=== PATIENT | female | born 1965 | race Caucasian/White ===

== ENCOUNTER → 2024-08-13 | Outpatient (CLI) | payer MEDICAID ==
[~2024-08-13] VITALS: Ht 160 cm; Wt 68.0 kg
[~2024-08-13] MED LIST: ADENOSINE 57 MG in GIVE UN-DILUTED 0 ML IV ONE; ADENOSINE 90 MG/30 ML INJ IV ONE
== END | disposition home or self-care (01) ==
LOC: Rad HDHVI 12:42
PROVIDERS: ATTEND Internal Medicine Cardiovascular Disease
DX: E11.9 Type 2 diabetes mellitus without complications (principal); E78.00 Pure hypercholesterolemia, unspecified; R00.2 Palpitations
CPT/HCPCS: 78452; 93005; 96374; 96375; A9500; J0153

== ENCOUNTER 2025-06-03 12:27 | Inpatient (IN) | payer MEDICARE, MEDICAID ==
[~2025-06-03] VITALS: Ht 167.6 cm; Wt 68.4 kg
[2025-06-03 13:00] VITALS: PULSE 90; RESP 14; O2SAT 92
--- NOTE | 2025-06-03 13:18 | DVH ---
CHEST RADIOGRAPH Indication: epigastric pain Technique: XY CHEST PORTABLE COMPARISON: None FINDINGS: Left IJ Perma catheter tip projects over the cavoatrial junction The cardiac silhouette is enlarged. The lungs demonstrate bilateral patchy airspace opacities. The pu lmonary vasculature is prominent. Small bilateral pleural effusions. There is no pneumothorax. IMPRESSION: As above
[2025-06-03 13:21] LABS: Hematocrit 33.1 % (36.0-46.0); Hemoglobin 10.7 g/dL (12.2-16.2); Mean Corpuscular Hemoglobin 28.5 pg (28.0-32.0); Mean Corpuscular Volume 87.8 fL (80.0-100.0); Nucleated Red Blood Cells % 0.0 %
[2025-06-03 13:28] LABS: Potassium 3.6 mmol/L (3.5-5.1)
[2025-06-03 13:29] LABS: Anion Gap 8 (5-15); Carbon Dioxide 27 mmol/L (20-31); Chloride 98 mmol/L (98-107); Sodium 133 mmol/L (136-145)
[2025-06-03 13:30] LABS: Calcium 7.8 mg/dL (8.7-10.4)
[2025-06-03 13:34] LABS: BUN/Creatinine Ratio 7.4 (10.0-20.0); Blood Urea Nitrogen 34 mg/dL (9-23)
[2025-06-03 13:35] LABS: Glucose 484 mg/dL (74-106)
--- NOTE | 2025-06-03 14:01 | ECG ---
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
[2025-06-03] MEDS: ACETAMINOPHEN 325 MG TAB PO ONE (14:11)
[2025-06-03] MEDS: InsuLIN REG 1unit/0.01ml Soln (100units/ml) IV ONE (14:17)
[2025-06-03] MEDS: CEFEPIME 2GM/50ML NS 50 ML IV ONE (14:21)
[2025-06-03] MEDS: AZITHROMYCIN 250 MG TAB PO ONE (14:21)
--- NOTE | 2025-06-03 14:53 | ED.PDOC ---
SOB-HPI HPI Comments This is a 60 year old female FITZ presenting to the ED with chief complaint of flu-like illness. Patient reports that she has been experiencing a cough with associated fever, nasal congestion, nausea, and general malaise for the past 2 days. Patient relays that she is currently on dialysis M,W,F due to having ESRD, finishing her dialysis today prior to coming into the ED. Patient denies any vomiting, diarrhea, abdominal pain, SOB, or chest pain. 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 SETTER Hx Family History Family History: Reviewed,noncontributory to illness Social History Smoker: Non-Smoker Alcohol: Denies ETOH Use Drugs: Denies Drug Use Lives In: Home Constitutional: reports: fever, malaise; denies: chills, diaphoresis, fatigue, sweats, weakness, others EENTM: reports: nose congestion; denies: blurred vision, double vision, ear bleeding, ear discharge, ear drainage, ear pain, ear ringing, eye pain, eye redness, hearing loss, mouth pain, mouth swelling, nasal discharge, nose bleeding, nose pain, photophobia, tearing, throat pain, throat swelling, voice changes, others Respiratory: reports: cough; denies: hemoptysis, orthopnea, SOB at rest, shortn ess of breath, SOB with excertion, stridor, wheezing, others Cardiovascular: denies: chest pain, dizzy spells, diaphoresis, Dyspnea on exertion, edema, irregular heart beat, left arm pain, lightheadedness, palpitations, PND, syncope, others Gastrointestinal: reports: nausea; denies: abdomen distended, abdominal pain, blood streaked bowels, constipated, diarrhea, dysphagia, difficulty swallowing, hematemesis, melena, poor appetite, poor fluid intake, rectal bleeding, rectal pain, vomiting, others Genitourinary: denies: abnormal vagina bleeding, burning, dyspareunia, dysuria, flank pain, frequency, hematuria, incontinence, pain, , vagina discharge, urgency, others Neurological: denies: dizziness, fainting, headache, left sided numbness, left sided weakness, numbness, paresthesia, pre-existing deficit, right sided numbness, right sided weakness, seizure, speech problems, tingling, tremors, weakness, others Musculoskeletal: denies: back pain, gout, joint pain, joint swelling, muscle pain, muscle stiffness, neck pain, others Integumetry: denies: bruises, change in color, change in hair/nails, dryness, laceration, lesions, lumps, rash, wounds, others Allergic/Immunocompromised: denies: Difficulty Healing, Frequent Infections, Hives, Itching, others Hematologic/Lymphatic: denies: anemia, blood clots, easy bleeding, easy bruising, swollen glands, others Endocrine: denies: excessive hunger, excessive sweating, excessive thirst, excessive urination, flushing, intolerance to cold, intolerance to heat, unexplained weight gain, unexplained weight loss, others Psychiatric: denies: anxiety, bipolar disorder, depression, hopeless, panic disorder, schizophrenia, sleepless, suicidal, others All Other Systems: Reviewed and Negative Physical Exam General Appearance: No Apparent Distress, Other (Pleasantly confused) HEENT: Normal ENT Inspection, Pharynx Normal, TMs Normal Neck: Full Range of Motion, Non-Tender, Normal, Normal Inspection Respiratory: Chest Non-Tender, Lungs Clear, No Accessory Muscle Use, No Respiratory Distress, Normal Breath Sounds Cardiovascular: No Edema, No JVD, No Murmur, No Gallop, Normal Peripheral Pulses, Regular Rate/Rhythm Breast Exam: Deferred Gastrointestinal: No Organomegaly, Non Tender, No Pulsatile Mass, Normal Bowel Sounds, Soft Genitalia: Deferred Pelvic: Deferred Rectal: Deferred Extremities: No calf tenderness, Normal capillary refill, Normal inspection, Normal range of motion, Non-tender, No pedal edema Musculoskeletal : Apperance: Normal Neurologic: Alert, materials mgmt tech II-XII nml as Tested, No Motor Deficits, Normal Affect, Normal Mood, No Sensory Deficits Cerebellar Function: Normal Reflexes: Normal Skin: Dry, Normal Color, Warm Lymphatic: No Adenopathy Was a procedure done? Was a procedure done?: No Differential Dx Differential Diagnosis: CHF, COPD, Pneumonia, Sinusitis, URI X-Ray, Labs, Meds, VS Vital Signs Date Time Temp Pulse Resp B/P (MAP) Pulse Ox O2 Delivery O2 Flow Rate FiO2 06/03/25 15:08 99.0 06/03/25 15:00 99.0 85 17 147/79 (101) 95 99.0 06/03/25 14:11 100.8 06/03/25 13:00 100.8 90 14 160/92 (114) 92 100.8 06/03/25 13:00 90 14 92 Room Air* 0 21 06/03/25 12:48 90 12 160/92 (114) 92 06/03/25 12:36 88 06/03/25 12:33 98.2 82 18 192/103 (132) 99 98.2 Lab Test 06/03/25 14:15 06/03/25 12:38 Range/Units Lactic Acid Level 1.4 0.4-2.0 mmol/L White Blood Count 11.6 H 4.4-10.8 10^3/uL Red Blood Count 3.77 L 4.0-5.20 10^6/uL Hemoglobin 10.7 L 12.2-16.2 g/dL Hematocrit 33.1 L 36.0-46.0 % Mean Corpuscular Volume 87.8 80.0-100.0 fL Mean Corpuscular Hemoglobin 28.5 28.0-32.0 pg Mean Corpuscular Hemoglobin Concent 32.5 32.0-36.0 g/dL Red Cell Distribution Width 18.1 H 11.8-14.3 % Platelet Count 223 140-450 10^3/uL Mean Platelet Volume 7.5 6.9-10.8 fL Neutrophils (%) (Auto) 94.4 H 37.0-80.0 % Lymphocytes (%) (Auto) 2.9 L 10.0-50.0 % Monocytes (%) (Auto) 2.2 0.0-12.0 % Eosinophils (%) (Auto) 0.2 0.0-7.0 % Basophils (%) (Auto) 0.3 0.0-2.0 % Neutrophils # (Auto) 10.9 H 1.6-8.6 10 ^3/uL Lymphocytes # (Auto) 0.3 L 0.4-5.4 10 ^3/uL Monocytes # (Auto) 0.3 0-1.3 10 ^3/uL Eosinophils # (Auto) 0 0-0.8 10 ^3/uL Basophils # (Auto) 0 0-0.2 10 ^3/uL Nucleated Red Blood Cells 0.0 % Sodium Level 133 L 136-145 mmol/L Potassium Level 3.6 3.5-5.1 mmol/L Chloride Level 98 98-107 mmol/L Carbon Dioxide Level 27 20-31 mmol/L Anion Gap 8 5-15 Blood Urea Nitrogen 34 H 9-23 mg/dL Creatinine 4.60 H 0.550-1.02 mg/dL Glomerular Filtration Rate Calc 10 >90 mL/min BUN/Creatinine Ratio 7.4 L 10.0-20.0 Serum Glucose 484 *H 74-106 mg/dL Calcium Level 7.8 L 8.7-10.4 mg/dL Troponin I High Sensitivity 7 </=34 ng/L Current Medications Medications (Trade) Dose Ordered Sig/Laly Route Start Time Stop Time Status Last Admin Insulin Human Regular (InsuLIN R) 10 units ONCE ONCE IV 06/03/25 14:00 06/03/25 14:07 DC 06/03/25 14:17 Vancomycin HCl 200 ml @ 200 mls/hr ONCE ONCE IV 06/03/25 14:00 06/03/25 14:59 DC 06/03/25 15:13 Azithromycin (Zithromax Tablet) 500 mg ONCE ONCE PO 06/03/25 14:00 06/03/25 14:07 DC 06/03/25 14:21 Cefepime HCl 50 ml @ 50 mls/hr ONCE ONCE IV 06/03/25 14:00 06/03/25 14:59 DC 06/03/25 14:21 Acetaminophen (Tylenol Tablet) 650 mg ONCE ONCE PO 06/03/25 14:00 06/03/25 14:07 DC 06/03/25 14:11 Time of 1ST Reevaluation: 15:51 Reevaluation 1ST: Unchanged Patient Education/Counseling: Diagnosis, Treatment Family Education/Counseling: No Family Present SEPSIS Sepsis Screen Date sepsis recognized/suspect: Jun 03, 2025 Time Sepsis recognized/suspect: 1233 Recent Procedure: No On Antibiotic Therapy: No Respiratory Rate >20: No Heart Rate >90: No Temp<36 C (96.8 F) or >38.3 C: No SBP <90 or MAP <65 mmHG: No New Acute Mental Status Change: No Is the patient on CPAP, BIPAP,: No Physician Orders Chest Portable (06/03/25 12:44) Blood Culture (06/03/25 13:57) Vital Signs Date Time Temp Pulse Resp B/P (MAP) Pulse Ox O2 Delivery O2 Flow Rate FiO2 06/03/25 15:08 99.0 06/03/25 15:00 99.0 85 17 147/79 (101) 95 99.0 06/03/25 14:11 100.8 06/03/25 13:00 100.8 90 14 160/92 (114) 92 100.8 06/03/25 13:00 90 14 92 Room Air* 0 21 06/03/25 12:48 90 12 160/92 (114) 92 06/03/25 12:36 88 06/03/25 12:33 98.2 82 18 192/103 (132) 99 98.2 Laboratory Tests Test 06/03/25 12:38 06/03/25 14:15 White Blood Count 11.6 10^3/uL (4.4-10.8) H Lactic Acid Level 1.4 mmol/L (0.4-2.0) Medications Medications Dose Ordered Sig/Laly Route Start Time Stop Time Status Last Admin Dose Admin Acetaminophen 650 mg ONCE ONCE PO 06/03/25 14:00 06/03/25 14:07 DC 06/03/25 14:11 Azithromycin 500 mg ONCE ONCE PO 06/03/25 14:00 06/03/25 14:07 DC 06/03/25 14:21 Cefepime HCl 50 ml @ 50 mls/hr ONCE ONCE IV 06/03/25 14:00 06/03/25 14:59 DC 06/03/25 14:21 Insulin Human Regular 10 units ONCE ONCE IV 06/03/25 14:00 06/03/25 14:07 DC 06/03/25 14:17 Vancomycin HCl 200 ml @ 200 mls/hr ONCE ONCE IV 06/03/25 14:00 06/03/25 14:59 DC 06/03/25 15:13 Departure 1 Departure Time of Disposition: 15:29 (Patient presents with concern for sepsis likely secondary to pneumonia. Patient is a volume overloaded and we will not give patient a volume load.) Impression: Primary Impression: Pneumonia Qualified Codes: J18.9 - Pneumonia, unspecified organism Additional Impressions: Acute metabolic encephalopathy ESRD (end stage renal disease) Disposition: 09 ADMITTED INPATIENT Admit to: Med Surg Condition: Guarded Critical Care Note Critical Care Time?: Yes Critical care comment: Concern for sepsis Authorized and Performed by: Matty Serrano MD Total critical care time: Approximately 44 minutes Due to a high probability of clinically significant, life threatening deterioration, the patient required my highest level of preparedness to intervene emergently and I personally spent this critical care time directly and personally managing the patient. This critical care time included obtaining a history; examining the patient; pulse oximetry; ordering and review of studies; arranging urgent treatment with development of a management plan; evaluation of patient's response to treatment; frequent reassessment; and, discussions with other providers. This critical care time was performed to assess and manage the high probability of imminent, life-threatening deterioration that could result in multi-organ failure. It was exclusive of separately billable procedures and treating other patients and teaching time. Please see my other sections and the rest of the note for further information on patient assessment and treatment. Stability Stability form required: No Heart Score Heart Score: Heart Score Response (Comments) Value History N/A 0 EKG N/A 0 Age N/A 0 Risk Factors N/A 0 Troponin N/A 0 Total 0 I personally scribed for MATTY SERRANO MD ([email or web address]) on 06/03/25 at 14:53. Electronically submitted by Dhruv Barnes ([email or web address]). MATTY SERRANO MD Jun 03, 2025 14:53
[2025-06-03] MEDS: VANCOMYCIN 1GM/200ML PM 200 ML IV ONE (15:13)
[2025-06-03] MEDS ORDERED: DOCUSATE SOD 100 MG CAP PO PRN (16:15)
[2025-06-03] MEDS ORDERED: DEXTROSE (50%) 50ML SYRG IV PRN (16:15)
[2025-06-03] MEDS ORDERED: NITROGLYCERIN 0.4 MG SL TAB SL PRN (17:15)
[2025-06-03] MEDS ORDERED: MORPHINE SULFATE INJ 2 MG/ml SYRG IV PRN (17:15)
--- NOTE | 2025-06-03 17:29 | DVHHP2 ---
History of Present Illness Reason for Visit: Pneumonia, unspecified organism History of Present Illness The patient is a 60-year-old female with past medical history of end-stage renal disease on hemodialysis --, hyperlipidemia, DM, anemia, and hypertension who presented to [facility] ED with complaint of fever. Patient reports she has been experiencing fever, associated with cough, nasal congestion, nausea, and general malaise for the past 2 days. Patient was seen and evaluated in the ED, laboratory data shows WBC 11.6, hemoglobin 10.7, hematocrit 33.1, platelets 223, sodium 133, potassium 3.6, BUN 34, creatinine 4.6, glucose 484, calcium 7.8, troponin 7, blood pressure 147/79, heart rate 85, temperature 100.8 F trending down to 99.0 F, O2 saturation 95% on room air. Chest x-ray revealing left IJ Perma catheter tips project over the cavoatrial junction. Please see medication orders section in the computer. On my assessment, the patient denied chest pain, no headache, no dizziness, no diaphoresis, no shortness of breath, no nausea, no vomiting, no fever, no chills. Patient was admitted for further evaluation and medical management. Past Medical History ESRD, HLD, HTN, DM, Anemia Past Surgical History Left IJ Perma catheter Family History Reviewed, noncontributory to the management of this case. Past Social History The patient lives at home, denies smoking, alcohol or illicit drugs abuse. Review of Systems Constitutional: Yes: Fever, Weakness; No: Chills, Sweats, Malaise, Other Eyes: No: Pain, Vision change, Conjunctivae inflammation, Eyelid inflammation, Other, Redness ENT: No: Ear pain, Ear discharge, Nose pain, Nose discharge, Nose congestion, Mouth pain, Mouth swelling, Throat pain, Throat swelling, Other Respiratory: No: Cough, Dry, Shortness of breath, SOB with excertion, Wheezing, Hemoptysis, Pleuritic Pain, Sputum, Wheezing, Other Cardiovascular: Other (Left IJ Perma catheter.); No: Chest Pain, Palpitations, Orthopnea, Paroxysmal Noc. Dyspnea, Edema, Lt Headedness Gastrointestinal: Nausea, Vomiting; No: Abdominal Pain, Diarrhea, Constipation, Melena, Hematochezia, Other Genitourinary: No Dysuria, No Frequency, No Incontinence, No Hematuria, No Retention; Other (On hemodialysis) Musculoskeletal: No: other, neck pain, shoulder pain, arm pain, back pain, hand pain, leg pain, foot pain Skin: No: Rash, Lesions, Jaundice, Bruising, Other Neurological: No: Weakness, Numbness, Incoordination, Change in speech, Confusion, Seizures, Other Allergies: Coded Allergies: No Known Drug Allergy (Verified Allergy, Unknown, 08/13/24) Medications Current Medications Medications Dose Ordered Sig/Laly Route Start Time Stop Time Status Last Admin Dose Admin Azithromycin 250 ml @ 125 mls/hr DAILY IV 06/04/25 10:00 UNV Ceftriaxone Sodium 50 ml @ 100 mls/hr DAILY@09 IV 06/04/25 09:00 Multivit/Ca Carb/ B Cmplx/FA/Prenat 1 tab DAILY PO 06/04/25 10:00 Sevelamer HCl 800 mg TIDWM PO 06/03/25 18:00 Aspirin 81 mg DAILY PO 06/04/25 10:00 Atorvastatin Calcium 20 mg HS PO 06/03/25 22:00 Famotidine 20 mg DAILY IV 06/04/25 10:00 UNV Metoprolol Tartrate 50 mg BID PO 06/03/25 22:00 Hydralazine HCl 10 mg Q6HP PRN IV 06/03/25 16:15 Sodium Chloride 10 ml Q8HR IV 06/03/25 22:00 Acetaminophen/ Hydrocodone Bitart 1 tab Q4HP PRN PO 06/03/25 16:15 Ondansetron HCl 4 mg Q4HP PRN IV 06/03/25 16:15 UNV Docusate Sodium 100 mg BIDPRN PRN PO 06/03/25 16:15 Acetaminophen 650 mg Q6HP PRN PO 06/03/25 16:15 Diagnostic Test (Pha) 1 strip IQ4HR 06/03/25 20:00 Insulin Human Regular IQ4HR SC 06/03/25 20:00 Dextrose 50 ml UD PRN IV 06/03/25 16:15 Exam Vital Signs Vital Signs Date Time Temp Pulse Resp B/P (MAP) Pulse Ox O2 Delivery O2 Flow Rate FiO2 06/03/25 15:08 99.0 06/03/25 15:00 85 17 147/79 (101) 95 06/03/25 13:00 Room Air* 0 21 General Appearance: Alert, Oriented X3, Cooperative, No acute distress HEENT: Atraumatic, PERRLA, EOMI, Mucous membr. moist/pink Respiratory: Normal air movement Cardiovascular: Regular rate, Normal S1, Normal S2, No murmurs Abdominal: Normal bowel sounds, Soft, No tenderness, No hepatospenomegaly, No masses Extremities: No clubbing, No cyanosis, No edema, Normal pulses, No tenderness/swelling Skin: No rashes, No breakdown, No significant lesion Neuro: Normal speech, Normal tone, Sensation intact, Cranial nerves 3-12 NL, Reflexes 2+, Other (Generalized weakness) Psych/Mental Status: Mental status NL, Mood NL Labs/Xrays Labs Test 06/03/25 14:15 06/03/25 12:38 Range/Units Lactic Acid Level 1.4 0.4-2.0 mmol/L White Blood Count 11.6 H 4.4-10.8 10^3/uL Red Blood Count 3.77 L 4.0-5.20 10^6/uL Hemoglobin 10.7 L 12.2-16.2 g/dL Hematocrit 33.1 L 36.0-46.0 % Mean Corpuscular Volume 87.8 80.0-100.0 fL Mean Corpuscular Hemoglobin 28.5 28.0-32.0 pg Mean Corpuscular Hemoglobin Concent 32.5 32.0-36.0 g/dL Red Cell Distribution Width 18.1 H 11.8-14.3 % Platelet Count 223 140-450 10^3/uL Mean Platelet Volume 7.5 6.9-10.8 fL Neutrophils (%) (Auto) 94.4 H 37.0-80.0 % Lymphocytes (%) (Auto) 2.9 L 10.0-50.0 % Monocytes (%) (Auto) 2.2 0.0-12.0 % Eosinophils (%) (Auto) 0.2 0.0-7.0 % Basophils (%) (Auto) 0.3 0.0-2.0 % Neutrophils # (Auto) 10.9 H 1.6-8.6 10 ^3/uL Lymphocytes # (Auto) 0.3 L 0.4-5.4 10 ^3/uL Monocytes # (Auto) 0.3 0-1.3 10 ^3/uL Eosinophils # (Auto) 0 0-0.8 10 ^3/uL Basophils # (Auto) 0 0-0.2 10 ^3/uL Nucleated Red Blood Cells 0.0 % Sodium Level 133 L 136-145 mmol/L Potassium Level 3.6 3.5-5.1 mmol/L Chloride Level 98 98-107 mmol/L Carbon Dioxide Level 27 20-31 mmol/L Anion Gap 8 5-15 Blood Urea Nitrogen 34 H 9-23 mg/dL Creatinine 4.60 H 0.550-1.02 mg/dL Glomerular Filtration Rate Calc 10 >90 mL/min BUN/Creatinine Ratio 7.4 L 10.0-20.0 Serum Glucose 484 *H 74-106 mg/dL Calcium Level 7.8 L 8.7-10.4 mg/dL Troponin I High Sensitivity 7 </=34 ng/L PATIENT: ADRYAN LACY ACCT: [id number] UNIT: [id number] : 1965 LOC: ER ROOM / BED: / AGE / SEX: 60 / F ADM STATUS: REG ER SERVICE 1244 ORDERING PHYSICIAN: MATTY GARDUNO MD PROCEDURE(s): CXRP - CHEST PORTABLE REASON: epigastric pain ORDER NUMBER(s): [id number], ACCESSION NUMBER(s): [id number] CHEST RADIOGRAPH Indication: epigastric pain Technique: XY CHEST PORTABLE COMPARISON: None FINDINGS: Left IJ Perma catheter tip projects over the cavoatrial junction The cardiac silhouette is enlarged. The lungs demonstrate bilateral patchy airspace opacities. The pulmonary vasculature is prominent. Small bilateral pleural effusions. There is no pneumothorax. SEPSIS Sepsis Screen Date sepsis recognized/suspect: Jun 03, 2025 Time Sepsis recognized/suspect: 1330 Recent Procedure: No On Antibiotic Therapy: No Respiratory Rate >20: No Heart Rate >90: Yes Temp<36 C (96.8 F) or >38.3 C: Yes SBP <90 or MAP <65 mmHG: No New Acute Mental Status Change: Yes Is the patient on CPAP, BIPAP,: No Physician Orders Chest Portable (06/03/25 12:44) Blood Culture (06/03/25 13:57) Azithromycin 500mg/ 250ml (Zithromax 50 (06/04/25 10:00) Ceftriaxone 1gm/50ml D5w (Rocephin) (06/04/25 09:00) B-Complex W/ C & Folic Tablet (Nephro-Vi (06/04/25 10:00) Sevelamer (Renagel) (06/03/25 18:00) *[facility] (06/03/25 16:13) Aspirin Tablet (06/04/25 10:00) Atorvastatin (Lipitor) (06/03/25 22:00) Famotidine Injection (Pepcid Injection) (06/04/25 10:00) Metoprolol Tartrate Tablet (Lopressor Ta (06/03/25 22:00) Hydralazine Injection (Apresoline Inject (06/03/25 16:15) Allergies (06/03/25 16:13) Code Status (06/03/25 16:13) Renal Standard(2gna,3gk,Lopho) (06/03/25 Dinner) Sodium Chloride Lock (Saline Lock Ns) (06/03/25 22:00) Oxygen Per Hour (06/03/25 16:13) Hydrocodone-Acet 5/325mg Tab ([place] 5/32 (06/03/25 16:15) Ondansetron Hcl (Zofran) (06/03/25 16:15) Docusate Sodium Capsule (Colace Capsule) (06/03/25 16:15) Complete Blood Count (06/04/25 04:00) Comprehensive Metabolic Panel (06/04/25 04:00) Condition: Serious (06/03/25 16:13) Acetaminophen Tablet (Tylenol Tablet) (06/03/25 16:15) Bedrest With Bathroom Privileg (06/03/25 16:13) Sequential Compression Device (06/03/25 ) Glucose Blood (Accu-Chek Comfort Curve T (06/03/25 20:00) Insulin R (Human) (Insulin R) (06/03/25 20:00) Dextrose 50% Syringe (06/03/25 16:15) Vital Signs Date Time Temp Pulse Resp B/P (MAP) Pulse Ox O2 Delivery O2 Flow Rate FiO2 06/03/25 15:08 99.0 06/03/25 15:00 99.0 85 17 147/79 (101) 95 99.0 06/03/25 14:11 100.8 06/03/25 13:00 100.8 90 14 160/92 (114) 92 100.8 06/03/25 13:00 90 14 92 Room Air* 0 21 06/03/25 12:48 90 12 160/92 (114) 92 06/03/25 12:36 88 06/03/25 12:33 98.2 82 18 192/103 (132) 99 98.2 Laboratory Tests Test 06/03/25 12:38 06/03/25 14:15 White Blood Count 11.6 10^3/uL (4.4-10.8) H Lactic Acid Level 1.4 mmol/L (0.4-2.0) Medications Medications Dose Ordered Sig/Laly Route Start Time Stop Time Status Last Admin Dose Admin Acetaminophen 650 mg ONCE ONCE PO 06/03/25 14:00 06/03/25 14:07 DC 06/03/25 14:11 650 MG Azithromycin 500 mg ONCE ONCE PO 06/03/25 14:00 06/03/25 14:07 DC 06/03/25 14:21 500 MG Cefepime HCl 50 ml @ 50 mls/hr ONCE ONCE IV 06/03/25 14:00 06/03/25 14:59 DC 06/03/25 14:21 50 MLS/HR Insulin Human Regular 10 units ONCE ONCE IV 06/03/25 14:00 06/03/25 14:07 DC 06/03/25 14:17 10 UNITS Vancomycin HCl 200 ml @ 200 mls/hr ONCE ONCE IV 06/03/25 14:00 06/03/25 14:59 DC 06/03/25 15:13 200 MLS/HR Assessment/Plan Assessment/Plan Pneumonia, unspecified organism Generalized weakness Acute metabolic encephalopathy ESRD (end stage renal disease) Diabetes mellitus with hyperglycemia Plan 1. Admit to telemetry units 2. Breathing treatment 3. Pain control management 4. IV antibiotic management 5. Management of fluids and electrolytes 6. Consultation for Nephrology 7. Diagnostic test chest x-ray 8. DVT prophylaxis on aspirin 9. Repeat labs CBC, CMP in a.m. 10. Home medication reviewed and reconciled 11. Continue with current medical management 12. Treatment plan discussed with patient and RN. Patient verbalized understanding. Plan discussed with: Patient, Other (RN) My Orders Orders - ALON GARDNER DNP Procedure Category Date Status Time Azithromycin 500mg/ PHA 06/04/25 Logged 250ml (Zithromax 50 10:00 Ceftriaxone 1gm/50ml PHA 06/04/25 In Process D5w (Rocephin) 09:00 B-Complex W/ C & PHA 06/04/25 In Process Folic Tablet 10:00 Sevelamer (Renagel) PHA 06/03/25 In Process 18:00 *[facility] CONS 06/03/25 Transmitted -[place] 16:13 Aspirin Tablet PHA 06/04/25 In Process 10:00 Atorvastatin (Lipitor) PHA 06/03/25 In Process 22:00 Famotidine Injection PHA 06/04/25 Logged (Pepcid Injection) 10:00 Metoprolol Tartrate PHA 06/03/25 In Process Tablet (Lopressor Ta 22:00 Hydralazine Injection PHA 06/03/25 In Process (Apresoline Inject 16:15 Allergies BOUCHRA 06/03/25 In Process 16:13 Code Status CODE 06/03/25 Transmitted 16:13 Renal DIET 06/03/25 Transmitted Standard(2gna,3gk,Lopho) Dinner Sodium Chloride Lock PHA 06/03/25 In Process (Saline Lock Ns) 22:00 Oxygen Per Hour RT 06/03/25 Transmitted 16:13 Hydrocodone-Acet PHA 06/03/25 In Process 5/325mg Tab ([place] 16:15 Ondansetron Hcl PHA 06/03/25 Logged (Zofran) 16:15 Docusate Sodium PHA 06/03/25 In Process Capsule (Colace 16:15 Complete Blood Count LAB 06/04/25 Verified 04:00 Comprehensive LAB 06/04/25 Verified Metabolic Panel 04:00 Condition: Serious BOUCHRA 06/03/25 In Process 16:13 Acetaminophen Tablet PHA 06/03/25 In Process (Tylenol Tablet) 16:15 Bedrest With Bathroom BOUCHRA 06/03/25 In Process Privileg 16:13 Sequential BOUCHRA 06/03/25 In Process Compression Device Glucose Blood PHA 06/03/25 In Process (Accu-Chek Comfort 20:00 Insulin R (Human) PHA 06/03/25 In Process (Insulin R) 20:00 Dextrose 50% Syringe PHA 06/03/25 In Process 16:15 Problem List: (1) Pneumonia, unspecified organism (2) Generalized weakness (3) Acute metabolic encephalopathy (4) ESRD (end stage renal disease) (5) Diabetes mellitus with hyperglycemia Date of Service: Jun 03, 2025 Billing Provider: ALON GARDNER DNP Common Visit Codes: [id number] INP/OBS CARE (HIGH) ALON GARDNER DNP Jun 03, 2025 17:29
[2025-06-03] MEDS: SEVELAMER 800 MG TAB PO SCH (18:19)
[2025-06-03 19:50] VITALS: PULSE 80; RESP 11; O2SAT 93
[2025-06-03] MEDS: ACCU-CHEK COMFORT CURVE STRIP VI SCH (20:00)
[2025-06-03] MEDS: InsuLIN REG 1unit/0.01ml Soln (100units/ml) SC SCH (20:00)
[2025-06-03] MEDS: AZITHROMYCIN 500MG/ 250ML 250 ML IV SCH (20:34)
[2025-06-03] MEDS: METOPROLOL TARTRATE 50 MG TAB PO SCH (22:06)
[2025-06-03] MEDS: SODIUM CHLOR 0.9% PF (SALINE LOCK) 10ML VIAL/SYR IV SCH (22:06)
[2025-06-03] MEDS: ATORVASTATIN 20 MG TAB PO SCH (22:06)
[2025-06-03] MEDS: ONDANSETRON HCL 4 MG/2 ML VIAL IV PRN (23:22)
[2025-06-03 23:55] VITALS: BP 157/85; PULSE 67; RESP 17; TEMP 98.7; O2SAT 96
[2025-06-04 01:27] VITALS: BP 157/85; PULSE 69; RESP 17; TEMP 98.7; O2SAT 96
[2025-06-04] MEDS: hydrALAZINE HCL 20 MG/ML VL IV PRN (03:03)
[2025-06-04 05:00] VITALS: BP 135/74; PULSE 72; RESP 17; TEMP 98.4; O2SAT 96
[2025-06-04 06:27] LABS: Alanine Aminotransferase 14 U/L (7-40); Alkaline Phosphatase 68 U/L (46-116); Anion Gap 11 (5-15); BUN/Creatinine Ratio 8.6 (10.0-20.0); Calcium 8.9 mg/dL (8.7-10.4); Carbon Dioxide 24 mmol/L (20-31); Chloride 100 mmol/L (98-107); Potassium 4.2 mmol/L (3.5-5.1)
[2025-06-04 06:29] LABS: Albumin 3.2 g/dL (3.2-4.8); Bilirubin, Total 0.2 mg/dL (0.2-1.0); Blood Urea Nitrogen 45 mg/dL (9-23); Sodium 135 mmol/L (136-145); Total Protein 5.6 g/dL (5.7-8.2)
[2025-06-04 07:03] LABS: Glucose 94 mg/dL (74-106)
[2025-06-04 08:00] VITALS: PULSE 76; RESP 20; O2SAT 95
[2025-06-04] MEDS: CALCIUM ACETATE 667 MG CAP PO SCH (08:00)
[2025-06-04 09:00] VITALS: BP 153/88; PULSE 76; RESP 20; TEMP 98; O2SAT 95
[2025-06-04] MEDS: cefTRIAXone 1GM/50ML D5W 50 ML IV SCH (09:00)
[2025-06-04] MEDS: B-COMPLEX W/ C & FOLIC ACID(NEPHROVITE TAB) PO SCH (09:18)
[2025-06-04] MEDS: FAMOTIDINE (10MG/ML) 2ML VL IV SCH (09:18)
[2025-06-04] MEDS: ACETAMINOPHEN 325 MG TAB PO PRN (09:19)
[2025-06-04] MEDS ORDERED: METO-158 PO (11:43)
--- NOTE | 2025-06-04 12:35 | DVHPN2 ---
Subjective Still confused, no cough, no other pain endorsed. Reviewed: H&P Changes from previous H/P or p: No Changes General: Per HPI Eyes: No Pain, No Vision change, No Conjunctivae inflammation, No Eyelid inflammation, No Other, No Redness ENT: No Ear pain, No Ear discharge, No Nose pain, No Nose discharge, No Nose congestion, No Mouth pain, No Mouth swelling, No Throat pain, No Throat swelling, No Other Cardiovascular: No Chest Pain, No Palpitations, No Orthopnea, No Paroxysmal Noc. Dyspnea, No Edema, No Lt Headedness; Other (Left IJ Perma catheter.) Respiratory: No Cough, No Dry, No Shortness of breath, No SOB with excertion, No Wheezing, No Hemoptysis, No Pleuritic Pain, No Sputum, No Other Gastrointestinal: Nausea, Vomiting; No Abdominal Pain, No Diarrhea, No Constipation, No Melena, No Hematochezia, No Other Genitourinary: No Dysuria, No Frequency, No Incontinence, No Hematuria, No Retention; Other (On hemodialysis) Musculoskeletal: No other, No neck pain, No shoulder pain, No arm pain, No back pain, No hand pain, No leg pain, No foot pain Skin: No Rash, No Lesions, No Jaundice, No Bruising, No Other Objective Vitals Vital Signs Date Time Temp Pulse Resp B/P (MAP) Pulse Ox O2 Delivery O2 Flow Rate FiO2 06/04/25 09:19 76 153/88 06/04/25 09:00 98.0 20 95 98.0 06/04/25 08:00 Room Air* 0 21 Intake/Output Intake and Output 06/04/25 07:00 Intake Total 410 ml Balance 410 ml Intake Oral 160 ml IV Total 250 ml # Voids 1 Exam GEN: Healthy appearing, well-developed, NAD. HEENT: NC/AT; MMM. CV: RRR, no m/r/g. LUNGS: Decreased air entry in all lung mehta. ABD: Soft, NT/ND, NBS, no masses or organomegaly. EXT: skin Warm, well perfused. no rashes. No clubbing, cyanosis, or edema. NEURO: Ambulating with no limitations. No focal deficits. Medications Current Medications Medications Dose Ordered Sig/Laly Route Start Time Stop Time Status Last Admin Dose Admin Ceftriaxone Sodium 50 ml @ 100 mls/hr DAILY@09 IV 06/04/25 09:00 06/04/25 12:23 100 MLS/HR Multivit/Ca Carb/ B Cmplx/FA/Prenat 1 tab DAILY PO 06/04/25 10:00 06/04/25 09:18 1 TAB Sevelamer HCl 800 mg TIDWM PO 06/03/25 18:00 06/03/25 18:19 800 MG Aspirin 81 mg DAILY PO 06/04/25 10:00 06/04/25 09:19 81 MG Atorvastatin Calcium 20 mg HS PO 06/03/25 22:00 06/03/25 22:06 20 MG Famotidine 20 mg DAILY IV 06/04/25 10:00 Metoprolol Tartrate 50 mg BID PO 06/03/25 22:00 06/04/25 09:19 50 MG Hydralazine HCl 10 mg Q6HP PRN IV 06/03/25 16:15 06/04/25 03:03 10 MG Sodium Chloride 10 ml Q8HR IV 06/03/25 22:00 06/04/25 06:28 10 ML Acetaminophen/ Hydrocodone Bitart 1 tab Q4HP PRN PO 06/03/25 16:15 Ondansetron HCl 4 mg Q4HP PRN IV 06/03/25 16:15 06/03/25 23:22 4 MG Docusate Sodium 100 mg BIDPRN PRN PO 06/03/25 16:15 Acetaminophen 650 mg Q6HP PRN PO 06/03/25 16:15 06/04/25 09:19 650 MG Diagnostic Test (Pha) 1 strip IQ4HR 06/03/25 20:00 06/04/25 11:53 1 STRIP Insulin Human Regular IQ4HR SC 06/03/25 20:00 06/04/25 01:51 2 UNITS Dextrose 50 ml UD PRN IV 06/03/25 16:15 Nitroglycerin 0.4 mg Q5MINP PRN SL 06/03/25 17:15 Morphine Sulfate 2 mg Q30M PRN IV 06/03/25 17:15 Calcium Acetate 667 mg TIDWMEALS PO 06/04/25 08:00 Laboratory Results Laboratory Tests 06/03/25 12:38 06/04/25 05:35 Chemistry Test 06/03/25 12:38 06/04/25 05:35 Calcium Level 7.8 mg/dL (8.7-10.4) L 8.9 mg/dL (8.7-10.4) Albumin 3.2 g/dL (3.2-4.8) Total Protein 5.6 g/dL (5.7-8.2) L LFT Test 06/04/25 05:35 Alanine Aminotransferase (ALT) 14 U/L (7-40) Alkaline Phosphatase 68 U/L (46-116) Aspartate Amino Transferase (AST) 34 U/L (13-40) Total Bilirubin 0.2 mg/dL (0.2-1.0) Labs and/or images reviewed: Labs reviewed by me, Image(s) reviewed by me Assessment/Plan Assessment/Plan The patient is a 60-year-old female with past medical history of end-stage renal disease on hemodialysis --, hyperlipidemia, DM, anemia, and hypertension who presented to [facility] ED with complaint of fever. Patient reports she has been experiencing fever, associated with cough, nasal congestion, nausea, and general malaise for the past 2 days. 06/04- patient with history of ESRD, diabetes, hypertension here with fever cough nasal congestion. COVID fluids not done. Admitted for pneumonia. On ceftriaxone. I will add azithromycin. We will get COVID flu. Continue treatment. Nephrology consulted for continuation of dialysis MWF. SSI for diabetes. Continue home medications. Blood cultures were taken. Given chronic dialysis bacteremia is of concern. There is no urine, possible patient is anuric ESRD. -patient is confused, altered A&O x1 unable to answer any ROS questions. there is no missed dialysis days. Daughter endorsed to nurse that patient is not at baseline. We will get workup for encephalopathy. Patient is declining labs, treatments. We will order TSH, ammonia, ABG, UDS, blood drug screen, CMP. Question of alcohol withdrawal or viral encephalitis? Acute toxic metabolic encephalopathy Acute pneumonia, Gram-negative Gram-positive possible ESRD on HD, TTS schedule Hyperlipidemia Diabetes Anemia Hypertension -IV antibiotics -AMS workup -Nephrology consult TTS schedule -Continue home medications liquid diet dvt ppx - lovenox gi ppx - protonix medsurg full code Plan discussed with: Patient Date of Service: Jun 04, 2025 Billing Provider: MELQUIADES TREJO MD Common Visit Codes: [id number] INP/OBS CARE(HIGH) MELQUIADES TREJO MD Jun 04, 2025 12:35
[2025-06-04] MEDS ORDERED: FERR325T20 PO (12:41)
[2025-06-04] MEDS ORDERED: ATOR20TA50 PO (12:41)
[2025-06-04] MEDS ORDERED: INSUINJ37 SC (12:41)
[2025-06-04] MEDS ORDERED: INSLISPI SC (12:41)
[2025-06-04] MEDS ORDERED: FURO40TA4 PO (12:41)
[2025-06-04] MEDS ORDERED: ASPI-543 PO (12:41)
[2025-06-04] MEDS ORDERED: AZITHROMYCIN 500MG/ 250ML 250 ML IV ONE (12:45)
[2025-06-04] MEDS ORDERED: CLON0.1T PO (12:55)
[2025-06-04] MEDS ORDERED: HALOPERIDOL LACTATE 5 MG/ML INJ VIAL IM ONE (14:30)
--- NOTE | 2025-06-04 15:11 | DVHINCON2 ---
Date of service: Jun 04, 2025 Reason for Consultation End-stage renal disease History of Present Illness 60-year-old female unable to obtain history as patient is currently confused. Patient's son at bedside does not know full medical history. Patient presents to the hospital complaining of weakness. It was admitted due to change in mental state and shortness of breath. Nephrology consulted for dialysis. Patient's hospital course thus far has been notable for confusion. Allergies: Coded Allergies: No Known Drug Allergy (Verified Allergy, Unknown, 08/13/24) Home Meds Reported Medications Clonidine Hydrochloride (Clonidine Hcl) 0.1 Mg Tab, 0.1 MG PO BID PRN for SBP>170or DBP>90 for 30 Days, MG 06/04/25 Insulin Lispro (Human) (Humalog) 100 Unit/Ml Inj, 10 UNIT SC TID, INJ 06/04/25 Insulin Glargine (Lantus Solostar) 100 Unit/Ml Inj, 25 UNIT SC HS, INJ 06/04/25 Furosemide (Furosemide) 40 Mg Tab, 40 MG PO DAILY for 30 Days 06/04/25 Ferrous Sulfate (Ferosul) 325 Mg Tab, 325 MG PO DAILY, TAB 06/04/25 Atorvastatin Calcium (ATORVASTATIN CALCIUM) 20 Mg Tab, 1 TAB PO DAILY, #30 TAB 5 Refills 06/04/25 Aspirin (Aspir-Low) 81 Mg Tab, 81 MG PO DAILY for 30 Days, MG 06/04/25 Metoprolol Tartrate (Metoprolol Tartrate) 50 Mg Tab, 50 MG PO BID for 30 Days, MG 06/04/25 Current Medications Current Medications Medications (Trade) Dose Ordered Sig/Laly Route PRN Reason Start Time Stop Time Status Last Admin Azithromycin 250 ml @ 125 mls/hr DAILY IV 06/04/25 10:00 06/03/25 21:41 DC Ceftriaxone Sodium 50 ml @ 100 mls/hr DAILY@09 IV 06/04/25 09:00 Multivit/Ca Carb/ B Cmplx/FA/Prenat (Nephro-Sandra Tablet) 1 tab DAILY PO 06/04/25 10:00 06/04/25 09:18 Sevelamer HCl (Renagel) 800 mg TIDWM PO 06/03/25 18:00 06/03/25 18:19 Aspirin 81 mg DAILY PO 06/04/25 10:00 06/04/25 09:19 Atorvastatin Calcium (Lipitor) 20 mg HS PO 06/03/25 22:00 06/03/25 22:06 Famotidine (Pepcid Injection) 20 mg DAILY IV 06/04/25 10:00 Metoprolol Tartrate (Lopressor Tablet) 50 mg BID PO 06/03/25 22:00 06/04/25 09:19 Sodium Chloride (Saline Lock Ns) 10 ml Q8HR IV 06/03/25 22:00 06/04/25 06:28 Diagnostic Test (Pha) (Accu-Chek Comfort Curve T) 1 strip IQ4HR 06/03/25 20:00 06/04/25 11:53 Insulin Human Regular (InsuLIN R) IQ4HR SC 06/03/25 20:00 06/04/25 01:51 Nitroglycerin (Ntrostat Sublingual) 0.4 mg Q5MINP PRN SL FOR CHEST PAIN 06/03/25 17:15 Morphine Sulfate 2 mg Q30M PRN IV FOR CHEST PAIN 06/03/25 17:15 Calcium Acetate (Phoslo Capsule) 667 mg TIDWMEALS PO 06/04/25 08:00 Azithromycin 250 ml @ 125 mls/hr DAILY IV 06/05/25 10:00 UNV Haloperidol Lactate (Haldol) 5 mg Q6HP PRN IM AGITATION 06/04/25 15:15 Family History: Diabetes mellitus Hypertension Review of Systems Can not obtain due to altered mental state H&P Exam Vital Signs/I&O Vital Sign Date Time Temp Pulse Resp B/P (MAP) Pulse Ox O2 Delivery O2 Flow Rate FiO2 06/04/25 09:19 76 153/88 06/04/25 09:00 98.0 20 95 98.0 06/04/25 08:00 Room Air* 0 21 Intake and Output 06/03/25 06/04/25 19:00 07:00 Intake Total 250 ml 160 ml Balance 250 ml 160 ml Intake Oral 160 ml IV Total 250 ml # Voids 1 Physical Exam Elderly female Not in respiratory distress Breathing comfortably Speaks and answers questions but is confused and incoherent Left tunneled dialysis catheter No pitting edema Abdomen is soft Labs/Diagnostic Data Labs/Diagnostic Data Laboratory Tests Test 06/04/25 15:10 06/04/25 11:26 06/04/25 08:01 06/04/25 07:03 Range/Units Blood Gas Specimen Type Arterial Blood Gas Sample Site Right radial Blood Gas Patient Temperature 37.0 Arterial Blood Date Drawn [id number] Arterial Blood pH 7.497 H 7.350-7.450 Arterial Blood Partial Pressure CO2 27.4 L 32.0-45.0 mmHg Arterial Blood Partial Pressure O2 88.3 83.0-108.0 mmHg Arterial Blood HCO3 20.7 L 21.0-28.0 mmol/L Arterial Blood Oxygen Saturation 96.9 94.0-98.0 % Arterial Blood Base Excess -1.5 -2.0-3.0 mmol/L Arterial Blood Oxyhemoglobin 95.8 94.0-98.0 % Arterial Blood Carboxyhemoglobin 0.8 0.5-1.5 % Arterial Blood Methemoglobin 0.3 0.0-1.5 % Manuel Test Yes Blood Gas Total Hemoglobin 11.10 L 12.0-16.0 g/dL Blood Gas Modality Room air FiO2 % 21.0 POC Glucose 200 H 148 H 114 H 70-106 mg/dl Test 06/04/25 05:35 06/04/25 04:18 06/04/25 01:44 06/03/25 21:53 Range/Units Sodium Level 135 L 136-145 mmol/L Potassium Level 4.2 3.5-5.1 mmol/L Chloride Level 100 98-107 mmol/L Carbon Dioxide Level 24 20-31 mmol/L Anion Gap 11 5-15 Blood Urea Nitrogen 45 #H 9-23 mg/dL Creatinine 5.24 H 0.550-1.02 mg/dL Glomerular Filtration Rate Calc 9 >90 mL/min BUN/Creatinine Ratio 8.6 L 10.0-20.0 Serum Glucose 94 74-106 mg/dL Calcium Level 8.9 8.7-10.4 mg/dL Total Bilirubin 0.2 0.2-1.0 mg/dL Aspartate Amino Transferase (AST) 34 13-40 U/L Alanine Aminotransferase (ALT) 14 7-40 U/L Alkaline Phosphatase 68 46-116 U/L Total Protein 5.6 L 5.7-8.2 g/dL Albumin 3.2 3.2-4.8 g/dL Thyroid Stimulating Hormone (TSH) 1.92 0.55-4.78 uIU/mL POC Glucose 72 156 H 283 H 70-106 mg/dl Test 06/03/25 14:15 06/03/25 12:38 Range/Units Lactic Acid Level 1.4 0.4-2.0 mmol/L White Blood Count 11.6 H 4.4-10.8 10^3/uL Red Blood Count 3.77 L 4.0-5.20 10^6/uL Hemoglobin 10.7 L 12.2-16.2 g/dL Hematocrit 33.1 L 36.0-46.0 % Mean Corpuscular Volume 87.8 80.0-100.0 fL Mean Corpuscular Hemoglobin 28.5 28.0-32.0 pg Mean Corpuscular Hemoglobin Concent 32.5 32.0-36.0 g/dL Red Cell Distribution Width 18.1 H 11.8-14.3 % Platelet Count 223 140-450 10^3/uL Mean Platelet Volume 7.5 6.9-10.8 fL Neutrophils (%) (Auto) 94.4 H 37.0-80.0 % Lymphocytes (%) (Auto) 2.9 L 10.0-50.0 % Monocytes (%) (Auto) 2.2 0.0-12.0 % Eosinophils (%) (Auto) 0.2 0.0-7.0 % Basophils (%) (Auto) 0.3 0.0-2.0 % Neutrophils # (Auto) 10.9 H 1.6-8.6 10 ^3/uL Lymphocytes # (Auto) 0.3 L 0.4-5.4 10 ^3/uL Monocytes # (Auto) 0.3 0-1.3 10 ^3/uL Eosinophils # (Auto) 0 0-0.8 10 ^3/uL Basophils # (Auto) 0 0-0.2 10 ^3/uL Nucleated Red Blood Cells 0.0 % Sodium Level 133 L 136-145 mmol/L Potassium Level 3.6 3.5-5.1 mmol/L Chloride Level 98 98-107 mmol/L Carbon Dioxide Level 27 20-31 mmol/L Anion Gap 8 5-15 Blood Urea Nitrogen 34 H 9-23 mg/dL Creatinine 4.60 H 0.550-1.02 mg/dL Glomerular Filtration Rate Calc 10 >90 mL/min BUN/Creatinine Ratio 7.4 L 10.0-20.0 Serum Glucose 484 *H 74-106 mg/dL Calcium Level 7.8 L 8.7-10.4 mg/dL Troponin I High Sensitivity 7 </=34 ng/L Assessment 60 year old female hx ESRD p/w altered mental state ESRD HTN AMS sepsis Recommend close monitoring and rule out infection Patient requires close supervision due to confusion prevent pulling out dialysis catheter We will arrange for hemodialysis tomorrow if stable Resume blood pressure medications If patient has residual urinary output then recommend straight cath for drug screen Consider neuropsych evaluation. Care time spent 55 minutes Plan discussed with: KENISHA Washburn MD Jun 04, 2025 15:10
[2025-06-04 15:20] LABS: Base Excess -1.5 mmol/L (-2.0-3.0)
[2025-06-04 19:22] LABS: Alanine Aminotransferase 12 U/L (7-40); Albumin 3.4 g/dL (3.2-4.8); Alkaline Phosphatase 77 U/L (46-116); Anion Gap 11 (5-15); BUN/Creatinine Ratio 7.4 (10.0-20.0); Carbon Dioxide 24 mmol/L (20-31); Chloride 100 mmol/L (98-107); Potassium 3.8 mmol/L (3.5-5.1); Total Protein 6.0 g/dL (5.7-8.2)
[2025-06-04 19:27] LABS: Bilirubin, Total 0.2 mg/dL (0.2-1.0); Blood Urea Nitrogen 45 mg/dL (9-23); Calcium 8.6 mg/dL (8.7-10.4); Glucose 208 mg/dL (74-106); Sodium 135 mmol/L (136-145)
[2025-06-04 20:00] VITALS: PULSE 75; RESP 20; O2SAT 95
[2025-06-04] MEDS: HALOPERIDOL LACTATE 5 MG/ML INJ VIAL IM PRN (21:45)
--- NOTE | 2025-06-05 09:47 | DVHPN2 ---
Progress Note Date Seen: Jun 05, 2025 Medical Necessity Reason Pt with a Central, PICC or Fol: Yes The following are medically ne: Central Line Objective vital signs Vital Sign Date Time Temp Pulse Resp B/P (MAP) Pulse Ox O2 Delivery O2 Flow Rate FiO2 06/04/25 22:00 99 06/04/25 20:00 20 95 Room Air* 0 21 06/04/25 10:19 132/74 06/04/25 09:00 98.0 98.0 Total Intake and Output 06/04/25 06/04/25 06/05/25 14:59 22:59 06:59 Intake Total 500 ml 250 ml Balance 500 ml 250 ml medications Current Medications Medications Dose Ordered Sig/Laly Route Start Time Stop Time Status Last Admin Dose Admin Ceftriaxone Sodium 50 ml @ 100 mls/hr DAILY@09 IV 06/04/25 09:00 Multivit/Ca Carb/ B Cmplx/FA/Prenat 1 tab DAILY PO 06/04/25 10:00 06/04/25 09:18 1 TAB Sevelamer HCl 800 mg TIDWM PO 06/03/25 18:00 06/03/25 18:19 800 MG Aspirin 81 mg DAILY PO 06/04/25 10:00 06/04/25 09:19 81 MG Atorvastatin Calcium 20 mg HS PO 06/03/25 22:00 06/03/25 22:06 20 MG Famotidine 20 mg DAILY IV 06/04/25 10:00 Metoprolol Tartrate 50 mg BID PO 06/03/25 22:00 06/04/25 09:19 50 MG Hydralazine HCl 10 mg Q6HP PRN IV 06/03/25 16:15 06/04/25 03:03 10 MG Sodium Chloride 10 ml Q8HR IV 06/03/25 22:00 06/05/25 05:02 10 ML Acetaminophen/ Hydrocodone Bitart 1 tab Q4HP PRN PO 06/03/25 16:15 Ondansetron HCl 4 mg Q4HP PRN IV 06/03/25 16:15 06/04/25 21:38 4 MG Docusate Sodium 100 mg BIDPRN PRN PO 06/03/25 16:15 Acetaminophen 650 mg Q6HP PRN PO 06/03/25 16:15 06/04/25 09:19 650 MG Diagnostic Test (Pha) 1 strip IQ4HR 7/16/25 20:00 06/04/25 16:21 1 STRIP Insulin Human Regular IQ4HR SC 06/03/25 20:00 06/04/25 01:51 2 UNITS Dextrose 50 ml UD PRN IV 06/03/25 16:15 Nitroglycerin 0.4 mg Q5MINP PRN SL 06/03/25 17:15 Morphine Sulfate 2 mg Q30M PRN IV 06/03/25 17:15 Calcium Acetate 667 mg TIDWMEALS PO 06/04/25 08:00 Azithromycin 250 ml @ 125 mls/hr DAILY IV 06/05/25 10:00 Future Hold Haloperidol Lactate 5 mg Q6HP PRN IM 06/04/25 15:15 06/04/25 21:45 5 MG Examination: GENERAL:Normal, LUNGS:Normal, CVS:Normal, ABDOMEN:Normal, NEURO:Abnormal laboratory and microbiology Laboratory Tests 06/04/25 18:42 06/03/25 12:38 Test 06/04/25 18:42 Range/Units Serum Glucose 208 H 74-106 mg/dL Microbiology Date/Time Source Procedure Growth Status 06/03/25 14:15 Blood Blood Culture - Preliminary NO GROWTH AFTER 24 HOURS OF INCUBATION. Resulted Problem List/Assessment/Plan Problem List/Assessment/Plan 60 year old female hx ESRD p/w altered mental state ESRD HTN AMS sepsis per daughter mental state change occurred within a 24hr period was sudden onset refusing dialysis PATIENT IS VERY ALERTED. nonaggressive but figity at this time high concern for unsafe dialysis treatment. metabolically and volume pierson she is stable therefore will treat conservatively for now Consider neuropsych evaluation. went for CT head and now on isolation Plan discussed with: Daughter My Orders My Orders Orders - KENISHA CHAN MD Procedure Category Date Status Time Hemodialysis Orders ORDERS 06/05/25 Transmitted 07:00 Total Time (mins): 27 KENISHA CHAN MD Jun 05, 2025 09:47
--- NOTE | 2025-06-05 09:48 | DVHPN2 ---
Subjective Still confused, no cough, no other pain endorsed. Reviewed: H&P Changes from previous H/P or p: No Changes General: Per HPI Eyes: No Pain, No Vision change, No Conjunctivae inflammation, No Eyelid inflammation, No Other, No Redness ENT: No Ear pain, No Ear discharge, No Nose pain, No Nose discharge, No Nose congestion, No Mouth pain, No Mouth swelling, No Throat pain, No Throat swelling, No Other Cardiovascular: No Chest Pain, No Palpitations, No Orthopnea, No Paroxysmal Noc. Dyspnea, No Edema, No Lt Headedness; Other (Left IJ Perma catheter.) Respiratory: No Cough, No Dry, No Shortness of breath, No SOB with excertion, No Wheezing, No Hemoptysis, No Pleuritic Pain, No Sputum, No Other Gastrointestinal: Nausea, Vomiting; No Abdominal Pain, No Diarrhea, No Constipation, No Melena, No Hematochezia, No Other Genitourinary: No Dysuria, No Frequency, No Incontinence, No Hematuria, No Retention; Other (On hemodialysis) Musculoskeletal: No other, No neck pain, No shoulder pain, No arm pain, No back pain, No hand pain, No leg pain, No foot pain Skin: No Rash, No Lesions, No Jaundice, No Bruising, No Other Objective Vitals Vital Signs Date Time Temp Pulse Resp B/P (MAP) Pulse Ox O2 Delivery O2 Flow Rate FiO2 06/04/25 22:00 99 06/04/25 20:00 20 95 Room Air* 0 21 06/04/25 10:19 132/74 06/04/25 09:00 98.0 98.0 Intake/Output Intake and Output 06/05/25 07:00 Intake Total 750 ml Balance 750 ml Intake Oral 750 ml # Voids 5 # Bowel Movements 1 Exam GEN: Healthy appearing, well-developed, NAD. AOx0 HEENT: NC/AT; MMM. CV: RRR, no m/r/g. LUNGS: Decreased air entry in all lung mehta. ABD: Soft, NT/ND, NBS, no masses or organomegaly. EXT: skin Warm, well perfused. no rashes. No clubbing, cyanosis, or edema. NEURO: Ambulating with no limitations. No focal deficits. Medications Current Medications Medications Dose Ordered Sig/Laly Route Start Time Stop Time Status Last Admin Dose Admin Ceftriaxone Sodium 50 ml @ 100 mls/hr DAILY@09 IV 06/04/25 09:00 Multivit/Ca Carb/ B Cmplx/FA/Prenat 1 tab DAILY PO 06/04/25 10:00 06/04/25 09:18 1 TAB Sevelamer HCl 800 mg TIDWM PO 06/03/25 18:00 06/03/25 18:19 800 MG Aspirin 81 mg DAILY PO 06/04/25 10:00 06/04/25 09:19 81 MG Atorvastatin Calcium 20 mg HS PO 06/03/25 22:00 06/03/25 22:06 20 MG Famotidine 20 mg DAILY IV 06/04/25 10:00 Metoprolol Tartrate 50 mg BID PO 06/03/25 22:00 06/04/25 09:19 50 MG Hydralazine HCl 10 mg Q6HP PRN IV 06/03/25 16:15 06/04/25 03:03 10 MG Sodium Chloride 10 ml Q8HR IV 06/03/25 22:00 06/05/25 05:02 10 ML Acetaminophen/ Hydrocodone Bitart 1 tab Q4HP PRN PO 06/03/25 16:15 Ondansetron HCl 4 mg Q4HP PRN IV 06/03/25 16:15 06/04/25 21:38 4 MG Docusate Sodium 100 mg BIDPRN PRN PO 06/03/25 16:15 Acetaminophen 650 mg Q6HP PRN PO 06/03/25 16:15 06/04/25 09:19 650 MG Diagnostic Test (Pha) 1 strip IQ4HR 06/03/25 20:00 06/04/25 16:21 1 STRIP Insulin Human Regular IQ4HR SC 06/03/25 20:00 06/04/25 01:51 2 UNITS Dextrose 50 ml UD PRN IV 06/03/25 16:15 Nitroglycerin 0.4 mg Q5MINP PRN SL 06/03/25 17:15 Morphine Sulfate 2 mg Q30M PRN IV 06/03/25 17:15 Calcium Acetate 667 mg TIDWMEALS PO 06/04/25 08:00 Azithromycin 250 ml @ 125 mls/hr DAILY IV 06/05/25 10:00 Future Hold Haloperidol Lactate 5 mg Q6HP PRN IM 06/04/25 15:15 06/04/25 21:45 5 MG Laboratory Results Laboratory Tests 06/03/25 12:38 06/04/25 18:42 Chemistry Test 06/04/25 18:42 Albumin 3.4 g/dL (3.2-4.8) Calcium Level 8.6 mg/dL (8.7-10.4) L Total Protein 6.0 g/dL (5.7-8.2) LFT Test 06/04/25 18:42 Alanine Aminotransferase (ALT) 12 U/L (7-40) Alkaline Phosphatase 77 U/L (46-116) Aspartate Amino Transferase (AST) 23 U/L (13-40) Total Bilirubin 0.2 mg/dL (0.2-1.0) Blood Gas Results Test 06/04/25 15:10 Arterial Blood pH 7.497 (7.350-7.450) FiO2 % 21.0 Microbiology Microbiology Date/Time Source Procedure Growth Status 06/03/25 14:15 Blood Blood Culture - Preliminary NO GROWTH AFTER 24 HOURS OF INCUBATION. Resulted Labs and/or images reviewed: Labs reviewed by me, Image(s) reviewed by me Assessment/Plan Assessment/Plan The patient is a 60-year-old female with past medical history of end-stage renal disease on hemodialysis M-W-, hyperlipidemia, DM, anemia, and hypertension who presented to [facility] ED with complaint of fever. Patient reports she has been experiencing fever, associated with cough, nasal congestion, nausea, and general malaise for the past 2 days. 06/04- patient with history of ESRD, diabetes, hypertension here with fever cough nasal congestion. COVID fluids not done. Admitted for pneumonia. On ceftriaxone. I will add azithromycin. We will get COVID flu. Continue treatment. Nephrology consulted for continuation of dialysis MWF. SSI for diabetes. Continue home medications. Blood cultures were taken. Given chronic dialysis bacteremia is of concern. There is no urine, possible patient is anuric ESRD. -patient is confused, altered A&O x1 unable to answer any ROS questions. there is no missed dialysis days. Daughter endorsed to nurse that patient is not at baseline. We will get workup for encephalopathy. Patient is declining labs, treatments. We will order TSH, ammonia, ABG, UDS, blood drug screen, CMP. Question of alcohol withdrawal or viral encephalitis? 06/05-patient is worsening, more confused, refusing labs, treatments, p.o. meds. Ammonia negative, no CO2 narcosis, appears to be neurologically intact moving all extremities but now she is A&O times 0. Unclear if this is UTI but possible. We are giving, or trying to give antibiotics IV ceftriaxone which would treat urine infection. Primary suspicion was pneumonia which is less likely. Meningitis is on the differential.. Urinary obstruction is also on differential. We will get urine UA UDS. Pending blood tox screen.. Per family this is a very acute change for patient. We will increase Haldol to 10 intramuscular q.6 H. we will get bladder scan, head CT, try to use patient's daughters help to help give p.o. meds. Patient refusing HD which will only worsening condition. Very high-risk and very poor prognosis. I will add vancomycin and increase ceftriaxone to 2 g. We will all still start olanzapine 10. We will also do telepsych in case this is psych cause. Acute toxic metabolic encephalopathy Acute pneumonia, Gram-negative Gram-positive possible Acute meningitis possible, infectious cause possible, ruling out ESRD on HD, TTS schedule Hyperlipidemia Diabetes Anemia Hypertension -IV antibiotics -AMS workup -Nephrology consult TTS schedule -Continue home medications liquid diet dvt ppx - lovenox gi ppx - protonix medsurg full code Plan discussed with: Patient My Orders Orders - MELQUIADES TREJO MD Procedure Category Date Status Time Azithromycin 500mg/ PHA 06/05/25 In Process 250ml (Zithromax 50 10:00 Covid19 Antigen [facility] LAB 06/04/25 Logged Rapid Influenza A&B LAB 06/04/25 Logged 12:34 Abg W/ Co-Ox RT 06/04/25 Logged 14:37 Drug Screen LAB 06/04/25 Logged 14:37 Drug Profile Blood (6 LAB 06/04/25 In Process Drugs) 14:37 Comprehensive LAB 06/05/25 Logged Metabolic Panel 04:00 Complete Blood Count LAB 06/05/25 Logged 04:00 Haloperidol Lactate PHA 06/04/25 In Process Injection (Haldol) 15:15 Pharmacy [facility] 06/04/25 In Process Clarification: 16:18 Drug Screen LAB 06/05/25 Logged 09:04 Urinalysis LAB 06/05/25 Logged 09:04 Date of Service: Jun 05, 2025 Billing Provider: MELQUIADES TREJO MD Common Visit Codes: [id number] INP/OBS CARE(HIGH) MELQUIADES TREJO MD Jun 05, 2025 09:48
[2025-06-05] MEDS ORDERED: AZITHROMYCIN 500MG/ 250ML 250 ML IV SCH (10:00)
[2025-06-05] MEDS ORDERED: VANCOMYCIN PER PHARMACY 0 MG IV SCH (10:45)
--- NOTE | 2025-06-05 12:02 | DVH ---
EXAM: CT HEAD WITHOUT CONTRAST HISTORY: R/O ENCEPHALOPATHY COMPARISON: None TECHNIQUE: Noncontrast axial CT images of the head were performed. Sagittal and coronal reformatted i mages were obtained. This CT exam was performed using 1 or more of the following dose reduction techn iques: Automated exposure control, adjustment of the mA and/or kv according to patient size, or the u se of iterative reconstruction techniques. Radiation Dose: CTDI volume is 53.41 mGy. Dose-length product is 964.74 mGy*cm FINDINGS: The most cephalad aspect of the head is not included here. No intracranial hemorrhage, mass, midline shift, hydrocephalus, or evidence of acute large vessel infarct. There is moderate decreased attenuat ion in the periventricular white matter. The patient is edentulous. The partially-visualized paranasa l sinuses are clear. The bilateral mastoid air cells and middle ear spaces are clear. No cranial frac ture or scalp edema. IMPRESSION: 1. Chronic ischemic changes without evidence of acute intracranial process. 2. This study is not complete, as the most cephalad aspect of the head was not included in this scan. Recommend repeat imaging to include the entire brain and cranium.
[2025-06-05 13:00] VITALS: BP 180/101; PULSE 78; RESP 20; O2SAT 100
[2025-06-05] MEDS: cefTRIAXone 2GM/50ML D5W 50 ML IV ONE (14:01)
[2025-06-05] MEDS: OLANZapine 5 MG TAB PO ONE (16:54)
[2025-06-05 17:08] VITALS: PULSE 79; RESP 19; O2SAT 97
[2025-06-05 18:32] LABS: Urine Budding Yeast OCCASIONAL /hpf (None Seen); Urine Protein, UAD 3+ (Negative)
[2025-06-05 18:44] LABS: Amphetamine Screen, Urine Neg (NEGATIVE); Barbiturate Scree,Urine Neg (NEGATIVE); Benzodiazephine Screen, Urine Neg (NEGATIVE); Cocaine Screen, Urine Neg (NEGATIVE)
[2025-06-05 18:45] LABS: Cannabinoid Screen, Urine Neg (NEGATIVE); Opiate Scree,Urine Neg (NEGATIVE); Phencyclidine Screen, Urine Neg (NEGATIVE)
[2025-06-05] MEDS: VANCOMYCIN 1GM/200ML PM 200 ML IV ONE (18:58)
[2025-06-05 21:00] VITALS: BP 177/84; PULSE 72; RESP 17; TEMP 97.7; O2SAT 95
[2025-06-05] MEDS: cefTRIAXone 2GM/50ML D5W 50 ML IV SCH (22:21)
[2025-06-05] MEDS: hydrALAZINE HCL 20 MG/ML VL IV PRN (22:30)
[2025-06-06] VITALS (8 sets, daily range): BP systolic 125–162; BP diastolic 66–79; PULSE 67–84; RESP 14–27; TEMP 97.7–98.8; O2SAT 97–100
[2025-06-06] MEDS: OLANZapine 5 MG TAB PO SCH (09:22)
--- NOTE | 2025-06-06 11:06 | DVHPN2 ---
Progress Note Date Seen: Jun 06, 2025 Medical Necessity Reason Pt with a Central, PICC or Fol: Yes The following are medically ne: Central Line Subjective Patient reports: Feels better Objective vital signs Vital Sign Date Time Temp Pulse Resp B/P (MAP) Pulse Ox O2 Delivery O2 Flow Rate FiO2 06/06/25 09:19 75 152/77 06/06/25 08:30 98.5 18 99 98.5 06/05/25 20:00 Room Air* 0 21 Total Intake and Output 06/05/25 06/05/25 06/06/25 15:00 23:00 07:00 Intake Total 50 ml 200 ml 0 ml Output Total 0 ml Balance 50 ml 200 ml 0 ml medications Current Medications Medications Dose Ordered Sig/Ally Route Start Time Stop Time Status Last Admin Dose Admin Multivit/Ca Carb/ B Cmplx/FA/Prenat 1 tab DAILY PO 06/04/25 10:00 06/06/25 09:18 1 TAB Sevelamer HCl 800 mg TIDWM PO 06/03/25 18:00 06/06/25 09:06 800 MG Aspirin 81 mg DAILY PO 06/04/25 10:00 06/06/25 09:19 81 MG Atorvastatin Calcium 20 mg HS PO 06/03/25 22:00 06/03/25 22:06 20 MG Famotidine 20 mg DAILY IV 06/04/25 10:00 06/06/25 09:38 20 MG Metoprolol Tartrate 50 mg BID PO 06/03/25 22:00 06/06/25 09:19 50 MG Sodium Chloride 10 ml Q8HR IV 06/03/25 22:00 06/06/25 07:30 10 ML Acetaminophen/ Hydrocodone Bitart 1 tab Q4HP PRN PO 06/03/25 16:15 Ondansetron HCl 4 mg Q4HP PRN IV 06/03/25 16:15 06/04/25 21:38 4 MG Docusate Sodium 100 mg BIDPRN PRN PO 06/03/25 16:15 Acetaminophen 650 mg Q6HP PRN PO 06/03/25 16:15 06/04/25 09:19 650 MG Diagnostic Test (Pha) 1 strip IQ4HR 06/03/25 20:00 06/06/25 08:00 1 STRIP Insulin Human Regular IQ4HR SC 06/03/25 20:00 06/06/25 10:10 4 UNITS Dextrose 50 ml UD PRN IV 06/03/25 16:15 Nitroglycerin 0.4 mg Q5MINP PRN SL 06/03/25 17:15 Morphine Sulfate 2 mg Q30M PRN IV 06/03/25 17:15 Calcium Acetate 667 mg TIDWMEALS PO 06/04/25 08:00 06/06/25 09:06 667 MG Azithromycin 250 ml @ 125 mls/hr DAILY IV 06/05/25 10:00 Hold Haloperidol Lactate 5 mg Q6HP PRN IM 06/04/25 15:15 06/05/25 21:28 5 MG Hydralazine HCl 10 mg Q6HP PRN IV 06/05/25 10:45 06/05/25 22:30 10 MG Vancomycin HCl 0 ml @ 0 mls/hr UD IV 06/05/25 10:45 Ceftriaxone Sodium/Dextrose 50 ml @ 50 mls/hr Q12HR@09,21 IV 06/05/25 21:00 06/06/25 09:22 50 MLS/HR Olanzapine 10 mg DAILY PO 06/06/25 10:00 06/06/25 09:22 10 MG Examination: GENERAL:Normal, HEENT:Normal, NECK:Normal, CVS:Normal laboratory and microbiology Laboratory Tests 06/04/25 18:42 06/03/25 12:38 Test 06/04/25 18:42 Range/Units Serum Glucose 208 H 74-106 mg/dL Microbiology Date/Time Source Procedure Growth Status 06/03/25 14:15 Blood Blood Culture - Preliminary NO GROWTH AFTER 48 HOURS OF INCUBATION. Resulted Problem List/Assessment/Plan Problem List/Assessment/Plan 60 year old female hx ESRD p/w altered mental state ESRD HTN AMS sepsis patient in ISO today recieved Psy meds, she is coherent today HD today conservative settings Plan discussed with: Patient Total Time (mins): 26 KENISHA CHAN MD Jun 06, 2025 11:05
[2025-06-06] MEDS: SODIUM CHL 0.9% 1000 ML BAG XX ONE (17:45)
[2025-06-06] MEDS ORDERED: VANCOMYCIN 500mg/100mL 100 ML IV ONE (22:00)
[2025-06-07 00:22] VITALS: BP 176/83; PULSE 72; RESP 18; TEMP 97.6; O2SAT 96
[2025-06-07 01:11] VITALS: BP 163/73; PULSE 69
[2025-06-07 04:56] VITALS: BP 155/62; PULSE 72; RESP 18; TEMP 97.8; O2SAT 97
[2025-06-07 08:00] VITALS: PULSE 72; RESP 18; O2SAT 97
--- NOTE | 2025-06-07 09:04 | DVHPN2 ---
Progress Note Date Seen: Jun 07, 2025 Medical Necessity Reason Pt with a Central, PICC or Fol: Yes The following are medically ne: Central Line Subjective Patient reports: Feels better Objective vital signs Vital Sign Date Time Temp Pulse Resp B/P (MAP) Pulse Ox O2 Delivery O2 Flow Rate FiO2 06/07/25 08:14 72 155/62 06/07/25 04:56 97.8 18 97 97.8 06/06/25 19:40 Room Air* 0 21 Total Intake and Output 06/06/25 06/06/25 06/07/25 15:00 23:00 07:00 Intake Total 50 ml 800 ml 340 ml Balance 50 ml 800 ml 340 ml medications Current Medications Medications Dose Ordered Sig/Laly Route Start Time Stop Time Status Last Admin Dose Admin Multivit/Ca Carb/ B Cmplx/FA/Prenat 1 tab DAILY PO 06/04/25 10:00 06/07/25 08:14 1 TAB Sevelamer HCl 800 mg TIDWM PO 06/03/25 18:00 06/07/25 08:13 800 MG Aspirin 81 mg DAILY PO 06/04/25 10:00 06/07/25 08:14 81 MG Atorvastatin Calcium 20 mg HS PO 06/03/25 22:00 06/03/25 22:06 20 MG Famotidine 20 mg DAILY IV 06/04/25 10:00 06/07/25 08:14 20 MG Metoprolol Tartrate 50 mg BID PO 06/03/25 22:00 06/07/25 08:14 50 MG Sodium Chloride 10 ml Q8HR IV 06/03/25 22:00 06/07/25 05:35 10 ML Acetaminophen/ Hydrocodone Bitart 1 tab Q4HP PRN PO 06/03/25 16:15 Ondansetron HCl 4 mg Q4HP PRN IV 06/03/25 16:15 06/04/25 21:38 4 MG Docusate Sodium 100 mg BIDPRN PRN PO 06/03/25 16:15 Acetaminophen 650 mg Q6HP PRN PO 06/03/25 16:15 06/04/25 09:19 650 MG Diagnostic Test (Pha) 1 strip IQ4HR 06/03/25 20:00 06/07/25 08:02 1 STRIP Insulin Human Regular IQ4HR SC 06/03/25 20:00 06/07/25 05:34 8 UNITS Dextrose 50 ml UD PRN IV 06/03/25 16:15 Nitroglycerin 0.4 mg Q5MINP PRN SL 06/03/25 17:15 Morphine Sulfate 2 mg Q30M PRN IV 06/03/25 17:15 Calcium Acetate 667 mg TIDWMEALS PO 06/04/25 08:00 06/07/25 08:13 667 MG Azithromycin 250 ml @ 125 mls/hr DAILY IV 06/05/25 10:00 Hold Haloperidol Lactate 5 mg Q6HP PRN IM 06/04/25 15:15 06/06/25 18:06 5 MG Hydralazine HCl 10 mg Q6HP PRN IV 06/05/25 10:45 06/07/25 00:44 10 MG Vancomycin HCl 0 ml @ 0 mls/hr UD IV 06/05/25 10:45 Ceftriaxone Sodium/Dextrose 50 ml @ 50 mls/hr Q12HR@09,21 IV 06/05/25 21:00 06/07/25 08:13 50 MLS/HR Olanzapine 10 mg DAILY PO 06/06/25 10:00 06/07/25 08:14 10 MG Examination: GENERAL:Normal, CVS:Normal laboratory and microbiology Laboratory Tests 06/06/25 15:01 06/04/25 18:42 06/03/25 12:38 Test 06/04/25 18:42 Range/Units Serum Glucose 208 H 74-106 mg/dL Microbiology Date/Time Source Procedure Growth Status 06/03/25 14:15 Blood Blood Culture - Preliminary NO GROWTH AFTER 72 HOURS OF INCUBATION. Resulted Problem List/Assessment/Plan Problem List/Assessment/Plan 60 year old female hx ESRD p/w altered mental state ESRD HTN AMS sepsis patient in ISO required Haldol during dialysis received Psy meds HD next treatment is tentative sunday Plan discussed with: Patient My Orders My Orders Orders - KENISHA CHAN MD Procedure Category Date Status Time Hemodialysis Orders ORDERS 06/06/25 Transmitted 11:35 Dialysis Nursing [facility]OUCHRA 06/06/25 In Process Message 11:35 Document Fluid Input [facility]OUCH[facility] 06/06/25 In Process And Outpu 11:35 Hepatitis B Surface LAB 06/06/25 In Process Antigen 17:39 Total Time (mins): 30 KENISHA CHAN MD Jun 07, 2025 09:04
[2025-06-07 21:00] VITALS: BP 112/63; PULSE 90; RESP 18; TEMP 97.6; O2SAT 97
[2025-06-08] VITALS (7 sets, daily range): BP systolic 120–188; BP diastolic 74–99; PULSE 68–86; RESP 16–19; TEMP 97.7–98.4; O2SAT 96–100
[2025-06-08] MEDS: LORazepam 2MG/ML-1ML VIAL IV ONE (01:48)
--- NOTE | 2025-06-08 11:22 | DVHPN2 ---
Progress Note Date Seen: Jun 08, 2025 Medical Necessity Reason Pt with a Central, PICC or Fol: Yes The following are medically ne: Central Line Subjective Review of Systems: NEURO:Abnormal Objective vital signs Vital Sign Date Time Temp Pulse Resp B/P (MAP) Pulse Ox O2 Delivery O2 Flow Rate FiO2 06/08/25 10:20 83 123/77 06/08/25 08:23 98.3 17 96 98.3 06/07/25 20:00 Room Air* 0 21 Total Intake and Output 06/07/25 06/07/25 06/08/25 15:00 23:00 07:00 Intake Total 170 ml 50 ml 200 ml Balance 170 ml 50 ml 200 ml medications Current Medications Medications Dose Ordered Sig/Laly Route Start Time Stop Time Status Last Admin Dose Admin Multivit/Ca Carb/ B Cmplx/FA/Prenat 1 tab DAILY PO 06/04/25 10:00 06/08/25 10:19 1 TAB Sevelamer HCl 800 mg TIDWM PO 06/03/25 18:00 06/07/25 17:07 800 MG Aspirin 81 mg DAILY PO 06/04/25 10:00 06/08/25 10:21 81 MG Atorvastatin Calcium 20 mg HS PO 06/03/25 22:00 06/07/25 23:50 20 MG Famotidine 20 mg DAILY IV 06/04/25 10:00 06/08/25 10:21 20 MG Metoprolol Tartrate 50 mg BID PO 06/03/25 22:00 06/08/25 10:20 50 MG Sodium Chloride 10 ml Q8HR IV 06/03/25 22:00 06/07/25 21:00 10 ML Acetaminophen/ Hydrocodone Bitart 1 tab Q4HP PRN PO 06/03/25 16:15 Ondansetron HCl 4 mg Q4HP PRN IV 06/03/25 16:15 06/04/25 21:38 4 MG Docusate Sodium 100 mg BIDPRN PRN PO 06/03/25 16:15 Acetaminophen 650 mg Q6HP PRN PO 06/03/25 16:15 06/04/25 09:19 650 MG Diagnostic Test (Pha) 1 strip IQ4HR 06/03/25 20:00 06/08/25 08:00 1 STRIP Insulin Human Regular IQ4HR SC 06/03/25 20:00 06/07/25 17:07 12 UNITS Dextrose 50 ml UD PRN IV 06/03/25 16:15 Nitroglycerin 0.4 mg Q5MINP PRN SL 06/03/25 17:15 Morphine Sulfate 2 mg Q30M PRN IV 06/03/25 17:15 Calcium Acetate 667 mg TIDWMEALS PO 06/04/25 08:00 06/07/25 17:07 667 MG Azithromycin 250 ml @ 125 mls/hr DAILY IV 06/05/25 10:00 Hold Haloperidol Lactate 5 mg Q6HP PRN IM 06/04/25 15:15 06/08/25 00:40 5 MG Hydralazine HCl 10 mg Q6HP PRN IV 06/05/25 10:45 06/07/25 00:44 10 MG Vancomycin HCl 0 ml @ 0 mls/hr UD IV 06/05/25 10:45 Ceftriaxone Sodium/Dextrose 50 ml @ 50 mls/hr Q12HR@09,21 IV 06/05/25 21:00 06/08/25 10:21 50 MLS/HR Olanzapine 10 mg DAILY PO 06/06/25 10:00 06/08/25 10:19 10 MG laboratory and microbiology Laboratory Tests 06/08/25 05:51 06/04/25 18:42 06/03/25 12:38 Test 06/04/25 18:42 Range/Units Serum Glucose 208 H 74-106 mg/dL Microbiology Date/Time Source Procedure Growth Status 06/03/25 14:15 Blood Blood Culture - Preliminary NO GROWTH AFTER 72 HOURS OF INCUBATION. Resulted Problem List/Assessment/Plan Problem List/Assessment/Plan 60 year old female hx ESRD p/w altered mental state ESRD HTN AMS sepsis patient in ISO required Haldol during dialysis received Psy meds maturing AVF keep IVf out of arm HD next treatment is tentative sunday Plan discussed with: Other Total Time (mins): 33 KENISHA CHAN MD Jun 08, 2025 11:22
[2025-06-08] MEDS ORDERED: DEXTROSE (50%) 50ML SYRG IV PRN (14:30)
--- NOTE | 2025-06-08 15:23 | DVHPN2 ---
Subjective Still confused, no cough, no other pain endorsed. Reviewed: H&P Changes from previous H/P or p: No Changes General: Per HPI Eyes: No Pain, No Vision change, No Conjunctivae inflammation, No Eyelid inflammation, No Other, No Redness ENT: No Ear pain, No Ear discharge, No Nose pain, No Nose discharge, No Nose congestion, No Mouth pain, No Mouth swelling, No Throat pain, No Throat swelling, No Other Cardiovascular: No Chest Pain, No Palpitations, No Orthopnea, No Paroxysmal Noc. Dyspnea, No Edema, No Lt Headedness; Other (Left IJ Perma catheter.) Respiratory: No Cough, No Dry, No Shortness of breath, No SOB with excertion, No Wheezing, No Hemoptysis, No Pleuritic Pain, No Sputum, No Other Gastrointestinal: Nausea, Vomiting; No Abdominal Pain, No Diarrhea, No Constipation, No Melena, No Hematochezia, No Other Genitourinary: No Dysuria, No Frequency, No Incontinence, No Hematuria, No Retention; Other (On hemodialysis) Musculoskeletal: No other, No neck pain, No shoulder pain, No arm pain, No back pain, No hand pain, No leg pain, No foot pain Skin: No Rash, No Lesions, No Jaundice, No Bruising, No Other Objective Vitals Vital Signs Date Time Temp Pulse Resp B/P (MAP) Pulse Ox O2 Delivery O2 Flow Rate FiO2 06/08/25 12:18 98.4 86 19 135/80 (98) 97 98.4 06/08/25 08:00 Room Air* 0 21 Intake/Output Intake and Output 06/08/25 07:00 Intake Total 420 ml Balance 420 ml Intake Oral 320 ml IV Total 100 ml # Voids 1 Exam GEN: Healthy appearing, well-developed, NAD. AOx0 HEENT: NC/AT; MMM. CV: RRR, no m/r/g. LUNGS: Decreased air entry in all lung mehta. ABD: Soft, NT/ND, NBS, no masses or organomegaly. EXT: skin Warm, well perfused. no rashes. No clubbing, cyanosis, or edema. NEURO: Ambulating with no limitations. No focal deficits. Medications Current Medications Medications Dose Ordered Sig/Laly Route Start Time Stop Time Status Last Admin Dose Admin Multivit/Ca Carb/ B Cmplx/FA/Prenat 1 tab DAILY PO 06/04/25 10:00 06/08/25 10:19 1 TAB Sevelamer HCl 800 mg TIDWM PO 06/03/25 18:00 06/07/25 17:07 800 MG Aspirin 81 mg DAILY PO 06/04/25 10:00 06/08/25 10:21 81 MG Atorvastatin Calcium 20 mg HS PO 06/03/25 22:00 06/07/25 23:50 20 MG Famotidine 20 mg DAILY IV 06/04/25 10:00 06/08/25 10:21 20 MG Metoprolol Tartrate 50 mg BID PO 06/03/25 22:00 06/08/25 10:20 50 MG Sodium Chloride 10 ml Q8HR IV 06/03/25 22:00 06/08/25 14:00 10 ML Acetaminophen/ Hydrocodone Bitart 1 tab Q4HP PRN PO 06/03/25 16:15 Ondansetron HCl 4 mg Q4HP PRN IV 06/03/25 16:15 06/04/25 21:38 4 MG Docusate Sodium 100 mg BIDPRN PRN PO 06/03/25 16:15 Acetaminophen 650 mg Q6HP PRN PO 06/03/25 16:15 06/04/25 09:19 650 MG Nitroglycerin 0.4 mg Q5MINP PRN SL 06/03/25 17:15 Morphine Sulfate 2 mg Q30M PRN IV 06/03/25 17:15 Calcium Acetate 667 mg TIDWMEALS PO 06/04/25 08:00 06/07/25 17:07 667 MG Azithromycin 250 ml @ 125 mls/hr DAILY IV 06/05/25 10:00 Hold Haloperidol Lactate 5 mg Q6HP PRN IM 06/04/25 15:15 06/08/25 00:40 5 MG Hydralazine HCl 10 mg Q6HP PRN IV 06/05/25 10:45 06/07/25 00:44 10 MG Vancomycin HCl 0 ml @ 0 mls/hr UD IV 06/05/25 10:45 Ceftriaxone Sodium/Dextrose 50 ml @ 50 mls/hr Q12HR@09,21 IV 06/05/25 21:00 06/08/25 10:21 50 MLS/HR Olanzapine 10 mg DAILY PO 06/06/25 10:00 06/08/25 10:19 10 MG Diagnostic Test (Pha) 1 strip ACHS 06/08/25 17:00 Insulin Human Regular ACHS SC 06/08/25 17:00 Dextrose 50 ml UD PRN IV 06/08/25 14:30 Laboratory Results Chemistry Test 06/08/25 05:51 Albumin Pending Calcium Level Pending Total Protein Pending LFT Test 06/08/25 05:51 Alanine Aminotransferase (ALT) Pending Alkaline Phosphatase Pending Aspartate Amino Transferase (AST) Pending Total Bilirubin Pending Urinalysis Test 06/05/25 13:00 Urine Color Light-yellow (Yellow) Urine Clarity Clear (Clear) Urine pH 7.0 (5.0-9.0) Urine Specific [place] 1.016 (1.001-1.035) Urine Protein 3+ (Negative) H Urine Ketones Trace (Negative) Urine Blood 1+ /uL (Negative) H Urine Nitrite Negative (Negative) Urine Bilirubin Negative (Negative) Urine Urobilinogen Normal mg/dL (Negative) Urine Leukocyte Esterase Negative /uL (Negative) Urine RBC 2 /hpf (0 - 4) Urine Microscopic WBC 2 /HPF (0-5) Urine Squamous Epithelial Cells Few /hpf (<5) Urine Bacteria None seen /hpf (None Seen) Urine Hyaline Casts Few /lpf (0 - 2) Urine Yeast (Budding) Occasional /hpf (None Urine Glucose 4+ mg/dL (Normal) H Microbiology Microbiology Date/Time Source Procedure Growth Status 06/03/25 14:15 Blood Blood Culture - Final NO GROWTH AFTER 5 DAYS OF INCUBATION. Complete Labs and/or images reviewed: Labs reviewed by me, Image(s) reviewed by me Assessment/Plan Assessment/Plan The patient is a 60-year-old female with past medical history of end-stage renal disease on hemodialysis M-W-, hyperlipidemia, DM, anemia, and hypertension who presented to [facility] ED with complaint of fever. Patient reports she has been experiencing fever, associated with cough, nasal congestion, nausea, and general malaise for the past 2 days. 06/04- patient with history of ESRD, diabetes, hypertension here with fever cough nasal congestion. COVID fluids not done. Admitted for pneumonia. On ceftriaxone. I will add azithromycin. We will get COVID flu. Continue treatment. Nephrology consulted for continuation of dialysis MWF. SSI for diabetes. Continue home medications. Blood cultures were taken. Given chronic dialysis bacteremia is of concern. There is no urine, possible patient is anuric ESRD. -patient is confused, altered A&O x1 unable to answer any ROS questions. there is no missed dialysis days. Daughter endorsed to nurse that patient is not at baseline. We will get workup for encephalopathy. Patient is declining labs, treatments. We will order TSH, ammonia, ABG, UDS, blood drug screen, CMP. Question of alcohol withdrawal or viral encephalitis? 06/05-patient is worsening, more confused, refusing labs, treatments, p.o. meds. Ammonia negative, no CO2 narcosis, appears to be neurologically intact moving all extremities but now she is A&O times 0. Unclear if this is UTI but possible. We are giving, or trying to give antibiotics IV ceftriaxone which would treat urine infection. Primary suspicion was pneumonia which is less likely. Meningitis is on the differential.. Urinary obstruction is also on differential. We will get urine UA UDS. Pending blood tox screen.. Per family this is a very acute change for patient. We will increase Haldol to 10 intramuscular q.6 H. we will get bladder scan, head CT, try to use patient's daughters help to help give p.o. meds. Patient refusing HD which will only worsening condition. Very high-risk and very poor prognosis. I will add vancomycin and increase ceftriaxone to 2 g. We will all still start olanzapine 10. We will also do telepsych in case this is psych cause. 06/06-06/07 06/08- no significant events notable over the weekend patient remains altered, few events of pulling IVs, few events of getting agitated requiring Ativan/Haldol. Need to advance surge into cause of AMS. We will order treponemal antibody, repeat ammonia, CBC CMP today. Continue Haldol prn, olanzapine 10 scheduled daily,. Maintain isolation for meningitis ruled out, patient has been on broad-spectrum vanc ceftriaxone for meningitis for 4 days now. Still on resolution or changing/improving off condition. We will consult Neurology and get MRI brain if possible. Nephrology is following and wants no IVs in arm with maturating AVF. We will also get LP for studies of VDRL and HSV . Holding off acyclovir right now. Acute toxic metabolic encephalopathy Acute pneumonia, Gram-negative Gram-positive possible Acute meningitis possible, infectious cause possible, ruling out ESRD on HD, TTS schedule Hyperlipidemia Diabetes Anemia Hypertension -IV antibiotics -AMS workup -Nephrology consult TTS schedule -Continue home medications liquid diet dvt ppx - lovenox gi ppx - protonix medsurg full code Plan discussed with: Patient My Orders Orders - MELQUIADES TREJO MD Procedure Category Date Status Time Vancomycin,Random LAB 06/09/25 Verified 04:00 Creatinine LAB 06/09/25 Verified 04:00 Glucose Blood PHA 06/08/25 In Process (Accu-Chek Comfort 17:00 Insulin R (Human) PHA 06/08/25 In Process (Insulin R) 17:00 Dextrose 50% Syringe PHA 06/08/25 In Process 14:30 Treponema Pallidum LAB 06/08/25 In Process Antibody 15:12 Ammonia LAB 06/08/25 Logged 15:12 Lactic Acid W/ Reflex LAB 06/08/25 Logged Order 15:12 Complete Blood Count LAB 06/08/25 In Process 15:12 Comprehensive LAB 06/08/25 In Process Metabolic Panel 15:12 Comprehensive LAB 06/09/25 Verified Metabolic Panel 04:00 Complete Blood Count LAB 06/09/25 Verified 04:00 Brain Head Wo Contrast MRI 06/08/25 Logged 15:13 * Neurology Consult CONS 06/08/25 Transmitted 15:13 Lumbar Puncture XY 06/08/25 Logged 15:13 Date of Service: Jun 08, 2025 Billing Provider: MELQUIADES TREJO MD Common Visit Codes: [id number] INP/OBS CARE(HIGH) MELQUIADES TREJO MD Jun 08, 2025 15:23
[2025-06-08 15:35] LABS: Alkaline Phosphatase 65 U/L (46-116); Anion Gap 14 (5-15); BUN/Creatinine Ratio 5.3 (10.0-20.0); Carbon Dioxide 22 mmol/L (20-31); Hematocrit 30.3 % (36.0-46.0); Hemoglobin 9.8 g/dL (12.2-16.2); Mean Corpuscular Hemoglobin 29.5 pg (28.0-32.0); Mean Corpuscular Volume 91.5 fL (80.0-100.0); Nucleated Red Blood Cells % 0.0 %; Sodium 144 mmol/L (136-145)
[2025-06-08 15:42] LABS: Alanine Aminotransferase 45 U/L (7-40); Albumin 3.0 g/dL (3.2-4.8); Bilirubin, Total < 0.2 mg/dL (0.2-1.0); Blood Urea Nitrogen 37 mg/dL (9-23); Calcium 8.0 mg/dL (8.7-10.4); Chloride 108 mmol/L (98-107); Glucose 151 mg/dL (74-106); Potassium 3.3 mmol/L (3.5-5.1); Total Protein 5.3 g/dL (5.7-8.2)
[2025-06-08] MEDS: ACCU-CHEK COMFORT CURVE STRIP VI SCH (17:00)
[2025-06-08] MEDS: InsuLIN REG 1unit/0.01ml Soln (100units/ml) SC SCH (17:00)
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
[2025-06-08] MEDS ORDERED: LORazepam 2MG/ML-1ML VIAL IV PRN (22:30)
[2025-06-08 23:24] LABS: INR 1.0 (0.9-1.15); Prothrombin Time 10.6 sec (9.3-11.8)
[2025-06-09] MEDS: PENICILLIN G POTASSIUM 4,000,000 UNITS in D5W 5% 50 ML IV SCH (02:00)
[2025-06-09 08:00] VITALS: PULSE 83; RESP 17; O2SAT 96
[2025-06-09 08:30] VITALS: BP 186/92; PULSE 71; RESP 20; O2SAT 100
--- NOTE | 2025-06-09 09:17 | DVHPN2 ---
Subjective Still confused, no cough, no other pain endorsed. Reviewed: H&P Changes from previous H/P or p: No Changes General: Per HPI Eyes: No Pain, No Vision change, No Conjunctivae inflammation, No Eyelid inflammation, No Other, No Redness ENT: No Ear pain, No Ear discharge, No Nose pain, No Nose discharge, No Nose congestion, No Mouth pain, No Mouth swelling, No Throat pain, No Throat swelling, No Other Cardiovascular: No Chest Pain, No Palpitations, No Orthopnea, No Paroxysmal Noc. Dyspnea, No Edema, No Lt Headedness; Other (Left IJ Perma catheter.) Respiratory: No Cough, No Dry, No Shortness of breath, No SOB with excertion, No Wheezing, No Hemoptysis, No Pleuritic Pain, No Sputum, No Other Gastrointestinal: Nausea, Vomiting; No Abdominal Pain, No Diarrhea, No Constipation, No Melena, No Hematochezia, No Other Genitourinary: No Dysuria, No Frequency, No Incontinence, No Hematuria, No Retention; Other (On hemodialysis) Musculoskeletal: No other, No neck pain, No shoulder pain, No arm pain, No back pain, No hand pain, No leg pain, No foot pain Skin: No Rash, No Lesions, No Jaundice, No Bruising, No Other Objective Vitals Vital Signs Date Time Temp Pulse Resp B/P (MAP) Pulse Ox O2 Delivery O2 Flow Rate FiO2 06/09/25 08:42 75 186/92 06/08/25 21:00 97.7 16 100 97.7 06/08/25 20:00 Room Air* 0 21 Intake/Output Intake and Output 06/09/25 07:00 Intake Total 1540 ml Balance 1540 ml Intake Oral 1490 ml IV Total 50 ml # Voids 4 Exam GEN: Healthy appearing, well-developed, NAD. AOx0 HEENT: NC/AT; MMM. CV: RRR, no m/r/g. LUNGS: Decreased air entry in all lung mehta. ABD: Soft, NT/ND, NBS, no masses or organomegaly. EXT: skin Warm, well perfused. no rashes. No clubbing, cyanosis, or edema. NEURO: Ambulating with no limitations. No focal deficits. Medications Current Medications Medications Dose Ordered Sig/Laly Route Start Time Stop Time Status Last Admin Dose Admin Multivit/Ca Carb/ B Cmplx/FA/Prenat 1 tab DAILY PO 06/04/25 10:00 06/09/25 08:41 1 TAB Sevelamer HCl 800 mg TIDWM PO 06/03/25 18:00 06/09/25 08:42 800 MG Aspirin 81 mg DAILY PO 06/04/25 10:00 06/09/25 08:42 81 MG Atorvastatin Calcium 20 mg HS PO 06/03/25 22:00 06/07/25 23:50 20 MG Famotidine 20 mg DAILY IV 06/04/25 10:00 06/09/25 08:43 20 MG Metoprolol Tartrate 50 mg BID PO 06/03/25 22:00 06/09/25 08:42 50 MG Sodium Chloride 10 ml Q8HR IV 06/03/25 22:00 06/09/25 06:22 10 ML Acetaminophen/ Hydrocodone Bitart 1 tab Q4HP PRN PO 06/03/25 16:15 Ondansetron HCl 4 mg Q4HP PRN IV 06/03/25 16:15 06/04/25 21:38 4 MG Docusate Sodium 100 mg BIDPRN PRN PO 06/03/25 16:15 Acetaminophen 650 mg Q6HP PRN PO 06/03/25 16:15 06/04/25 09:19 650 MG Nitroglycerin 0.4 mg Q5MINP PRN SL 06/03/25 17:15 Morphine Sulfate 2 mg Q30M PRN IV 06/03/25 17:15 Calcium Acetate 667 mg TIDWMEALS PO 06/04/25 08:00 06/09/25 08:42 667 MG Azithromycin 250 ml @ 125 mls/hr DAILY IV 06/05/25 10:00 Hold Haloperidol Lactate 5 mg Q6HP PRN IM 06/04/25 15:15 06/09/25 02:33 5 MG Hydralazine HCl 10 mg Q6HP PRN IV 06/05/25 10:45 06/07/25 00:44 10 MG Vancomycin HCl 0 ml @ 0 mls/hr UD IV 06/05/25 10:45 Ceftriaxone Sodium/Dextrose 50 ml @ 50 mls/hr Q12HR@09,21 IV 06/05/25 21:00 06/09/25 08:43 50 MLS/HR Olanzapine 10 mg DAILY PO 06/06/25 10:00 06/09/25 08:41 10 MG Diagnostic Test (Pha) 1 strip ACHS 06/08/25 17:00 06/09/25 04:51 1 STRIP Insulin Human Regular ACHS SC 06/08/25 17:00 06/09/25 04:48 6 UNITS Dextrose 50 ml UD PRN IV 06/08/25 14:30 Lorazepam 1 mg ONCE PRN IV 06/08/25 22:30 Penicillin G Potassium 1054233 units/Dextrose 50 ml @ 100 mls/hr Q4HR IV 06/09/25 02:00 Laboratory Results Laboratory Tests 06/08/25 05:51 Coagulation Test 06/08/25 22:52 Prothrombin Time 10.6 sec (9.3-11.8) Prothrombin Time INR 1.00 (0.9-1.15) Urinalysis Test 06/05/25 13:00 Urine Color Light-yellow (Yellow) Urine Clarity Clear (Clear) Urine pH 7.0 (5.0-9.0) Urine Specific [place] 1.016 (1.001-1.035) Urine Protein 3+ (Negative) H Urine Ketones Trace (Negative) Urine Blood 1+ /uL (Negative) H Urine Nitrite Negative (Negative) Urine Bilirubin Negative (Negative) Urine Urobilinogen Normal mg/dL (Negative) Urine Leukocyte Esterase Negative /uL (Negative) Urine RBC 2 /hpf (0 - 4) Urine Microscopic WBC 2 /HPF (0-5) Urine Squamous Epithelial Cells Few /hpf (<5) Urine Bacteria None seen /hpf (None Seen) Urine Hyaline Casts Few /lpf (0 - 2) Urine Yeast (Budding) Occasional /hpf (None Urine Glucose 4+ mg/dL (Normal) H Microbiology Microbiology Date/Time Source Procedure Growth Status 06/03/25 14:15 Blood Blood Culture - Final NO GROWTH AFTER 5 DAYS OF INCUBATION. Complete Labs and/or images reviewed: Labs reviewed by me, Image(s) reviewed by me Assessment/Plan Assessment/Plan The patient is a 60-year-old female with past medical history of end-stage renal disease on hemodialysis -, hyperlipidemia, DM, anemia, and hypertension who presented to [facility] ED with complaint of fever. Patient reports she has been experiencing fever, associated with cough, nasal congestion, nausea, and general malaise for the past 2 days. 06/04- patient with history of ESRD, diabetes, hypertension here with fever cough nasal congestion. COVID fluids not done. Admitted for pneumonia. On ceftriaxone. I will add azithromycin. We will get COVID flu. Continue treatment. Nephrology consulted for continuation of dialysis MWF. SSI for diabetes. Continue home medications. Blood cultures were taken. Given chronic dialysis bacteremia is of concern. There is no urine, possible patient is anuric ESRD. -patient is confused, altered A&O x1 unable to answer any ROS questions. there is no missed dialysis days. Daughter endorsed to nurse that patient is not at baseline. We will get workup for encephalopathy. Patient is declining labs, treatments. We will order TSH, ammonia, ABG, UDS, blood drug screen, CMP. Question of alcohol withdrawal or viral encephalitis? 06/05-patient is worsening, more confused, refusing labs, treatments, p.o. meds. Ammonia negative, no CO2 narcosis, appears to be neurologically intact moving all extremities but now she is A&O times 0. Unclear if this is UTI but possible. We are giving, or trying to give antibiotics IV ceftriaxone which would treat urine infection. Primary suspicion was pneumonia which is less likely. Meningitis is on the differential.. Urinary obstruction is also on differential. We will get urine UA UDS. Pending blood tox screen.. Per family this is a very acute change for patient. We will increase Haldol to 10 intramuscular q.6 H. we will get bladder scan, head CT, try to use patient's daughters help to help give p.o. meds. Patient refusing HD which will only worsening condition. Very high-risk and very poor prognosis. I will add vancomycin and increase ceftriaxone to 2 g. We will all still start olanzapine 10. We will also do telepsych in case this is psych cause. 06/06-06/07 06/08- no significant events notable over the weekend patient remains altered, few events of pulling IVs, few events of getting agitated requiring Ativan/Haldol. Need to advance surge into cause of AMS. We will order treponemal antibody, repeat ammonia, CBC CMP today. Continue Haldol prn, olanzapine 10 scheduled daily,. Maintain isolation for meningitis ruled out, patient has been on broad-spectrum vanc ceftriaxone for meningitis for 4 days now. Still on resolution or changing/improving off condition. We will consult Neurology and get MRI brain if possible. Nephrology is following and wants no IVs in arm with maturating AVF. We will also get LP for studies of VDRL and HSV. Holding off acyclovir right now. 06/09 - labs from yesterday treponemal antibody positive, reflex RPR is pending now. Radiologist consulted for LP, concern for neurosyphilis ruled out, we will need CSF VDRL. Neurology was consulted to ruled out other central causes, neurology has placed infectious disease consult. MRI brain is ordered but given patient's behavioral symptoms it may be difficult to obtain. Ceftriaxone does treat syphilis but penicillin is preferred. We will hold off penicillin treatment incomplete workup for LP. Today, we will get HIV antibody, possibly MRI brain. unlikely psychiatric cause as we have some direction now, i still have to ruled out HIV and HSV encephalitis, so with LP need hsv and vdrl. hiv lab w/u. MRI brain. neur following. ID now onboard too. continue vanc/ctx meningitis doses. Acute toxic metabolic encephalopathy neurosyphilis rule-out viral encephalitis, possible Acute pneumonia, Gram-negative Gram-positive possible Acute meningitis possible, infectious cause possible, ruling out ESRD on HD, TTS schedule Hyperlipidemia Diabetes Anemia Hypertension -IV antibiotics -AMS workup ongoing. -Nephrology consult TTS schedule -Continue home medications liquid diet dvt ppx - lovenox gi ppx - protonix medsurg full code Plan discussed with: Patient My Orders Orders - MELQUIADES TREJO MD Procedure Category Date Status Time Vancomycin,Random LAB 06/09/25 Logged 04:00 Glucose Blood PHA 06/08/25 In Process (Accu-Chek Comfort 17:00 Insulin R (Human) PHA 06/08/25 In Process (Insulin R) 17:00 Dextrose 50% Syringe PHA 06/08/25 In Process 14:30 Comprehensive LAB 06/09/25 Logged Metabolic Panel 04:00 Complete Blood Count LAB 06/09/25 Logged 04:00 Brain Head Wo Contrast MRI 06/08/25 Logged 15:13 * Neurology Consult CONS 06/08/25 Transmitted 15:13 * Radiologist Consult CONS 06/09/25 Verified 09:10 Date of Service: Jun 09, 2025 Billing Provider: MELQUIADES TREJO MD Common Visit Codes: [id number] INP/OBS CARE(HIGH) MELQUIADES TREJO MD Jun 09, 2025 09:17
[2025-06-09 13:00] VITALS: BP 146/83; PULSE 66; RESP 18; TEMP 98.5; O2SAT 97
[2025-06-09 13:36] LABS: RAPID PLASMA REAGIN QUANT 1:2 Titer (NONREACTIVE)
[2025-06-09 15:26] LABS: Hematocrit 31.3 % (36.0-46.0); Hemoglobin 10.1 g/dL (12.2-16.2); Mean Corpuscular Hemoglobin 29.8 pg (28.0-32.0); Mean Corpuscular Volume 92.1 fL (80.0-100.0); Nucleated Red Blood Cells % 0.2 %
[2025-06-09 15:41] LABS: Alanine Aminotransferase 38 U/L (7-40); Alkaline Phosphatase 68 U/L (46-116); Anion Gap 14 (5-15); BUN/Creatinine Ratio 6.4 (10.0-20.0); Carbon Dioxide 26 mmol/L (20-31); Chloride 105 mmol/L (98-107); Potassium 4.1 mmol/L (3.5-5.1); Sodium 145 mmol/L (136-145)
[2025-06-09 15:42] LABS: Albumin 3.1 g/dL (3.2-4.8); Bilirubin, Total < 0.2 mg/dL (0.2-1.0); Blood Urea Nitrogen 53 mg/dL (9-23); Calcium 8.4 mg/dL (8.7-10.4); Glucose 199 mg/dL (74-106); Total Protein 5.3 g/dL (5.7-8.2)
[2025-06-09] MEDS: PENICILLIN POTASSIUM IV SCH (16:45)
[2025-06-09] MEDS: D5W 5% IV SCH (16:45)
[2025-06-09 17:00] VITALS: BP 175/80; PULSE 80; RESP 17; TEMP 97.7; O2SAT 96
[2025-06-09] MEDS: VANCOMYCIN 500mg/100mL PREMIX or KIT IV ONE (17:00)
[2025-06-09 21:00] VITALS: BP 188/80; PULSE 84; RESP 19; TEMP 97.9; O2SAT 97
--- NOTE | 2025-06-09 22:54 | DVHPN2 ---
Progress Note - Dictate Date Seen: Jun 09, 2025 Medical Necessity Reason Pt with a Central, PICC or Fol: Yes The following are medically ne: Central Line Subjective is a 60 years old right-handed female with a history of hypertension, diabetes, end-stage renal failure on hemodialysis, anemia, polyneuropathy, status post right arm fracture, she came to the [facility] on 06/03/2025 with a chief company of nausea, vomiting. I have seen and examined the patient, I have discussed with her nurse, and sitter, she is mentally much better, alert, oriented times 2-3, reasonable social skills, she does not remember being agitation I have discussed with pharmacist Re: Penicillin dosage RPR, 06/08/2025: Reactive (1:2) Treponema pallidum antibody, 06/08/2025: Reactive Blood culture, 06/03/2025: Negative ABG, 06/04/2025: Respiratory alkalosis UDS, 06/05/2025: Negative WBC/HB/PLT/MCV, 06/08/2025: 7.3/9.8/216/91.5 PT/INR/PTT, 06/08/25: 10.6/1/ BUN/CR, 06/03/2025: 34/4.6, 06/04/2025: 45/5.24, 06/08/2025: 37/6.98 Glucose, 06/03/2025: 484 Lactic acid, 06/03/2025: 1.4, 06/08/25: 0.8 TBI/AST/ALT/AP, 06/08/2025:0.2/124/45/65 NH3 06/08/2025:14. CT head, 06/05/2025: 1. Chronic ischemic changes without evidence of acute intracranial proce vital signs Vital Sign Date Time Temp Pulse Resp B/P (MAP) Pulse Ox O2 Delivery O2 Flow Rate FiO2 06/09/25 22:19 187/81 06/09/25 22:15 95 06/09/25 21:00 97.9 19 97 97.9 06/09/25 20:00 Room Air* 0 21 Total Intake and Output 06/08/25 06/08/25 06/09/25 15:00 23:00 07:00 Intake Total 50 ml 1090 ml 400 ml Balance 50 ml 1090 ml 400 ml medications Current Medications Medications Dose Ordered Sig/Laly Route Start Time Stop Time Status Last Admin Dose Admin Multivit/Ca Carb/ B Cmplx/FA/Prenat 1 tab DAILY PO 06/04/25 10:00 06/09/25 08:41 1 TAB Sevelamer HCl 800 mg TIDWM PO 06/03/25 18:00 06/09/25 17:30 800 MG Aspirin 81 mg DAILY PO 06/04/25 10:00 06/09/25 08:42 81 MG Atorvastatin Calcium 20 mg HS PO 06/03/25 22:00 06/09/25 22:20 20 MG Famotidine 20 mg DAILY IV 06/04/25 10:00 06/09/25 08:43 20 MG Metoprolol Tartrate 50 mg BID PO 06/03/25 22:00 06/09/25 22:15 50 MG Sodium Chloride 10 ml Q8HR IV 06/03/25 22:00 06/09/25 22:00 10 ML Acetaminophen/ Hydrocodone Bitart 1 tab Q4HP PRN PO 06/03/25 16:15 Ondansetron HCl 4 mg Q4HP PRN IV 06/03/25 16:15 06/04/25 21:38 4 MG Docusate Sodium 100 mg BIDPRN PRN PO 06/03/25 16:15 Acetaminophen 650 mg Q6HP PRN PO 06/03/25 16:15 06/04/25 09:19 650 MG Nitroglycerin 0.4 mg Q5MINP PRN SL 06/03/25 17:15 Morphine Sulfate 2 mg Q30M PRN IV 06/03/25 17:15 Calcium Acetate 667 mg TIDWMEALS PO 06/04/25 08:00 06/09/25 17:30 667 MG Azithromycin 250 ml @ 125 mls/hr DAILY IV 06/05/25 10:00 Hold Haloperidol Lactate 5 mg Q6HP PRN IM 06/04/25 15:15 06/09/25 02:33 5 MG Hydralazine HCl 10 mg Q6HP PRN IV 06/05/25 10:45 06/09/25 22:19 10 MG Vancomycin HCl 0 ml @ 0 mls/hr UD IV 06/05/25 10:45 Ceftriaxone Sodium/Dextrose 50 ml @ 50 mls/hr Q12HR@09,21 IV 06/05/25 21:00 06/09/25 08:43 50 MLS/HR Olanzapine 10 mg DAILY PO 06/06/25 10:00 06/09/25 08:41 10 MG Diagnostic Test (Pha) 1 strip ACHS 06/08/25 17:00 06/09/25 22:00 1 STRIP Insulin Human Regular ACHS SC 06/08/25 17:00 06/09/25 22:18 6 UNITS Dextrose 50 ml UD PRN IV 06/08/25 14:30 Lorazepam 1 mg ONCE PRN IV 06/08/25 22:30 Penicillin G Potassium [id number] units/Dextrose 50 ml @ 100 mls/hr Q4HR IV 06/09/25 16:45 06/09/25 22:15 100 MLS/HR objective General: the patient is well developed and nourished. No acute distress. Status post right 3rd toe amputation MENTAL STATUS: Subjective SPEECH, LANGUAGE, HIGHER CORTICAL FUNCTION: No aphasia or dysarthria, CRANIAL NERVES: Pupils are equal, round and reactive. EOMs full and conjugate. Facial sensation intact in all three divisions bilaterally. Mandibular strength intact. Facial muscles symmetrical and strength intact. SENSATION: Sensation to touch and pinprick is okay MOTOR: Normal tone in the upper and lower extremity. Normal muscle bulk. No fasciculations. Tremors in both upper extremities. She does not move the arms and legs, the muscle power in the both arms feel strong. REFLEXES: Deep tendon reflexes are symmetrical. No pathological reflexes. CEREBELLAR/COORDINATION: Deferred GAIT/STATION: deferred laboratory and microbiology Laboratory Tests 06/09/25 15:00 Test 06/09/25 15:00 Range/Units Serum Glucose 199 H 74-106 mg/dL Problem List Mltered mental status Metabolic encephalopathy secondary to hyperglycemia Hospital delirium Fever ? Meningitis/intracranial infection, End-stage kidney failure on hemodialysis Positive Treponema pallidum antibody, to rule out central nervous system syphilis Assessment/Plan Monitoring Supportive treatment Telemetry EEG CSF profile, including VDRL MR head IV antibiotics Penicillin Ceftriaxone Haldol for behavioral control Hemodialysis Nephrology on case Consult Radiology Re: LB 2nd opinion from Infectious Disease Re: Intracranial infection More recommendation per clinical course This medical document was created using an electronic medical record system with [employer] dictation system. Although this document has been carefully reviewed, there may still be some phonetic and typographical errors. These areas are purely typographical due to imperfections of the software programs, and do not reflect any compromise in the patient's medical care. Prognosis poor Dietary Evaluation Review Comments: 1) CCHO 60 + renal standard 2) Refer Skein Bleacher for diabetes education Expected Outcomes/Goals: To meet >75% estimated needs Fu 3-5 days Plan discussed with: Other Total Time (mins): 40 JONNATHAN GONZALEZ MD Jun 09, 2025 22:54
[2025-06-10] VITALS (7 sets, daily range): BP systolic 137–218; BP diastolic 58–92; PULSE 72–91; RESP 18–20; TEMP 97.6–98.3; O2SAT 94–99
[2025-06-10 07:03] LABS: Hematocrit 29.3 % (36.0-46.0); Hemoglobin 9.8 g/dL (12.2-16.2); Mean Corpuscular Hemoglobin 29.7 pg (28.0-32.0); Mean Corpuscular Volume 88.4 fL (80.0-100.0); Nucleated Red Blood Cells % 0.0 %
[2025-06-10 07:16] LABS: Alanine Aminotransferase 36 U/L (7-40); Alkaline Phosphatase 70 U/L (46-116); Anion Gap 14 (5-15); BUN/Creatinine Ratio 6.9 (10.0-20.0); Carbon Dioxide 25 mmol/L (20-31); Chloride 101 mmol/L (98-107); Potassium 4.0 mmol/L (3.5-5.1); Sodium 140 mmol/L (136-145)
[2025-06-10 07:26] LABS: Blood Urea Nitrogen 57 mg/dL (9-23); Calcium 8.1 mg/dL (8.7-10.4); Glucose 301 mg/dL (74-106)
[2025-06-10 07:27] LABS: Albumin 3.2 g/dL (3.2-4.8); Bilirubin, Total < 0.2 mg/dL (0.2-1.0); Total Protein 5.5 g/dL (5.7-8.2)
[2025-06-10] MEDS ORDERED: DEXTROSE (50%) 50ML SYRG IV PRN (09:00)
--- NOTE | 2025-06-10 09:32 | DVHINCON2 ---
Date of service: Jun 09, 2025 Family History: Diabetes mellitus Hypertension Allergies: Coded Allergies: No Known Drug Allergy (Verified Allergy, Unknown, 08/13/24) Home Meds Reported Medications Clonidine Hydrochloride (Clonidine Hcl) 0.1 Mg Tab, 0.1 MG PO BID PRN for SBP>170or DBP>90 for 30 Days, MG 06/04/25 Insulin Lispro (Human) (Humalog) 100 Unit/Ml Inj, 10 UNIT SC TID, INJ 06/04/25 Insulin Glargine (Lantus Solostar) 100 Unit/Ml Inj, 25 UNIT SC HS, INJ 06/04/25 Furosemide (Furosemide) 40 Mg Tab, 40 MG PO DAILY for 30 Days 06/04/25 Ferrous Sulfate (Ferosul) 325 Mg Tab, 325 MG PO DAILY, TAB 06/04/25 Atorvastatin Calcium (ATORVASTATIN CALCIUM) 20 Mg Tab, 1 TAB PO DAILY, #30 TAB 5 Refills 06/04/25 Aspirin (Aspir-Low) 81 Mg Tab, 81 MG PO DAILY for 30 Days, MG 06/04/25 Metoprolol Tartrate (Metoprolol Tartrate) 50 Mg Tab, 50 MG PO BID for 30 Days, MG 06/04/25 Current Medications Current Medications Medications (Trade) Dose Ordered Sig/Laly Route PRN Reason Start Time Stop Time Status Last Admin Penicillin G Potassium [id number] units/Dextrose 50 ml @ 100 mls/hr Q4HR IV 06/09/25 16:45 06/10/25 06:02 Diagnostic Test (Pha) (Accu-Chek Comfort Curve T) 1 strip ACHS 06/10/25 11:30 UNV Insulin Human Regular (InsuLIN R) AC SC 06/10/25 11:30 UNV Insulin Human Regular (InsuLIN R) HS SC 06/10/25 22:00 UNV Dextrose 50 ml UD PRN IV Blood Sugar LESS THAN 60 06/10/25 09:00 UNV Vital Signs Vital Signs Date Time Temp Pulse Resp B/P (MAP) Pulse Ox O2 Delivery O2 Flow Rate FiO2 06/10/25 06:16 175/87 06/10/25 05:00 98.3 78 19 97 98.3 06/09/25 20:00 Room Air* 0 21 Labs/Diagnostic Data Labs Test 06/10/25 08:02 06/10/25 06:07 06/10/25 05:50 06/08/25 22:52 Range/Units POC Glucose 331 H 70-106 mg/dl White Blood Count 10.4 # 4.4-10.8 10^3/uL Red Blood Count 3.31 L 4.0-5.20 10^6/uL Hemoglobin 9.8 L 12.2-16.2 g/dL Hematocrit 29.3 L 36.0-46.0 % Mean Corpuscular Volume 88.4 # 80.0-100.0 fL Mean Corpuscular Hemoglobin 29.7 28.0-32.0 pg Mean Corpuscular Hemoglobin Concent 33.5 32.0-36.0 g/dL Red Cell Distribution Width 17.4 H 11.8-14.3 % Platelet Count 269 140-450 10^3/uL Mean Platelet Volume 7.6 6.9-10.8 fL Neutrophils (%) (Auto) 72.4 37.0-80.0 % Lymphocytes (%) (Auto) 17.5 10.0-50.0 % Monocytes (%) (Auto) 7.1 0.0-12.0 % Eosinophils (%) (Auto) 2.3 0.0-7.0 % Basophils (%) (Auto) 0.7 0.0-2.0 % Neutrophils # (Auto) 7.5 1.6-8.6 10 ^3/uL Lymphocytes # (Auto) 1.8 0.4-5.4 10 ^3/uL Monocytes # (Auto) 0.7 0-1.3 10 ^3/uL Eosinophils # (Auto) 0.2 0-0.8 10 ^3/uL Basophils # (Auto) 0.1 0-0.2 10 ^3/uL Nucleated Red Blood Cells 0.0 % Sodium Level 140 # 136-145 mmol/L Potassium Level 4.0 3.5-5.1 mmol/L Chloride Level 101 98-107 mmol/L Carbon Dioxide Level 25 20-31 mmol/L Anion Gap 14 5-15 Blood Urea Nitrogen 57 H 9-23 mg/dL Creatinine 8.25 H 0.550-1.02 mg/dL Glomerular Filtration Rate Calc 5 >90 mL/min BUN/Creatinine Ratio 6.9 L 10.0-20.0 Serum Glucose 301 H 74-106 mg/dL Calcium Level 8.1 L 8.7-10.4 mg/dL Total Bilirubin < 0.2 L 0.2-1.0 mg/dL Aspartate Amino Transferase (AST) 52 H 13-40 U/L Alanine Aminotransferase (ALT) 36 7-40 U/L Alkaline Phosphatase 70 46-116 U/L Total Protein 5.5 L 5.7-8.2 g/dL Albumin 3.2 3.2-4.8 g/dL Random Vancomycin Level 15.7 H 5-10 ug/mL Prothrombin Time 10.6 9.3-11.8 sec Prothrombin Time INR 1.00 0.9-1.15 Test 06/08/25 16:26 06/08/25 05:51 06/06/25 18:00 06/05/25 13:00 Range/Units Lactic Acid Level 0.8 0.4-2.0 mmol/L Ammonia 14 11-32 umol/L Rapid Plasma Reagin Titer 1:2 A NONREACTIVE Titer Rapid Plasma Reagin Reactive A NONREACTIVE Treponema pallidum Antibody Reactive *A Negative Hepatitis B Surface Antigen Negative Negative Urine Color Light-yellow Yellow Urine Clarity Clear Clear Urine pH 7.0 5.0-9.0 Urine Specific [place] 1.016 1.001-1.035 Urine Protein 3+ H Negative Urine Ketones Trace Negative Urine Blood 1+ H Negative /uL Urine Nitrite Negative Negative Urine Bilirubin Negative Negative Urine Urobilinogen Normal Negative mg/dL Urine Leukocyte Esterase Negative Negative /uL Urine RBC 2 0 - 4 /hpf Urine Microscopic WBC 2 0-5 /HPF Urine Squamous Epithelial Cells Few <5 /hpf Urine Bacteria None seen None Seen /hpf Urine Hyaline Casts Few 0 - 2 /lpf Urine Yeast (Budding) Occasional None Seen /hpf Urine Glucose 4+ H Normal mg/dL Urine Opiates Screen Neg NEGATIVE Urine Fentanyl Screen Neg NEGATIVE Urine Barbiturates Screen Neg NEGATIVE Urine Phencyclidine Screen Neg NEGATIVE Urine Amphetamines Screen Neg NEGATIVE Urine Benzodiazepines Screen Neg NEGATIVE Urine Cocaine Screen Neg NEGATIVE Urine Cannabinoids Screen Neg NEGATIVE Test 06/04/25 18:42 06/04/25 15:10 06/04/25 05:35 06/03/25 12:38 Range/Units Blood Gas Specimen Type Arterial Blood Gas Sample Site Right radial Blood Gas Patient Temperature 37.0 Arterial Blood Date Drawn [id number] Arterial Blood pH 7.497 H 7.350-7.450 Arterial Blood Partial Pressure CO2 27.4 L 32.0-45.0 mmHg Arterial Blood Partial Pressure O2 88.3 83.0-108.0 mmHg Arterial Blood HCO3 20.7 L 21.0-28.0 mmol/L Arterial Blood Oxygen Saturation 96.9 94.0-98.0 % Arterial Blood Base Excess -1.5 -2.0-3.0 mmol/L Arterial Blood Oxyhemoglobin 95.8 94.0-98.0 % Arterial Blood Carboxyhemoglobin 0.8 0.5-1.5 % Arterial Blood Methemoglobin 0.3 0.0-1.5 % Manuel Test Yes Blood Gas Total Hemoglobin 11.10 L 12.0-16.0 g/dL Blood Gas Modality Room air FiO2 % 21.0 Thyroid Stimulating Hormone (TSH) 1.92 0.55-4.78 uIU/mL Troponin I High Sensitivity 7 </=34 ng/L Microbiology Date/Time Source Procedure Growth Status 06/03/25 14:15 Blood Blood Culture - Final NO GROWTH AFTER 5 DAYS OF INCUBATION. Complete Problems(with codes): (1) Serum positive for Treponema pallidum by PCR (2) ESRD (end stage renal disease) (3) Pneumonia (4) Acute metabolic encephalopathy (5) Diabetes mellitus with hyperglycemia Plan/Recommendation ASSESSMENT AND PLAN: ID Problem List: \-- End-stage renal disease on hemodialysis (M/W/F) \-- Diabetes mellitus \-- Hypertension \-- Hyperlipidemia \-- Anemia \-- Pneumonia \-- Fever and confusion \-- Syphilis seropositivity Assessment This is a 60 y.o. female with a complex medical history significant for end- stage renal disease on hemodialysis, diabetes, hypertension, anemia, and hyperli pidemia, presenting with fever, nasal congestion, cough, malaise, and generalized weakness for the past few days. Patient was noted to be confused and described as a poor historian, with more incoherence than acute delirium. Evaluation in the ED revealed leukocytosis (WBC 11.6), Hgb 10.7, platelet 223, BUN 34, creatinine 4.6. Lactic acid was 1.4. She has a left IJ permanent catheter for dialysis, which appears clean, dry, intact, and she has not missed recent dialysis sessions. There is no lower extremity swelling. Chest imaging demonstrated bilateral patchy airspace disease consistent with pneumonia. There was initial concern for meningitis in the context of altered mental status and underlying end-stage renal disease. Lumbar puncture performed on 06/10 showed CSF WBC 0, protein 93.6, glucose 122. CSF cultures negative to date; VDRL and further CSF studies pending. Blood cultures have remained negative. Infectious workup revealed negative HIV, negative hepatitis B, but positive treponemal antibody with RPR titer 1:2 consistent with syphilis seropositivity. There is ongoing investigation to determine if this may reflect previously treated disease (serofast state), in which case active treatment for syphilis may not be required. The patient has received vancomycin and ceftriaxone during admission, with subsequent switch to penicillin for syphilis. She has prolonged QTc, so azithromycin should be avoided; doxycycline can be used instead if additional atypical coverage is needed. Overall, low suspicion for bacterial meningitis at this time. Respiratory status is stable on room air. 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 pending further review by Infectious Disease and Public Health regarding syphilis history/treatment \-- Continue penicillin as indicated for syphilis if determined not previously treated; otherwise, no additional therapy required for serofast state \-- Treat pneumonia: use ceftriaxone q12h for typical coverage; doxycycline may be added for atypical coverage in place of azithromycin (due to prolonged QTc) \-- No need for isolation precautions at this time, given negative workup for bacterial meningitis \-- Monitor mental status, WBC, and cultures; continue hemodialysis as scheduled \-- Hold on PICC line placement; may not require chronic IV antibiotics on discharge \-- Contact Department of Public Health to clarify syphilis treatment history and refine ongoing treatment plan Isolation Precautions: None indicated at this time Assessment and plan was discussed with the patient as written above. Plan is subject to change pending incorporation of new incoming information/diagnostics. Updates may be added as addendum at the bottom (OR TOP) of this note. Thank you for interesting consult. ID will continue to follow. Please contact Infectious Disease for any questions or concerns. Sasha Cleary M.D. [facility] Ph: ?[phone] \ History: The patient's chart and medications were reviewed in detail and the patient was seen and examined. History obtained from: patient (poor historian) Jose Maria is a 60 y.o. female with end-stage renal disease on hemodialysis (Sunday/Sunday/Sunday), diabetes, hypertension, anemia, and hyperlipidemia, who presents with several days of fever, nasal congestion, cough, malaise, and g eneralized weakness. She reports no missed hemodialysis sessions. No known drug allergies reported. On admission: fever (99F), pulse 85, respiratory rate 17, BP 147/79, oxygen saturation 95% on room air. Labs notable for leukocytosis (WBC 11.6), Hgb 10.7, Plt 223, BUN 34, Cr 4.6. Lactic acid 1.4. Left IJ permacatheter clean, dry, and intact. Imaging: Chest x-ray shows bilateral patchy airspace disease (pneumonia). No swelling in lower extremities. Patient described as alert and oriented times 3, but more incoherent compared to baseline. Suspicion for meningitis is low. Review of Systems: A complete 10-system review was completed and negative except as noted in the HPI or here. ROS: -CONSTITUTIONAL: Reports fever, generalized weakness, malaise. Denies weight loss and chills. -HEENT: Reports nasal congestion. Denies vision or hearing changes. -RESPIRATORY: Reports cough. Denies shortness of breath. -CARDIOVASCULAR: Denies chest pain or palpitations. -GASTROINTESTINAL: Denies abdominal pain, nausea, vomiting, diarrhea. -GENITOURINARY: Denies dysuria or urinary frequency. -MUSCULOSKELETAL: Denies myalgia or joint pain. -SKIN: Denies rash or pruritus. -NEUROLOGICAL: Reports confusion (incoherence). Denies headache or syncope. -PSYCHIATRIC: Denies anxiety, depression, or mood changes. Past Medical History: Diagnosis Date End-stage renal disease on hemodialysis Not provided Diabetes mellitus Not provided Hypertension Not provided Anemia Not provided Hyperlipidemia Not provided Past Surgical History: Not provided in transcript. Home Medications: Not provided in transcript. Allergies: No known drug allergies. Family History: Not provided in transcript. Social History: Not provided in transcript. Objective: Vital Signs on Arrival: Temp: 99F BP: 147/79 Pulse: 85 Resp: 17 SpO2: 95% on room air Most Recent Vital Signs: Not specifically updated from above in transcript. Admission Weight and BMI: Not provided in transcript. Physical Exam: General: NAD Neck: Supple. No masses. HEENT: PERRL. Normal lids and conjunctiva. Moist mucous membranes. Oropharynx without lesions, exudates or excessive erythema. Normal appearance of the external aspects of the nose and ears. Heart: Regular rhythm, normal rate. No murmur. No lower extremity edema. Lungs: Normal respiratory effort. Clear to auscultation bilaterally. No wheezes. No crackles. Abdomen: Soft. Non-tender. Non-distended. No masses or abdominal hernia. Msk: No digital cyanosis. Normal strength and tone in all 4 limbs Skin: Warm and dry, no rashes. Neuro: Alert. No facial droop or slurred speech. Extra-ocular movements intact. Sensation intact to soft touch in all 4 limbs. Psych: Appropriate mood. Full affect. Oriented to person, place, time, and situation. Lines: Active Lines \-- Left IJ permacatheter, clean, dry, intact Diagnostic Studies: Available diagnostic studies were reviewed personally. Significant findings outlined below or addressed in Assessment and Plan above. Pertinent Imaging: Chest imaging: \-- Bilateral patchy airspace disease consistent with pneumonia. Pertinent Laboratory and Microbiology: \-- WBC: 11.6 \-- Hgb: 10.7 \-- Platelet: 223 \-- BUN: 34 \-- Creatinine: 4.6 \-- Lactic acid: 1.4 \-- CSF: WBC 0, protein 93.6, glucose 122. Cultures negative. Additional studies pending. \-- Blood cultures: No growth to date. \-- Syphilis serology: Reactive treponemal Ab, RPR titer 1:2 \-- HIV negative, hepatitis B negative Plan discussed with: Patient SASHA CLEARY MD Jun 10, 2025 09:32
[2025-06-10] MEDS: ACCU-CHEK COMFORT CURVE STRIP VI SCH (11:30)
[2025-06-10] MEDS: InsuLIN REG 1unit/0.01ml Soln (100units/ml) SC SCH ×2 (11:30→22:09)
--- NOTE | 2025-06-10 11:50 | DVHPN2 ---
Subjective Still confused, no cough, no other pain endorsed. Reviewed: H&P Changes from previous H/P or p: No Changes General: Per HPI Eyes: No Pain, No Vision change, No Conjunctivae inflammation, No Eyelid inflammation, No Other, No Redness ENT: No Ear pain, No Ear discharge, No Nose pain, No Nose discharge, No Nose congestion, No Mouth pain, No Mouth swelling, No Throat pain, No Throat swelling, No Other Cardiovascular: No Chest Pain, No Palpitations, No Orthopnea, No Paroxysmal Noc. Dyspnea, No Edema, No Lt Headedness; Other (Left IJ Perma catheter.) Respiratory: No Cough, No Dry, No Shortness of breath, No SOB with excertion, No Wheezing, No Hemoptysis, No Pleuritic Pain, No Sputum, No Other Gastrointestinal: Nausea, Vomiting; No Abdominal Pain, No Diarrhea, No Constipation, No Melena, No Hematochezia, No Other Genitourinary: No Dysuria, No Frequency, No Incontinence, No Hematuria, No Retention; Other (On hemodialysis) Musculoskeletal: No other, No neck pain, No shoulder pain, No arm pain, No back pain, No hand pain, No leg pain, No foot pain Skin: No Rash, No Lesions, No Jaundice, No Bruising, No Other Objective Vitals Vital Signs Date Time Temp Pulse Resp B/P (MAP) Pulse Ox O2 Delivery O2 Flow Rate FiO2 06/10/25 09:33 218/89 06/10/25 05:00 98.3 78 19 97 98.3 06/09/25 20:00 Room Air* 0 21 Intake/Output Intake and Output 06/10/25 07:00 Intake Total 2130 ml Balance 2130 ml Intake Oral 2080 ml IV Total 50 ml # Voids 8 # Bowel Movements 1 Exam GEN: Healthy appearing, well-developed, NAD. AOx0 HEENT: NC/AT; MMM. CV: RRR, no m/r/g. LUNGS: Decreased air entry in all lung mehta. ABD: Soft, NT/ND, NBS, no masses or organomegaly. EXT: skin Warm, well perfused. no rashes. No clubbing, cyanosis, or edema. NEURO: Ambulating with no limitations. No focal deficits. Medications Current Medications Medications Dose Ordered Sig/Laly Route Start Time Stop Time Status Last Admin Dose Admin Multivit/Ca Carb/ B Cmplx/FA/Prenat 1 tab DAILY PO 06/04/25 10:00 06/09/25 08:41 1 TAB Sevelamer HCl 800 mg TIDWM PO 06/03/25 18:00 06/09/25 17:30 800 MG Aspirin 81 mg DAILY PO 06/04/25 10:00 06/09/25 08:42 81 MG Atorvastatin Calcium 20 mg HS PO 06/03/25 22:00 06/09/25 22:20 20 MG Famotidine 20 mg DAILY IV 06/04/25 10:00 06/10/25 09:32 20 MG Metoprolol Tartrate 50 mg BID PO 06/03/25 22:00 06/09/25 22:15 50 MG Sodium Chloride 10 ml Q8HR IV 06/03/25 22:00 06/10/25 06:24 10 ML Acetaminophen/ Hydrocodone Bitart 1 tab Q4HP PRN PO 06/03/25 16:15 Ondansetron HCl 4 mg Q4HP PRN IV 06/03/25 16:15 06/04/25 21:38 4 MG Docusate Sodium 100 mg BIDPRN PRN PO 06/03/25 16:15 Acetaminophen 650 mg Q6HP PRN PO 06/03/25 16:15 06/04/25 09:19 650 MG Nitroglycerin 0.4 mg Q5MINP PRN SL 06/03/25 17:15 Morphine Sulfate 2 mg Q30M PRN IV 06/03/25 17:15 Calcium Acetate 667 mg TIDWMEALS PO 06/04/25 08:00 06/09/25 17:30 667 MG Azithromycin 250 ml @ 125 mls/hr DAILY IV 06/05/25 10:00 Hold Haloperidol Lactate 5 mg Q6HP PRN IM 06/04/25 15:15 06/09/25 02:33 5 MG Hydralazine HCl 10 mg Q6HP PRN IV 06/05/25 10:45 06/10/25 09:33 10 MG Vancomycin HCl 0 ml @ 0 mls/hr UD IV 06/05/25 10:45 Ceftriaxone Sodium/Dextrose 50 ml @ 50 mls/hr Q12HR@,21 IV 06/05/25 21:00 06/10/25 09:32 50 MLS/HR Olanzapine 10 mg DAILY PO 06/06/25 10:00 06/09/25 08:41 10 MG Lorazepam 1 mg ONCE PRN IV 06/08/25 22:30 Penicillin G Potassium [id number] units/Dextrose 50 ml @ 100 mls/hr Q4HR IV 06/09/25 16:45 06/10/25 06:02 100 MLS/HR Diagnostic Test (Pha) 1 strip ACHS 06/10/25 11:30 Insulin Human Regular AC SC 06/10/25 11:30 Insulin Human Regular HS SC 06/10/25 22:00 Dextrose 50 ml UD PRN IV 06/10/25 09:00 Laboratory Results Laboratory Tests 06/10/25 05:50 Chemistry Test 06/09/25 15:00 06/10/25 05:50 Albumin 3.1 g/dL (3.2-4.8) L 3.2 g/dL (3.2-4.8) Calcium Level 8.4 mg/dL (8.7-10.4) L 8.1 mg/dL (8.7-10.4) L Total Protein 5.3 g/dL (5.7-8.2) L 5.5 g/dL (5.7-8.2) L LFT Test 06/09/25 15:00 06/10/25 05:50 Alanine Aminotransferase (ALT) 38 U/L (7-40) 36 U/L (7-40) Alkaline Phosphatase 68 U/L (46-116) 70 U/L (46-116) Aspartate Amino Transferase (AST) 62 U/L (13-40) H 52 U/L (13-40) H Total Bilirubin < 0.2 mg/dL (0.2-1.0) L < 0.2 mg/dL (0.2-1.0) L Urinalysis Test 06/05/25 13:00 Urine Color Light-yellow (Yellow) Urine Clarity Clear (Clear) Urine pH 7.0 (5.0-9.0) Urine Specific [place] 1.016 (1.001-1.035) Urine Protein 3+ (Negative) H Urine Ketones Trace (Negative) Urine Blood 1+ /uL (Negative) H Urine Nitrite Negative (Negative) Urine Bilirubin Negative (Negative) Urine Urobilinogen Normal mg/dL (Negative) Urine Leukocyte Esterase Negative /uL (Negative) Urine RBC 2 /hpf (0 - 4) Urine Microscopic WBC 2 /HPF (0-5) Urine Squamous Epithelial Cells Few /hpf (<5) Urine Bacteria None seen /hpf (None Seen) Urine Hyaline Casts Few /lpf (0 - 2) Urine Yeast (Budding) Occasional /hpf (None Urine Glucose 4+ mg/dL (Normal) H Microbiology Microbiology Date/Time Source Procedure Growth Status 06/03/25 14:15 Blood Blood Culture - Final NO GROWTH AFTER 5 DAYS OF INCUBATION. Complete Labs and/or images reviewed: Labs reviewed by me, Image(s) reviewed by me Assessment/Plan Assessment/Plan The patient is a 60-year-old female with past medical history of end-stage renal disease on hemodialysis M-W-, hyperlipidemia, DM, anemia, and hypertension who presented to [facility] ED with complaint of fever. Patient reports she has been experiencing fever, associated with cough, nasal congestion, nausea, and general malaise for the past 2 days. 06/04- patient with history of ESRD, diabetes, hypertension here with fever cough nasal congestion. COVID fluids not done. Admitted for pneumonia. On ceftriaxone. I will add azithromycin. We will get COVID flu. Continue treatment. Nephrology consulted for continuation of dialysis MWF. SSI for diabetes. Continue home medications. Blood cultures were taken. Given chronic dialysis bacteremia is of concern. There is no urine, possible patient is anuric ESRD. -patient is confused, altered A&O x1 unable to answer any ROS questions. there is no missed dialysis days. Daughter endorsed to nurse that patient is not at baseline. We will get workup for encephalopathy. Patient is declining labs, treatments. We will order TSH, ammonia, ABG, UDS, blood drug screen, CMP. Question of alcohol withdrawal or viral encephalitis? 06/05-patient is worsening, more confused, refusing labs, treatments, p.o. meds. Ammonia negative, no CO2 narcosis, appears to be neurologically intact moving all extremities but now she is A&O times 0. Unclear if this is UTI but possible. We are giving, or trying to give antibiotics IV ceftriaxone which would treat urine infection. Primary suspicion was pneumonia which is less likely. Meningitis is on the differential.. Urinary obstruction is also on differential. We will get urine UA UDS. Pending blood tox screen.. Per family this is a very acute change for patient. We will increase Haldol to 10 intramuscular q.6 H. we will get bladder scan, head CT, try to use patient's daughters help to help give p.o. meds. Patient refusing HD which will only worsening condition. Very high-risk and very poor prognosis. I will add vancomycin and increase ceftriaxone to 2 g. We will all still start olanzapine 10. We will also do telepsych in case this is psych cause. 06/06-06/07 06/08- no significant events notable over the weekend patient remains altered, few events of pulling IVs, few events of getting agitated requiring Ativan/Haldol. Need to advance surge into cause of AMS. We will order treponemal antibody, repeat ammonia, CBC CMP today. Continue Haldol prn, olanzapine 10 scheduled daily,. Maintain isolation for meningitis ruled out, patient has been on broad-spectrum vanc ceftriaxone for meningitis for 4 days now. Still on resolution or changing/improving off condition. We will consult Neurology and get MRI brain if possible. Nephrology is following and wants no IVs in arm with maturating AVF. We will also get LP for studies of VDRL and HSV. Holding off acyclovir right now. 06/09 - labs from yesterday treponemal antibody positive, reflex RPR is pending now. Radiologist consulted for LP, concern for neurosyphilis ruled out, we will need CSF VDRL. Neurology was consulted to ruled out other central causes, neurology has placed infectious disease consult. MRI brain is ordered but given patient's behavioral symptoms it may be difficult to obtain. Ceftriaxone does treat syphilis but penicillin is preferred. We will hold off penicillin treatment incomplete workup for LP. Today, we will get HIV antibody, possibly MRI brain. unlikely psychiatric cause as we have some direction now, i still have to ruled out HIV and HSV encephalitis, so with LP need hsv and vdrl. hiv lab w/u. MRI brain. neur following. ID now onboard too. continue vanc/ctx meningitis doses. 06/10- worse today. not following commands. bibasilar rales, trace pitting edema. BMP unremarkable, no significant changes in BUN. LP today, will help ruleout multiple diseases hsv , vdrl. will start acyclovir today as LP should be done, and will deescalate if negative. continuie therapy. appreciate, nephro, neuro and ID. continue vanc/ctx. will send hiv today, hepattiis panel tomorrow. her symptoms appear possible etoh w/d but this is day 6, so, doesnt add up. will try 1x ativan 1mg. otherwise continue management as outlined earlier. Acute toxic metabolic encephalopathy neurosyphilis rule-out viral encephalitis, possible Acute pneumonia, Gram-negative Gram-positive possible Acute meningitis possible, infectious cause possible, ruling out ESRD on HD, TTS schedule Hyperlipidemia Diabetes Anemia Hypertension -IV antibiotics -AMS workup ongoing. -Nephrology consult TTS schedule -Continue home medications liquid diet dvt ppx - lovenox gi ppx - protonix medsurg full code Plan discussed with: Patient My Orders Orders - MELQUIADES TREJO MD Procedure Category Date Status Time Vancomycin 500mg/100ml PHA 06/10/25 In Process 15:00 Vancomycin,Random LAB 06/11/25 Verified 04:00 Glucose Blood PHA 06/10/25 In Process (Accu-Chek Comfort 11:30 Insulin R (Human) PHA 06/10/25 In Process (Insulin R) 11:30 Insulin R (Human) PHA 06/10/25 In Process (Insulin R) 22:00 Dextrose 50% Syringe PHA 06/10/25 In Process 09:00 Acute Hepatitis Panel LAB 06/11/25 Verified 04:00 Complete Blood Count LAB 06/11/25 Verified 04:00 Basic Metabolic Panel LAB 06/11/25 Verified 04:00 Date of Service: Jun 10, 2025 Billing Provider: MELQUIADES TREJO MD Common Visit Codes: [id number] INP/OBS CARE(HIGH) MELQUIADES TREJO MD Jun 10, 2025 11:50
[2025-06-10] MEDS ORDERED: ACYCLOVIR 5MG/KG Q8HR PER RX 0 ML IV SCH (12:00)
[2025-06-10] MEDS: LIDOCAINE 2%HCL (LOCAL ANESTH.) INJ 20ML MDV ONE (14:01)
[2025-06-10] MEDS: LORazepam 2MG/ML-1ML VIAL IM ONE (15:15)
--- NOTE | 2025-06-10 15:31 | DVHPN2 ---
Progress Note Date Seen: Jun 10, 2025 Medical Necessity Reason Pt with a Central, PICC or Fol: Yes The following are medically ne: Central Line Subjective Review of Systems: Deferred Objective vital signs Vital Sign Date Time Temp Pulse Resp B/P (MAP) Pulse Ox O2 Delivery O2 Flow Rate FiO2 06/10/25 09:33 218/89 06/10/25 08:00 72 06/10/25 08:00 Room Air* 0 21 06/10/25 05:00 98.3 19 97 98.3 Total Intake and Output 06/09/25 06/09/25 06/10/25 15:00 23:00 07:00 Intake Total 50 ml 1840 ml 240 ml Balance 50 ml 1840 ml 240 ml medications Current Medications Medications Dose Ordered Sig/Laly Route Start Time Stop Time Status Last Admin Dose Admin Multivit/Ca Carb/ B Cmplx/FA/Prenat 1 tab DAILY PO 06/04/25 10:00 06/09/25 08:41 1 TAB Sevelamer HCl 800 mg TIDWM PO 06/03/25 18:00 06/09/25 17:30 800 MG Aspirin 81 mg DAILY PO 06/04/25 10:00 06/09/25 08:42 81 MG Atorvastatin Calcium 20 mg HS PO 06/03/25 22:00 06/09/25 22:20 20 MG Famotidine 20 mg DAILY IV 06/04/25 10:00 06/10/25 09:32 20 MG Metoprolol Tartrate 50 mg BID PO 06/03/25 22:00 06/09/25 22:15 50 MG Sodium Chloride 10 ml Q8HR IV 06/03/25 22:00 06/10/25 14:00 10 ML Acetaminophen/ Hydrocodone Bitart 1 tab Q4HP PRN PO 06/03/25 16:15 Ondansetron HCl 4 mg Q4HP PRN IV 06/03/25 16:15 06/04/25 21:38 4 MG Docusate Sodium 100 mg BIDPRN PRN PO 06/03/25 16:15 Acetaminophen 650 mg Q6HP PRN PO 06/03/25 16:15 06/04/25 09:19 650 MG Nitroglycerin 0.4 mg Q5MINP PRN SL 06/03/25 17:15 Morphine Sulfate 2 mg Q30M PRN IV 06/03/25 17:15 Calcium Acetate 667 mg TIDWMEALS PO 06/04/25 08:00 06/09/25 17:30 667 MG Azithromycin 250 ml @ 125 mls/hr DAILY IV 06/05/25 10:00 Hold Haloperidol Lactate 5 mg Q6HP PRN IM 06/04/25 15:15 06/09/25 02:33 5 MG Hydralazine HCl 10 mg Q6HP PRN IV 06/05/25 10:45 06/10/25 09:33 10 MG Vancomycin HCl 0 ml @ 0 mls/hr UD IV 06/05/25 10:45 Ceftriaxone Sodium/Dextrose 50 ml @ 50 mls/hr Q12HR@09,21 IV 06/05/25 21:00 06/10/25 09:32 50 MLS/HR Olanzapine 10 mg DAILY PO 06/06/25 10:00 06/09/25 08:41 10 MG Lorazepam 1 mg ONCE PRN IV 06/08/25 22:30 Penicillin G Potassium [id number] units/Dextrose 50 ml @ 100 mls/hr Q4HR IV 06/09/25 16:45 06/10/25 06:02 100 MLS/HR Diagnostic Test (Pha) 1 strip ACHS 06/10/25 11:30 Insulin Human Regular AC SC 06/10/25 11:30 Insulin Human Regular HS SC 06/10/25 22:00 Dextrose 50 ml UD PRN IV 06/10/25 09:00 Acyclovir Sodium 0 ml @ 0 mls/hr PER PHARMACY IV 06/10/25 12:00 Acyclovir Sodium 300 mg/Dextrose 56 ml @ 56 mls/hr DAILY@2200 IV 06/11/25 22:00 Examination: GENERAL:Abnormal, CVS:Normal, ABDOMEN:Normal, NEURO:Abnormal laboratory and microbiology Laboratory Tests 06/10/25 05:50 Test 06/10/25 05:50 Range/Units Serum Glucose 301 H 74-106 mg/dL Microbiology Date/Time Source Procedure Growth Status 06/03/25 14:15 Blood Blood Culture - Final NO GROWTH AFTER 5 DAYS OF INCUBATION. Complete Problem List/Assessment/Plan Problem List/Assessment/Plan 60 year old female hx ESRD p/w altered mental state ESRD HTN AMS due to neurosyphilis sepsis patient in ISO required Haldol during dialysis Hemodialysis treatment today for metabolic and volume control received Psy meds maturing AVF keep IVf out of arm Plan discussed with: Other My Orders My Orders Orders - KENISHA CHAN MD Procedure Category Date Status Time Hemodialysis Orders ORDERS 06/10/25 Transmitted 13:33 Dialysis Nursing BOUCHRA 06/10/25 In Process Message 13:33 Document Fluid Input BOUCHRA 06/10/25 In Process And Outpu 13:33 Dietary Evaluation Review Comments: 1) CCHO 60 + renal standard 2) Refer [employer] Specialist for diabetes education Expected Outcomes/Goals: To meet >75% estimated needs Fu 3-5 days Total Time (mins): 33 KENISHA CHAN MD Jun 10, 2025 15:31
[2025-06-10 15:33] LABS: Protein, CSF 93.6 mg/dL (15-45)
--- NOTE | 2025-06-10 15:36 | DVH ---
XY LUMBAR PUNCTURE HISTORY: R/O MENINGITIS COMPARISON: None PROCEDURE: After obtaining written informed consent, the patient was placed left lateral decubitus on the interventional table. The patient's identity and the procedure were confirmed by the timeout pro cess. Under fluoroscopy, a midline approach to the L3-4 interlaminar space was selected and the overlying s kin anesthetized with several mL of 1% lidocaine. A 22G spinal needle was advanced under fluoroscopic vision into the thecal sac with return of clear CSF. 4.5 mL of CSF was collected in four aliquots an d sent to the clinical laboratory for testing per the referring physician's specifications. The needl e was removed and a bandage placed. The patient tolerated the procedure well without immediate compli cation. Fluoro Time: 0.6 minutes DAP 105.7 FINDINGS: Stored fluoroscopic images show the needle positioned with its tip in the spinal canal at t he level of L3-4. Slow flowing CSF. IMPRESSION: Image guided lumbar puncture for CSF analysis, as detailed above.
[2025-06-10 15:47] LABS: Description,CSF CLEAR
[2025-06-10] MEDS: ACYCLOVIR SOD IV ONE (16:00)
[2025-06-10] MEDS: D5W 5% IV ONE (16:00)
--- NOTE | 2025-06-10 20:00 | DVHPN2 ---
Consult Progress Note Date Seen: Jun 10, 2025 Subjective Patient reports: Feels better (sp lP, mentation stable) Objective vital signs Vital Sign Date Time Temp Pulse Resp B/P (MAP) Pulse Ox O2 Delivery O2 Flow Rate FiO2 06/10/25 17:00 98.2 81 18 144/81 (102) 95 98.2 06/10/25 08:00 Room Air* 0 21 Total Intake and Output 06/09/25 06/09/25 06/10/25 15:00 23:00 07:00 Intake Total 50 ml 1840 ml 240 ml Balance 50 ml 1840 ml 240 ml medications Current Medications Medications Dose Ordered Sig/Laly Route Start Time Stop Time Status Last Admin Dose Admin Multivit/Ca Carb/ B Cmplx/FA/Prenat 1 tab DAILY PO 06/04/25 10:00 06/09/25 08:41 1 TAB Sevelamer HCl 800 mg TIDWM PO 06/03/25 18:00 06/09/25 17:30 800 MG Aspirin 81 mg DAILY PO 06/04/25 10:00 06/09/25 08:42 81 MG Atorvastatin Calcium 20 mg HS PO 06/03/25 22:00 06/09/25 22:20 20 MG Famotidine 20 mg DAILY IV 06/04/25 10:00 06/10/25 09:32 20 MG Metoprolol Tartrate 50 mg BID PO 06/03/25 22:00 06/09/25 22:15 50 MG Sodium Chloride 10 ml Q8HR IV 06/03/25 22:00 06/10/25 14:00 10 ML Acetaminophen/ Hydrocodone Bitart 1 tab Q4HP PRN PO 06/03/25 16:15 Ondansetron HCl 4 mg Q4HP PRN IV 06/03/25 16:15 06/04/25 21:38 4 MG Docusate Sodium 100 mg BIDPRN PRN PO 06/03/25 16:15 Acetaminophen 650 mg Q6HP PRN PO 06/03/25 16:15 06/04/25 09:19 650 MG Nitroglycerin 0.4 mg Q5MINP PRN SL 06/03/25 17:15 Morphine Sulfate 2 mg Q30M PRN IV 06/03/25 17:15 Calcium Acetate 667 mg TIDWMEALS PO 06/04/25 08:00 06/09/25 17:30 667 MG Azithromycin 250 ml @ 125 mls/hr DAILY IV 06/05/25 10:00 Hold Haloperidol Lactate 5 mg Q6HP PRN IM 06/04/25 15:15 06/09/25 02:33 5 MG Hydralazine HCl 10 mg Q6HP PRN IV 06/05/25 10:45 06/10/25 09:33 10 MG Vancomycin HCl 0 ml @ 0 mls/hr UD IV 06/05/25 10:45 Cancel Ceftriaxone Sodium/Dextrose 50 ml @ 50 mls/hr Q12HR@09,21 IV 06/05/25 21:00 06/10/25 09:32 50 MLS/HR Olanzapine 10 mg DAILY PO 06/06/25 10:00 06/09/25 08:41 10 MG Lorazepam 1 mg ONCE PRN IV 06/08/25 22:30 Diagnostic Test (Pha) 1 strip ACHS 06/10/25 11:30 06/10/25 17:00 1 STRIP Insulin Human Regular AC SC 06/10/25 11:30 06/10/25 17:00 4 UNITS Insulin Human Regular HS SC 06/10/25 22:00 Dextrose 50 ml UD PRN IV 06/10/25 09:00 Acyclovir Sodium 0 ml @ 0 mls/hr PER PHARMACY IV 06/10/25 12:00 Cancel Acyclovir Sodium 300 mg/Dextrose 56 ml @ 56 mls/hr DAILY@2200 IV 06/11/25 22:00 Cancel Physical Exam: General: NAD Neck: Supple. No masses. HEENT: PERRL. Normal lids and conjunctiva. Moist mucous membranes. Oropharynx without lesions, exudates or excessive erythema. Normal appearance of the external aspects of the nose and ears. Heart: Regular rhythm, normal rate. No murmur. No lower extremity edema. Lungs: Normal respiratory effort. Clear to auscultation bilaterally. No wheezes. No crackles. Abdomen: Soft. Non-tender. Non-distended. No masses or abdominal hernia. Msk: No digital cyanosis. Normal strength and tone in all 4 limbs Skin: Warm and dry, no rashes. Neuro: Alert. No facial droop or slurred speech. Extra-ocular movements intact. Sensation intact to soft touch in all 4 limbs. Psych: Appropriate mood. Full affect. Oriented to person, place, time, and situation. 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 female with a complex medical history significant for end- stage renal disease on hemodialysis, diabetes, hypertension, anemia, and hyperlipidemia, presenting with fever, nasal congestion, cough, malaise, and generalized weakness for the past few days. Patient was noted to be confused and described as a poor historian, with more incoherence than acute delirium. Evaluation in the ED revealed leukocytosis (WBC 11.6), Hgb 10.7, platelet 223, BUN 34, creatinine 4.6. Lactic acid was 1.4. She has a left IJ permanent catheter for dialysis, which appears clean, dry, intact, and she has not missed recent dialysis sessions. There is no lower extremity swelling. Chest imaging demonstrated bilateral patchy airspace disease consistent with pneumonia. There was initial concern for meningitis in the context of altered mental status and underlying end-stage renal disease. Lumbar puncture performed on 06/10 showed CSF WBC 0, protein 93.6, glucose 122. CSF cultures negative to date; VDRL and further CSF studies pending. Blood cultures have remained negative. Infectious workup revealed negative HIV, negative hepatitis B, but positive treponemal antibody with RPR titer 1:2 consistent with syphilis seropositivity. There is ongoing investigation to determine if this may reflect previously treated disease (serofast state), in which case active treatment for syphilis may not be required. The patient has received vancomycin and ceftriaxone during admission, with subsequent switch to penicillin for syphilis. She has prolonged QTc, so azithromycin should be avoided; doxycycline can be used instead if additional atypical coverage is needed. Overall, low suspicion for bacterial meningitis at this time. Respiratory status is stable on room air. Plan: \-- Discontinue vancomycin and acyclovir \-- Can discontinue ceftriaxone if no ongoing indication for PELLETIZER T[employer]ER or syphilis coverage pending further review by Infectious Disease and Public Health regarding syphilis history/treatment \-- Continue penicillin as indicated for syphilis if determined not previously treated; otherwise, no additional therapy required for serofast state \-- Treat pneumonia: use ceftriaxone q12h for typical coverage; doxycycline may be added for atypical coverage in place of azithromycin (due to prolonged QTc) \-- No need for isolation precautions at this time, given negative workup for bacterial meningitis \-- Monitor mental status, WBC, and cultures; continue hemodialysis as scheduled \-- Hold on PICC line placement; may not require chronic IV antibiotics on discharge \-- Contact Department of Public Health to clarify syphilis treatment history and refine ongoing treatment plan Isolation Precautions: None indicated at this time Physical Exam: General: NAD Neck: Supple. No masses. HEENT: PERRL. Normal lids and conjunctiva. Moist mucous membranes. Oropharynx without lesions, exudates or excessive erythema. Normal appearance of the external aspects of the nose and ears. Heart: Regular rhythm, normal rate. No murmur. No lower extremity edema. Lungs: Normal respiratory effort. Clear to auscultation bilaterally. No wheezes. No crackles. Abdomen: Soft. Non-tender. Non-distended. No masses or abdominal hernia. Msk: No digital cyanosis. Normal strength and tone in all 4 limbs Skin: Warm and dry, no rashes. Neuro: Alert. No facial droop or slurred speech. Extra-ocular movements intact. Sensation intact to soft touch in all 4 limbs. Psych: Appropriate mood. Full affect. Oriented to person, place, time, and situation. Plan discussed with: Other Dietary Evaluation Review Comments: 1) CCHO 60 + renal standard 2) Refer Rate Supervisor for diabetes education Expected Outcomes/Goals: To meet >75% estimated needs Fu 3-5 days SASHA LEIJA MD Jun 10, 2025 20:00
[2025-06-10] MEDS: DOXYCYCLINE 100 MG TAB/CAP PO SCH (21:35)
--- NOTE | 2025-06-10 23:30 | DVHPN2 ---
Progress Note - Dictate Date Seen: Jun 10, 2025 Medical Necessity Reason Pt with a Central, PICC or Fol: Yes The following are medically ne: Central Line Subjective is a 60 years old right-handed female with a history of hypertension, diabetes, end-stage renal failure on hemodialysis, anemia, polyneuropathy, status post right arm fracture, she came to the [facility] on 06/03/2025 with a chief company of nausea, vomiting. I have seen and examined the patient, I have discussed with her nurse, and sitter, she is more confused than yesterday, she is awake, only oriented to person place, but she follows verbal commands She has lost tremors in both upper extremities Infectious disease specialist input appreciated, CSF, 06/07/2025: C/C, WBC: 0, RBC: 0, protein: 93.6, glucose: 122 RPR, 06/08/2025: Reactive (1:2) Treponema pallidum antibody, 06/08/2025: Reactive Blood culture, 06/03/2025: Negative ABG, 06/04/2025: Respiratory alkalosis UDS, 06/05/2025: Negative WBC/HB/PLT/MCV, 06/08/2025: 7.3/9.8/216/91.5 PT/INR/PTT, 06/08/25: 10.6/1/ BUN/CR, 06/03/2025: 34/4.6, 06/04/2025: 45/5.24, 06/08/2025: 37/6.98 Glucose, 06/03/2025: 484 Lactic acid, 06/03/2025: 1.4, 06/08/25: 0.8 TBI/AST/ALT/AP, 06/08/2025:0.2/124/45/65 NH3 06/08/2025:14. CT head, 06/05/2025: 1. Chronic ischemic changes without evidence of acute intracranial proce vital signs Vital Sign Date Time Temp Pulse Resp B/P (MAP) Pulse Ox O2 Delivery O2 Flow Rate FiO2 06/10/25 21:36 192/85 06/10/25 21:33 89 06/10/25 20:57 97.6 20 99 97.6 06/10/25 08:00 Room Air* 0 21 Total Intake and Output 06/09/25 06/09/25 06/10/25 15:00 23:00 07:00 Intake Total 50 ml 1840 ml 240 ml Balance 50 ml 1840 ml 240 ml medications Current Medications Medications Dose Ordered Sig/Laly Route Start Time Stop Time Status Last Admin Dose Admin Multivit/Ca Carb/ B Cmplx/FA/Prenat 1 tab DAILY PO 06/04/25 10:00 06/09/25 08:41 1 TAB Sevelamer HCl 800 mg TIDWM PO 06/03/25 18:00 06/09/25 17:30 800 MG Aspirin 81 mg DAILY PO 06/04/25 10:00 06/09/25 08:42 81 MG Atorvastatin Calcium 20 mg HS PO 06/03/25 22:00 06/09/25 22:20 20 MG Famotidine 20 mg DAILY IV 06/04/25 10:00 06/10/25 09:32 20 MG Metoprolol Tartrate 50 mg BID PO 06/03/25 22:00 06/09/25 22:15 50 MG Sodium Chloride 10 ml Q8HR IV 06/03/25 22:00 06/10/25 21:30 10 ML Acetaminophen/ Hydrocodone Bitart 1 tab Q4HP PRN PO 06/03/25 16:15 Ondansetron HCl 4 mg Q4HP PRN IV 06/03/25 16:15 06/04/25 21:38 4 MG Docusate Sodium 100 mg BIDPRN PRN PO 06/03/25 16:15 Acetaminophen 650 mg Q6HP PRN PO 06/03/25 16:15 06/04/25 09:19 650 MG Nitroglycerin 0.4 mg Q5MINP PRN SL 06/03/25 17:15 Morphine Sulfate 2 mg Q30M PRN IV 06/03/25 17:15 Calcium Acetate 667 mg TIDWMEALS PO 06/04/25 08:00 06/09/25 17:30 667 MG Azithromycin 250 ml @ 125 mls/hr DAILY IV 06/05/25 10:00 Hold Haloperidol Lactate 5 mg Q6HP PRN IM 06/04/25 15:15 06/09/25 02:33 5 MG Hydralazine HCl 10 mg Q6HP PRN IV 06/05/25 10:45 06/10/25 21:36 10 MG Vancomycin HCl 0 ml @ 0 mls/hr UD IV 06/05/25 10:45 Cancel Ceftriaxone Sodium/Dextrose 50 ml @ 50 mls/hr Q12HR@09,21 IV 06/05/25 21:00 06/10/25 21:00 50 MLS/HR Olanzapine 10 mg DAILY PO 06/06/25 10:00 06/09/25 08:41 10 MG Lorazepam 1 mg ONCE PRN IV 06/08/25 22:30 Diagnostic Test (Pha) 1 strip ACHS 06/10/25 11:30 06/10/25 22:09 1 STRIP Insulin Human Regular AC SC 06/10/25 11:30 06/10/25 17:00 4 UNITS Insulin Human Regular HS SC 06/10/25 22:00 06/10/25 22:09 2 UNITS Dextrose 50 ml UD PRN IV 06/10/25 09:00 Acyclovir Sodium 0 ml @ 0 mls/hr PER PHARMACY IV 06/10/25 12:00 Cancel Acyclovir Sodium 300 mg/Dextrose 56 ml @ 56 mls/hr DAILY@2200 IV 06/11/25 22:00 Cancel Doxycycline Monohydrate 100 mg Q12HR PO 06/10/25 22:00 objective General: the patient is well developed and nourished. No acute distress. Status post right 3rd toe amputation MENTAL STATUS: Subjective SPEECH, LANGUAGE, HIGHER CORTICAL FUNCTION: No aphasia or dysarthria, CRANIAL NERVES: Pupils are equal, round and reactive. EOMs full and conjugate. Facial sensation intact in all three divisions bilaterally. Mandibular strength intact. Facial muscles symmetrical and strength intact. SENSATION: Sensation to touch and pinprick is okay MOTOR: Normal tone in the upper and lower extremity. Normal muscle bulk. No fasciculations. Tremors in both upper extremities. She does not move the arms and legs, the muscle power in the both arms feel strong. REFLEXES: Deep tendon reflexes are symmetrical. No pathological reflexes. CEREBELLAR/COORDINATION: Deferred GAIT/STATION: deferred laboratory and microbiology Laboratory Tests 06/10/25 05:50 Test 06/10/25 05:50 Range/Units Serum Glucose 301 H 74-106 mg/dL Problem List Mltered mental status Metabolic encephalopathy secondary to hyperglycemia Hospital delirium Fever End-stage kidney failure on hemodialysis Positive Treponema pallidum antibody, to rule out central nervous system syphilis Assessment/Plan Monitoring Supportive treatment Telemetry EEG CSF profile, including VDRL Doxycycline Haldol for behavioral control Hemodialysis Nephrology on case Consult Radiology Re: LB 2nd opinion from Infectious Disease Re: Intracranial infection More recommendation per clinical course This medical document was created using an electronic medical record system with [employer] dictation system. Although this document has been carefully reviewed, there may still be some phonetic and typographical errors. These areas are purely typographical due to imperfections of the software programs, and do not reflect any compromise in the patient's medical care. Prognosis poor Dietary Evaluation Review Comments: 1) CCHO 60 + renal standard 2) Refer Hosiery Operator for diabetes education Expected Outcomes/Goals: To meet >75% estimated needs Fu 3-5 days Plan discussed with: Other JONNATHAN GONZALEZ MD Jun 10, 2025 23:30
[2025-06-11] VITALS (7 sets, daily range): BP systolic 156–193; BP diastolic 63–96; PULSE 66–94; RESP 16–20; TEMP 98.1–98.8; O2SAT 94–97
[2025-06-11 08:14] LABS: Hematocrit 30.8 % (36.0-46.0); Hemoglobin 10.4 g/dL (12.2-16.2); Mean Corpuscular Hemoglobin 30.0 pg (28.0-32.0); Mean Corpuscular Volume 88.5 fL (80.0-100.0); Nucleated Red Blood Cells % 0.0 %
--- NOTE | 2025-06-11 08:19 | DVHPN2 ---
Subjective Still confused, no cough, no other pain endorsed. Reviewed: H&P Changes from previous H/P or p: No Changes General: Per HPI Eyes: No Pain, No Vision change, No Conjunctivae inflammation, No Eyelid inflammation, No Other, No Redness ENT: No Ear pain, No Ear discharge, No Nose pain, No Nose discharge, No Nose congestion, No Mouth pain, No Mouth swelling, No Throat pain, No Throat swelling, No Other Cardiovascular: No Chest Pain, No Palpitations, No Orthopnea, No Paroxysmal Noc. Dyspnea, No Edema, No Lt Headedness; Other (Left IJ Perma catheter.) Respiratory: No Cough, No Dry, No Shortness of breath, No SOB with excertion, No Wheezing, No Hemoptysis, No Pleuritic Pain, No Sputum, No Other Gastrointestinal: Nausea, Vomiting; No Abdominal Pain, No Diarrhea, No Constipation, No Melena, No Hematochezia, No Other Genitourinary: No Dysuria, No Frequency, No Incontinence, No Hematuria, No Retention; Other (On hemodialysis) Musculoskeletal: No other, No neck pain, No shoulder pain, No arm pain, No back pain, No hand pain, No leg pain, No foot pain Skin: No Rash, No Lesions, No Jaundice, No Bruising, No Other Objective Vitals Vital Signs Date Time Temp Pulse Resp B/P (MAP) Pulse Ox O2 Delivery O2 Flow Rate FiO2 06/11/25 04:51 98.1 79 17 156/63 (94) 94 98.1 06/10/25 20:00 Room Air* 0 21 Intake/Output Intake and Output 06/11/25 07:00 Intake Total 50 ml Balance 50 ml Intake Oral 0 ml IV Total 50 ml # Voids 5 # Bowel Movements 2 Exam GEN: Healthy appearing, well-developed, NAD. AOx0 HEENT: NC/AT; MMM. CV: RRR, no m/r/g. LUNGS: Decreased air entry in all lung mehta. ABD: Soft, NT/ND, NBS, no masses or organomegaly. EXT: skin Warm, well perfused. no rashes. No clubbing, cyanosis, or edema. NEURO: Ambulating with no limitations. No focal deficits. Medications Current Medications Medications Dose Ordered Sig/Laly Route Start Time Stop Time Status Last Admin Dose Admin Multivit/Ca Carb/ B Cmplx/FA/Prenat 1 tab DAILY PO 06/04/25 10:00 06/09/25 08:41 1 TAB Sevelamer HCl 800 mg TIDWM PO 06/03/25 18:00 06/09/25 17:30 800 MG Aspirin 81 mg DAILY PO 06/04/25 10:00 06/09/25 08:42 81 MG Atorvastatin Calcium 20 mg HS PO 06/03/25 22:00 06/09/25 22:20 20 MG Famotidine 20 mg DAILY IV 06/04/25 10:00 06/10/25 09:32 20 MG Metoprolol Tartrate 50 mg BID PO 06/03/25 22:00 06/09/25 22:15 50 MG Sodium Chloride 10 ml Q8HR IV 06/03/25 22:00 06/11/25 06:00 10 ML Acetaminophen/ Hydrocodone Bitart 1 tab Q4HP PRN PO 06/03/25 16:15 Ondansetron HCl 4 mg Q4HP PRN IV 06/03/25 16:15 06/04/25 21:38 4 MG Docusate Sodium 100 mg BIDPRN PRN PO 06/03/25 16:15 Acetaminophen 650 mg Q6HP PRN PO 06/03/25 16:15 06/04/25 09:19 650 MG Nitroglycerin 0.4 mg Q5MINP PRN SL 06/03/25 17:15 Morphine Sulfate 2 mg Q30M PRN IV 06/03/25 17:15 Calcium Acetate 667 mg TIDWMEALS PO 06/04/25 08:00 06/09/25 17:30 667 MG Azithromycin 250 ml @ 125 mls/hr DAILY IV 06/05/25 10:00 Hold Haloperidol Lactate 5 mg Q6HP PRN IM 06/04/25 15:15 06/11/25 01:45 5 MG Hydralazine HCl 10 mg Q6HP PRN IV 06/05/25 10:45 06/10/25 21:36 10 MG Vancomycin HCl 0 ml @ 0 mls/hr UD IV 06/05/25 10:45 Cancel Ceftriaxone Sodium/Dextrose 50 ml @ 50 mls/hr Q12HR@09,21 IV 06/05/25 21:00 06/10/25 21:00 50 MLS/HR Olanzapine 10 mg DAILY PO 06/06/25 10:00 06/09/25 08:41 10 MG Lorazepam 1 mg ONCE PRN IV 06/08/25 22:30 Diagnostic Test (Pha) 1 strip ACHS 06/10/25 11:30 06/11/25 07:14 1 STRIP Insulin Human Regular AC SC 06/10/25 11:30 06/10/25 17:00 4 UNITS Insulin Human Regular HS SC 06/10/25 22:00 06/10/25 22:09 2 UNITS Dextrose 50 ml UD PRN IV 06/10/25 09:00 Acyclovir Sodium 0 ml @ 0 mls/hr PER PHARMACY IV 06/10/25 12:00 Cancel Acyclovir Sodium 300 mg/Dextrose 56 ml @ 56 mls/hr DAILY@2200 IV 06/11/25 22:00 Cancel Doxycycline Monohydrate 100 mg Q12HR PO 06/10/25 22:00 Laboratory Results Chemistry Test 06/11/25 06:53 Calcium Level Pending Urinalysis Test 06/05/25 13:00 Urine Color Light-yellow (Yellow) Urine Clarity Clear (Clear) Urine pH 7.0 (5.0-9.0) Urine Specific [place] 1.016 (1.001-1.035) Urine Protein 3+ (Negative) H Urine Ketones Trace (Negative) Urine Blood 1+ /uL (Negative) H Urine Nitrite Negative (Negative) Urine Bilirubin Negative (Negative) Urine Urobilinogen Normal mg/dL (Negative) Urine Leukocyte Esterase Negative /uL (Negative) Urine RBC 2 /hpf (0 - 4) Urine Microscopic WBC 2 /HPF (0-5) Urine Squamous Epithelial Cells Few /hpf (<5) Urine Bacteria None seen /hpf (None Seen) Urine Hyaline Casts Few /lpf (0 - 2) Urine Yeast (Budding) Occasional /hpf (None Urine Glucose 4+ mg/dL (Normal) H Microbiology Microbiology Date/Time Source Procedure Growth Status 06/10/25 14:18 Cerebral Spinal Fluid Gram Stain - Final Resulted 06/10/25 14:18 Cerebral Spinal Fluid CSF Culture & Gram Stain (Tube 2) M Pending Resulted 06/03/25 14:15 Blood Blood Culture - Final NO GROWTH AFTER 5 DAYS OF INCUBATION. Complete Labs and/or images reviewed: Labs reviewed by me, Image(s) reviewed by me Assessment/Plan Assessment/Plan The patient is a 60-year-old female with past medical history of end-stage renal disease on hemodialysis M-W-F, hyperlipidemia, DM, anemia, and hypertension who presented to [facility] ED with complaint of fever. Patient reports she has been experiencing fever, associated with cough, nasal congestion, nausea, and general malaise for the past 2 days. 06/04- patient with history of ESRD, diabetes, hypertension here with fever cough nasal congestion. COVID fluids not done. Admitted for pneumonia. On ceftriaxone. I will add azithromycin. We will get COVID flu. Continue treatment. Nephrology consulted for continuation of dialysis MWF. SSI for diabetes. Continue home medications. Blood cultures were taken. Given chronic dialysis bacteremia is of concern. There is no urine, possible patient is anuric ESRD. -patient is confused, altered A&O x1 unable to answer any ROS questions. there is no missed dialysis days. Daughter endorsed to nurse that patient is not at baseline. We will get workup for encephalopathy. Patient is declining labs, treatments. We will order TSH, ammonia, ABG, UDS, blood drug screen, CMP. Question of alcohol withdrawal or viral encephalitis? 06/05-patient is worsening, more confused, refusing labs, treatments, p.o. meds. Ammonia negative, no CO2 narcosis, appears to be neurologically intact moving all extremities but now she is A&O times 0. Unclear if this is UTI but possible. We are giving, or trying to give antibiotics IV ceftriaxone which would treat urine infection. Primary suspicion was pneumonia which is less likely. Meningitis is on the differential.. Urinary obstruction is also on differential. We will get urine UA UDS. Pending blood tox screen.. Per family this is a very acute change for patient. We will increase Haldol to 10 intramuscular q.6 H. we will get bladder scan, head CT, try to use patient's daughters help to help give p.o. meds. Patient refusing HD which will only worsening condition. Very high-risk and very poor prognosis. I will add vancomycin and increase ceftriaxone to 2 g. We will all still start olanzapine 10. We will also do telepsych in case this is psych cause. 06/06-06/07 06/08- no significant events notable over the weekend patient remains altered, few events of pulling IVs, few events of getting agitated requiring Ativan/Haldol. Need to advance surge into cause of AMS. We will order treponemal antibody, repeat ammonia, CBC CMP today. Continue Haldol prn, olanzapine 10 scheduled daily,. Maintain isolation for meningitis ruled out, patient has been on broad-spectrum vanc ceftriaxone for meningitis for 4 days now. Still on resolution or changing/improving off condition. We will consult Neurology and get MRI brain if possible. Nephrology is following and wants no IVs in arm with maturating AVF. We will also get LP for studies of VDRL and HSV. Holding off acyclovir right now. 06/09 - labs from yesterday treponemal antibody positive, reflex RPR is pending now. Radiologist consulted for LP, concern for neurosyphilis ruled out, we will need CSF VDRL. Neurology was consulted to ruled out other central causes, neurology has placed infectious disease consult. MRI brain is ordered but given patient's behavioral symptoms it may be difficult to obtain. Ceftriaxone does treat syphilis but penicillin is preferred. We will hold off penicillin treatment incomplete workup for LP. Today, we will get HIV antibody, possibly MRI brain. unlikely psychiatric cause as we have some direction now, i still have to ruled out HIV and HSV encephalitis, so with LP need hsv and vdrl. hiv lab w/u. MRI brain. neur following. ID now onboard too. continue vanc/ctx meningitis doses. 06/10- worse today. not following commands. bibasilar rales, trace pitting edema. BMP unremarkable, no significant changes in BUN. LP today, will help ruleout multiple diseases hsv , vdrl. will start acyclovir today as LP should be done, and will deescalate if negative. continuie therapy. appreciate, nephro, neuro and ID. continue vanc/ctx. will send hiv today, hepattiis panel tomorrow. her symptoms appear possible etoh w/d but this is day 6, so, doesnt add up. will try 1x ativan 1mg. otherwise continue management as outlined earlier. 06/11- significant improvement today A&O x2. Following commands conversing full sentences. She declines any knowledge of being diagnosed with syphilis. CSF is unconcerning for infection but she has been on antibiotics for 5 days now. I think we should complete treatment empirically. ID has stopped acyclovir. Pending HSV PCR. Most important lab pending is VDRL CSF. I will ask ID if penicillin G IV needs to be added for possible neurosyphilis. Otherwise continue treatment. Acute toxic metabolic encephalopathy neurosyphilis, likely, rule-out viral encephalitis, possible Acute pneumonia, Gram-negative Gram-positive possible Acute meningitis possible, infectious cause possible, ruling out ESRD on HD, TTS schedule Hyperlipidemia Diabetes Anemia Hypertension -IV antibiotics -AMS workup ongoing. -Nephrology consult TTS schedule -Continue home medications liquid diet dvt ppx - lovenox gi ppx - protonix medsurg full code Plan discussed with: Patient My Orders Orders - MELQUIADES TREJO MD Procedure Category Date Status Time Glucose Blood PHA 06/10/25 In Process (Accu-Chek Comfort 11:30 Insulin R (Human) PHA 06/10/25 In Process (Insulin R) 11:30 Insulin R (Human) PHA 06/10/25 In Process (Insulin R) 22:00 Dextrose 50% Syringe PHA 06/10/25 In Process 09:00 Acute Hepatitis Panel LAB 06/11/25 In Process 04:00 Complete Blood Count LAB 06/11/25 In Process 04:00 Basic Metabolic Panel LAB 06/11/25 In Process 04:00 Discontinue Tele BOUCHRA 06/10/25 In Process 16:53 Transfer Orders XFER 06/10/25 Transmitted 16:53 Complete Blood Count LAB 06/12/25 Verified 04:00 Date of Service: Jun 11, 2025 Billing Provider: MELQUIADES TREJO MD Common Visit Codes: [id number] INP/OBS CARE(HIGH) MELQUIADES TREJO MD Jun 11, 2025 08:19
[2025-06-11 08:24] LABS: Anion Gap 12 (5-15); Carbon Dioxide 27 mmol/L (20-31); Chloride 103 mmol/L (98-107); Potassium 4.1 mmol/L (3.5-5.1); Sodium 142 mmol/L (136-145)
[2025-06-11 08:25] LABS: Calcium 8.9 mg/dL (8.7-10.4)
[2025-06-11 08:30] LABS: BUN/Creatinine Ratio 4.8 (10.0-20.0); Blood Urea Nitrogen 24 mg/dL (9-23); Glucose 126 mg/dL (74-106)
--- NOTE | 2025-06-11 13:31 | DVHPN2 ---
Progress Note Date Seen: Jun 11, 2025 Medical Necessity Reason Pt with a Central, PICC or Fol: Yes The following are medically ne: Central Line Subjective Patient reports: Other Review of Systems: Deferred Objective vital signs Vital Sign Date Time Temp Pulse Resp B/P (MAP) Pulse Ox O2 Delivery O2 Flow Rate FiO2 06/11/25 11:51 83 202/92 06/11/25 09:52 98.8 18 97 98.8 06/10/25 20:00 Room Air* 0 21 Total Intake and Output 06/10/25 06/10/25 06/11/25 15:00 23:00 07:00 Intake Total 50 ml 0 ml 0 ml Balance 50 ml 0 ml 0 ml medications Current Medications Medications Dose Ordered Sig/Laly Route Start Time Stop Time Status Last Admin Dose Admin Multivit/Ca Carb/ B Cmplx/FA/Prenat 1 tab DAILY PO 06/04/25 10:00 06/11/25 11:22 1 TAB Sevelamer HCl 800 mg TIDWM PO 06/03/25 18:00 06/11/25 11:58 800 MG Aspirin 81 mg DAILY PO 06/04/25 10:00 06/11/25 11:22 81 MG Atorvastatin Calcium 20 mg HS PO 06/03/25 22:00 06/09/25 22:20 20 MG Famotidine 20 mg DAILY IV 06/04/25 10:00 06/10/25 09:32 20 MG Metoprolol Tartrate 50 mg BID PO 06/03/25 22:00 06/11/25 11:51 50 MG Sodium Chloride 10 ml Q8HR IV 06/03/25 22:00 06/11/25 06:00 10 ML Acetaminophen/ Hydrocodone Bitart 1 tab Q4HP PRN PO 06/03/25 16:15 Ondansetron HCl 4 mg Q4HP PRN IV 06/03/25 16:15 06/04/25 21:38 4 MG Docusate Sodium 100 mg BIDPRN PRN PO 06/03/25 16:15 Acetaminophen 650 mg Q6HP PRN PO 06/03/25 16:15 06/04/25 09:19 650 MG Nitroglycerin 0.4 mg Q5MINP PRN SL 06/03/25 17:15 Morphine Sulfate 2 mg Q30M PRN IV 06/03/25 17:15 Calcium Acetate 667 mg TIDWMEALS PO 06/04/25 08:00 06/09/25 17:30 667 MG Azithromycin 250 ml @ 125 mls/hr DAILY IV 06/05/25 10:00 Hold Haloperidol Lactate 5 mg Q6HP PRN IM 06/04/25 15:15 06/11/25 01:45 5 MG Hydralazine HCl 10 mg Q6HP PRN IV 06/05/25 10:45 06/10/25 21:36 10 MG Vancomycin HCl 0 ml @ 0 mls/hr UD IV 06/05/25 10:45 Cancel Ceftriaxone Sodium/Dextrose 50 ml @ 50 mls/hr Q12HR@09,21 IV 06/05/25 21:00 06/10/25 21:00 50 MLS/HR Olanzapine 10 mg DAILY PO 06/06/25 10:00 06/09/25 08:41 10 MG Lorazepam 1 mg ONCE PRN IV 06/08/25 22:30 Diagnostic Test (Pha) 1 strip ACHS 06/10/25 11:30 06/11/25 11:30 1 STRIP Insulin Human Regular AC SC 06/10/25 11:30 06/11/25 12:47 8 UNITS Insulin Human Regular HS SC 06/10/25 22:00 06/10/25 22:09 2 UNITS Dextrose 50 ml UD PRN IV 06/10/25 09:00 Acyclovir Sodium 0 ml @ 0 mls/hr PER PHARMACY IV 06/10/25 12:00 Cancel Acyclovir Sodium 300 mg/Dextrose 56 ml @ 56 mls/hr DAILY@2200 IV 06/11/25 22:00 Cancel Doxycycline Monohydrate 100 mg Q12HR PO 06/10/25 22:00 Examination: GENERAL:Normal, NEURO:Abnormal laboratory and microbiology Laboratory Tests 06/11/25 06:53 Test 06/11/25 06:53 Range/Units Serum Glucose 126 H 74-106 mg/dL Microbiology Date/Time Source Procedure Growth Status 06/10/25 14:18 Cerebral Spinal Fluid Gram Stain - Final Resulted 06/10/25 14:18 Cerebral Spinal Fluid CSF Culture & Gram Stain (Tube 2) M - Preliminary Resulted 06/03/25 14:15 Blood Blood Culture - Final NO GROWTH AFTER 5 DAYS OF INCUBATION. Complete Problem List/Assessment/Plan Problem List/Assessment/Plan 60 year old female hx ESRD p/w altered mental state ESRD HTN AMS due to neurosyphilis sepsis patient in ISO required Haldol during dialysis s/p LP s/p ABX, pending determination of continued ABX Hemodialysis treatment sunday for metabolic and volume control received Psy meds maturing AVF keep IVf out of arm Plan discussed with: Other My Orders My Orders Orders - KENISHA CHAN MD Procedure Category Date Status Time Hemodialysis Orders ORDERS 06/10/25 Transmitted 13:33 Dialysis Nursing BOUCHRA 06/10/25 In Process Message 13:33 Document Fluid Input BOUCHRA 06/10/25 In Process And Outpu 13:33 Dietary Evaluation Review Comments: 1) CCHO 60 + renal standard 2) Refer Audience Coordinator for diabetes education Expected Outcomes/Goals: To meet >75% estimated needs Fu 3-5 days Total Time (mins): 33 KENISHA CHAN MD Jun 11, 2025 13:31
--- NOTE | 2025-06-11 21:47 | DVHPN2 ---
Progress Note - Dictate Date Seen: Jun 11, 2025 Medical Necessity Reason Pt with a Central, PICC or Fol: Yes The following are medically ne: Central Line Subjective is a 60 years old right-handed female with a history of hypertension, diabetes, end-stage renal failure on hemodialysis, anemia, polyneuropathy, status post right arm fracture, she came to the [facility] on 06/03/2025 with a chief company of nausea, vomiting. I have seen and examined the patient, I have discussed with her nurse, and sitter, she is awake, oriented to person, place, she knows year and the month, socially appropriate, She has tremors in both upper extremities CSF, 06/07/2025: C/C, WBC: 0, RBC: 0, protein: 93.6, glucose: 122 RPR, 06/08/2025: Reactive (1:2) Treponema pallidum antibody, 06/08/2025: Reactive Blood culture, 06/03/2025: Negative ABG, 06/04/2025: Respiratory alkalosis UDS, 06/05/2025: Negative WBC/HB/PLT/MCV, 06/08/2025: 7.3/9.8/216/91.5 PT/INR/PTT, 06/08/25: 10.6/1/ BUN/CR, 06/03/2025: 34/4.6, 06/04/2025: 45/5.24, 06/08/2025: 37/6.98 Glucose, 06/03/2025: 484 Lactic acid, 06/03/2025: 1.4, 06/08/25: 0.8 TBI/AST/ALT/AP, 06/08/2025:0.2/124/45/65 NH3 06/08/2025:14. CT head, 06/05/2025: 1. Chronic ischemic changes without evidence of acute intracranial proce vital signs Vital Sign Date Time Temp Pulse Resp B/P (MAP) Pulse Ox O2 Delivery O2 Flow Rate FiO2 06/11/25 17:22 66 16 158/67 (97) 94 06/11/25 13:00 98.4 98.4 06/11/25 08:10 Room Air* 0 21 Total Intake and Output 06/10/25 06/10/25 06/11/25 15:00 23:00 07:00 Intake Total 50 ml 0 ml 0 ml Balance 50 ml 0 ml 0 ml medications Current Medications Medications Dose Ordered Sig/Laly Route Start Time Stop Time Status Last Admin Dose Admin Multivit/Ca Carb/ B Cmplx/FA/Prenat 1 tab DAILY PO 06/04/25 10:00 06/11/25 11:22 1 TAB Sevelamer HCl 800 mg TIDWM PO 06/03/25 18:00 06/11/25 17:25 800 MG Aspirin 81 mg DAILY PO 06/04/25 10:00 06/11/25 11:22 81 MG Atorvastatin Calcium 20 mg HS PO 06/03/25 22:00 06/09/25 22:20 20 MG Famotidine 20 mg DAILY IV 06/04/25 10:00 06/10/25 09:32 20 MG Metoprolol Tartrate 50 mg BID PO 06/03/25 22:00 06/11/25 11:51 50 MG Sodium Chloride 10 ml Q8HR IV 06/03/25 22:00 06/11/25 13:51 10 ML Acetaminophen/ Hydrocodone Bitart 1 tab Q4HP PRN PO 06/03/25 16:15 Ondansetron HCl 4 mg Q4HP PRN IV 06/03/25 16:15 06/04/25 21:38 4 MG Docusate Sodium 100 mg BIDPRN PRN PO 06/03/25 16:15 Acetaminophen 650 mg Q6HP PRN PO 06/03/25 16:15 06/04/25 09:19 650 MG Nitroglycerin 0.4 mg Q5MINP PRN SL 06/03/25 17:15 Morphine Sulfate 2 mg Q30M PRN IV 06/03/25 17:15 Calcium Acetate 667 mg TIDWMEALS PO 06/04/25 08:00 06/11/25 17:25 667 MG Azithromycin 250 ml @ 125 mls/hr DAILY IV 06/05/25 10:00 Hold Haloperidol Lactate 5 mg Q6HP PRN IM 06/04/25 15:15 06/11/25 01:45 5 MG Hydralazine HCl 10 mg Q6HP PRN IV 06/05/25 10:45 06/10/25 21:36 10 MG Vancomycin HCl 0 ml @ 0 mls/hr UD IV 06/05/25 10:45 Cancel Ceftriaxone Sodium/Dextrose 50 ml @ 50 mls/hr Q12HR@09,21 IV 06/05/25 21:00 06/10/25 21:00 50 MLS/HR Olanzapine 10 mg DAILY PO 06/06/25 10:00 06/09/25 08:41 10 MG Lorazepam 1 mg ONCE PRN IV 06/08/25 22:30 Diagnostic Test (Pha) 1 strip ACHS 06/10/25 11:30 06/11/25 17:00 1 STRIP Insulin Human Regular AC SC 06/10/25 11:30 06/11/25 12:47 8 UNITS Insulin Human Regular HS SC 06/10/25 22:00 06/10/25 22:09 2 UNITS Dextrose 50 ml UD PRN IV 06/10/25 09:00 Acyclovir Sodium 0 ml @ 0 mls/hr PER PHARMACY IV 06/10/25 12:00 Cancel Acyclovir Sodium 300 mg/Dextrose 56 ml @ 56 mls/hr DAILY@2200 IV 06/11/25 22:00 Cancel Doxycycline Monohydrate 100 mg Q12HR PO 06/10/25 22:00 objective General: the patient is well developed and nourished. No acute distress. Status post right 3rd toe amputation MENTAL STATUS: Subjective SPEECH, LANGUAGE, HIGHER CORTICAL FUNCTION: No aphasia or dysarthria, CRANIAL NERVES: Pupils are equal, round and reactive. EOMs full and conjugate. Facial sensation intact in all three divisions bilaterally. Mandibular strength intact. Facial muscles symmetrical and strength intact. SENSATION: Sensation to touch and pinprick is okay MOTOR: Normal tone in the upper and lower extremity. Normal muscle bulk. No fasciculations. Tremors in both upper extremities. She does not move the arms and legs, the muscle power in the both arms feel strong. REFLEXES: Deep tendon reflexes are symmetrical. No pathological reflexes. CEREBELLAR/COORDINATION: Deferred GAIT/STATION: deferred laboratory and microbiology Laboratory Tests 06/11/25 06:53 Test 06/11/25 06:53 Range/Units Serum Glucose 126 H 74-106 mg/dL Problem List Mltered mental status Metabolic encephalopathy secondary to hyperglycemia Hospital delirium Fever End-stage kidney failure on hemodialysis Positive Treponema pallidum antibody, to rule out central nervous system syphilis Assessment/Plan Monitoring Supportive treatment Telemetry EEG CSF profile, including VDRL Doxycycline Haldol for behavioral control Hemodialysis Nephrology on case Infectious disease on case More recommendation per clinical course This medical document was created using an electronic medical record system with [employer] dictation system. Although this document has been carefully reviewed, there may still be some phonetic and typographical errors. These areas are purely typographical due to imperfections of the software programs, and do not reflect any compromise in the patient's medical care. Prognosis poor Dietary Evaluation Review Comments: 1) CCHO 60 + renal standard 2) Refer Etl Architect for diabetes education Expected Outcomes/Goals: To meet >75% estimated needs Fu 3-5 days Plan discussed with: Other JONNATHAN GOZNALEZ MD Jun 11, 2025 21:47
[2025-06-11] MEDS ORDERED: D5W 5% IV SCH (22:00)
[2025-06-11] MEDS ORDERED: ACYCLOVIR SOD IV SCH (22:00)
[2025-06-11] MEDS: HYDROcodone-ACET 5/325MG TAB PO PRN (22:18)
--- NOTE | 2025-06-11 23:50 | DVHEEG2 ---
Neurology EEG Procedural Note Procedural Note EXAM DATE: 06/11/2025 REFERRING DOCTOR: Dr. Gonzalez TECHNIQUE: Eighteen channels of EEG, 2 channels of EOG, and 1 channel of EKG were recorded using the International 10/20 system. CLINICAL DATA: The patient was referred for an EEG evaluation for the evidence of seizure disorder. MEDICATIONS: See the chart BACKGROUND ACTIVITY: There was significant amount of movement artifacts. The record showed moderate amount of low to medium voltage polymorphic delta theta activity over both hemispheres ACTIVATION: Hyperventilation: Not done Photic Stimulation: Not done Sleep: Not seen IMPRESSION: This is a moderately abnormal EEG, this EEG is seen in moderate cerebral dysfunction due to metabolic/hypoxic encephalopathy or medication effect, please correlate clinically The EKG channel showed a regular heart rate of 78/[place] [address] JONNATHAN GONZALEZ MD Jun 11, 2025 23:50
[2025-06-12 01:00] VITALS: BP 144/81; PULSE 74; RESP 17; TEMP 98; O2SAT 96
[2025-06-12 05:00] VITALS: BP 148/85; PULSE 74; RESP 18; TEMP 98.3; O2SAT 99
[2025-06-12 08:00] VITALS: PULSE 85; RESP 19; O2SAT 98
[2025-06-12 08:00] LABS: Hematocrit 30.8 % (36.0-46.0); Hemoglobin 10.1 g/dL (12.2-16.2); Mean Corpuscular Hemoglobin 29.9 pg (28.0-32.0); Mean Corpuscular Volume 91.1 fL (80.0-100.0); Nucleated Red Blood Cells % 0.2 %
[2025-06-12 08:07] LABS: Anion Gap 12 (5-15); Calcium 8.8 mg/dL (8.7-10.4); Carbon Dioxide 29 mmol/L (20-31); Chloride 101 mmol/L (98-107); Potassium 4.6 mmol/L (3.5-5.1); Sodium 142 mmol/L (136-145)
[2025-06-12 08:13] LABS: BUN/Creatinine Ratio 5.8 (10.0-20.0)
[2025-06-12 08:19] LABS: Blood Urea Nitrogen 41 mg/dL (9-23); Glucose 155 mg/dL (74-106)
[2025-06-12 09:00] VITALS: BP 122/89; PULSE 78; RESP 18; TEMP 98.6; O2SAT 97
[2025-06-12 10:57] LABS: Hepatitis B Surface Antigen Negative (Negative)
[2025-06-12 11:00] LABS: Hepatitis C Antibody Reactive (Negative)
--- NOTE | 2025-06-12 11:14 | DVHPN2 ---
Progress Note - Dictate Date Seen: Jun 12, 2025 Medical Necessity Reason Pt with a Central, PICC or Fol: Yes The following are medically ne: Central Line Subjective Awake and alert, patient's sitter at bedside. vital signs Vital Sign Date Time Temp Pulse Resp B/P (MAP) Pulse Ox O2 Delivery O2 Flow Rate FiO2 06/12/25 09:00 98.6 78 18 122/89 (100) 97 98.6 06/11/25 20:00 Room Air* 0 21 Total Intake and Output 06/11/25 06/11/25 06/12/25 15:00 23:00 07:00 Intake Total 480 ml 310 ml Output Total 0 ml Balance 480 ml 310 ml medications Current Medications Medications Dose Ordered Sig/Laly Route Start Time Stop Time Status Last Admin Dose Admin Multivit/Ca Carb/ B Cmplx/FA/Prenat 1 tab DAILY PO 06/04/25 10:00 06/12/25 10:46 1 TAB Sevelamer HCl 800 mg TIDWM PO 06/03/25 18:00 06/12/25 08:44 800 MG Aspirin 81 mg DAILY PO 06/04/25 10:00 06/12/25 10:47 81 MG Atorvastatin Calcium 20 mg HS PO 06/03/25 22:00 06/11/25 22:19 20 MG Famotidine 20 mg DAILY IV 06/04/25 10:00 06/12/25 10:46 20 MG Metoprolol Tartrate 50 mg BID PO 06/03/25 22:00 06/11/25 22:19 50 MG Sodium Chloride 10 ml Q8HR IV 06/03/25 22:00 06/12/25 05:59 10 ML Acetaminophen/ Hydrocodone Bitart 1 tab Q4HP PRN PO 06/03/25 16:15 06/11/25 22:18 1 TAB Ondansetron HCl 4 mg Q4HP PRN IV 06/03/25 16:15 06/04/25 21:38 4 MG Docusate Sodium 100 mg BIDPRN PRN PO 06/03/25 16:15 Acetaminophen 650 mg Q6HP PRN PO 06/03/25 16:15 06/04/25 09:19 650 MG Nitroglycerin 0.4 mg Q5MINP PRN SL 06/03/25 17:15 Morphine Sulfate 2 mg Q30M PRN IV 06/03/25 17:15 Calcium Acetate 667 mg TIDWMEALS PO 06/04/25 08:00 06/12/25 08:43 667 MG Azithromycin 250 ml @ 125 mls/hr DAILY IV 06/05/25 10:00 Hold Haloperidol Lactate 5 mg Q6HP PRN IM 06/04/25 15:15 06/11/25 01:45 5 MG Hydralazine HCl 10 mg Q6HP PRN IV 06/05/25 10:45 06/10/25 21:36 10 MG Vancomycin HCl 0 ml @ 0 mls/hr UD IV 06/05/25 10:45 Cancel Ceftriaxone Sodium/Dextrose 50 ml @ 50 mls/hr Q12HR@09,21 IV 06/05/25 21:00 06/12/25 10:46 50 MLS/HR Olanzapine 10 mg DAILY PO 06/06/25 10:00 06/12/25 10:00 10 MG Lorazepam 1 mg ONCE PRN IV 06/08/25 22:30 Diagnostic Test (Pha) 1 strip ACHS 06/10/25 11:30 06/12/25 05:36 1 STRIP Insulin Human Regular AC SC 06/10/25 11:30 06/12/25 06:00 4 UNITS Insulin Human Regular HS SC 06/10/25 22:00 06/11/25 22:39 3 UNITS Dextrose 50 ml UD PRN IV 06/10/25 09:00 Acyclovir Sodium 0 ml @ 0 mls/hr PER PHARMACY IV 06/10/25 12:00 Cancel Acyclovir Sodium 300 mg/Dextrose 56 ml @ 56 mls/hr DAILY@2200 IV 06/11/25 22:00 Cancel Doxycycline Monohydrate 100 mg Q12HR PO 06/10/25 22:00 06/12/25 10:46 100 MG objective Gen: nad heent: nc/at, mmm lungs: cta anteriorly cvs: no rub abd: soft, bowel sounds audible ext: no edema laboratory and microbiology Laboratory Tests 06/12/25 07:19 Test 06/12/25 07:19 Range/Units Serum Glucose 155 H 74-106 mg/dL Assessment/Plan ESRD HTN AMS due to neurosyphilis sepsis Dialysis today maturing AVF keep IVf out of arm Dietary Evaluation Review Comments: 1) CCHO 60 + renal standard 2) Refer Mailing Jogger for diabetes education Expected Outcomes/Goals: To meet >75% estimated needs Fu 3-5 days Plan discussed with: Patient ERNA MENDOZA MD Jun 12, 2025 11:14
--- NOTE | 2025-06-12 12:43 | DVHPN2 ---
Consult Progress Note Date Seen: Jun 11, 2025 Subjective Patient reports: Other (clinically improved , has some intermittent delirium ) Objective vital signs Vital Sign Date Time Temp Pulse Resp B/P (MAP) Pulse Ox O2 Delivery O2 Flow Rate FiO2 06/12/25 09:00 98.6 78 18 122/89 (100) 97 98.6 06/11/25 20:00 Room Air* 0 21 Total Intake and Output 06/11/25 06/11/25 06/12/25 15:00 23:00 07:00 Intake Total 480 ml 310 ml Output Total 0 ml Balance 480 ml 310 ml medications Current Medications Medications Dose Ordered Sig/Laly Route Start Time Stop Time Status Last Admin Dose Admin Multivit/Ca Carb/ B Cmplx/FA/Prenat 1 tab DAILY PO 06/04/25 10:00 06/12/25 10:46 1 TAB Sevelamer HCl 800 mg TIDWM PO 06/03/25 18:00 06/12/25 08:44 800 MG Aspirin 81 mg DAILY PO 06/04/25 10:00 06/12/25 10:47 81 MG Atorvastatin Calcium 20 mg HS PO 06/03/25 22:00 06/11/25 22:19 20 MG Famotidine 20 mg DAILY IV 06/04/25 10:00 06/12/25 10:46 20 MG Metoprolol Tartrate 50 mg BID PO 06/03/25 22:00 06/11/25 22:19 50 MG Sodium Chloride 10 ml Q8HR IV 06/03/25 22:00 06/12/25 05:59 10 ML Acetaminophen/ Hydrocodone Bitart 1 tab Q4HP PRN PO 06/03/25 16:15 06/11/25 22:18 1 TAB Ondansetron HCl 4 mg Q4HP PRN IV 06/03/25 16:15 06/04/25 21:38 4 MG Docusate Sodium 100 mg BIDPRN PRN PO 06/03/25 16:15 Acetaminophen 650 mg Q6HP PRN PO 06/03/25 16:15 06/04/25 09:19 650 MG Nitroglycerin 0.4 mg Q5MINP PRN SL 06/03/25 17:15 Morphine Sulfate 2 mg Q30M PRN IV 06/03/25 17:15 Calcium Acetate 667 mg TIDWMEALS PO 06/04/25 08:00 06/12/25 08:43 667 MG Azithromycin 250 ml @ 125 mls/hr DAILY IV 06/05/25 10:00 Hold Haloperidol Lactate 5 mg Q6HP PRN IM 06/04/25 15:15 06/11/25 01:45 5 MG Hydralazine HCl 10 mg Q6HP PRN IV 06/05/25 10:45 06/10/25 21:36 10 MG Vancomycin HCl 0 ml @ 0 mls/hr UD IV 06/05/25 10:45 Cancel Ceftriaxone Sodium/Dextrose 50 ml @ 50 mls/hr Q12HR@09,21 IV 06/05/25 21:00 06/12/25 10:46 50 MLS/HR Olanzapine 10 mg DAILY PO 06/06/25 10:00 06/12/25 10:00 10 MG Lorazepam 1 mg ONCE PRN IV 06/08/25 22:30 Diagnostic Test (Pha) 1 strip ACHS 06/10/25 11:30 06/12/25 11:48 1 STRIP Insulin Human Regular AC SC 06/10/25 11:30 06/12/25 06:00 4 UNITS Insulin Human Regular HS SC 06/10/25 22:00 06/11/25 22:39 3 UNITS Dextrose 50 ml UD PRN IV 06/10/25 09:00 Acyclovir Sodium 0 ml @ 0 mls/hr PER PHARMACY IV 06/10/25 12:00 Cancel Acyclovir Sodium 300 mg/Dextrose 56 ml @ 56 mls/hr DAILY@2200 IV 06/11/25 22:00 Cancel Doxycycline Monohydrate 100 mg Q12HR PO 06/10/25 22:00 06/12/25 10:46 100 MG Physical Exam: General: NAD Neck: Supple. No masses. HEENT: PERRL. Normal lids and conjunctiva. Moist mucous membranes. Oropharynx without lesions, exudates or excessive erythema. Normal appearance of the external aspects of the nose and ears. Heart: Regular rhythm, normal rate. No murmur. No lower extremity edema. Lungs: Normal respiratory effort. Clear to auscultation bilaterally. No wheezes. No crackles. Abdomen: Soft. Non-tender. Non-distended. No masses or abdominal hernia. Msk: No digital cyanosis. Normal strength and tone in all 4 limbs Skin: Warm and dry, no rashes. Neuro: Alert. No facial droop or slurred speech. Extra-ocular movements intact. Sensation intact to soft touch in all 4 limbs. Psych: Appropriate mood. Full affect. Oriented to person, place, time, and situation. 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 female with a complex medical history significant for end- stage renal disease on hemodialysis, diabetes, hypertension, anemia, and hyperlipidemia, presenting with fever, nasal congestion, cough, malaise, and generalized weakness for the past few days. Patient was noted to be confused and described as a poor historian, with more incoherence than acute delirium. Evaluation in the ED revealed leukocytosis (WBC 11.6), Hgb 10.7, platelet 223, BUN 34, creatinine 4.6. Lactic acid was 1.4. She has a left IJ permanent catheter for dialysis, which appears clean, dry, intact, and she has not missed recent dialysis sessions. There is no lower extremity swelling. Chest imaging demonstrated bilateral patchy airspace disease consistent with pneumonia. There was initial concern for meningitis in the context of altered mental status and underlying end-stage renal disease. Lumbar puncture performed on 06/10 showed CSF WBC 0, protein 93.6, glucose 122. CSF cultures negative to date; VDRL and further CSF studies pending. Blood cultures have remained negative. Infectious workup revealed negative HIV, negative hepatitis B, but positive treponemal antibody with RPR titer 1:2 consistent with syphilis seropositivity. There is ongoing investigation to determine if this may reflect previously treated disease (serofast state), in which case active treatment for syphilis may not be required. The patient has received vancomycin and ceftriaxone during admission, with subsequent switch to penicillin for syphilis. She has prolonged QTc, so azithromycin should be avoided; doxycycline can be used instead if additional atypical coverage is needed. Overall, low suspicion for bacterial meningitis at this time. Respiratory status is stable on room air. 06/11: positive for syphilis , awaiting VDRL testing of the csf Plan: - discussed with department of public health , patient has no prior history of syphilis treatment , continue ceftriaxone 2 grams q 12 as a acceptable treatment course for syphilis and pneumonia - continue doxycyline for possible atypical pneumonia - unlikely to high high VDRL level given low RPR titers in the blood - recommend piccline placement due to 14 days of ceftriaxone followed by 1 dose of IM penicillin 2.4 million international units 1 week after ceftriaxone has completed to treat for latent syphilis \-- No need for isolation precautions at this time, given negative workup for bacterial meningitis \-- Monitor mental status, WBC, and cultures; continue hemodialysis as scheduled \-- Contact Department of Public Health to clarify syphilis treatment history and refine ongoing treatment plan Isolation Precautions: None indicated at this time Plan discussed with: Other Dietary Evaluation Review Comments: 1) CCHO 60 + renal standard 2) Refer Gymnastics Instructor for diabetes education Expected Outcomes/Goals: To meet >75% estimated needs Fu 3-5 days SASHA LEIJA MD Jun 12, 2025 12:43
[2025-06-12 13:00] VITALS: BP 137/88; PULSE 78; RESP 18; TEMP 98.6; O2SAT 97
--- NOTE | 2025-06-12 15:20 | DVHDS2 ---
Discharge Summary Date of Admission Jun 03, 2025 at 17:05 Date of Discharge: Jun 12, 2025 Labs/Diagnostic Data: Laboratory Results Test 06/12/25 10:44 06/12/25 07:19 06/11/25 06:35 06/10/25 14:18 POC Glucose 187 mg/dl (70-106) White Blood Count 7.0 10^3/uL (4.4-10.8) Red Blood Count 3.38 10^6/uL (4.0-5.20) Hemoglobin 10.1 g/dL (12.2-16.2) Hematocrit 30.8 % (36.0-46.0) Mean Corpuscular Volume 91.1 fL (80.0-100.0) Mean Corpuscular Hemoglobin 29.9 pg (28.0-32.0) Mean Corpuscular Hemoglobin Concent 32.8 g/dL (32.0-36.0) Red Cell Distribution Width 17.7 % (11.8-14.3) Platelet Count 277 10^3/uL (140-450) Mean Platelet Volume 7.2 fL (6.9-10.8) Neutrophils (%) (Auto) 57.2 % (37.0-80.0) Lymphocytes (%) (Auto) 30.4 % (10.0-50.0) Monocytes (%) (Auto) 8.0 % (0.0-12.0) Eosinophils (%) (Auto) 3.4 % (0.0-7.0) Basophils (%) (Auto) 1.0 % (0.0-2.0) Neutrophils # (Auto) 4.0 10 ^3/uL (1.6-8.6) Lymphocytes # (Auto) 2.1 10 ^3/uL (0.4-5.4) Monocytes # (Auto) 0.6 10 ^3/uL (0-1.3) Eosinophils # (Auto) 0.2 10 ^3/uL (0-0.8) Basophils # (Auto) 0.1 10 ^3/uL (0-0.2) Nucleated Red Blood Cells 0.2 % Sodium Level 142 mmol/L (136-145) Potassium Level 4.6 mmol/L (3.5-5.1) Chloride Level 101 mmol/L (98-107) Carbon Dioxide Level 29 mmol/L (20-31) Anion Gap 12 (5-15) Blood Urea Nitrogen 41 mg/dL (9-23) Creatinine 7.08 mg/dL (0.550-1.02) Glomerular Filtration Rate Calc 6 mL/min (>90) BUN/Creatinine Ratio 5.8 (10.0-20.0) Serum Glucose 155 mg/dL (74-106) Calcium Level 8.8 mg/dL (8.7-10.4) Hepatitis A IgM Antibody Negative Hepatitis B Surface Antigen Negative (Negative) Hepatitis B Core IgM Antibody Negative (Negative) Hepatitis C Antibody Reactive (Negative) CSF Tube Number #3 CSF Appearance Clear CSF WBC 0 CUMM (0-5) CSF RBC 0 CUMM (0-5) CSF Protein (Tube 2) 93.6 mg/dL (15-45) CSF Mononuclear Cells % CSF Polymorphonuclear Cells % CSF Glucose 122 mg/dL (40-70) Test 06/10/25 08:02 06/10/25 05:50 06/08/25 22:52 06/08/25 16:26 HIV (1&2) Antibody Negative (Negative) Total Bilirubin < 0.2 mg/dL (0.2-1.0) Aspartate Amino Transferase (AST) 52 U/L (13-40) Alanine Aminotransferase (ALT) 36 U/L (7-40) Alkaline Phosphatase 70 U/L (46-116) Total Protein 5.5 g/dL (5.7-8.2) Albumin 3.2 g/dL (3.2-4.8) Random Vancomycin Level 15.7 ug/mL (5-10) Prothrombin Time 10.6 sec (9.3-11.8) Prothrombin Time INR 1.00 (0.9-1.15) Lactic Acid Level 0.8 mmol/L (0.4-2.0) Ammonia 14 umol/L (11-32) Test 06/08/25 05:51 06/05/25 13:00 06/04/25 18:42 06/04/25 15:10 Rapid Plasma Reagin Titer 1:2 Titer (NONREACTIVE) Rapid Plasma Reagin Reactive (NONREACTIVE) Treponema pallidum Antibody Reactive (Negative) Urine Color Light-yellow (Yellow) Urine Clarity Clear (Clear) Urine pH 7.0 (5.0-9.0) Urine Specific [place] 1.016 (1.001-1.035) Urine Protein 3+ (Negative) Urine Ketones Trace (Negative) Urine Blood 1+ /uL (Negative) Urine Nitrite Negative (Negative) Urine Bilirubin Negative (Negative) Urine Urobilinogen Normal mg/dL (Negative) Urine Leukocyte Esterase Negative /uL (Negative) Urine RBC 2 /hpf (0 - 4) Urine Microscopic WBC 2 /HPF (0-5) Urine Squamous Epithelial Cells Few /hpf (<5) Urine Bacteria None seen /hpf (None Seen) Urine Hyaline Casts Few /lpf (0 - 2) Urine Yeast (Budding) Occasional /hpf (None Urine Glucose 4+ mg/dL (Normal) Urine Opiates Screen Neg (NEGATIVE) Urine Fentanyl Screen Neg (NEGATIVE) Urine Barbiturates Screen Neg (NEGATIVE) Urine Phencyclidine Screen Neg (NEGATIVE) Urine Amphetamines Screen Neg (NEGATIVE) Urine Benzodiazepines Screen Neg (NEGATIVE) Urine Cocaine Screen Neg (NEGATIVE) Urine Cannabinoids Screen Neg (NEGATIVE) Blood Gas Specimen Type Arterial Blood Gas Sample Site Right radial Blood Gas Patient Temperature 37.0 Arterial Blood Date Drawn [id number] Arterial Blood pH 7.497 (7.350-7.450) Arterial Blood Partial Pressure CO2 27.4 mmHg (32.0-45.0) Arterial Blood Partial Pressure O2 88.3 mmHg (83.0-108.0) Arterial Blood HCO3 20.7 mmol/L (21.0-28.0) Arterial Blood Oxygen Saturation 96.9 % (94.0-98.0) Arterial Blood Base Excess -1.5 mmol/L (-2.0-3.0) Arterial Blood Oxyhemoglobin 95.8 % (94.0-98.0) Arterial Blood Carboxyhemoglobin 0.8 % (0.5-1.5) Arterial Blood Methemoglobin 0.3 % (0.0-1.5) Manuel Test Yes Blood Gas Total Hemoglobin 11.10 g/dL (12.0-16.0) Blood Gas Modality Room air FiO2 % 21.0 Test 06/04/25 05:35 06/03/25 12:38 Thyroid Stimulating Hormone (TSH) 1.92 uIU/mL (0.55-4.78) Troponin I High Sensitivity 7 ng/L (</=34) Other Laboratory Tests 06/12/25 07:19 Brief Hx & Hospital Course: The patient is a 60-year-old female with past medical history of end-stage renal disease on hemodialysis M-W-F, hyperlipidemia, DM, anemia, and hypertension who presented to [facility] ED with complaint of fever. Patient reports she has been experiencing fever, associated with cough, nasal congestion, nausea, and general malaise for the past 2 days. 06/04- patient with history of ESRD, diabetes, hypertension here with fever cough nasal congestion. COVID fluids not done. Admitted for pneumonia. On ceftriaxone. I will add azithromycin. We will get COVID flu. Continue treatment. Nephrology consulted for continuation of dialysis MWF. SSI for diabetes. Continue home medications. Blood cultures were taken. Given chronic dialysis bacteremia is of concern. There is no urine, possible patient is anuric ESRD. -patient is confused, altered A&O x1 unable to answer any ROS questions. there is no missed dialysis days. Daughter endorsed to nurse that patient is not at baseline. We will get workup for encephalopathy. Patient is declining labs, treatments. We will order TSH, ammonia, ABG, UDS, blood drug screen, CMP. Question of alcohol withdrawal or viral encephalitis? 06/05-patient is worsening, more confused, refusing labs, treatments, p.o. meds. Ammonia negative, no CO2 narcosis, appears to be neurologically intact moving all extremities but now she is A&O times 0. Unclear if this is UTI but possible. We are giving, or trying to give antibiotics IV ceftriaxone which would treat urine infection. Primary suspicion was pneumonia which is less likely. Meningitis is on the differential.. Urinary obstruction is also on differential. We will get urine UA UDS. Pending blood tox screen.. Per family this is a very acute change for patient. We will increase Haldol to 10 intramuscular q.6 H. we will get bladder scan, head CT, try to use patient's daughters help to help give p.o. meds. Patient refusing HD which will only worsening condition. Very high-risk and very poor prognosis. I will add vancomycin and increase ceftriaxone to 2 g. We will all still start olanzapine 10. We will also do telepsych in case this is psych cause. 06/06-06/07 - weekend coverage. no documented changes or worsening or improvement. 06/08- no significant events notable over the weekend patient remains altered, few events of pulling IVs, few events of getting agitated requiring Ativan/Haldol. Need to advance surge into cause of AMS. We will order treponemal antibody, repeat ammonia, CBC CMP today. Continue Haldol prn, olanzapine 10 scheduled daily,. Maintain isolation for meningitis ruled out, patient has been on broad-spectrum vanc ceftriaxone for meningitis for 4 days now. Still on resolution or changing/improving off condition. We will consult Neurology and get MRI brain if possible. Nephrology is following and wants no IVs in arm with maturating AVF. We will also get LP for studies of VDRL and HSV. Holding off acyclovir right now. 06/09 - labs from yesterday treponemal antibody positive, reflex RPR is pending now. Radiologist consulted for LP, concern for neurosyphilis ruled out, we will need CSF VDRL. Neurology was consulted to ruled out other central causes, neurology has placed infectious disease consult. MRI brain is ordered but given patient's behavioral symptoms it may be difficult to obtain. Ceftriaxone does treat syphilis but penicillin is preferred. We will hold off penicillin treatment incomplete workup for LP. Today, we will get HIV antibody, possibly MRI brain. unlikely psychiatric cause as we have some direction now, i still have to ruled out HIV and HSV encephalitis, so with LP need hsv and vdrl. hiv lab w/u. MRI brain. neur following. ID now onboard too. continue vanc/ctx meningitis doses. 06/10- worse today. not following commands. bibasilar rales, trace pitting edema. BMP unremarkable, no significant changes in BUN. LP today, will help ruleout multiple diseases hsv , vdrl. will start acyclovir today as LP should be done, and will deescalate if negative. continuie therapy. appreciate, nephro, neuro and ID. continue vanc/ctx. will send hiv today, hepattiis panel tomorrow. her symptoms appear possible etoh w/d but this is day 6, so, doesnt add up. will try 1x ativan 1mg. otherwise continue management as outlined earlier. 06/11- significant improvement today A&O x2. Following commands conversing full sentences. She declines any knowledge of being diagnosed with syphilis. CSF is unconcerning for infection but she has been on antibiotics for 5 days now. I think we should complete treatment empirically. ID has stopped acyclovir. Pending HSV PCR. Most important lab pending is VDRL CSF. I will ask ID if penicillin G IV needs to be added for possible neurosyphilis. Otherwise continue treatment. 06/12- significant improvement again A&O times 3, still unclear on situation which was reaffirmed during this visit. CSF VDRL was not collected/sent, due to this error we will not be able to completely rule out neurosyphilis and this remains are top diagnosis at this time given that blood workup is concerning for infection with positive Treponemal antibody and positive RPR. discussed with infectious disease inpatient should be ok for discharge with IV ceftriaxone once daily 2 g for 14 days. Social consulted to have patient receive antibiotics at SNF. Midline to be inserted today. Discussed with ID okay to remove isolation. Okay to DC sitter. We will stop oral doxycycline. PT consulted but given my exam patient needs acute PT rehab at SNF as well. Patient updated on plan. Vital signs stable, in improving mentation, stable for discharge as per plan below. Exam 06/12 GEN: Healthy appearing, well-developed, NAD. AOx3 HEENT: NC/AT; MMM. CV: RRR, no m/r/g. LUNGS: Decreased air entry in all lung mehta. ABD: Soft, NT/ND, NBS, no masses or organomegaly. EXT: skin Warm, well perfused. no rashes. No clubbing, cyanosis, or edema. NEURO: Ambulating with no limitations. No focal deficits. weak ambulating. Diagnosis: neurosyphilis, likely, unable to ruled out via spinal studies acute toxic metabolic encephalopathy due to above Prior hep C infection, unknown treatment completion transaminitis, at baseline, due to above. substance abuse ruled-out, viral encephalitis, ruled out meningitis, ruled out Acute pneumonia, Gram-negative Gram-positive possible , resolved ESRD on HD, TTS schedule Hyperlipidemia Diabetes Mellitus with hyperglycemia Anemia Hypertension Discharge plan: - SNF for IV antibiotics and PT rehab. IV antibiotics through midline, ceftriaxone 2 g q12hr for 14 days. End date 11/26/2024. SNF to remove midline after antibiotic therapy finished. Weekly labs CBC, CMP on Fridays. Please fax lab results to Dr. Zachary Orellana, infectious disease, fax [phone]. - Started olanzapine 5 mg daily as mood stabilizer. PCP to review need for continuation of medication at discharge follow up. - Follow up with Infectious Disease, Dr. Zachary orellana, to follow up on treatment and lab results. - Renal and diabetic diet, solid, as tolerated - Follow up with PCP 1-2 weeks for discharge follow up. - Continue other home medications not mentioned above. ( Ferrous sulfate 325 every other day, furosemide 40 daily, Lipitor 20 mg daily, aspirin 81 daily, clonidine as needed for blood pressure, Lantus 25 nightly, Humalog 10 with meals, metoprolol tartrate 50 mg twice daily, ) Condition at Discharge: Fair Final Diagnosis/Problems List neurosyphilis, likely, unable to ruled out via spinal studies acute toxic metabolic encephalopathy due to above Prior hep C infection, unknown treatment completion transaminitis, at baseline, due to above. substance abuse ruled-out, viral encephalitis, ruled out meningitis, ruled out Acute pneumonia, Gram-negative Gram-positive possible , resolved ESRD on HD, TTS schedule Hyperlipidemia Diabetes Mellitus with hyperglycemia Anemia Hypertension Discharge Disposition: Assisted Facility Discharge Instruct/Medications Diet: Consistent carbohydrate, Renal Activity: No Restrictions, As Tolerated Follow Up/Referral: See below Medications: See below Scheduled Aspirin (Aspir-Low), 81 MG PO DAILY, (Reported) Atorvastatin Calcium (Atorvastatin Calcium), 1 TAB PO DAILY, (Reported) Ferrous Sulfate (Ferosul), 325 MG PO DAILY, (Reported) Furosemide (Furosemide), 40 MG PO DAILY, (Reported) Insulin Glargine (Lantus Solostar), 25 UNIT SC HS, (Reported) Insulin Lispro (Human) (Humalog), 10 UNIT SC TID, (Reported) Metoprolol Tartrate (Metoprolol Tartrate), 50 MG PO BID, (Reported) Scheduled PRN Clonidine Hydrochloride (Clonidine Hcl), 0.1 MG PO BID PRN for SBP>170or DBP>90, (Reported) Discharge Statement: "Patient was advised to return to the ER or call 911 if any headaches, dizziness, shortness of breath, chest pain, abdominal pain, bleeding, fevers, or worsening of medical condition. Patient was counseled about treatment plan, medications, possible side effects, patientverbalized understanding. All questions were answered to the best of my ability. This discharge took greater then 30 minutes in planning, reviewing documentation, counseling the patient, and discussing with other team members." Date of Service: Jun 12, 2025 Billing Provider: MELQUIADES TREJO MD Common Visit Codes: 86816-ORY/OBS DISCH DAY >30min MELQUIADES TREJO MD Jun 12, 2025 15:20
[2025-06-12] MEDS ORDERED: DEXTROSE (50%) 50ML SYRG IV PRN (15:30)
[2025-06-12] MEDS: INSULIN LISPRO (HUMAN) 100 UNITS/ML ML SC SCH (17:00)
[2025-06-12] MEDS: InsuLIN REG 1unit/0.01ml Soln (100units/ml) SC SCH (17:00)
[2025-06-12] MEDS: ACCU-CHEK COMFORT CURVE STRIP VI SCH (17:00)
--- NOTE | 2025-06-12 17:42 | DVH ---
PROCEDURE: MRI BRAIN HEAD WO CONTRAST INDICATION: AMS: r/o intracranial mass, cva EXAM DATE: 06/12/2025 04:00 PM COMPARISON: None TECHNIQUE: MRI of the brain without intravenous contrast. Limited, incomplete exam. Only diffusion- weighted sequences were obtained. FINDINGS: Diffusion weighted images of the brain demonstrate no evidence of acute infarction. There is no definite evidence of acute intracranial hemorrhage, extra-axial collection, mass effect, midline shift, herniation or hydrocephalus. The ventricles, sulci and cisterns appear age appropriate. IMPRESSION: 1. Limited, incomplete exam. Only diffusion-weighted images were obtained. No definite evidence of acute infarct or acute intracranial process. Consider follow-up exam when patient is able to tolerate . HS:Y
[2025-06-12 21:00] VITALS: BP 147/77; PULSE 71; RESP 16; TEMP 97.8; O2SAT 100
--- NOTE | 2025-06-12 21:41 | DVHPN2 ---
Progress Note - Dictate Date Seen: Jun 12, 2025 Medical Necessity Reason Pt with a Central, PICC or Fol: Yes The following are medically ne: Central Line Subjective is a 60 years old right-handed female with a history of hypertension, diabetes, end-stage renal failure on hemodialysis, anemia, polyneuropathy, status post right arm fracture, she came to the [facility] on 06/03/2025 with a chief company of nausea, vomiting. I have seen and examined the patient, I have discussed with her nurse, and sitter, she is awake, oriented to person, place, she knows year, socially appropriate but is very weak and sleepy, She has tremors in both upper extremities Reason, CSF VDRL was not collected/sent CSF, 06/07/2025: C/C, WBC: 0, RBC: 0, protein: 93.6, glucose: 122 RPR, 06/08/2025: Reactive (1:2) Treponema pallidum antibody, 06/08/2025: Reactive Blood culture, 06/03/2025: Negative ABG, 06/04/2025: Respiratory alkalosis UDS, 06/05/2025: Negative WBC/HB/PLT/MCV, 06/08/2025: 7.3/9.8/216/91.5 PT/INR/PTT, 06/08/25: 10.6/1/ BUN/CR, 06/03/2025: 34/4.6, 06/04/2025: 45/5.24, 06/08/2025: 37/6.98 Glucose, 06/03/2025: 484 Lactic acid, 06/03/2025: 1.4, 06/08/25: 0.8 TBI/AST/ALT/AP, 06/08/2025:0.2/124/45/65 NH3 06/08/2025:14. CT head, 06/05/2025: 1. Chronic ischemic changes without evidence of acute intracranial proce MRI head, 06/12/2025: Limited, incomplete exam. Only diffusion-weighted images were obtained. No definite evidence of acute infarct or acute intracranial process. Consider follow-up exam when patient is able to tolerate vital signs Vital Sign Date Time Temp Pulse Resp B/P (MAP) Pulse Ox O2 Delivery O2 Flow Rate FiO2 06/12/25 13:00 98.6 78 18 137/88 (104) 97 98.6 06/12/25 08:00 Room Air* 0 21 Total Intake and Output 06/11/25 06/11/25 06/12/25 15:00 23:00 07:00 Intake Total 480 ml 310 ml Output Total 0 ml Balance 480 ml 310 ml medications Current Medications Medications Dose Ordered Sig/Laly Route Start Time Stop Time Status Last Admin Dose Admin Multivit/Ca Carb/ B Cmplx/FA/Prenat 1 tab DAILY PO 06/04/25 10:00 06/12/25 10:46 1 TAB Sevelamer HCl 800 mg TIDWM PO 06/03/25 18:00 06/12/25 18:04 800 MG Aspirin 81 mg DAILY PO 06/04/25 10:00 06/12/25 10:47 81 MG Atorvastatin Calcium 20 mg HS PO 06/03/25 22:00 06/11/25 22:19 20 MG Famotidine 20 mg DAILY IV 06/04/25 10:00 06/12/25 10:46 20 MG Metoprolol Tartrate 50 mg BID PO 06/03/25 22:00 06/11/25 22:19 50 MG Sodium Chloride 10 ml Q8HR IV 06/03/25 22:00 06/12/25 13:43 10 ML Ondansetron HCl 4 mg Q4HP PRN IV 06/03/25 16:15 06/04/25 21:38 4 MG Docusate Sodium 100 mg BIDPRN PRN PO 06/03/25 16:15 Acetaminophen 650 mg Q6HP PRN PO 06/03/25 16:15 06/04/25 09:19 650 MG Nitroglycerin 0.4 mg Q5MINP PRN SL 06/03/25 17:15 Calcium Acetate 667 mg TIDWMEALS PO 06/04/25 08:00 06/12/25 18:04 667 MG Azithromycin 250 ml @ 125 mls/hr DAILY IV 06/05/25 10:00 Hold Haloperidol Lactate 5 mg Q6HP PRN IM 06/04/25 15:15 06/12/25 16:31 5 MG Hydralazine HCl 10 mg Q6HP PRN IV 06/05/25 10:45 06/10/25 21:36 10 MG Vancomycin HCl 0 ml @ 0 mls/hr UD IV 06/05/25 10:45 Cancel Ceftriaxone Sodium/Dextrose 50 ml @ 50 mls/hr Q12HR@09,21 IV 06/05/25 21:00 06/12/25 10:46 50 MLS/HR Olanzapine 10 mg DAILY PO 06/06/25 10:00 06/12/25 10:00 10 MG Acyclovir Sodium 0 ml @ 0 mls/hr PER PHARMACY IV 06/10/25 12:00 Cancel Acyclovir Sodium 300 mg/Dextrose 56 ml @ 56 mls/hr DAILY@2200 IV 06/11/25 22:00 Cancel Insulin Glargine 20 units HS SC 06/12/25 22:00 Insulin Human Lispro 5 units AC SC 06/12/25 17:00 06/12/25 17:00 5 UNITS Diagnostic Test (Pha) 1 strip ACHS 06/12/25 17:00 06/12/25 17:00 1 STRIP Insulin Human Regular ACHS SC 06/12/25 17:00 06/12/25 17:00 10 UNITS Dextrose 50 ml UD PRN IV 06/12/25 15:30 objective General: the patient is well developed and nourished. No acute distress. Status post right 3rd toe amputation MENTAL STATUS: Subjective SPEECH, LANGUAGE, HIGHER CORTICAL FUNCTION: No aphasia or dysarthria, CRANIAL NERVES: Pupils are equal, round and reactive. EOMs full and conjugate. Facial sensation intact in all three divisions bilaterally. Mandibular strength intact. Facial muscles symmetrical and strength intact. SENSATION: Sensation to touch and pinprick is okay MOTOR: Normal tone in the upper and lower extremity. Normal muscle bulk. No fasciculations. Tremors in both upper extremities. She does not move the arms and legs, the muscle power in the both arms feel strong. REFLEXES: Deep tendon reflexes are symmetrical. No pathological reflexes. CEREBELLAR/COORDINATION: Deferred GAIT/STATION: deferred laboratory and microbiology Laboratory Tests 06/12/25 07:19 Test 06/12/25 07:19 Range/Units Serum Glucose 155 H 74-106 mg/dL Problem List Mltered mental status Metabolic encephalopathy secondary to hyperglycemia Hospital delirium Fever End-stage kidney failure on hemodialysis Positive Treponema pallidum antibody, to rule out central nervous system syphilis Assessment/Plan Monitoring Supportive treatment Telemetry EEG CSF profile IV ceftriaxone once daily 2 g for 14 days D/C Doxycycline Haldol for behavioral control Hemodialysis Nephrology on case Infectious disease on case More recommendation per clinical course This medical document was created using an electronic medical record system with [employer] dictation system. Although this document has been carefully reviewed, there may still be some phonetic and typographical errors. These areas are purely typographical due to imperfections of the software programs, and do not reflect any compromise in the patient's medical care. Prognosis poor Dietary Evaluation Review Comments: 1) CCHO 60 + renal standard 2) Refer School Nurse for diabetes education Expected Outcomes/Goals: To meet >75% estimated needs Fu 3-5 days Plan discussed with: Other JONNATHAN GONZALEZ MD Jun 12, 2025 21:41
[2025-06-12] MEDS: INSULIN LANTUS (GLARGINE) 1 /0.01ml (100units/ml) SC SCH (22:00)
[2025-06-12 23:07] LABS: HSV-1 DNA CSF Negative (Negative); HSV-2 DNA Negative (Negative)
[2025-06-13] VITALS (7 sets, daily range): BP systolic 104–158; BP diastolic 60–89; PULSE 73–83; RESP 17–20; TEMP 97.5–98.7; O2SAT 95–100
--- NOTE | 2025-06-13 12:01 | DVHPN2 ---
Subjective Still confused, no cough, no other pain endorsed. Reviewed: H&P Changes from previous H/P or p: No Changes General: Per HPI Eyes: No Pain, No Vision change, No Conjunctivae inflammation, No Eyelid inflammation, No Other, No Redness ENT: No Ear pain, No Ear discharge, No Nose pain, No Nose discharge, No Nose congestion, No Mouth pain, No Mouth swelling, No Throat pain, No Throat swelling, No Other Cardiovascular: No Chest Pain, No Palpitations, No Orthopnea, No Paroxysmal Noc. Dyspnea, No Edema, No Lt Headedness; Other (Left IJ Perma catheter.) Respiratory: No Cough, No Dry, No Shortness of breath, No SOB with excertion, No Wheezing, No Hemoptysis, No Pleuritic Pain, No Sputum, No Other Gastrointestinal: Nausea, Vomiting; No Abdominal Pain, No Diarrhea, No Constipation, No Melena, No Hematochezia, No Other Genitourinary: No Dysuria, No Frequency, No Incontinence, No Hematuria, No Retention; Other (On hemodialysis) Musculoskeletal: No other, No neck pain, No shoulder pain, No arm pain, No back pain, No hand pain, No leg pain, No foot pain Skin: No Rash, No Lesions, No Jaundice, No Bruising, No Other Objective Vitals Vital Signs Date Time Temp Pulse Resp B/P (MAP) Pulse Ox O2 Delivery O2 Flow Rate FiO2 06/13/25 10:29 82 107/54 06/13/25 08:38 98.5 18 96 98.5 06/13/25 08:00 Room Air* 0 21 Intake/Output Intake and Output 06/13/25 07:00 Intake Total 1590 ml Balance 1590 ml Intake Oral 1590 ml # Voids 5 # Bowel Movements 3 Exam GEN: Healthy appearing, well-developed, NAD. AOx0 HEENT: NC/AT; MMM. CV: RRR, no m/r/g. LUNGS: Decreased air entry in all lung mehta. ABD: Soft, NT/ND, NBS, no masses or organomegaly. EXT: skin Warm, well perfused. no rashes. No clubbing, cyanosis, or edema. NEURO: Ambulating with no limitations. No focal deficits. Medications Current Medications Medications Dose Ordered Sig/Laly Route Start Time Stop Time Status Last Admin Dose Admin Multivit/Ca Carb/ B Cmplx/FA/Prenat 1 tab DAILY PO 06/04/25 10:00 06/12/25 10:46 1 TAB Sevelamer HCl 800 mg TIDWM PO 06/03/25 18:00 06/12/25 18:04 800 MG Aspirin 81 mg DAILY PO 06/04/25 10:00 06/12/25 10:47 81 MG Atorvastatin Calcium 20 mg HS PO 06/03/25 22:00 06/11/25 22:19 20 MG Famotidine 20 mg DAILY IV 06/04/25 10:00 06/13/25 10:00 20 MG Metoprolol Tartrate 50 mg BID PO 06/03/25 22:00 06/13/25 10:29 50 MG Sodium Chloride 10 ml Q8HR IV 06/03/25 22:00 06/13/25 05:58 10 ML Ondansetron HCl 4 mg Q4HP PRN IV 06/03/25 16:15 06/04/25 21:38 4 MG Docusate Sodium 100 mg BIDPRN PRN PO 06/03/25 16:15 Acetaminophen 650 mg Q6HP PRN PO 06/03/25 16:15 06/04/25 09:19 650 MG Nitroglycerin 0.4 mg Q5MINP PRN SL 06/03/25 17:15 Calcium Acetate 667 mg TIDWMEALS PO 06/04/25 08:00 06/12/25 18:04 667 MG Azithromycin 250 ml @ 125 mls/hr DAILY IV 06/05/25 10:00 Hold Haloperidol Lactate 5 mg Q6HP PRN IM 06/04/25 15:15 06/12/25 16:31 5 MG Hydralazine HCl 10 mg Q6HP PRN IV 06/05/25 10:45 06/10/25 21:36 10 MG Vancomycin HCl 0 ml @ 0 mls/hr UD IV 06/05/25 10:45 Cancel Ceftriaxone Sodium/Dextrose 50 ml @ 50 mls/hr Q12HR@,21 IV 06/05/25 21:00 06/13/25 10:29 50 MLS/HR Olanzapine 10 mg DAILY PO 06/06/25 10:00 06/12/25 10:00 10 MG Acyclovir Sodium 0 ml @ 0 mls/hr PER PHARMACY IV 06/10/25 12:00 Cancel Acyclovir Sodium 300 mg/Dextrose 56 ml @ 56 mls/hr DAILY@2200 IV 06/11/25 22:00 Cancel Insulin Glargine 20 units HS SC 06/12/25 22:00 Insulin Human Lispro 5 units AC SC 06/12/25 17:00 06/13/25 06:05 5 UNITS Diagnostic Test (Pha) 1 strip ACHS 06/12/25 17:00 06/13/25 05:59 1 STRIP Insulin Human Regular ACHS SC 06/12/25 17:00 06/13/25 06:04 10 UNITS Dextrose 50 ml UD PRN IV 06/12/25 15:30 Laboratory Results Laboratory Tests 06/12/25 07:19 Urinalysis Test 06/05/25 13:00 Urine Color Light-yellow (Yellow) Urine Clarity Clear (Clear) Urine pH 7.0 (5.0-9.0) Urine Specific [place] 1.016 (1.001-1.035) Urine Protein 3+ (Negative) H Urine Ketones Trace (Negative) Urine Blood 1+ /uL (Negative) H Urine Nitrite Negative (Negative) Urine Bilirubin Negative (Negative) Urine Urobilinogen Normal mg/dL (Negative) Urine Leukocyte Esterase Negative /uL (Negative) Urine RBC 2 /hpf (0 - 4) Urine Microscopic WBC 2 /HPF (0-5) Urine Squamous Epithelial Cells Few /hpf (<5) Urine Bacteria None seen /hpf (None Seen) Urine Hyaline Casts Few /lpf (0 - 2) Urine Yeast (Budding) Occasional /hpf (None Urine Glucose 4+ mg/dL (Normal) H Microbiology Microbiology Date/Time Source Procedure Growth Status 06/10/25 14:18 Cerebral Spinal Fluid Gram Stain - Final Resulted 06/10/25 14:18 Cerebral Spinal Fluid CSF Culture & Gram Stain (Tube 2) M - Preliminary Resulted 06/03/25 14:15 Blood Blood Culture - Final NO GROWTH AFTER 5 DAYS OF INCUBATION. Complete Labs and/or images reviewed: Labs reviewed by me, Image(s) reviewed by me Assessment/Plan Assessment/Plan The patient is a 60-year-old female with past medical history of end-stage renal disease on hemodialysis -W-, hyperlipidemia, DM, anemia, and hypertension who presented to [facility] ED with complaint of fever. Patient reports she has been experiencing fever, associated with cough, nasal congestion, nausea, and general malaise for the past 2 days. 06/04- patient with history of ESRD, diabetes, hypertension here with fever cough nasal congestion. COVID fluids not done. Admitted for pneumonia. On ceftriaxone. I will add azithromycin. We will get COVID flu. Continue treatment. Nephrology consulted for continuation of dialysis MWF. SSI for diabetes. Continue home medications. Blood cultures were taken. Given chronic dialysis bacteremia is of concern. There is no urine, possible patient is anuric ESRD. -patient is confused, altered A&O x1 unable to answer any ROS questions. there is no missed dialysis days. Daughter endorsed to nurse that patient is not at baseline. We will get workup for encephalopathy. Patient is declining labs, treatments. We will order TSH, ammonia, ABG, UDS, blood drug screen, CMP. Question of alcohol withdrawal or viral encephalitis? 06/05-patient is worsening, more confused, refusing labs, treatments, p.o. meds. Ammonia negative, no CO2 narcosis, appears to be neurologically intact moving all extremities but now she is A&O times 0. Unclear if this is UTI but possible. We are giving, or trying to give antibiotics IV ceftriaxone which would treat urine infection. Primary suspicion was pneumonia which is less likely. Meningitis is on the differential.. Urinary obstruction is also on differential. We will get urine UA UDS. Pending blood tox screen.. Per family this is a very acute change for patient. We will increase Haldol to 10 intramuscular q.6 H. we will get bladder scan, head CT, try to use patient's daughters help to help give p.o. meds. Patient refusing HD which will only worsening condition. Very high-risk and very poor prognosis. I will add vancomycin and increase ceftriaxone to 2 g. We will all still start olanzapine 10. We will also do telepsych in case this is psych cause. 06/06-06/07 06/08- no significant events notable over the weekend patient remains altered, few events of pulling IVs, few events of getting agitated requiring Ativan/Haldol. Need to advance surge into cause of AMS. We will order treponemal antibody, repeat ammonia, CBC CMP today. Continue Haldol prn, olanzapine 10 scheduled daily,. Maintain isolation for meningitis ruled out, patient has been on broad-spectrum vanc ceftriaxone for meningitis for 4 days now. Still on resolution or changing/improving off condition. We will consult Neurology and get MRI brain if possible. Nephrology is following and wants no IVs in arm with maturating AVF. We will also get LP for studies of VDRL and HSV. Holding off acyclovir right now. 06/09 - labs from yesterday treponemal antibody positive, reflex RPR is pending now. Radiologist consulted for LP, concern for neurosyphilis ruled out, we will need CSF VDRL. Neurology was consulted to ruled out other central causes, neurology has placed infectious disease consult. MRI brain is ordered but given patient's behavioral symptoms it may be difficult to obtain. Ceftriaxone does treat syphilis but penicillin is preferred. We will hold off penicillin treatment incomplete workup for LP. Today, we will get HIV antibody, possibly MRI brain. unlikely psychiatric cause as we have some direction now, i still have to ruled out HIV and HSV encephalitis, so with LP need hsv and vdrl. hiv lab w/u. MRI brain. neur following. ID now onboard too. continue vanc/ctx meningitis doses. 06/10- worse today. not following commands. bibasilar rales, trace pitting edema. BMP unremarkable, no significant changes in BUN. LP today, will help ruleout multiple diseases hsv , vdrl. will start acyclovir today as LP should be done, and will deescalate if negative. continuie therapy. appreciate, nephro, neuro and ID. continue vanc/ctx. will send hiv today, hepattiis panel tomorrow. her symptoms appear possible etoh w/d but this is day 6, so, doesnt add up. will try 1x ativan 1mg. otherwise continue management as outlined earlier. 06/11- significant improvement today A&O x2. Following commands conversing full sentences. She declines any knowledge of being diagnosed with syphilis. CSF is unconcerning for infection but she has been on antibiotics for 5 days now. I think we should complete treatment empirically. ID has stopped acyclovir. Pending HSV PCR. Most important lab pending is VDRL CSF. I will ask ID if penicillin G IV needs to be added for possible neurosyphilis. Otherwise continue treatment. 06/12 patient discharged to SNF for PT rehab and IV antibiotics for 2 weeks. Discharge plan developed see DC summary. 05/20 6 PT recommending home health with home PT. Patient needs antibiotics at SNF. We will continue plan for SNF for PT rehab and IV antibiotics approximately 2 weeks. Acute toxic metabolic encephalopathy neurosyphilis, likely, rule-out viral encephalitis, possible Acute pneumonia, Gram-negative Gram-positive possible Acute meningitis possible, infectious cause possible, ruling out ESRD on HD, TTS schedule Hyperlipidemia Diabetes Anemia Hypertension -IV antibiotics -AMS workup ongoing. -Nephrology consult TTS schedule -Continue home medications liquid diet dvt ppx - lovenox gi ppx - protonix medsurg full code Plan discussed with: Patient My Orders Orders - MELQUIADES TREJO MD Procedure Category Date Status Time D/C Isolation ORDERS 06/12/25 Transmitted 14:48 Pt Request For Service PT 06/12/25 Logged 14:48 Insert Midline ORDERS 06/12/25 Transmitted 14:48 D/C Sitter ORDERS 06/12/25 Transmitted 14:48 * Treadle Cut Off Saw Operator CONS 06/12/25 Transmitted Consult 15:13 Discharge DISCHARGE 06/12/25 Transmitted 15:19 Insulin Lantus PHA 06/12/25 In Process (Glargine) (Lantus) 22:00 Insulin Lispro PHA 06/12/25 In Process (Human) (Humalog) 17:00 Glucose Blood PHA 06/12/25 In Process (Accu-Chek Comfort 17:00 Insulin R (Human) PHA 06/12/25 In Process (Insulin R) 17:00 Dextrose 50% Syringe PHA 06/12/25 In Process 15:30 Date of Service: Jun 13, 2025 Billing Provider: MELQUIADES TREJO MD Common Visit Codes: [id number] INP/OBS CARE(MOD) MELQUIADES TREJO MD Jun 13, 2025 12:01
--- NOTE | 2025-06-13 16:45 | DVHPN2 ---
Progress Note Date Seen: Jun 13, 2025 Medical Necessity Reason Pt with a Central, PICC or Fol: Yes The following are medically ne: Central Line Subjective Review of Systems No new complaints Patient reports: No new complaints Objective vital signs Vital Sign Date Time Temp Pulse Resp B/P (MAP) Pulse Ox O2 Delivery O2 Flow Rate FiO2 06/13/25 13:00 97.6 73 18 104/60 (75) 95 97.6 06/13/25 08:00 Room Air* 0 21 Total Intake and Output 06/12/25 06/12/25 06/13/25 15:00 23:00 07:00 Intake Total 1200 ml 390 ml Balance 1200 ml 390 ml medications Current Medications Medications Dose Ordered Sig/Laly Route Start Time Stop Time Status Last Admin Dose Admin Multivit/Ca Carb/ B Cmplx/FA/Prenat 1 tab DAILY PO 06/04/25 10:00 06/12/25 10:46 1 TAB Sevelamer HCl 800 mg TIDWM PO 06/03/25 18:00 06/13/25 13:24 800 MG Aspirin 81 mg DAILY PO 06/04/25 10:00 06/12/25 10:47 81 MG Atorvastatin Calcium 20 mg HS PO 06/03/25 22:00 06/11/25 22:19 20 MG Famotidine 20 mg DAILY IV 06/04/25 10:00 06/13/25 10:00 20 MG Metoprolol Tartrate 50 mg BID PO 06/03/25 22:00 06/13/25 10:29 50 MG Sodium Chloride 10 ml Q8HR IV 06/03/25 22:00 06/13/25 14:00 10 ML Ondansetron HCl 4 mg Q4HP PRN IV 06/03/25 16:15 06/04/25 21:38 4 MG Docusate Sodium 100 mg BIDPRN PRN PO 06/03/25 16:15 Acetaminophen 650 mg Q6HP PRN PO 06/03/25 16:15 06/04/25 09:19 650 MG Nitroglycerin 0.4 mg Q5MINP PRN SL 06/03/25 17:15 Calcium Acetate 667 mg TIDWMEALS PO 06/04/25 08:00 06/13/25 13:24 667 MG Azithromycin 250 ml @ 125 mls/hr DAILY IV 06/05/25 10:00 Hold Haloperidol Lactate 5 mg Q6HP PRN IM 06/04/25 15:15 06/12/25 16:31 5 MG Hydralazine HCl 10 mg Q6HP PRN IV 06/05/25 10:45 06/10/25 21:36 10 MG Vancomycin HCl 0 ml @ 0 mls/hr UD IV 06/05/25 10:45 Cancel Ceftriaxone Sodium/Dextrose 50 ml @ 50 mls/hr Q12HR@09,21 IV 06/05/25 21:00 06/13/25 10:29 50 MLS/HR Olanzapine 10 mg DAILY PO 06/06/25 10:00 06/12/25 10:00 10 MG Acyclovir Sodium 0 ml @ 0 mls/hr PER PHARMACY IV 06/10/25 12:00 Cancel Acyclovir Sodium 300 mg/Dextrose 56 ml @ 56 mls/hr DAILY@2200 IV 06/11/25 22:00 Cancel Insulin Glargine 20 units HS SC 06/12/25 22:00 Insulin Human Lispro 5 units AC SC 06/12/25 17:00 06/13/25 06:05 5 UNITS Diagnostic Test (Pha) 1 strip ACHS 06/12/25 17:00 06/13/25 11:30 1 STRIP Insulin Human Regular ACHS SC 06/12/25 17:00 06/13/25 06:04 10 UNITS Dextrose 50 ml UD PRN IV 06/12/25 15:30 Examination Gen: NAD Lungs: Bilateral air entry, CTA Heart: RRR, normal S1 and S2 Ext: No edema Neuro: Alert laboratory and microbiology Laboratory Tests 06/12/25 07:19 Test 06/12/25 07:19 Range/Units Serum Glucose 155 H 74-106 mg/dL Microbiology Date/Time Source Procedure Growth Status 06/10/25 14:18 Cerebral Spinal Fluid Gram Stain - Final Resulted 06/10/25 14:18 Cerebral Spinal Fluid CSF Culture & Gram Stain (Tube 2) M - Preliminary Resulted 06/03/25 14:15 Blood Blood Culture - Final NO GROWTH AFTER 5 DAYS OF INCUBATION. Complete Labs and/or images reviewed: Labs reviewed by me Problem List/Assessment/Plan Problem List/Assessment/Plan IMP ESRD- last HD 06/12 HTN AMS due to neurosyphilis sepsis REC -Strict I&O -HD tentatively 06/15 -Chemistry panel -Maturing AVF keep IV out of arm -We will continue to follow Plan discussed with: Other Dietary Evaluation Review Comments: 1) CCHO 60 + renal standard 2) Refer Knotting Machine Operator for diabetes education Expected Outcomes/Goals: To meet >75% estimated needs Fu 3-5 days CEDRIC BEE Jun 13, 2025 16:45
--- NOTE | 2025-06-13 23:06 | DVHPN2 ---
Progress Note - Dictate Date Seen: Jun 13, 2025 Medical Necessity Reason Pt with a Central, PICC or Fol: Yes The following are medically ne: Central Line Subjective is a 60 years old right-handed female with a history of hypertension, diabetes, end-stage renal failure on hemodialysis, anemia, polyneuropathy, status post right arm fracture, she came [facility] the [facility] 06[facility]2025 with a chief company of nausea, vomiting. I have seen and examined the patient, I have discussed with her nurse, and sitter, she is easily arousable, on waking up, he is oriented to person only however he responding to her surroundings better than yesterday, her speech better, I did not see tremors in the upper extremities Her nurse reports that she is better CSF VDRL was not collected/sent CSF, 06/07/2025: C/C, WBC: 0, RBC: 0, protein: 93.6, glucose: 122, HSV I: Negative HSV II: Negative RPR, 06/08/2025: Reactive (1:2) Treponema pallidum antibody, 06/08/2025: Reactive Blood culture, 06/03/2025: Negative ABG, 06/04/2025: Respiratory alkalosis UDS, 06/05/2025: Negative WBC/HB/PLT/MCV, 06/08/2025: 7.3/9.8/216/91.5 PT/INR/PTT, 06/08/25: 10.6/1/ BUN/CR, 06/03/2025: 34/4.6, 06/04/2025: 45/5.24, 06/08/2025: 37/6.98 Glucose, 06/03/2025: 484 Lactic acid, 06/03/2025: 1.4, 06/08/25: 0.8 TBI/AST/ALT/AP, 06/08/2025:0.2/124/45/65 NH3 06/08/2025:14. CT head, 06/05/2025: 1. Chronic ischemic changes without evidence of acute intracranial proce MRI head, 06/12/2025: Limited, incomplete exam. Only diffusion-weighted images were obtained. No definite evidence of acute infarct or acute intracranial process. Consider follow-up exam when patient is able to tolerate vital signs Vital Sign Date Time Temp Pulse Resp B/P (MAP) Pulse Ox O2 Delivery O2 Flow Rate FiO2 06/13/25 21:21 77 155/89 06/13/25 20:43 98.7 20 100 98.7 06/13/25 08:00 Room Air* 0 21 Total Intake and Output 06/12/25 06/12/25 06/13/25 15:00 23:00 07:00 Intake Total 1200 ml 390 ml Balance 1200 ml 390 ml medications Current Medications Medications Dose Ordered Sig/Laly Route Start Time Stop Time Status Last Admin Dose Admin Multivit/Ca Carb/ B Cmplx/FA/Prenat 1 tab DAILY PO 06/04/25 10:00 06/12/25 10:46 1 TAB Sevelamer HCl 800 mg TIDWM PO 06/03/25 18:00 06/13/25 18:25 800 MG Aspirin 81 mg DAILY PO 06/04/25 10:00 06/12/25 10:47 81 MG Atorvastatin Calcium 20 mg HS PO 06/03/25 22:00 06/13/25 21:21 20 MG Famotidine 20 mg DAILY IV 06/04/25 10:00 06/13/25 10:00 20 MG Metoprolol Tartrate 50 mg BID PO 06/03/25 22:00 06/13/25 21:21 50 MG Sodium Chloride 10 ml Q8HR IV 06/03/25 22:00 06/13/25 14:00 10 ML Ondansetron HCl 4 mg Q4HP PRN IV 06/03/25 16:15 06/04/25 21:38 4 MG Docusate Sodium 100 mg BIDPRN PRN PO 06/03/25 16:15 Acetaminophen 650 mg Q6HP PRN PO 06/03/25 16:15 06/04/25 09:19 650 MG Nitroglycerin 0.4 mg Q5MINP PRN SL 06/03/25 17:15 Calcium Acetate 667 mg TIDWMEALS PO 06/04/25 08:00 06/13/25 18:25 667 MG Azithromycin 250 ml @ 125 mls/hr DAILY IV 06/05/25 10:00 Hold Haloperidol Lactate 5 mg Q6HP PRN IM 06/04/25 15:15 06/12/25 16:31 5 MG Hydralazine HCl 10 mg Q6HP PRN IV 06/05/25 10:45 06/10/25 21:36 10 MG Vancomycin HCl 0 ml @ 0 mls/hr UD IV 06/05/25 10:45 Cancel Ceftriaxone Sodium/Dextrose 50 ml @ 50 mls/hr Q12HR@09,21 IV 06/05/25 21:00 06/13/25 21:29 50 MLS/HR Olanzapine 10 mg DAILY PO 06/06/25 10:00 06/12/25 10:00 10 MG Acyclovir Sodium 0 ml @ 0 mls/hr PER PHARMACY IV 06/10/25 12:00 Cancel Acyclovir Sodium 300 mg/Dextrose 56 ml @ 56 mls/hr DAILY@2200 IV 06/11/25 22:00 Cancel Insulin Glargine 20 units HS SC 06/12/25 22:00 Insulin Human Lispro 5 units AC SC 06/12/25 17:00 06/13/25 17:00 5 UNITS Diagnostic Test (Pha) 1 strip ACHS 06/12/25 17:00 06/13/25 17:00 1 STRIP Insulin Human Regular ACHS SC 06/12/25 17:00 06/13/25 18:30 8 UNITS Dextrose 50 ml UD PRN IV 06/12/25 15:30 objective General: the patient is well developed and nourished. No acute distress. Status post right 3rd toe amputation MENTAL STATUS: Subjective SPEECH, LANGUAGE, HIGHER CORTICAL FUNCTION: No aphasia or dysarthria, CRANIAL NERVES: Pupils are equal, round and reactive. EOMs full and conjugate. Facial sensation intact in all three divisions bilaterally. Mandibular strength intact. Facial muscles symmetrical and strength intact. SENSATION: Sensation to touch and pinprick is okay MOTOR: Normal tone in the upper and lower extremity. Normal muscle bulk. No fasciculations. Tremors in both upper extremities. She does not move the arms and legs, the muscle power in the both arms feel strong. REFLEXES: Deep tendon reflexes are symmetrical. No pathological reflexes. CEREBELLAR/COORDINATION: Deferred GAIT/STATION: deferred laboratory and microbiology Laboratory Tests 06/12/25 07:19 Test 06/12/25 07:19 Range/Units Serum Glucose 155 H 74-106 mg/dL Problem List Mltered mental status Metabolic encephalopathy secondary to hyperglycemia Hospital delirium Fever End-stage kidney failure on hemodialysis Positive Treponema pallidum antibody, to rule out central nervous system syphilis Assessment/Plan Monitoring Supportive treatment Telemetry EEG CSF profile IV ceftriaxone once daily 2 g for 14 days D/C Doxycycline Haldol for behavioral control Hemodialysis Nephrology on case Infectious disease on case More recommendation per clinical course This medical document was created using an electronic medical record system with [employer] dictation system. Although this document has been carefully reviewed, there may still be some phonetic and typographical errors. These areas are purely typographical due to imperfections of the software programs, and do not reflect any compromise in the patient's medical care. Prognosis poor Dietary Evaluation Review Comments: 1) CCHO 60 + renal standard 2) Refer Corporate Security Manager for diabetes education Expected Outcomes/Goals: To meet >75% estimated needs Fu 3-5 days Plan discussed with: Other JONNATHAN GONZALEZ MD Jun 13, 2025 23:06
[2025-06-14] VITALS (8 sets, daily range): BP systolic 144–197; BP diastolic 73–96; PULSE 62–83; RESP 18–20; TEMP 96.2–98.7; O2SAT 96–100
[2025-06-14 08:07] LABS: Anion Gap 17 (5-15); Chloride 102 mmol/L (98-107); Sodium 138 mmol/L (136-145)
[2025-06-14 08:08] LABS: Calcium 8.9 mg/dL (8.7-10.4)
[2025-06-14 08:10] LABS: Carbon Dioxide 19 mmol/L (20-31); Potassium 5.3 mmol/L (3.5-5.1)
[2025-06-14 08:13] LABS: BUN/Creatinine Ratio 8.0 (10.0-20.0)
[2025-06-14 08:16] LABS: Blood Urea Nitrogen 56 mg/dL (9-23); Glucose 253 mg/dL (74-106)
[2025-06-14] MEDS: SODIUM ZIRCONIUM CYCL 10 GM PAK PO ONE (13:28)
--- NOTE | 2025-06-14 15:31 | DVHPN2 ---
Subjective Still confused, no cough, no other pain endorsed. Reviewed: H&P Changes from previous H/P or p: No Changes General: Per HPI Eyes: No Pain, No Vision change, No Conjunctivae inflammation, No Eyelid inflammation, No Other, No Redness ENT: No Ear pain, No Ear discharge, No Nose pain, No Nose discharge, No Nose congestion, No Mouth pain, No Mouth swelling, No Throat pain, No Throat swelling, No Other Cardiovascular: No Chest Pain, No Palpitations, No Orthopnea, No Paroxysmal Noc. Dyspnea, No Edema, No Lt Headedness; Other (Left IJ Perma catheter.) Respiratory: No Cough, No Dry, No Shortness of breath, No SOB with excertion, No Wheezing, No Hemoptysis, No Pleuritic Pain, No Sputum, No Other Gastrointestinal: Nausea, Vomiting; No Abdominal Pain, No Diarrhea, No Constipation, No Melena, No Hematochezia, No Other Genitourinary: No Dysuria, No Frequency, No Incontinence, No Hematuria, No Retention; Other (On hemodialysis) Musculoskeletal: No other, No neck pain, No shoulder pain, No arm pain, No back pain, No hand pain, No leg pain, No foot pain Skin: No Rash, No Lesions, No Jaundice, No Bruising, No Other Objective Vitals Vital Signs Date Time Temp Pulse Resp B/P (MAP) Pulse Ox O2 Delivery O2 Flow Rate FiO2 06/14/25 12:44 97.0 69 20 172/87 (115) 99 97.0 06/14/25 08:00 Room Air* 0 21 Intake/Output Intake and Output 06/14/25 07:00 Intake Total 1269 ml Balance 1269 ml Intake Oral 1219 ml IV Total 50 ml # Voids 5 # Bowel Movements 2 Exam GEN: Healthy appearing, well-developed, NAD. AOx0 HEENT: NC/AT; MMM. CV: RRR, no m/r/g. LUNGS: Decreased air entry in all lung mehta. ABD: Soft, NT/ND, NBS, no masses or organomegaly. EXT: skin Warm, well perfused. no rashes. No clubbing, cyanosis, or edema. NEURO: Ambulating with no limitations. No focal deficits. Medications Current Medications Medications Dose Ordered Sig/Laly Route Start Time Stop Time Status Last Admin Dose Admin Multivit/Ca Carb/ B Cmplx/FA/Prenat 1 tab DAILY PO 06/04/25 10:00 06/14/25 08:54 1 TAB Sevelamer HCl 800 mg TIDWM PO 06/03/25 18:00 06/14/25 11:43 800 MG Aspirin 81 mg DAILY PO 06/04/25 10:00 06/14/25 08:55 81 MG Atorvastatin Calcium 20 mg HS PO 06/03/25 22:00 06/13/25 21:21 20 MG Famotidine 20 mg DAILY IV 06/04/25 10:00 06/14/25 08:55 20 MG Metoprolol Tartrate 50 mg BID PO 06/03/25 22:00 06/14/25 08:55 50 MG Sodium Chloride 10 ml Q8HR IV 06/03/25 22:00 06/14/25 14:06 10 ML Ondansetron HCl 4 mg Q4HP PRN IV 06/03/25 16:15 06/04/25 21:38 4 MG Docusate Sodium 100 mg BIDPRN PRN PO 06/03/25 16:15 Acetaminophen 650 mg Q6HP PRN PO 06/03/25 16:15 06/04/25 09:19 650 MG Nitroglycerin 0.4 mg Q5MINP PRN SL 06/03/25 17:15 Calcium Acetate 667 mg TIDWMEALS PO 06/04/25 08:00 06/14/25 11:43 667 MG Azithromycin 250 ml @ 125 mls/hr DAILY IV 06/05/25 10:00 Hold Haloperidol Lactate 5 mg Q6HP PRN IM 06/04/25 15:15 06/12/25 16:31 5 MG Hydralazine HCl 10 mg Q6HP PRN IV 06/05/25 10:45 06/14/25 11:43 10 MG Vancomycin HCl 0 ml @ 0 mls/hr UD IV 06/05/25 10:45 Cancel Ceftriaxone Sodium/Dextrose 50 ml @ 50 mls/hr Q12HR@,21 IV 06/05/25 21:00 06/14/25 10:36 50 MLS/HR Olanzapine 10 mg DAILY PO 06/06/25 10:00 06/14/25 08:54 10 MG Acyclovir Sodium 0 ml @ 0 mls/hr PER PHARMACY IV 06/10/25 12:00 Cancel Acyclovir Sodium 300 mg/Dextrose 56 ml @ 56 mls/hr DAILY@2200 IV 06/11/25 22:00 Cancel Insulin Glargine 20 units HS [place] 06/12/25 22:00 06/13/25 22:00 20 UNITS Insulin Human Lispro 5 units AC SC 06/12/25 17:00 06/14/25 06:25 5 UNITS Diagnostic Test (Pha) 1 strip ACHS 06/12/25 17:00 06/14/25 11:30 1 STRIP Insulin Human Regular ACHS SC 06/12/25 17:00 06/13/25 22:00 3 UNITS Dextrose 50 ml UD PRN IV 06/12/25 15:30 Laboratory Results Laboratory Tests 06/12/25 07:19 06/14/25 07:09 Chemistry Test 06/14/25 07:09 Calcium Level 8.9 mg/dL (8.7-10.4) Urinalysis Test 06/05/25 13:00 Urine Color Light-yellow (Yellow) Urine Clarity Clear (Clear) Urine pH 7.0 (5.0-9.0) Urine Specific [place] 1.016 (1.001-1.035) Urine Protein 3+ (Negative) H Urine Ketones Trace (Negative) Urine Blood 1+ /uL (Negative) H Urine Nitrite Negative (Negative) Urine Bilirubin Negative (Negative) Urine Urobilinogen Normal mg/dL (Negative) Urine Leukocyte Esterase Negative /uL (Negative) Urine RBC 2 /hpf (0 - 4) Urine Microscopic WBC 2 /HPF (0-5) Urine Squamous Epithelial Cells Few /hpf (<5) Urine Bacteria None seen /hpf (None Seen) Urine Hyaline Casts Few /lpf (0 - 2) Urine Yeast (Budding) Occasional /hpf (None Urine Glucose 4+ mg/dL (Normal) H Microbiology Microbiology Date/Time Source Procedure Growth Status 06/10/25 14:18 Cerebral Spinal Fluid Gram Stain - Final Resulted 06/10/25 14:18 Cerebral Spinal Fluid CSF Culture & Gram Stain (Tube 2) M - Preliminary Resulted 06/03/25 14:15 Blood Blood Culture - Final NO GROWTH AFTER 5 DAYS OF INCUBATION. Complete Labs and/or images reviewed: Labs reviewed by me, Image(s) reviewed by me Assessment/Plan Assessment/Plan The patient is a 60-year-old female with past medical history of end-stage renal disease on hemodialysis M-W-F, hyperlipidemia, DM, anemia, and hypertension who presented to [facility] ED with complaint of fever. Patient reports she has been experiencing fever, associated with cough, nasal congestion, nausea, and general malaise for the past 2 days. 06/04- patient with history of ESRD, diabetes, hypertension here with fever cough nasal congestion. COVID fluids not done. Admitted for pneumonia. On ceftriaxone. I will add azithromycin. We will get COVID flu. Continue treatment. Nephrology consulted for continuation of dialysis MWF. SSI for diabetes. Continue home medications. Blood cultures were taken. Given chronic dialysis bacteremia is of concern. There is no urine, possible patient is anuric ESRD. -patient is confused, altered A&O x1 unable to answer any ROS questions. there is no missed dialysis days. Daughter endorsed to nurse that patient is not at baseline. We will get workup for encephalopathy. Patient is declining labs, treatments. We will order TSH, ammonia, ABG, UDS, blood drug screen, CMP. Question of alcohol withdrawal or viral encephalitis? 06/05-patient is worsening, more confused, refusing labs, treatments, p.o. meds. Ammonia negative, no CO2 narcosis, appears to be neurologically intact moving all extremities but now she is A&O times 0. Unclear if this is UTI but possible. We are giving, or trying to give antibiotics IV ceftriaxone which would treat urine infection. Primary suspicion was pneumonia which is less likely. Meningitis is on the differential.. Urinary obstruction is also on differential. We will get urine UA UDS. Pending blood tox screen.. Per family this is a very acute change for patient. We will increase Haldol to 10 intramuscular q.6 H. we will get bladder scan, head CT, try to use patient's daughters help to help give p.o. meds. Patient refusing HD which will only worsening condition. Very high-risk and very poor prognosis. I will add vancomycin and increase ceftriaxone to 2 g. We will all still start olanzapine 10. We will also do telepsych in case this is psych cause. 06/06-06/07 06/08- no significant events notable over the weekend patient remains altered, few events of pulling IVs, few events of getting agitated requiring Ativan/Haldol. Need to advance surge into cause of AMS. We will order treponemal antibody, repeat ammonia, CBC CMP today. Continue Haldol prn, olanzapine 10 scheduled daily,. Maintain isolation for meningitis ruled out, patient has been on broad-spectrum vanc ceftriaxone for meningitis for 4 days now. Still on resolution or changing/improving off condition. We will consult Neurology and get MRI brain if possible. Nephrology is following and wants no IVs in arm with maturating AVF. We will also get LP for studies of VDRL and HSV. Holding off acyclovir right now. 06/09 - labs from yesterday treponemal antibody positive, reflex RPR is pending now. Radiologist consulted for LP, concern for neurosyphilis ruled out, we will need CSF VDRL. Neurology was consulted to ruled out other central causes, neurology has placed infectious disease consult. MRI brain is ordered but given patient's behavioral symptoms it may be difficult to obtain. Ceftriaxone does treat syphilis but penicillin is preferred. We will hold off penicillin treatment incomplete workup for LP. Today, we will get HIV antibody, possibly MRI brain. unlikely psychiatric cause as we have some direction now, i still have to ruled out HIV and HSV encephalitis, so with LP need hsv and vdrl. hiv lab w/u. MRI brain. neur following. ID now onboard too. continue vanc/ctx meningitis doses. 06/10- worse today. not following commands. bibasilar rales, trace pitting edema. BMP unremarkable, no significant changes in BUN. LP today, will help ruleout multiple diseases hsv , vdrl. will start acyclovir today as LP should be done, and will deescalate if negative. continuie therapy. appreciate, nephro, neuro and ID. continue vanc/ctx. will send hiv today, hepattiis panel tomorrow. her symptoms appear possible etoh w/d but this is day 6, so, doesnt add up. will try 1x ativan 1mg. otherwise continue management as outlined earlier. 06/11- significant improvement today A&O x2. Following commands conversing full sentences. She declines any knowledge of being diagnosed with syphilis. CSF is unconcerning for infection but she has been on antibiotics for 5 days now. I think we should complete treatment empirically. ID has stopped acyclovir. Pending HSV PCR. Most important lab pending is VDRL CSF. I will ask ID if penicillin G IV needs to be added for possible neurosyphilis. Otherwise continue treatment. 06/12 patient discharged to SNF for PT rehab and IV antibiotics for 2 weeks. Discharge plan developed see DC summary. 05/20 6 PT recommending home health with home PT. Patient needs antibiotics at SNF. We will continue plan for SNF for PT rehab and IV antibiotics approximately 2 weeks. 06/14 patient daughter Martine at bedside today she helped her mom/patient take a shower. Patient is feeling much better. Ambulating. They will go outside and wheelchair today. BNP showing anion gap metabolic acidosis, BUN is climbing. This is likely uremic acidosis patient may need dialysis again, defer to Nephrology. Otherwise continue discharge plan to SNF. We will repeat CMP tomorrow. Blood pressure elevated we will start Procardia 30 daily. Acute toxic metabolic encephalopathy neurosyphilis, likely, rule-out viral encephalitis, possible Acute pneumonia, Gram-negative Gram-positive possible Acute meningitis possible, infectious cause possible, ruling out ESRD on HD, TTS schedule Hyperlipidemia Diabetes Anemia Hypertension -IV antibiotics -AMS workup ongoing. -Nephrology consult TTS schedule -Continue home medications liquid diet dvt ppx - lovenox gi ppx - protonix medsurg full code Plan discussed with: Patient Date of Service: Jun 14, 2025 Billing Provider: MELQUIADES TREJO MD Common Visit Codes: [id number] INP/OBS CARE(HIGH) MELQUIADES TREJO MD Jun 14, 2025 15:31
[2025-06-14] MEDS ORDERED: NIFEdipine 10 MG CAP PO ONE (16:20)
--- NOTE | 2025-06-14 18:31 | DVHPN2 ---
Progress Note Date Seen: Jun 14, 2025 Medical Necessity Reason Pt with a Central, PICC or Fol: Yes The following are medically ne: Central Line Subjective Review of Systems Patient is sitting up in bed eating. Patient states she feels better today. Patient reports: No new complaints, Feels better Objective vital signs Vital Sign Date Time Temp Pulse Resp B/P (MAP) Pulse Ox O2 Delivery O2 Flow Rate FiO2 06/14/25 18:00 179/87 06/14/25 17:00 97.8 62 20 97 97.8 06/14/25 08:00 Room Air* 0 21 Total Intake and Output 06/13/25 06/13/25 06/14/25 15:00 23:00 07:00 Intake Total 644 ml 625 ml Balance 644 ml 625 ml medications Current Medications Medications Dose Ordered Sig/Laly Route Start Time Stop Time Status Last Admin Dose Admin Multivit/Ca Carb/ B Cmplx/FA/Prenat 1 tab DAILY PO 06/04/25 10:00 06/14/25 08:54 1 TAB Sevelamer HCl 800 mg TIDWM PO 06/03/25 18:00 06/14/25 16:29 800 MG Aspirin 81 mg DAILY PO 06/04/25 10:00 06/14/25 08:55 81 MG Atorvastatin Calcium 20 mg HS PO 06/03/25 22:00 06/13/25 21:21 20 MG Famotidine 20 mg DAILY IV 06/04/25 10:00 06/14/25 08:55 20 MG Metoprolol Tartrate 50 mg BID PO 06/03/25 22:00 06/14/25 08:55 50 MG Sodium Chloride 10 ml Q8HR IV 06/03/25 22:00 06/14/25 14:06 10 ML Ondansetron HCl 4 mg Q4HP PRN IV 06/03/25 16:15 06/04/25 21:38 4 MG Docusate Sodium 100 mg BIDPRN PRN PO 06/03/25 16:15 Acetaminophen 650 mg Q6HP PRN PO 06/03/25 16:15 06/04/25 09:19 650 MG Nitroglycerin 0.4 mg Q5MINP PRN SL 06/03/25 17:15 Calcium Acetate 667 mg TIDWMEALS PO 06/04/25 08:00 06/14/25 16:29 667 MG Azithromycin 250 ml @ 125 mls/hr DAILY IV 06/05/25 10:00 Hold Haloperidol Lactate 5 mg Q6HP PRN IM 06/04/25 15:15 06/12/25 16:31 5 MG Hydralazine HCl 10 mg Q6HP PRN IV 06/05/25 10:45 06/14/25 18:00 10 MG Vancomycin HCl 0 ml @ 0 mls/hr UD IV 06/05/25 10:45 Cancel Ceftriaxone Sodium/Dextrose 50 ml @ 50 mls/hr Q12HR@09,21 IV 06/05/25 21:00 06/14/25 10:36 50 MLS/HR Olanzapine 10 mg DAILY PO 06/06/25 10:00 06/14/25 08:54 10 MG Acyclovir Sodium 0 ml @ 0 mls/hr PER PHARMACY IV 06/10/25 12:00 Cancel Acyclovir Sodium 300 mg/Dextrose 56 ml @ 56 mls/hr DAILY@2200 IV 06/11/25 22:00 Cancel Insulin Glargine 20 units HS SC 06/12/25 22:00 06/13/25 22:00 20 UNITS Insulin Human Lispro 5 units AC SC 06/12/25 17:00 06/14/25 16:33 5 UNITS Diagnostic Test (Pha) 1 strip ACHS 06/12/25 17:00 06/14/25 17:07 1 STRIP Insulin Human Regular ACHS SC 06/12/25 17:00 06/14/25 16:32 4 UNITS Dextrose 50 ml UD PRN IV 06/12/25 15:30 Nifedipine 30 mg DAILY PO 06/15/25 10:00 Examination Gen: NAD Lungs: Bilateral air entry, CTA Heart: RRR, normal S1 and S2 Ext: No edema Neuro: Alert laboratory and microbiology Laboratory Tests 06/14/25 07:09 06/12/25 07:19 Test 06/14/25 07:09 Range/Units Serum Glucose 253 H 74-106 mg/dL Microbiology Date/Time Source Procedure Growth Status 06/10/25 14:18 Cerebral Spinal Fluid Gram Stain - Final Resulted 06/10/25 14:18 Cerebral Spinal Fluid CSF Culture & Gram Stain (Tube 2) M - Preliminary Resulted 06/03/25 14:15 Blood Blood Culture - Final NO GROWTH AFTER 5 DAYS OF INCUBATION. Complete Labs and/or images reviewed: Labs reviewed by me Problem List/Assessment/Plan Problem List/Assessment/Plan IMP ESRD- last HD 06/12 HTN AMS due to neurosyphilis sepsis REC -HD tentatively 06/15 -blood pressure control -strict I&Os -Chemistry panel -Maturing AVF keep IV out of arm -We will continue to follow Plan discussed with: Patient Dietary Evaluation Review Comments: 1[facility] standard 2) Refer Field Engineer for diabetes education Expected Outcomes/Goals: To meet >75% estimated needs Fu 3-5 days [employer] Jun 14, 2025 18:31
[2025-06-15] VITALS (7 sets, daily range): BP systolic 141–152; BP diastolic 61–83; PULSE 70–83; RESP 18–20; TEMP 86.2–98.4; O2SAT 94–98
[2025-06-15 07:25] LABS: Alanine Aminotransferase 32 U/L (7-40); Albumin 3.6 g/dL (3.2-4.8); Alkaline Phosphatase 74 U/L (46-116); Anion Gap 17 (5-15); BUN/Creatinine Ratio 9.4 (10.0-20.0); Calcium 9.3 mg/dL (8.7-10.4); Carbon Dioxide 21 mmol/L (20-31); Chloride 101 mmol/L (98-107); Sodium 139 mmol/L (136-145); Total Protein 6.0 g/dL (5.7-8.2)
[2025-06-15 07:29] LABS: Bilirubin, Total < 0.2 mg/dL (0.2-1.0); Blood Urea Nitrogen 75 mg/dL (9-23); Glucose 252 mg/dL (74-106); Potassium 5.5 mmol/L (3.5-5.1)
[2025-06-15] MEDS ORDERED: diphenhdrAMINE HCL 50 MG/1 ML VL IV PRN (09:30)
[2025-06-15] MEDS: SODIUM ZIRCONIUM CYCL 10 GM PAK PO ONE (10:32)
[2025-06-15] MEDS ORDERED: NIFEdipine 10 MG CAP PO SCH (12:00)
--- NOTE | 2025-06-15 15:57 | DVHPN2 ---
Subjective Still confused, no cough, no other pain endorsed. Reviewed: H&P Changes from previous H/P or p: No Changes General: Per HPI Eyes: No Pain, No Vision change, No Conjunctivae inflammation, No Eyelid inflammation, No Other, No Redness ENT: No Ear pain, No Ear discharge, No Nose pain, No Nose discharge, No Nose congestion, No Mouth pain, No Mouth swelling, No Throat pain, No Throat swelling, No Other Cardiovascular: No Chest Pain, No Palpitations, No Orthopnea, No Paroxysmal Noc. Dyspnea, No Edema, No Lt Headedness; Other (Left IJ Perma catheter.) Respiratory: No Cough, No Dry, No Shortness of breath, No SOB with excertion, No Wheezing, No Hemoptysis, No Pleuritic Pain, No Sputum, No Other Gastrointestinal: Nausea, Vomiting; No Abdominal Pain, No Diarrhea, No Constipation, No Melena, No Hematochezia, No Other Genitourinary: No Dysuria, No Frequency, No Incontinence, No Hematuria, No Retention; Other (On hemodialysis) Musculoskeletal: No other, No neck pain, No shoulder pain, No arm pain, No back pain, No hand pain, No leg pain, No foot pain Skin: No Rash, No Lesions, No Jaundice, No Bruising, No Other Objective Vitals Vital Signs Date Time Temp Pulse Resp B/P (MAP) Pulse Ox O2 Delivery O2 Flow Rate FiO2 06/15/25 13:00 98.1 70 20 152/66 (94) 95 98.1 06/15/25 08:00 Room Air* 0 21 Intake/Output Intake and Output 06/15/25 07:00 Intake Total 1316 ml Balance 1316 ml Intake Oral 1316 ml # Voids 4 Exam GEN: Healthy appearing, well-developed, NAD. AOx0 HEENT: NC/AT; MMM. CV: RRR, no m/r/g. LUNGS: Decreased air entry in all lung mehta. ABD: Soft, NT/ND, NBS, no masses or organomegaly. EXT: skin Warm, well perfused. no rashes. No clubbing, cyanosis, or edema. NEURO: Ambulating with no limitations. No focal deficits. Medications Current Medications Medications Dose Ordered Sig/Laly Route Start Time Stop Time Status Last Admin Dose Admin Multivit/Ca Carb/ B Cmplx/FA/Prenat 1 tab DAILY PO 06/04/25 10:00 06/15/25 09:53 1 TAB Sevelamer HCl 800 mg TIDWM PO 06/03/25 18:00 06/15/25 09:52 800 MG Aspirin 81 mg DAILY PO 06/04/25 10:00 06/15/25 09:52 81 MG Atorvastatin Calcium 20 mg HS PO 06/03/25 22:00 06/14/25 22:00 20 MG Famotidine 20 mg DAILY IV 06/04/25 10:00 06/15/25 09:52 20 MG Metoprolol Tartrate 50 mg BID PO 06/03/25 22:00 06/15/25 09:53 50 MG Sodium Chloride 10 ml Q8HR IV 06/03/25 22:00 06/15/25 14:04 10 ML Ondansetron HCl 4 mg Q4HP PRN IV 06/03/25 16:15 06/04/25 21:38 4 MG Docusate Sodium 100 mg BIDPRN PRN PO 06/03/25 16:15 Acetaminophen 650 mg Q6HP PRN PO 06/03/25 16:15 06/04/25 09:19 650 MG Nitroglycerin 0.4 mg Q5MINP PRN SL 06/03/25 17:15 Calcium Acetate 667 mg TIDWMEALS PO 06/04/25 08:00 06/15/25 09:52 667 MG Azithromycin 250 ml @ 125 mls/hr DAILY IV 06/05/25 10:00 Hold Haloperidol Lactate 5 mg Q6HP PRN IM 06/04/25 15:15 06/15/25 09:56 5 MG Hydralazine HCl 10 mg Q6HP PRN IV 06/05/25 10:45 06/14/25 18:00 10 MG Vancomycin HCl 0 ml @ 0 mls/hr UD IV 06/05/25 10:45 Cancel Ceftriaxone Sodium/Dextrose 50 ml @ 50 mls/hr Q12HR@ IV 06/05/25 21:00 06/15/25 09:52 50 MLS/HR Olanzapine 10 mg DAILY PO 06/06/25 10:00 06/15/25 09:54 10 MG Acyclovir Sodium 0 ml @ 0 mls/hr PER PHARMACY IV 06/10/25 12:00 Cancel Acyclovir Sodium 300 mg/Dextrose 56 ml @ 56 mls/hr DAILY@2200 IV 06/11/25 22:00 Cancel Insulin Glargine 20 units HS NV 06/12/25 22:00 06/14/25 21:50 20 UNITS Insulin Human Lispro 5 units AC NV 06/12/25 17:00 06/15/25 06:20 5 UNITS Diagnostic Test (Pha) 1 strip ACHS 06/12/25 17:00 06/15/25 11:30 1 STRIP Insulin Human Regular ACHS SC 06/12/25 17:00 06/15/25 06:21 6 UNITS Dextrose 50 ml UD PRN IV 06/12/25 15:30 Nifedipine 30 mg DAILY PO 06/15/25 10:00 06/15/25 09:54 30 MG Diphenhydramine HCl 50 mg Q4HP PRN IV 06/15/25 10:00 Laboratory Results Laboratory Tests 06/12/25 07:19 06/15/25 05:17 Chemistry Test 06/15/25 05:17 Albumin 3.6 g/dL (3.2-4.8) Calcium Level 9.3 mg/dL (8.7-10.4) Total Protein 6.0 g/dL (5.7-8.2) LFT Test 06/15/25 05:17 Alanine Aminotransferase (ALT) 32 U/L (7-40) Alkaline Phosphatase 74 U/L (46-116) Aspartate Amino Transferase (AST) 41 U/L (13-40) H Total Bilirubin < 0.2 mg/dL (0.2-1.0) L Urinalysis Test 06/05/25 13:00 Urine Color Light-yellow (Yellow) Urine Clarity Clear (Clear) Urine pH 7.0 (5.0-9.0) Urine Specific Delta 1.016 (1.001-1.035) Urine Protein 3+ (Negative) H Urine Ketones Trace (Negative) Urine Blood 1+ /uL (Negative) H Urine Nitrite Negative (Negative) Urine Bilirubin Negative (Negative) Urine Urobilinogen Normal mg/dL (Negative) Urine Leukocyte Esterase Negative /uL (Negative) Urine RBC 2 /hpf (0 - 4) Urine Microscopic WBC 2 /HPF (0-5) Urine Squamous Epithelial Cells Few /hpf (<5) Urine Bacteria None seen /hpf (None Seen) Urine Hyaline Casts Few /lpf (0 - 2) Urine Yeast (Budding) Occasional /hpf (None Urine Glucose 4+ mg/dL (Normal) H Microbiology Microbiology Date/Time Source Procedure Growth Status 06/10/25 14:18 Cerebral Spinal Fluid Gram Stain - Final Complete 06/10/25 14:18 Cerebral Spinal Fluid CSF Culture & Gram Stain (Tube 2) M - Final Complete 06/03/25 14:15 Blood Blood Culture - Final NO GROWTH AFTER 5 DAYS OF INCUBATION. Complete Labs and/or images reviewed: Labs reviewed by me, Image(s) reviewed by me Assessment/Plan Assessment/Plan The patient is a 60-year-old female with past medical history of end-stage renal disease on hemodialysis M--, hyperlipidemia, DM, anemia, and hypertension who presented to [facility] ED with complaint of fever. Patient reports she has been experiencing fever, associated with cough, nasal congestion, nausea, and general malaise for the past 2 days. 06/04- patient with history of ESRD, diabetes, hypertension here with fever cough nasal congestion. COVID fluids not done. Admitted for pneumonia. On ceftriaxone. I will add azithromycin. We will get COVID flu. Continue treatment. Nephrology consulted for continuation of dialysis MWF. SSI for diabetes. Continue home medications. Blood cultures were taken. Given chronic dialysis bacteremia is of concern. There is no urine, possible patient is anuric ESRD. -patient is confused, altered A&O x1 unable to answer any ROS questions. there is no missed dialysis days. Daughter endorsed to nurse that patient is not at baseline. We will get workup for encephalopathy. Patient is declining labs, treatments. We will order TSH, ammonia, ABG, UDS, blood drug screen, CMP. Question of alcohol withdrawal or viral encephalitis? 06/05-patient is worsening, more confused, refusing labs, treatments, p.o. meds. Ammonia negative, no CO2 narcosis, appears to be neurologically intact moving all extremities but now she is A&O times 0. Unclear if this is UTI but possible. We are giving, or trying to give antibiotics IV ceftriaxone which would treat urine infection. Primary suspicion was pneumonia which is less likely. Meningitis is on the differential.. Urinary obstruction is also on differential. We will get urine UA UDS. Pending blood tox screen.. Per family this is a very acute change for patient. We will increase Haldol to 10 intramuscular q.6 H. we will get bladder scan, head CT, try to use patient's daughters help to help give p.o. meds. Patient refusing HD which will only worsening condition. Very high-risk and very poor prognosis. I will add vancomycin and increase ceftriaxone to 2 g. We will all still start olanzapine 10. We will also do telepsych in case this is psych cause. 06/06-06/07 06/08- no significant events notable over the weekend patient remains altered, few events of pulling IVs, few events of getting agitated requiring Ativan/Haldol. Need to advance surge into cause of AMS. We will order treponemal antibody, repeat ammonia, CBC CMP today. Continue Haldol prn, olanzapine 10 scheduled daily,. Maintain isolation for meningitis ruled out, patient has been on broad-spectrum vanc ceftriaxone for meningitis for 4 days now. Still on resolution or changing/improving off condition. We will consult Neurology and get MRI brain if possible. Nephrology is following and wants no IVs in arm with maturating AVF. We will also get LP for studies of VDRL and HSV. Holding off acyclovir right now. 06/09 - labs from yesterday treponemal antibody positive, reflex RPR is pending now. Radiologist consulted for LP, concern for neurosyphilis ruled out, we will need CSF VDRL. Neurology was consulted to ruled out other central causes, neurology has placed infectious disease consult. MRI brain is ordered but given patient's behavioral symptoms it may be difficult to obtain. Ceftriaxone does treat syphilis but penicillin is preferred. We will hold off penicillin treatment incomplete workup for LP. Today, we will get HIV antibody, possibly MRI brain. unlikely psychiatric cause as we have some direction now, i still have to ruled out HIV and HSV encephalitis, so with LP need hsv and vdrl. hiv lab w/u. MRI brain. neur following. ID now onboard too. continue vanc/ctx meningitis doses. 06/10- worse today. not following commands. bibasilar rales, trace pitting edema. BMP unremarkable, no significant changes in BUN. LP today, will help ruleout multiple diseases hsv , vdrl. will start acyclovir today as LP should be done, and will deescalate if negative. continuie therapy. appreciate, nephro, neuro and ID. continue vanc/ctx. will send hiv today, hepattiis panel tomorrow. her symptoms appear possible etoh w/d but this is day 6, so, doesnt add up. will try 1x ativan 1mg. otherwise continue management as outlined earlier. 06/11- significant improvement today A&O x2. Following commands conversing full sentences. She declines any knowledge of being diagnosed with syphilis. CSF is unconcerning for infection but she has been on antibiotics for 5 days now. I think we should complete treatment empirically. ID has stopped acyclovir. Pending HSV PCR. Most important lab pending is VDRL CSF. I will ask ID if penicillin G IV needs to be added for possible neurosyphilis. Otherwise continue treatment. 06/12 patient discharged to SNF for PT rehab and IV antibiotics for 2 weeks. Discharge plan developed see DC summary. 05/20 6 PT recommending home health with home PT. Patient needs antibiotics at SNF. We will continue plan for SNF for PT rehab and IV antibiotics approximately 2 weeks. 06/14 patient daughter Martine at bedside today she helped her mom/patient take a shower. Patient is feeling much better. Ambulating. They will go outside and wheelchair today. BNP showing anion gap metabolic acidosis, BUN is climbing. This is likely uremic acidosis patient may need dialysis again, defer to Nephrology. Otherwise continue discharge plan to SNF. We will repeat CMP tomorrow. Blood pressure elevated we will start Procardia 30 daily. 06/15-patient little bit more confused today. Noticing significant rise in BUN. Ammonia negative. Continuing treatment with ceftriaxone for neurosyphilis. Nephrology made aware the patient needs early dialysis today, likely uremic encephalopathy. Acute toxic metabolic encephalopathy neurosyphilis, likely, rule-out Uremic encephalopathy, resolving viral encephalitis, possible Acute pneumonia, Gram-negative Gram-positive possible Acute meningitis possible, infectious cause possible, ruling out ESRD on HD, TTS schedule Hyperlipidemia Diabetes Anemia Hypertension - IV antibiotics - Nephrology consult for dialysis - Continue home medications - transfer to SNF for ongoing PT and antibiotics. - patient remains fall risk liquid diet dvt ppx - lovenox gi ppx - protonix medsurg full code Plan discussed with: Patient My Orders Orders - MELQUIADES TREJO MD Procedure Category Date Status Time Diphenhdramine PHA 06/15/25 In Process Injection (Benadryl 10:00 Basic Metabolic Panel LAB 06/15/25 Logged 11:13 Date of Service: Jun 15, 2025 Billing Provider: MELQUIADES TREJO MD Common Visit Codes: [id number] INP/OBS CARE(HIGH) MELQUIADES TREJO MD Jun 15, 2025 15:57
--- NOTE | 2025-06-15 16:04 | DVHPN2 ---
Progress Note Date Seen: Jun 15, 2025 Medical Necessity Reason Pt with a Central, PICC or Fol: Yes The following are medically ne: Central Line Subjective Patient reports: Other (not Answering questions appropriately) Review of Systems: Deferred Objective vital signs Vital Sign Date Time Temp Pulse Resp B/P (MAP) Pulse Ox O2 Delivery O2 Flow Rate FiO2 06/15/25 13:00 98.1 70 20 152/66 (94) 95 98.1 06/15/25 08:00 Room Air* 0 21 Total Intake and Output 06/14/25 06/14/25 06/15/25 15:00 23:00 07:00 Intake Total 476 ml 840 ml Balance 476 ml 840 ml medications Current Medications Medications Dose Ordered Sig/Laly Route Start Time Stop Time Status Last Admin Dose Admin Multivit/Ca Carb/ B Cmplx/FA/Prenat 1 tab DAILY PO 06/04/25 10:00 06/15/25 09:53 1 TAB Sevelamer HCl 800 mg TIDWM PO 06/03/25 18:00 06/15/25 09:52 800 MG Aspirin 81 mg DAILY PO 06/04/25 10:00 06/15/25 09:52 81 MG Atorvastatin Calcium 20 mg HS PO 06/03/25 22:00 06/14/25 22:00 20 MG Famotidine 20 mg DAILY IV 06/04/25 10:00 06/15/25 09:52 20 MG Metoprolol Tartrate 50 mg BID PO 06/03/25 22:00 06/15/25 09:53 50 MG Sodium Chloride 10 ml Q8HR IV 06/03/25 22:00 06/15/25 14:04 10 ML Ondansetron HCl 4 mg Q4HP PRN IV 06/03/25 16:15 06/04/25 21:38 4 MG Docusate Sodium 100 mg BIDPRN PRN PO 06/03/25 16:15 Acetaminophen 650 mg Q6HP PRN PO 06/03/25 16:15 06/04/25 09:19 650 MG Nitroglycerin 0.4 mg Q5MINP PRN SL 06/03/25 17:15 Calcium Acetate 667 mg TIDWMEALS PO 06/04/25 08:00 06/15/25 09:52 667 MG Azithromycin 250 ml @ 125 mls/hr DAILY IV 06/05/25 10:00 Hold Haloperidol Lactate 5 mg Q6HP PRN IM 06/04/25 15:15 06/15/25 09:56 5 MG Hydralazine HCl 10 mg Q6HP PRN IV 06/05/25 10:45 06/14/25 18:00 10 MG Vancomycin HCl 0 ml @ 0 mls/hr UD IV 06/05/25 10:45 Cancel Ceftriaxone Sodium/Dextrose 50 ml @ 50 mls/hr Q12HR@09,21 IV 06/05/25 21:00 06/15/25 09:52 50 MLS/HR Olanzapine 10 mg DAILY PO 06/06/25 10:00 06/15/25 09:54 10 MG Acyclovir Sodium 0 ml @ 0 mls/hr PER PHARMACY IV 06/10/25 12:00 Cancel Acyclovir Sodium 300 mg/Dextrose 56 ml @ 56 mls/hr DAILY@2200 IV 06/11/25 22:00 Cancel Insulin Glargine 20 units HS SC 06/12/25 22:00 06/14/25 21:50 20 UNITS Insulin Human Lispro [address] 06/12/25 17:00 06/15/25 06:20 5 UNITS Diagnostic Test (Pha) 1 strip ACHS 06/12/25 17:00 06/15/25 11:30 1 STRIP Insulin Human Regular ACHS SC 06/12/25 17:00 06/15/25 06:21 6 UNITS Dextrose 50 ml UD PRN IV 06/12/25 15:30 Nifedipine 30 mg DAILY PO 06/15/25 10:00 06/15/25 09:54 30 MG Diphenhydramine HCl 50 mg Q4HP PRN IV 06/15/25 10:00 Examination: GENERAL:Abnormal, LUNGS:Normal, NEURO:Abnormal laboratory and microbiology Laboratory Tests 06/15/25 05:17 06/12/25 07:19 Test 06/15/25 05:17 Range/Units Serum Glucose 252 H 74-106 mg/dL Microbiology Date/Time Source Procedure Growth Status 06/10/25 14:18 Cerebral Spinal Fluid Gram Stain - Final Complete 06/10/25 14:18 Cerebral Spinal Fluid CSF Culture & Gram Stain (Tube 2) M - Final Complete 06/03/25 14:15 Blood Blood Culture - Final NO GROWTH AFTER 5 DAYS OF INCUBATION. Complete Problem List/Assessment/Plan Problem List/Assessment/Plan ESRD- last HD 06/12 HTN AMS due to neurosyphilis likely sepsis hepc treated-- recs HD today on abx per ID Plan discussed with: Other My Orders My Orders Orders - ANNIE ASKEW MD Procedure Category Date Status Time Hemodialysis Orders ORDERS 06/15/25 Transmitted 10:18 Dietary Evaluation Review Comments: 1) CCHO 60 + renal standard 2) Refer [employer] for diabetes education Expected Outcomes/Goals: To meet >75% estimated needs Fu 3-5 days ANNIE ASKEW MD Jun 15, 2025 16:04
--- NOTE | 2025-06-15 20:41 | DVHPN2 ---
Progress Note - Dictate Date Seen: Jun 15, 2025 Medical Necessity Reason Pt with a Central, PICC or Fol: Yes The following are medically ne: Central Line Subjective is a 60 years old right-handed female with a history of hypertension, diabetes, end-stage renal failure on hemodialysis, anemia, polyneuropathy, status post right arm fracture, she came to the [facility] on 06/03[facility]2025 with a chief company of nausea, vomiting. I have seen and examined the patient, I have discussed with her nurse, and sitter, she is sleeping, but is easily arousable, she only vocalize, but does not not follow verbal commands. Strong resistance when I move her arms CSF, 06/07/2025: C/C, WBC: 0, RBC: 0, protein: 93.6, glucose: 122, HSV I: Negative HSV II: Negative RPR, 06/08/2025: Reactive (1:2) Treponema pallidum antibody, 06/08/2025: Reactive Blood culture, 06/03/2025: Negative ABG, 06/04/2025: Respiratory alkalosis UDS, 06/05/2025: Negative WBC/HB/PLT/MCV, 06/08/2025: 7.3/9.8/216/91.5 PT/INR/PTT, 06/08/25: 10.6/1/ BUN/CR, 06/03/2025: 34/4.6, 06/04/2025: 45/5.24, 06/08/2025: 37/6.98 Glucose, 06/03/2025: 484 Lactic acid, 06/03/2025: 1.4, 06/08/25: 0.8 TBI/AST/ALT/AP, 06/08/2025:0.2/124/45/65 NH3 06/08/2025:14. CT head, 06/05/2025: 1. Chronic ischemic changes without evidence of acute intracranial proce MRI head, 06/12/2025: Limited, incomplete exam. Only diffusion-weighted images were obtained. No definite evidence of acute infarct or acute intracranial process. Consider follow-up exam when patient is able to tolerate vital signs Vital Sign Date Time Temp Pulse Resp B/P (MAP) Pulse Ox O2 Delivery O2 Flow Rate FiO2 06/15/25 17:23 98.3 73 19 150/64 (92) 96 98.3 06/15/25 08:00 Room Air* 0 21 Total Intake and Output 06/14/25 06/14/25 06/15/25 15:00 23:00 07:00 Intake Total 476 ml 840 ml Balance 476 ml 840 ml medications Current Medications Medications Dose Ordered Sig/Laly Route Start Time Stop Time Status Last Admin Dose Admin Multivit/Ca Carb/ B Cmplx/FA/Prenat 1 tab DAILY PO 06/04/25 10:00 06/15/25 09:53 1 TAB Sevelamer HCl 800 mg TIDWM PO 06/03/25 18:00 06/15/25 09:52 800 MG Aspirin 81 mg DAILY PO 06/04/25 10:00 06/15/25 09:52 81 MG Atorvastatin Calcium 20 mg HS PO 06/03/25 22:00 06/14/25 22:00 20 MG Famotidine 20 mg DAILY IV 06/04/25 10:00 06/15/25 09:52 20 MG Metoprolol Tartrate 50 mg BID PO 06/03/25 22:00 06/15/25 09:53 50 MG Sodium Chloride 10 ml Q8HR IV 06/03/25 22:00 06/15/25 14:04 10 ML Ondansetron HCl 4 mg Q4HP PRN IV 06/03/25 16:15 06/04/25 21:38 4 MG Docusate Sodium 100 mg BIDPRN PRN PO 06/03/25 16:15 Acetaminophen 650 mg Q6HP PRN PO 06/03/25 16:15 06/04/25 09:19 650 MG Nitroglycerin 0.4 mg Q5MINP PRN SL 06/03/25 17:15 Calcium Acetate 667 mg TIDWMEALS PO 06/04/25 08:00 06/15/25 09:52 667 MG Azithromycin 250 ml @ 125 mls/hr DAILY IV 06/05/25 10:00 Hold Haloperidol Lactate 5 mg Q6HP PRN IM 06/04/25 15:15 06/15/25 09:56 5 MG Hydralazine HCl 10 mg Q6HP PRN IV 06/05/25 10:45 06/14/25 18:00 10 MG Vancomycin HCl 0 ml @ 0 mls/hr UD IV 06/05/25 10:45 Cancel Ceftriaxone Sodium/Dextrose 50 ml @ 50 mls/hr Q12HR@09,21 IV 06/05/25 21:00 06/15/25 09:52 50 MLS/HR Olanzapine 10 mg DAILY PO 06/06/25 10:00 06/15/25 09:54 10 MG Acyclovir Sodium 0 ml @ 0 mls/hr PER PHARMACY IV 06/10/25 12:00 Cancel Acyclovir Sodium 300 mg/Dextrose 56 ml @ 56 mls/hr DAILY@2200 IV 06/11/25 22:00 Cancel Insulin Glargine 20 units HS SC 06/12/25 22:00 06/14/25 21:50 20 UNITS Insulin Human Lispro 5 units AC SC 06/12/25 17:00 06/15/25 06:20 5 UNITS Diagnostic Test (Pha) 1 strip ACHS 06/12/25 17:00 06/15/25 17:00 1 STRIP Insulin Human Regular ACHS SC 06/12/25 17:00 06/15/25 06:21 6 UNITS Dextrose 50 ml UD PRN IV 06/12/25 15:30 Nifedipine 30 mg DAILY PO 06/15/25 10:00 06/15/25 09:54 30 MG Diphenhydramine HCl 50 mg Q4HP PRN IV 06/15/25 10:00 objective General: the patient is well developed and nourished. No acute distress. Status post right 3rd toe amputation MENTAL STATUS: Subjective SPEECH, LANGUAGE, HIGHER CORTICAL FUNCTION: No aphasia or dysarthria, CRANIAL NERVES: Pupils are equal, round and reactive. EOMs full and conjugate. Facial sensation intact in all three divisions bilaterally. Mandibular strength intact. Facial muscles symmetrical and strength intact. SENSATION: Sensation to touch and pinprick is okay MOTOR: Normal tone in the upper and lower extremity. Normal muscle bulk. No fasciculations. See the subjective REFLEXES: Deep tendon reflexes are symmetrical. No pathological reflexes. CEREBELLAR/COORDINATION: Deferred GAIT/STATION: deferred laboratory and microbiology Laboratory Tests 06/15/25 05:17 06/12/25 07:19 Test 06/15/25 05:17 Range/Units Serum Glucose 252 H 74-106 mg/dL Problem List Mltered mental status Metabolic encephalopathy secondary to hyperglycemia Hospital delirium Fever End-stage kidney failure on hemodialysis Positive Treponema pallidum antibody, to rule out central nervous system syphilis Assessment/Plan Monitoring Supportive treatment Telemetry EEG CSF profile IV ceftriaxone once daily 2 g for 14 days D/C Doxycycline Haldol for behavioral control Hemodialysis Nephrology on case Infectious disease on case More recommendation per clinical course This medical document was created using an electronic medical record system with [email or web address] dictation system. Although this document has been carefully reviewed, there may still be some phonetic and typographical errors. These areas are purely typographical due to imperfections of the software programs, and do not reflect any compromise in the patient's medical care. Prognosis poor Dietary Evaluation Review Comments: 1) CCHO 60 + renal standard 2) Refer [employer] for diabetes education Expected Outcomes/Goals: To meet >75% estimated needs Fu 3-5 days Plan discussed with: Other JONNATHAN GONZALEZ MD Jun 15, 2025 20:41
[2025-06-16 05:00] VITALS: BP 149/68; PULSE 80; RESP 17; O2SAT 95
[2025-06-16 08:02] LABS: Alanine Aminotransferase 25 U/L (7-40); Albumin 3.3 g/dL (3.2-4.8); Alkaline Phosphatase 65 U/L (46-116); Anion Gap 10 (5-15); BUN/Creatinine Ratio 6.2 (10.0-20.0); Calcium 9.0 mg/dL (8.7-10.4); Chloride 101 mmol/L (98-107); Potassium 4.2 mmol/L (3.5-5.1); Sodium 142 mmol/L (136-145)
[2025-06-16 08:05] LABS: Bilirubin, Total < 0.2 mg/dL (0.2-1.0); Blood Urea Nitrogen 33 mg/dL (9-23); Carbon Dioxide 31 mmol/L (20-31); Glucose 72 mg/dL (74-106); Total Protein 5.6 g/dL (5.7-8.2)
[2025-06-16 09:00] VITALS: BP 154/69; PULSE 84; RESP 18; TEMP 97.9; O2SAT 95
--- NOTE | 2025-06-16 11:10 | DVHPN2 ---
Progress Note - Dictate Date Seen: Jun 16, 2025 Medical Necessity Reason Pt with a Central, PICC or Fol: Yes The following are medically ne: Central Line Subjective Ms. Moise is a 60 years old right-handed female with a history of hypertension, diabetes, end-stage renal failure on hemodialysis, anemia, polyneuropathy, status post right arm fracture, she came to the [facility] on 06/03/2025 with a chief company of nausea, vomiting. I have seen and examined the patient, I have discussed with her nurse, and sitter, she is doing fine, alert and oriented x3, good conversation, she comes she remember me talking to her last night, but she does not remember why she did not talk to me She wants to go home directly but I have discussing, she agree constantly being brief jail recovery CSF, 06/07/2025: C/C, WBC: 0, RBC: 0, protein: 93.6, glucose: 122, HSV I: Negative HSV II: Negative RPR, 06/08/2025: Reactive (1:2) Treponema pallidum antibody, 06/08/2025: Reactive Blood culture, 06/03/2025: Negative ABG, 06/04/2025: Respiratory alkalosis UDS, 06/05/2025: Negative WBC/HB/PLT/MCV, 06/08/2025: 7.3/9.8/216/91.5 PT/INR/PTT, 06/08/25: 10.6/1/ BUN/CR, 06/03/2025: 34/4.6, 06/04/2025: 45/5.24, 06/08/2025: 37/6.98 Glucose, 06/03/2025: 484 Lactic acid, 06/03/2025: 1.4, 06/08/25: 0.8 TBI/AST/ALT/AP, 06/08/2025:0.2/124/45/65 NH3 06/08/2025:14. CT head, 06/05/2025: 1. Chronic ischemic changes without evidence of acute intracranial proce MRI head, 06/12/2025: Limited, incomplete exam. Only diffusion-weighted images were obtained. No definite evidence of acute infarct or acute intracranial process. Consider follow-up exam when patient is able to tolerate vital signs Vital Sign Date Time Temp Pulse Resp B/P (MAP) Pulse Ox O2 Delivery O2 Flow Rate FiO2 06/16/25 10:12 131/67 06/16/25 10:12 89 06/16/25 09:00 97.9 18 95 97.9 06/15/25 20:00 Room Air* 0 21 Total Intake and Output 06/15/25 06/15/25 06/16/25 15:00 23:00 07:00 Intake Total 50 ml 500 ml 50 ml Balance 50 ml 500 ml 50 ml medications Current Medications Medications Dose Ordered Sig/Laly Route Start Time Stop Time Status Last Admin Dose Admin Multivit/Ca Carb/ B Cmplx/FA/Prenat 1 tab DAILY PO 06/04/25 10:00 06/16/25 10:07 1 TAB Sevelamer HCl 800 mg TIDWM PO 06/03/25 18:00 06/16/25 10:07 800 MG Aspirin 81 mg DAILY PO 06/04/25 10:00 06/16/25 10:06 81 MG Atorvastatin Calcium 20 mg HS PO 06/03/25 22:00 06/14/25 22:00 20 MG Famotidine 20 mg DAILY IV 06/04/25 10:00 06/16/25 10:05 20 MG Metoprolol Tartrate 50 mg BID PO 06/03/25 22:00 06/16/25 10:12 50 MG Sodium Chloride 10 ml Q8HR IV 06/03/25 22:00 06/16/25 05:57 10 ML Ondansetron HCl 4 mg Q4HP PRN IV 06/03/25 16:15 06/04/25 21:38 4 MG Docusate Sodium 100 mg BIDPRN PRN PO 06/03/25 16:15 Acetaminophen 650 mg Q6HP PRN PO 06/03/25 16:15 06/04/25 09:19 650 MG Nitroglycerin 0.4 mg Q5MINP PRN SL 06/03/25 17:15 Calcium Acetate 667 mg TIDWMEALS PO 06/04/25 08:00 06/16/25 10:06 667 MG Azithromycin 250 ml @ 125 mls/hr DAILY IV 06/05/25 10:00 Hold Haloperidol Lactate 5 mg Q6HP PRN IM 06/04/25 15:15 06/15/25 09:56 5 MG Hydralazine HCl 10 mg Q6HP PRN IV 06/05/25 10:45 06/14/25 18:00 10 MG Vancomycin HCl 0 ml @ 0 mls/hr UD IV 06/05/25 10:45 Cancel Ceftriaxone Sodium/Dextrose 50 ml @ 50 mls/hr Q12HR@09,21 IV 06/05/25 21:00 06/16/25 10:35 50 MLS/HR Olanzapine 10 mg DAILY PO 06/06/25 10:00 06/16/25 10:07 10 MG Acyclovir Sodium 0 ml @ 0 mls/hr PER PHARMACY IV 06/10/25 12:00 Cancel Acyclovir Sodium 300 mg/Dextrose 56 ml @ 56 mls/hr DAILY@2200 IV 06/11/25 22:00 Cancel Insulin Glargine 20 units HS SC 06/12/25 22:00 06/14/25 21:50 20 UNITS Insulin Human Lispro 5 units AC SC 06/12/25 17:00 06/16/25 06:38 5 UNITS Diagnostic Test (Pha) 1 strip ACHS 06/12/25 17:00 06/16/25 06:34 1 STRIP Insulin Human Regular ACHS SC 06/12/25 17:00 06/15/25 06:21 6 UNITS Dextrose 50 ml UD PRN IV 06/12/25 15:30 Nifedipine 30 mg DAILY PO 06/15/25 10:00 06/16/25 10:12 30 MG Diphenhydramine HCl 50 mg Q4HP PRN IV 06/15/25 10:00 objective General: the patient is well developed and nourished. No acute distress. Status post right 3rd toe amputation MENTAL STATUS: Subjective SPEECH, LANGUAGE, HIGHER CORTICAL FUNCTION: No aphasia or dysarthria, CRANIAL NERVES: Pupils are equal, round and reactive. EOMs full and conjugate. Facial sensation intact in all three divisions bilaterally. Mandibular strength intact. Facial muscles symmetrical and strength intact. SENSATION: Sensation to touch and pinprick is okay MOTOR: Normal tone in the upper and lower extremity. Normal muscle bulk. No fasciculations. See the subjective REFLEXES: Deep tendon reflexes are symmetrical. No pathological reflexes. CEREBELLAR/COORDINATION: Deferred GAIT/STATION: deferred laboratory and microbiology Laboratory Tests 06/16/25 07:11 06/12/25 07:19 Test 06/16/25 07:11 Range/Units Serum Glucose 72 L 74-106 mg/dL Problem List Mltered mental status Metabolic encephalopathy secondary to hyperglycemia Hospital delirium Fever End-stage kidney failure on hemodialysis Positive Treponema pallidum antibody, to rule out central nervous system syphilis Assessment/Plan Monitoring Supportive treatment Telemetry CSF profile IV ceftriaxone once daily 2 g for 14 days D/C Doxycycline Haldol for behavioral control Hemodialysis Nephrology on case Infectious disease on case More recommendation per clinical course This medical document was created using an electronic medical record system with Docphin dictation system. Although this document has been carefully reviewed, there may still be some phonetic and typographical errors. These areas are purely typographical due to imperfections of the software programs, and do not reflect any compromise in the patient's medical care. Prognosis poor Dietary Evaluation Review Comments: 1) CCHO 60 + renal standard 2) Refer Supervisor Dental Laboratory for diabetes education Expected Outcomes/Goals: To meet >75% estimated needs Fu 3-5 days Plan discussed with: Patient, Other JONNATHAN GONZALEZ MD Jun 16, 2025 11:10
[2025-06-16 13:00] VITALS: BP 197/96; PULSE 72; RESP 18; TEMP 98; O2SAT 96
[2025-06-16] MEDS: SODIUM CHL 0.9% 1000 ML BAG XX ONE ×3 (13:02→13:04)
[2025-06-16] MEDS: VANCOMYCIN 500mg/100mL 100 ML IV ONE (13:04)
[2025-06-16 14:07] LABS: Albumin, CSF 54 mg/dL (8-37); IgG, Quant, CSF 9.9 mg/dL (0.0-6.7); IgG/Alb Ratio, CSF 0.18 (0.00-0.25)
[2025-06-16] MEDS: diphenhdrAMINE HCL 50 MG/1 ML VL IV PRN (14:41)
--- NOTE | 2025-06-16 15:58 | DVHPN2 ---
Progress Note Date Seen: Jun 16, 2025 Medical Necessity Reason Pt with a Central, PICC or Fol: Yes The following are medically ne: Central Line Subjective Patient reports: No new complaints, Feels better, Other (more awake ) Review of Systems: Deferred Objective vital signs Vital Sign Date Time Temp Pulse Resp B/P (MAP) Pulse Ox O2 Delivery O2 Flow Rate FiO2 06/16/25 13:24 197/96 06/16/25 13:00 98.0 72 18 96 98.0 06/16/25 08:00 Room Air* 0 21 Total Intake and Output 06/15/25 06/15/25 06/16/25 14:59 22:59 06:59 Intake Total 50 ml 500 ml 50 ml Balance 50 ml 500 ml 50 ml medications Current Medications Medications Dose Ordered Sig/Laly Route Start Time Stop Time Status Last Admin Dose Admin Multivit/Ca Carb/ B Cmplx/FA/Prenat 1 tab DAILY PO 06/04/25 10:00 06/16/25 10:07 1 TAB Sevelamer HCl 800 mg TIDWM PO 06/03/25 18:00 06/16/25 12:59 800 MG Aspirin 81 mg DAILY PO 06/04/25 10:00 06/16/25 10:06 81 MG Atorvastatin Calcium 20 mg HS PO 06/03/25 22:00 06/14/25 22:00 20 MG Famotidine 20 mg DAILY IV 06/04/25 10:00 06/16/25 10:05 20 MG Metoprolol Tartrate 50 mg BID PO 06/03/25 22:00 06/16/25 10:12 50 MG Sodium Chloride 10 ml Q8HR IV 06/03/25 22:00 06/16/25 14:54 10 ML Ondansetron HCl 4 mg Q4HP PRN IV 06/03/25 16:15 06/04/25 21:38 4 MG Docusate Sodium 100 mg BIDPRN PRN PO 06/03/25 16:15 Acetaminophen 650 mg Q6HP PRN PO 06/03/25 16:15 06/04/25 09:19 650 MG Nitroglycerin 0.4 mg Q5MINP PRN SL 06/03/25 17:15 Calcium Acetate 667 mg TIDWMEALS PO 06/04/25 08:00 06/16/25 13:00 667 MG Azithromycin 250 ml @ 125 mls/hr DAILY IV 06/05/25 10:00 Hold Haloperidol Lactate 5 mg Q6HP PRN IM 06/04/25 15:15 06/15/25 09:56 5 MG Hydralazine HCl 10 mg Q6HP PRN IV 06/05/25 10:45 06/16/25 13:24 10 MG Vancomycin HCl 0 ml @ 0 mls/hr UD IV 06/05/25 10:45 Cancel Ceftriaxone Sodium/Dextrose 50 ml @ 50 mls/hr Q12HR@,21 IV 06/05/25 21:00 06/16/25 10:35 50 MLS/HR Olanzapine 10 mg DAILY PO 06/06/25 10:00 06/16/25 10:07 10 MG Acyclovir Sodium 0 ml @ 0 mls/hr PER PHARMACY IV 06/10/25 12:00 Cancel Acyclovir Sodium 300 mg/Dextrose 56 ml @ 56 mls/hr DAILY@2200 IV 06/11/25 22:00 Cancel Insulin Glargine 20 units HS SC 06/12/25 22:00 06/14/25 21:50 20 UNITS Insulin Human Lispro 5 units AC SC 06/12/25 17:00 06/16/25 12:58 5 UNITS Diagnostic Test (Pha) 1 strip ACHS 06/12/25 17:00 06/16/25 11:30 1 STRIP Insulin Human Regular ACHS SC 06/12/25 17:00 06/16/25 12:59 3 UNITS Dextrose 50 ml UD PRN IV 06/12/25 15:30 Nifedipine 30 mg DAILY PO 06/15/25 10:00 06/16/25 10:12 30 MG Diphenhydramine HCl 50 mg Q4HP PRN IV 06/15/25 10:00 06/16/25 14:41 50 MG Examination: GENERAL:Normal, MSK:Normal, NEURO:Normal laboratory and microbiology Laboratory Tests 06/16/25 07:11 06/12/25 07:19 Test 06/16/25 07:11 Range/Units Serum Glucose 72 L 74-106 mg/dL Microbiology Date/Time Source Procedure Growth Status 06/10/25 14:18 Cerebral Spinal Fluid Gram Stain - Final Complete 06/10/25 14:18 Cerebral Spinal Fluid CSF Culture & Gram Stain (Tube 2) M - Final Complete 06/03/25 14:15 Blood Blood Culture - Final NO GROWTH AFTER 5 DAYS OF INCUBATION. Complete Problem List/Assessment/Plan Problem List/Assessment/Plan ESRD- HTN AMS due to neurosyphilis likely --better sepsis hepc treated-- hx meth abuse recs HD tomorrow on abx per ID Plan discussed with: Patient Dietary Evaluation Review Comments: 1) CCHO 60 + renal standard 2) Refer [employer] Technician for diabetes education Expected Outcomes/Goals: To meet >75% estimated needs Fu 3-5 days ANNIE ASKEW MD Jun 16, 2025 15:58
--- NOTE | 2025-06-16 16:46 | DVHPN2 ---
Subjective Still confused, no cough, no other pain endorsed. Reviewed: H&P Changes from previous H/P or p: No Changes General: Per HPI Eyes: No Pain, No Vision change, No Conjunctivae inflammation, No Eyelid inflammation, No Other, No Redness ENT: No Ear pain, No Ear discharge, No Nose pain, No Nose discharge, No Nose congestion, No Mouth pain, No Mouth swelling, No Throat pain, No Throat swelling, No Other Cardiovascular: No Chest Pain, No Palpitations, No Orthopnea, No Paroxysmal Noc. Dyspnea, No Edema, No Lt Headedness; Other (Left IJ Perma catheter.) Respiratory: No Cough, No Dry, No Shortness of breath, No SOB with excertion, No Wheezing, No Hemoptysis, No Pleuritic Pain, No Sputum, No Other Gastrointestinal: Nausea, Vomiting; No Abdominal Pain, No Diarrhea, No Constipation, No Melena, No Hematochezia, No Other Genitourinary: No Dysuria, No Frequency, No Incontinence, No Hematuria, No Retention; Other (On hemodialysis) Musculoskeletal: No other, No neck pain, No shoulder pain, No arm pain, No back pain, No hand pain, No leg pain, No foot pain Skin: No Rash, No Lesions, No Jaundice, No Bruising, No Other Objective Vitals Vital Signs Date Time Temp Pulse Resp B/P (MAP) Pulse Ox O2 Delivery O2 Flow Rate FiO2 06/16/25 13:24 197/96 06/16/25 13:00 98.0 72 18 96 98.0 06/16/25 08:00 Room Air* 0 21 Intake/Output Intake and Output 06/16/25 07:00 Intake Total 600 ml Balance 600 ml Intake Oral 500 ml IV Total 100 ml # Voids 3 Exam GEN: Healthy appearing, well-developed, NAD. AOx0 HEENT: NC/AT; MMM. CV: RRR, no m/r/g. LUNGS: Decreased air entry in all lung mehta. ABD: Soft, NT/ND, NBS, no masses or organomegaly. EXT: skin Warm, well perfused. no rashes. No clubbing, cyanosis, or edema. NEURO: Ambulating with no limitations. No focal deficits. Medications Current Medications Medications Dose Ordered Sig/Laly Route Start Time Stop Time Status Last Admin Dose Admin Multivit/Ca Carb/ B Cmplx/FA/Prenat 1 tab DAILY PO 06/04/25 10:00 06/16/25 10:07 1 TAB Sevelamer HCl 800 mg TIDWM PO 06/03/25 18:00 06/16/25 12:59 800 MG Aspirin 81 mg DAILY PO 06/04/25 10:00 06/16/25 10:06 81 MG Atorvastatin Calcium 20 mg HS PO 06/03/25 22:00 06/14/25 22:00 20 MG Famotidine 20 mg DAILY IV 06/04/25 10:00 06/16/25 10:05 20 MG Metoprolol Tartrate 50 mg BID PO 06/03/25 22:00 06/16/25 10:12 50 MG Sodium Chloride 10 ml Q8HR IV 06/03/25 22:00 06/16/25 14:54 10 ML Ondansetron HCl 4 mg Q4HP PRN IV 06/03/25 16:15 06/04/25 21:38 4 MG Docusate Sodium 100 mg BIDPRN PRN PO 06/03/25 16:15 Acetaminophen 650 mg Q6HP PRN PO 06/03/25 16:15 06/04/25 09:19 650 MG Nitroglycerin 0.4 mg Q5MINP PRN SL 06/03/25 17:15 Calcium Acetate 667 mg TIDWMEALS PO 06/04/25 08:00 06/16/25 13:00 667 MG Azithromycin 250 ml @ 125 mls/hr DAILY IV 06/05/25 10:00 Hold Haloperidol Lactate 5 mg Q6HP PRN IM 06/04/25 15:15 06/15/25 09:56 5 MG Hydralazine HCl 10 mg Q6HP PRN IV 06/05/25 10:45 06/16/25 13:24 10 MG Vancomycin HCl 0 ml @ 0 mls/hr UD IV 06/05/25 10:45 Cancel Ceftriaxone Sodium/Dextrose 50 ml @ 50 mls/hr Q12HR@ IV 06/05/25 21:00 06/16/25 10:35 50 MLS/HR Olanzapine 10 mg DAILY PO 06/06/25 10:00 06/16/25 10:07 10 MG Acyclovir Sodium 0 ml @ 0 mls/hr PER PHARMACY IV 06/10/25 12:00 Cancel Acyclovir Sodium 300 mg/Dextrose 56 ml @ 56 mls/hr DAILY@2200 IV 06/11/25 22:00 Cancel Insulin Glargine 20 units HS AK 06/12/25 22:00 06/14/25 21:50 20 UNITS Insulin Human Lispro 5 units AC AK 06/12/25 17:00 06/16/25 12:58 5 UNITS Diagnostic Test (Pha) 1 strip ACHS 06/12/25 17:00 06/16/25 11:30 1 STRIP Insulin Human Regular ACHS AK 06/12/25 17:00 06/16/25 12:59 3 UNITS Dextrose 50 ml UD PRN IV 06/12/25 15:30 Nifedipine 30 mg DAILY PO 06/15/25 10:00 06/16/25 10:12 30 MG Diphenhydramine HCl 50 mg Q4HP PRN IV 06/15/25 10:00 06/16/25 14:41 50 MG Laboratory Results Laboratory Tests 06/12/25 07:19 06/16/25 07:11 Chemistry Test 06/16/25 07:11 Albumin 3.3 g/dL (3.2-4.8) Calcium Level 9.0 mg/dL (8.7-10.4) Total Protein 5.6 g/dL (5.7-8.2) L LFT Test 06/16/25 07:11 Alanine Aminotransferase (ALT) 25 U/L (7-40) Alkaline Phosphatase 65 U/L (46-116) Aspartate Amino Transferase (AST) 30 U/L (13-40) Total Bilirubin < 0.2 mg/dL (0.2-1.0) L Urinalysis Test 06/05/25 13:00 Urine Color Light-yellow (Yellow) Urine Clarity Clear (Clear) Urine pH 7.0 (5.0-9.0) Urine Specific [place] 1.016 (1.001-1.035) Urine Protein 3+ (Negative) H Urine Ketones Trace (Negative) Urine Blood 1+ /uL (Negative) H Urine Nitrite Negative (Negative) Urine Bilirubin Negative (Negative) Urine Urobilinogen Normal mg/dL (Negative) Urine Leukocyte Esterase Negative /uL (Negative) Urine RBC 2 /hpf (0 - 4) Urine Microscopic WBC 2 /HPF (0-5) Urine Squamous Epithelial Cells Few /hpf (<5) Urine Bacteria None seen /hpf (None Seen) Urine Hyaline Casts Few /lpf (0 - 2) Urine Yeast (Budding) Occasional /hpf (None Urine Glucose 4+ mg/dL (Normal) H Microbiology Microbiology Date/Time Source Procedure Growth Status 06/10/25 14:18 Cerebral Spinal Fluid Gram Stain - Final Complete 06/10/25 14:18 Cerebral Spinal Fluid CSF Culture & Gram Stain (Tube 2) M - Final Complete 06/03/25 14:15 Blood Blood Culture - Final NO GROWTH AFTER 5 DAYS OF INCUBATION. Complete Labs and/or images reviewed: Labs reviewed by me, Image(s) reviewed by me Assessment/Plan Assessment/Plan The patient is a 60-year-old female with past medical history of end-stage renal disease on hemodialysis , hyperlipidemia, DM, anemia, and hypertension who presented to [facility] ED with complaint of fever. Patient reports she has been experiencing fever, associated with cough, nasal congestion, nausea, and general malaise for the past 2 days. 06/04- patient with history of ESRD, diabetes, hypertension here with fever cough nasal congestion. COVID fluids not done. Admitted for pneumonia. On ceftriaxone. I will add azithromycin. We will get COVID flu. Continue treatment. Nephrology consulted for continuation of dialysis MWF. SSI for diabetes. Continue home medications. Blood cultures were taken. Given chronic dialysis bacteremia is of concern. There is no urine, possible patient is anuric ESRD. -patient is confused, altered A&O x1 unable to answer any ROS questions. there is no missed dialysis days. Daughter endorsed to nurse that patient is not at baseline. We will get workup for encephalopathy. Patient is declining labs, treatments. We will order TSH, ammonia, ABG, UDS, blood drug screen, CMP. Question of alcohol withdrawal or viral encephalitis? 06/05-patient is worsening, more confused, refusing labs, treatments, p.o. meds. Ammonia negative, no CO2 narcosis, appears to be neurologically intact moving all extremities but now she is A&O times 0. Unclear if this is UTI but possible. We are giving, or trying to give antibiotics IV ceftriaxone which would treat urine infection. Primary suspicion was pneumonia which is less likely. Meningitis is on the differential.. Urinary obstruction is also on differential. We will get urine UA UDS. Pending blood tox screen.. Per family this is a very acute change for patient. We will increase Haldol to 10 intramuscular q.6 H. we will get bladder scan, head CT, try to use patient's daughters help to help give p.o. meds. Patient refusing HD which will only worsening condition. Very high-risk and very poor prognosis. I will add vancomycin and increase ceftriaxone to 2 g. We will all still start olanzapine 10. We will also do telepsych in case this is psych cause. 06/06-06/07 06/08- no significant events notable over the weekend patient remains altered, few events of pulling IVs, few events of getting agitated requiring Ativan/Haldol. Need to advance surge into cause of AMS. We will order treponemal antibody, repeat ammonia, CBC CMP today. Continue Haldol prn, olanzapine 10 scheduled daily,. Maintain isolation for meningitis ruled out, patient has been on broad-spectrum vanc ceftriaxone for meningitis for 4 days now. Still on resolution or changing/improving off condition. We will consult Neurology and get MRI brain if possible. Nephrology is following and wants no IVs in arm with maturating AVF. We will also get LP for studies of VDRL and HSV. Holding off acyclovir right now. 06/09 - labs from yesterday treponemal antibody positive, reflex RPR is pending now. Radiologist consulted for LP, concern for neurosyphilis ruled out, we will need CSF VDRL. Neurology was consulted to ruled out other central causes, neurology has placed infectious disease consult. MRI brain is ordered but given patient's behavioral symptoms it may be difficult to obtain. Ceftriaxone does treat syphilis but penicillin is preferred. We will hold off penicillin treatment incomplete workup for LP. Today, we will get HIV antibody, possibly MRI brain. unlikely psychiatric cause as we have some direction now, i still have to ruled out HIV and HSV encephalitis, so with LP need hsv and vdrl. hiv lab w/u. MRI brain. neur following. ID now onboard too. continue vanc/ctx meningitis doses. 06/10- worse today. not following commands. bibasilar rales, trace pitting edema. BMP unremarkable, no significant changes in BUN. LP today, will help ruleout multiple diseases hsv , vdrl. will start acyclovir today as LP should be done, and will deescalate if negative. continuie therapy. appreciate, nephro, neuro and ID. continue vanc/ctx. will send hiv today, hepattiis panel tomorrow. her symptoms appear possible etoh w/d but this is day 6, so, doesnt add up. will try 1x ativan 1mg. otherwise continue management as outlined earlier. 06/11- significant improvement today A&O x2. Following commands conversing full sentences. She declines any knowledge of being diagnosed with syphilis. CSF is unconcerning for infection but she has been on antibiotics for 5 days now. I think we should complete treatment empirically. ID has stopped acyclovir. Pending HSV PCR. Most important lab pending is VDRL CSF. I will ask ID if penicillin G IV needs to be added for possible neurosyphilis. Otherwise continue treatment. 06/12 patient discharged to SNF for PT rehab and IV antibiotics for 2 weeks. Discharge plan developed see DC summary. 05/20 6 PT recommending home health with home PT. Patient needs antibiotics at SNF. We will continue plan for SNF for PT rehab and IV antibiotics approximately 2 weeks. 06/14 patient daughter Martine at bedside today she helped her mom/patient take a shower. Patient is feeling much better. Ambulating. They will go outside and wheelchair today. BNP showing anion gap metabolic acidosis, BUN is climbing. This is likely uremic acidosis patient may need dialysis again, defer to Nephrology. Otherwise continue discharge plan to SNF. We will repeat CMP tomorrow. Blood pressure elevated we will start Procardia 30 daily. 06/15-patient little bit more confused today. Noticing significant rise in BUN. Ammonia negative. Continuing treatment with ceftriaxone for neurosyphilis. Nephrology made aware the patient needs early dialysis today, likely uremic encephalopathy. 06/16- patient improved again today. Daughter is taking patient to walk on wheelchair in the hospital and some fracture. Patient is stable again yesterday event was likely uremic encephalopathy. Patient has to be off of sitter and can be discharge to SNF to finish off her antibiotics and PT rehab. Continue scheduled HD treatments defer to Nephrology. Acute toxic metabolic encephalopathy neurosyphilis, likely, rule-out Uremic encephalopathy, resolving viral encephalitis, possible Acute pneumonia, Gram-negative Gram-positive possible Acute meningitis possible, infectious cause possible, ruling out ESRD on HD, TTS schedule Hyperlipidemia Diabetes Anemia Hypertension - IV antibiotics - Nephrology consult for dialysis - Continue home medications - transfer to SNF for ongoing PT and antibiotics. - patient remains fall risk liquid diet dvt ppx - lovenox gi ppx - protonix medsurg full code Plan discussed with: Patient Date of Service: Jun 16, 2025 Billing Provider: MELQUIADES TREJO MD Common Visit Codes: [id number] INP/OBS CARE(MOD) MELQUIADES TREJO MD Jun 16, 2025 16:46
[2025-06-16 20:00] VITALS: PULSE 82; RESP 18
[2025-06-16 21:00] VITALS: BP 124/70; PULSE 85; RESP 18; TEMP 97.6; O2SAT 95
[2025-06-17 00:58] VITALS: BP 142/67; PULSE 82; RESP 18; TEMP 98.3; O2SAT 97
[2025-06-17 07:40] VITALS: PULSE 85; RESP 19
[2025-06-17 08:53] VITALS: BP 172/95; PULSE 78; RESP 19; TEMP 98.5; O2SAT 96
[2025-06-17 12:40] VITALS: BP 161/66; PULSE 79; RESP 19; TEMP 98.4; O2SAT 94
[2025-06-17 16:31] VITALS: BP 120/70; PULSE 87; RESP 20; TEMP 98.5; O2SAT 98
--- NOTE | 2025-06-17 16:48 | DVHPN2 ---
Subjective Still confused, no cough, no other pain endorsed. Reviewed: H&P Changes from previous H/P or p: No Changes General: Per HPI Eyes: No Pain, No Vision change, No Conjunctivae inflammation, No Eyelid inflammation, No Other, No Redness ENT: No Ear pain, No Ear discharge, No Nose pain, No Nose discharge, No Nose congestion, No Mouth pain, No Mouth swelling, No Throat pain, No Throat swelling, No Other Cardiovascular: No Chest Pain, No Palpitations, No Orthopnea, No Paroxysmal Noc. Dyspnea, No Edema, No Lt Headedness; Other (Left IJ Perma catheter.) Respiratory: No Cough, No Dry, No Shortness of breath, No SOB with excertion, No Wheezing, No Hemoptysis, No Pleuritic Pain, No Sputum, No Other Gastrointestinal: Nausea, Vomiting; No Abdominal Pain, No Diarrhea, No Constipation, No Melena, No Hematochezia, No Other Genitourinary: No Dysuria, No Frequency, No Incontinence, No Hematuria, No Retention; Other (On hemodialysis) Musculoskeletal: No other, No neck pain, No shoulder pain, No arm pain, No back pain, No hand pain, No leg pain, No foot pain Skin: No Rash, No Lesions, No Jaundice, No Bruising, No Other Objective Vitals Vital Signs Date Time Temp Pulse Resp B/P (MAP) Pulse Ox O2 Delivery O2 Flow Rate FiO2 06/17/25 16:31 98.5 87 20 120/70 (87) 98 98.5 06/17/25 07:40 Room Air* 0 21 Intake/Output Intake and Output 06/17/25 07:00 Intake Total 1150 ml Balance 1150 ml Intake Oral 1100 ml IV Total 50 ml # Voids 8 # Bowel Movements 1 Exam GEN: Healthy appearing, well-developed, NAD. AOx0 HEENT: NC/AT; MMM. CV: RRR, no m/r/g. LUNGS: Decreased air entry in all lung mehta. ABD: Soft, NT/ND, NBS, no masses or organomegaly. EXT: skin Warm, well perfused. no rashes. No clubbing, cyanosis, or edema. NEURO: Ambulating with no limitations. No focal deficits. Medications Current Medications Medications Dose Ordered Sig/Laly Route Start Time Stop Time Status Last Admin Dose Admin Multivit/Ca Carb/ B Cmplx/FA/Prenat 1 tab DAILY PO 06/04/25 10:00 06/17/25 12:54 1 TAB Sevelamer HCl 800 mg TIDWM PO 06/03/25 18:00 06/17/25 08:09 800 MG Aspirin 81 mg DAILY PO 06/04/25 10:00 06/17/25 12:55 81 MG Atorvastatin Calcium 20 mg HS PO 06/03/25 22:00 06/16/25 20:55 20 MG Famotidine 20 mg DAILY IV 06/04/25 10:00 06/17/25 12:55 20 MG Metoprolol Tartrate 50 mg BID PO 06/03/25 22:00 06/17/25 12:54 50 MG Sodium Chloride 10 ml Q8HR IV 06/03/25 22:00 06/17/25 14:08 10 ML Ondansetron HCl 4 mg Q4HP PRN IV 06/03/25 16:15 06/04/25 21:38 4 MG Docusate Sodium 100 mg BIDPRN PRN PO 06/03/25 16:15 Acetaminophen 650 mg Q6HP PRN PO 06/03/25 16:15 06/04/25 09:19 650 MG Nitroglycerin 0.4 mg Q5MINP PRN SL 06/03/25 17:15 Calcium Acetate 667 mg TIDWMEALS PO 06/04/25 08:00 06/17/25 08:09 667 MG Azithromycin 250 ml @ 125 mls/hr DAILY IV 06/05/25 10:00 Hold Haloperidol Lactate 5 mg Q6HP PRN IM 06/04/25 15:15 06/15/25 09:56 5 MG Hydralazine HCl 10 mg Q6HP PRN IV 06/05/25 10:45 06/16/25 13:24 10 MG Vancomycin HCl 0 ml @ 0 mls/hr UD IV 06/05/25 10:45 Cancel Olanzapine 10 mg DAILY PO 06/06/25 10:00 06/17/25 12:55 10 MG Acyclovir Sodium 0 ml @ 0 mls/hr PER PHARMACY IV 06/10/25 12:00 Cancel Acyclovir Sodium 300 mg/Dextrose 56 ml @ 56 mls/hr DAILY@2200 IV 06/11/25 22:00 Cancel Insulin Glargine 20 units HS SC 06/12/25 22:00 06/16/25 21:00 20 UNITS Insulin Human Lispro 5 units AC SC 06/12/25 17:00 06/17/25 06:17 5 UNITS Diagnostic Test (Pha) 1 strip ACHS 06/12/25 17:00 06/17/25 11:51 1 STRIP Insulin Human Regular ACHS SC 06/12/25 17:00 06/17/25 06:18 3 UNITS Dextrose 50 ml UD PRN IV 06/12/25 15:30 Nifedipine 30 mg DAILY PO 06/15/25 10:00 06/17/25 12:55 30 MG Diphenhydramine HCl 50 mg Q4HP PRN IV 06/15/25 10:00 06/16/25 14:41 50 MG Laboratory Results Laboratory Tests 06/12/25 07:19 06/16/25 07:11 Urinalysis Test 06/05/25 13:00 Urine Color Light-yellow (Yellow) Urine Clarity Clear (Clear) Urine pH 7.0 (5.0-9.0) Urine Specific Lillie 1.016 (1.001-1.035) Urine Protein 3+ (Negative) H Urine Ketones Trace (Negative) Urine Blood 1+ /uL (Negative) H Urine Nitrite Negative (Negative) Urine Bilirubin Negative (Negative) Urine Urobilinogen Normal mg/dL (Negative) Urine Leukocyte Esterase Negative /uL (Negative) Urine RBC 2 /hpf (0 - 4) Urine Microscopic WBC 2 /HPF (0-5) Urine Squamous Epithelial Cells Few /hpf (<5) Urine Bacteria None seen /hpf (None Seen) Urine Hyaline Casts Few /lpf (0 - 2) Urine Yeast (Budding) Occasional /hpf (None Urine Glucose 4+ mg/dL (Normal) H Microbiology Microbiology Date/Time Source Procedure Growth Status 06/10/25 14:18 Cerebral Spinal Fluid Gram Stain - Final Complete 06/10/25 14:18 Cerebral Spinal Fluid CSF Culture & Gram Stain (Tube 2) M - Final Complete 06/03/25 14:15 Blood Blood Culture - Final NO GROWTH AFTER 5 DAYS OF INCUBATION. Complete Labs and/or images reviewed: Labs reviewed by me, Image(s) reviewed by me Assessment/Plan Assessment/Plan The patient is a 60-year-old female with past medical history of end-stage renal disease on hemodialysis M-W-F, hyperlipidemia, DM, anemia, and hypertension who presented to [facility] ED with complaint of fever. Patient reports she has been experiencing fever, associated with cough, nasal congestion, nausea, and general malaise for the past 2 days. 06/04- patient with history of ESRD, diabetes, hypertension here with fever cough nasal congestion. COVID fluids not done. Admitted for pneumonia. On ceftriaxone. I will add azithromycin. We will get COVID flu. Continue treatment. Nephrology consulted for continuation of dialysis MWF. SSI for diabetes. Continue home medications. Blood cultures were taken. Given chronic dialysis bacteremia is of concern. There is no urine, possible patient is anuric ESRD. -patient is confused, altered A&O x1 unable to answer any ROS questions. there is no missed dialysis days. Daughter endorsed to nurse that patient is not at baseline. We will get workup for encephalopathy. Patient is declining labs, treatments. We will order TSH, ammonia, ABG, UDS, blood drug screen, CMP. Question of alcohol withdrawal or viral encephalitis? 06/05-patient is worsening, more confused, refusing labs, treatments, p.o. meds. Ammonia negative, no CO2 narcosis, appears to be neurologically intact moving all extremities but now she is A&O times 0. Unclear if this is UTI but possible. We are giving, or trying to give antibiotics IV ceftriaxone which would treat urine infection. Primary suspicion was pneumonia which is less likely. Meningitis is on the differential.. Urinary obstruction is also on differential. We will get urine UA UDS. Pending blood tox screen.. Per family this is a very acute change for patient. We will increase Haldol to 10 intramuscular q.6 H. we will get bladder scan, head CT, try to use patient's daughters help to help give p.o. meds. Patient refusing HD which will only worsening condition. Very high-risk and very poor prognosis. I will add vancomycin and increase ceftriaxone to 2 g. We will all still start olanzapine 10. We will also do telepsych in case this is psych cause. 06/06-06/07 06/08- no significant events notable over the weekend patient remains altered, few events of pulling IVs, few events of getting agitated requiring Ativan/Haldol. Need to advance surge into cause of AMS. We will order treponemal antibody, repeat ammonia, CBC CMP today. Continue Haldol prn, olanzapine 10 scheduled daily,. Maintain isolation for meningitis ruled out, patient has been on broad-spectrum vanc ceftriaxone for meningitis for 4 days now. Still on resolution or changing/improving off condition. We will consult Neurology and get MRI brain if possible. Nephrology is following and wants no IVs in arm with maturating AVF. We will also get LP for studies of VDRL and HSV. Holding off acyclovir right now. 06/09 - labs from yesterday treponemal antibody positive, reflex RPR is pending now. Radiologist consulted for LP, concern for neurosyphilis ruled out, we will need CSF VDRL. Neurology was consulted to ruled out other central causes, neurology has placed infectious disease consult. MRI brain is ordered but given patient's behavioral symptoms it may be difficult to obtain. Ceftriaxone does treat syphilis but penicillin is preferred. We will hold off penicillin treatment incomplete workup for LP. Today, we will get HIV antibody, possibly MRI brain. unlikely psychiatric cause as we have some direction now, i still have to ruled out HIV and HSV encephalitis, so with LP need hsv and vdrl. hiv lab w/u. MRI brain. neur following. ID now onboard too. continue vanc/ctx meningitis doses. 06/10- worse today. not following commands. bibasilar rales, trace pitting edema. BMP unremarkable, no significant changes in BUN. LP today, will help ruleout multiple diseases hsv , vdrl. will start acyclovir today as LP should be done, and will deescalate if negative. continuie therapy. appreciate, nephro, neuro and ID. continue vanc/ctx. will send hiv today, hepattiis panel tomorrow. her symptoms appear possible etoh w/d but this is day 6, so, doesnt add up. will try 1x ativan 1mg. otherwise continue management as outlined earlier. 06/11- significant improvement today A&O x2. Following commands conversing full sentences. She declines any knowledge of being diagnosed with syphilis. CSF is unconcerning for infection but she has been on antibiotics for 5 days now. I think we should complete treatment empirically. ID has stopped acyclovir. Pending HSV PCR. Most important lab pending is VDRL CSF. I will ask ID if penicillin G IV needs to be added for possible neurosyphilis. Otherwise continue treatment. 06/12 patient discharged to SNF for PT rehab and IV antibiotics for 2 weeks. Discharge plan developed see DC summary. 05/20 6 PT recommending home health with home PT. Patient needs antibiotics at SNF. We will continue plan for SNF for PT rehab and IV antibiotics approximately 2 weeks. 06/14 patient daughter Martine at bedside today she helped her mom/patient take a shower. Patient is feeling much better. Ambulating. They will go outside and wheelchair today. BNP showing anion gap metabolic acidosis, BUN is climbing. This is likely uremic acidosis patient may need dialysis again, defer to Nephrology. Otherwise continue discharge plan to SNF. We will repeat CMP tomorrow. Blood pressure elevated we will start Procardia 30 daily. 06/15-patient little bit more confused today. Noticing significant rise in BUN. Ammonia negative. Continuing treatment with ceftriaxone for neurosyphilis. Nephrology made aware the patient needs early dialysis today, likely uremic encephalopathy. 06/16- patient improved again today. Daughter is taking patient to walk on wheelchair in the hospital and some fracture. Patient is stable again yesterday event was likely uremic encephalopathy. Patient has to be off of sitter and can be discharge to SNF to finish off her antibiotics and PT rehab. Continue scheduled HD treatments defer to Nephrology. 06/17- patient remains at her baseline she is A&O x3 she does not remember the reason why she is in the hospital. She is reoriented today. Patient has some sundowning but has no falls. She does not need sitter and can be discharged to SNF to complete her antibiotics and for PT rehab. Discussed with social, patient is pending bed and placement. Acute toxic metabolic encephalopathy neurosyphilis, likely, rule-out Uremic encephalopathy, resolving viral encephalitis, possible Acute pneumonia, Gram-negative Gram-positive possible Acute meningitis possible, infectious cause possible, ruling out ESRD on HD, TTS schedule Hyperlipidemia Diabetes Anemia Hypertension - IV antibiotics - Nephrology consult for dialysis - Continue home medications - transfer to SNF for ongoing PT and antibiotics. - patient remains fall risk liquid diet dvt ppx - lovenox gi ppx - protonix medsurg full code Plan discussed with: Patient My Orders Orders - MELQUIADES TREJO MD Procedure Category Date Status Time D/C Sitter ORDERS 06/16/25 Transmitted 17:55 Date of Service: Jun 17, 2025 Billing Provider: MELQUIADES TREJO MD Common Visit Codes: [id number] INP/OBS CARE(HIGH) MELQUIADES TREJO MD Jun 17, 2025 16:48
--- NOTE | 2025-06-17 16:54 | DVHPN2 ---
Progress Note Date Seen: Jun 17, 2025 Medical Necessity Reason Pt with a Central, PICC or Fol: Yes The following are medically ne: Central Line Subjective Patient reports: No new complaints, Feels better Review of Systems: Deferred Objective vital signs Vital Sign Date Time Temp Pulse Resp B/P (MAP) Pulse Ox O2 Delivery O2 Flow Rate FiO2 06/17/25 16:31 98.5 87 20 120/70 (87) 98 98.5 06/17/25 07:40 Room Air* 0 21 Total Intake and Output 06/16/25 06/16/25 06/17/25 15:00 23:00 07:00 Intake Total 550 ml 600 ml Balance 550 ml 600 ml medications Current Medications Medications Dose Ordered Sig/Laly Route Start Time Stop Time Status Last Admin Dose Admin Multivit/Ca Carb/ B Cmplx/FA/Prenat 1 tab DAILY PO 06/04/25 10:00 06/17/25 12:54 1 TAB Sevelamer HCl 800 mg TIDWM PO 06/03/25 18:00 06/17/25 08:09 800 MG Aspirin 81 mg DAILY PO 06/04/25 10:00 06/17/25 12:55 81 MG Atorvastatin Calcium 20 mg HS PO 06/03/25 22:00 06/16/25 20:55 20 MG Famotidine 20 mg DAILY IV 06/04/25 10:00 06/17/25 12:55 20 MG Metoprolol Tartrate 50 mg BID PO 06/03/25 22:00 06/17/25 12:54 50 MG Sodium Chloride 10 ml Q8HR IV 06/03/25 22:00 06/17/25 14:08 10 ML Ondansetron HCl 4 mg Q4HP PRN IV 06/03/25 16:15 06/04/25 21:38 4 MG Docusate Sodium 100 mg BIDPRN PRN PO 06/03/25 16:15 Acetaminophen 650 mg Q6HP PRN PO 06/03/25 16:15 06/04/25 09:19 650 MG Nitroglycerin 0.4 mg Q5MINP PRN SL 06/03/25 17:15 Calcium Acetate 667 mg TIDWMEALS PO 06/04/25 08:00 06/17/25 08:09 667 MG Azithromycin 250 ml @ 125 mls/hr DAILY IV 06/05/25 10:00 Hold Haloperidol Lactate 5 mg Q6HP PRN IM 06/04/25 15:15 06/17/25 16:47 5 MG Hydralazine HCl 10 mg Q6HP PRN IV 06/05/25 10:45 06/16/25 13:24 10 MG Vancomycin HCl 0 ml @ 0 mls/hr UD IV 06/05/25 10:45 Cancel Olanzapine 10 mg DAILY PO 06/06/25 10:00 06/17/25 12:55 10 MG Acyclovir Sodium 0 ml @ 0 mls/hr PER PHARMACY IV 06/10/25 12:00 Cancel Acyclovir Sodium 300 mg/Dextrose 56 ml @ 56 mls/hr DAILY@2200 IV 06/11/25 22:00 Cancel Insulin Glargine 20 units HS SC 06/12/25 22:00 06/16/25 21:00 20 UNITS Insulin Human Lispro 5 units AC SC 06/12/25 17:00 06/17/25 06:17 5 UNITS Diagnostic Test (Pha) 1 strip ACHS 06/12/25 17:00 06/17/25 11:51 1 STRIP Insulin Human Regular ACHS SC 06/12/25 17:00 06/17/25 06:18 3 UNITS Dextrose 50 ml UD PRN IV 06/12/25 15:30 Nifedipine 30 mg DAILY PO 06/15/25 10:00 06/17/25 12:55 30 MG Diphenhydramine HCl 50 mg Q4HP PRN IV 06/15/25 10:00 06/16/25 14:41 50 MG laboratory and microbiology Laboratory Tests 06/16/25 07:11 06/12/25 07:19 Test 06/16/25 07:11 Range/Units Serum Glucose 72 L 74-106 mg/dL Microbiology Date/Time Source Procedure Growth Status 06/10/25 14:18 Cerebral Spinal Fluid Gram Stain - Final Complete 06/10/25 14:18 Cerebral Spinal Fluid CSF Culture & Gram Stain (Tube 2) M - Final Complete 06/03/25 14:15 Blood Blood Culture - Final NO GROWTH AFTER 5 DAYS OF INCUBATION. Complete Problem List/Assessment/Plan Problem List/Assessment/Plan ESRD- HTN AMS due to neurosyphilis likely --better sepsis hepc treated-- hx meth abuse recs HD today on abx per ID Plan discussed with: Patient Dietary Evaluation Review Comments: 1) CCHO 60 + renal standard 2) Refer Finisher Denture for diabetes education Expected Outcomes/Goals: To meet >75% estimated needs Fu 3-5 days ANNIE ASKEW MD Jun 17, 2025 16:54
[2025-06-17 17:13] VITALS: BP 120/70; PULSE 87; RESP 20; TEMP 98.5; O2SAT 98
[2025-06-18 12:01] LABS: IgG, Syn Rate,CSF 10.2 mg/day (-9.9 TO +3.3); Immunoglobulin G, Serum 888 mg/dL (586-1602)
--- NOTE | 2025-06-18 16:01 | DVHPN2 ---
Consult Progress Note Date Seen: Jun 12, 2025 Subjective Patient reports: Other (tolerating dialysis , still agitated , having hallucination and difficult to get labs for patient ) Objective vital signs Vital Sign Date Time Temp Pulse Resp B/P (MAP) Pulse Ox O2 Delivery O2 Flow Rate FiO2 06/17/25 17:13 98.5 87 20 98 06/17/25 16:31 120/70 (87) 06/17/25 07:40 Room Air* 0 21 Total Intake and Output 06/17/25 06/17/25 06/18/25 15:00 23:00 07:00 Intake Total 480 ml Balance 480 ml medications Current Medications Medications Dose Ordered Sig/Laly Route Start Time Stop Time Status Last Admin Dose Admin Vancomycin HCl 0 ml @ 0 mls/hr UD IV 06/05/25 10:45 Cancel Acyclovir Sodium 0 ml @ 0 mls/hr PER PHARMACY IV 06/10/25 12:00 Cancel Acyclovir Sodium 300 mg/Dextrose 56 ml @ 56 mls/hr DAILY@2200 IV 06/11/25 22:00 Cancel Physical Exam: General: NAD Neck: Supple. No masses. HEENT: PERRL. Normal lids and conjunctiva. Moist mucous membranes. Oropharynx without lesions, exudates or excessive erythema. Normal appearance of the external aspects of the nose and ears. Heart: Regular rhythm, normal rate. No murmur. No lower extremity edema. Lungs: Normal respiratory effort. Clear to auscultation bilaterally. No wheezes. No crackles. Abdomen: Soft. Non-tender. Non-distended. No masses or abdominal hernia. Msk: No digital cyanosis. Normal strength and tone in all 4 limbs Skin: Warm and dry, no rashes. Neuro: Alert. No facial droop or slurred speech. Extra-ocular movements intact. Sensation intact to soft touch in all 4 limbs. Psych: Appropriate mood. Full affect. Oriented to person, place, time, and situation. laboratory and microbiology Laboratory Tests 06/16/25 07:11 06/12/25 07:19 Test 06/16/25 07:11 Range/Units Serum Glucose 72 L 74-106 mg/dL Problem List/Assessment/Plan Problems(with codes): (1) ESRD (end stage renal disease) (2) Pneumonia (3) Acute metabolic encephalopathy (4) Pneumonia, unspecified organism (5) Generalized weakness (6) Diabetes mellitus with hyperglycemia Problem List/Assessment/Plan ASSESSMENT AND PLAN: ID Problem List: \-- End-stage renal disease on hemodialysis (M/W/F) \-- Diabetes mellitus \-- Hypertension \-- Hyperlipidemia \-- Anemia \-- Pneumonia \-- Fever and confusion \-- Syphilis seropositivity Assessment This is a 60 y.o. female with a complex medical history significant for end- stage renal disease on hemodialysis, diabetes, hypertension, anemia, and hyperlipidemia, presenting with fever, nasal congestion, cough, malaise, and generalized weakness for the past few days. Patient was noted to be confused and described as a poor historian, with more incoherence than acute delirium. Evaluation in the ED revealed leukocytosis (WBC 11.6), Hgb 10.7, platelet 223, BUN 34, creatinine 4.6. Lactic acid was 1.4. She has a left IJ permanent catheter for dialysis, which appears clean, dry, intact, and she has not missed recent dialysis sessions. There is no lower extremity swelling. Chest imaging demonstrated bilateral patchy airspace disease consistent with pneumonia. There was initial concern for meningitis in the context of altered mental status and underlying end-stage renal disease. Lumbar puncture performed on 06/10 showed CSF WBC 0, protein 93.6, glucose 122. CSF cultures negative to date; VDRL and further CSF studies pending. Blood cultures have remained negative. Infectious workup revealed negative HIV, negative hepatitis B, but positive treponemal antibody with RPR titer 1:2 consistent with syphilis seropositivity. There is ongoing investigation to determine if this may reflect previously treated disease (serofast state), in which case active treatment for syphilis may not be required. The patient has received vancomycin and ceftriaxone during admission, with subsequent switch to penicillin for syphilis. She has prolonged QTc, so azithromycin should be avoided; doxycycline can be used instead if additional atypical coverage is needed. Overall, low suspicion for bacterial meningitis at this time. Respiratory status is stable on room air. 06/11: positive for syphilis , awaiting VDRL testing of the csf 06/12: CSF cultures continues to be no growth to date , patient is notably positive for hepatitis C Plan: - f/u as outpatient for management of treatment of hepatitis c infection - discussed with department of public health , patient has no prior history of syphilis treatment , continue ceftriaxone 2 grams q 12 as a acceptable treatment course for syphilis and pneumonia - continue doxycyline for possible atypical pneumonia - unlikely to high high VDRL level given low RPR titers in the blood - recommend piccline placement due to 14 days of ceftriaxone followed by 1 dose of IM penicillin 2.4 million international units 1 week after ceftriaxone has completed to treat for latent syphilis \-- No need for isolation precautions at this time, given negative workup for bacterial meningitis \-- Monitor mental status, WBC, and cultures; continue hemodialysis as scheduled \-- Contact Department of Public Health to clarify syphilis treatment history and refine ongoing treatment plan Isolation Precautions: None indicated at this time Plan discussed with: Other Dietary Evaluation Review Comments: 1) CCHO 60 + renal standard 2) Refer Automatic Operator for diabetes education Expected Outcomes/Goals: To meet >75% estimated needs Fu 3-5 days SASHA LEIJA MD Jun 18, 2025 16:01
--- NOTE | 2025-06-18 16:01 | DVHPN2 ---
Consult Progress Note Date Seen: Jun 13, 2025 Subjective Patient reports: Other (no new fevers since admission , continues to have waxing weigning mentation but unable to answer questions coherantly . tolerated dialysis yesterday with persistant agitation and delirium ) Objective vital signs Vital Sign Date Time Temp Pulse Resp B/P (MAP) Pulse Ox O2 Delivery O2 Flow Rate FiO2 06/17/25 17:13 98.5 87 20 98 06/17/25 16:31 120/70 (87) 06/17/25 07:40 Room Air* 0 21 Total Intake and Output 06/17/25 06/17/25 06/18/25 15:00 23:00 07:00 Intake Total 480 ml Balance 480 ml medications Current Medications Medications Dose Ordered Sig/Laly Route Start Time Stop Time Status Last Admin Dose Admin Vancomycin HCl 0 ml @ 0 mls/hr UD IV 06/05/25 10:45 Cancel Acyclovir Sodium 0 ml @ 0 mls/hr PER PHARMACY IV 06/10/25 12:00 Cancel Acyclovir Sodium 300 mg/Dextrose 56 ml @ 56 mls/hr DAILY@2200 IV 06/11/25 22:00 Cancel Physical Exam: General: NAD Neck: Supple. No masses. HEENT: PERRL. Normal lids and conjunctiva. Moist mucous membranes. Oropharynx without lesions, exudates or excessive erythema. Normal appearance of the external aspects of the nose and ears. Heart: Regular rhythm, normal rate. No murmur. No lower extremity edema. Lungs: Normal respiratory effort. Clear to auscultation bilaterally. No wheezes. No crackles. Abdomen: Soft. Non-tender. Non-distended. No masses or abdominal hernia. Msk: No digital cyanosis. Normal strength and tone in all 4 limbs Skin: Warm and dry, no rashes. Neuro: Alert. No facial droop or slurred speech. Extra-ocular movements intact. Sensation intact to soft touch in all 4 limbs. Psych: Appropriate mood. Full affect. Oriented to person, place, time, and situation. laboratory and microbiology Laboratory Tests 06/16/25 07:11 06/12/25 07:19 Test 06/16/25 07:11 Range/Units Serum Glucose 72 L 74-106 mg/dL Problem List/Assessment/Plan Problems(with codes): (1) ESRD (end stage renal disease) (2) Pneumonia (3) Acute metabolic encephalopathy (4) Pneumonia, unspecified organism (5) Generalized weakness Problem List/Assessment/Plan ASSESSMENT AND PLAN: ID Problem List: \-- End-stage renal disease on hemodialysis (M/W/F) \-- Diabetes mellitus \-- Hypertension \-- Hyperlipidemia \-- Anemia \-- Pneumonia \-- Fever and confusion \-- Syphilis seropositivity Assessment This is a 60 y.o. female with a complex medical history significant for end- stage renal disease on hemodialysis, diabetes, hypertension, anemia, and hyperlipidemia, presenting with fever, nasal congestion, cough, malaise, and generalized weakness for the past few days. Patient was noted to be confused and described as a poor historian, with more incoherence than acute delirium. Evaluation in the ED revealed leukocytosis (WBC 11.6), Hgb 10.7, platelet 223, BUN 34, creatinine 4.6. Lactic acid was 1.4. She has a left IJ permanent catheter for dialysis, which appears clean, dry, intact, and she has not missed recent dialysis sessions. There is no lower extremity swelling. Chest imaging demonstrated bilateral patchy airspace disease consistent with pneumonia. There was initial concern for meningitis in the context of altered mental status and underlying end-stage renal disease. Lumbar puncture performed on 06/10 showed CSF WBC 0, protein 93.6, glucose 122. CSF cultures negative to date; VDRL and further CSF studies pending. Blood cultures have remained negative. Infectious workup revealed negative HIV, negative hepatitis B, but positive treponemal antibody with RPR titer 1:2 consistent with syphilis seropositivity. There is ongoing investigation to determine if this may reflect previously treated disease (serofast state), in which case active treatment for syphilis may not be required. The patient has received vancomycin and ceftriaxone during admission, with subsequent switch to penicillin for syphilis. She has prolonged QTc, so azithromycin should be avoided; doxycycline can be used instead if additional atypical coverage is needed. Overall, low suspicion for bacterial meningitis at this time. Respiratory status is stable on room air. 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 Plan: - recommend psychiatric evaluation - f/u as outpatient for management of treatment of hepatitis c infection - discussed with department of public health , patient has no prior history of syphilis treatment , continue ceftriaxone 2 grams q 12 as a acceptable treatment course for syphilis and pneumonia - continue doxycycline for possible atypical pneumonia - unlikely to high high VDRL level given low RPR titers in the blood - recommend piccline placement due to 14 days of ceftriaxone followed by 1 dose of IM penicillin 2.4 million international units 1 week after ceftriaxone has completed to treat for latent syphilis \-- No need for isolation precautions at this time, given negative workup for bacterial meningitis \-- Monitor mental status, WBC, and cultures; continue hemodialysis as scheduled \-- Contact Department of Public Health to clarify syphilis treatment history and refine ongoing treatment plan Isolation Precautions: None indicated at this time Plan discussed with: Other Dietary Evaluation Review Comments: 1) CCHO 60 + renal standard 2) Refer [employer] for diabetes education Expected Outcomes/Goals: To meet >75% estimated needs Fu 3-5 days SASHA LEIJA MD Jun 18, 2025 16:01
--- NOTE | 2025-06-18 16:07 | DVHPN2 ---
Consult Progress Note Date Seen: Jun 14, 2025 Subjective Patient reports: Other (patients psychosis does not appear to be responding to antibioitc therapy , however patient is a febrile and hemodynamically stable ) Objective vital signs Vital Sign Date Time Temp Pulse Resp B/P (MAP) Pulse Ox O2 Delivery O2 Flow Rate FiO2 06/17/25 17:13 98.5 87 20 98 06/17/25 16:31 120/70 (87) 06/17/25 07:40 Room Air* 0 21 Total Intake and Output 06/17/25 06/17/25 06/18/25 15:00 23:00 07:00 Intake Total 480 ml Balance 480 ml medications Current Medications Medications Dose Ordered Sig/Laly Route Start Time Stop Time Status Last Admin Dose Admin Vancomycin HCl 0 ml @ 0 mls/hr UD IV 06/05/25 10:45 Cancel Acyclovir Sodium 0 ml @ 0 mls/hr PER PHARMACY IV 06/10/25 12:00 Cancel Acyclovir Sodium 300 mg/Dextrose 56 ml @ 56 mls/hr DAILY@2200 IV 06/11/25 22:00 Cancel Physical Exam: General: NAD Neck: Supple. No masses. HEENT: PERRL. Normal lids and conjunctiva. Moist mucous membranes. Oropharynx without lesions, exudates or excessive erythema. Normal appearance of the external aspects of the nose and ears. Heart: Regular rhythm, normal rate. No murmur. No lower extremity edema. Lungs: Normal respiratory effort. Clear to auscultation bilaterally. No wheezes. No crackles. Abdomen: Soft. Non-tender. Non-distended. No masses or abdominal hernia. Msk: No digital cyanosis. Normal strength and tone in all 4 limbs Skin: Warm and dry, no rashes. Neuro: Alert. No facial droop or slurred speech. Extra-ocular movements intact. Sensation intact to soft touch in all 4 limbs. Psych: Appropriate mood. Full affect. Oriented to person, place, time, and situation. laboratory and microbiology Laboratory Tests 06/16/25 07:11 06/12/25 07:19 Test 06/16/25 07:11 Range/Units Serum Glucose 72 L 74-106 mg/dL Problem List/Assessment/Plan Problems(with codes): (1) Acute metabolic encephalopathy (2) Pneumonia, unspecified organism (3) Generalized weakness (4) Diabetes mellitus with hyperglycemia Problem List/Assessment/Plan ASSESSMENT AND PLAN: ID Problem List: \-- End-stage renal disease on hemodialysis (M/W/F) \-- Diabetes mellitus \-- Hypertension \-- Hyperlipidemia \-- Anemia \-- Pneumonia \-- Fever and confusion \-- Syphilis seropositivity Assessment This is a 60 y.o. female with a complex medical history significant for end- stage renal disease on hemodialysis, diabetes, hypertension, anemia, and hyperlipidemia, presenting with fever, nasal congestion, cough, malaise, and generalized weakness for the past few days. Patient was noted to be confused and described as a poor historian, with more incoherence than acute delirium. Evaluation in the ED revealed leukocytosis (WBC 11.6), Hgb 10.7, platelet 223, BUN 34, creatinine 4.6. Lactic acid was 1.4. She has a left IJ permanent catheter for dialysis, which appears clean, dry, intact, and she has not missed recent dialysis sessions. There is no lower extremity swelling. Chest imaging demonstrated bilateral patchy airspace disease consistent with pneumonia. There was initial concern for meningitis in the context of altered mental status and underlying end-stage renal disease. Lumbar puncture performed on 06/10 showed CSF WBC 0, protein 93.6, glucose 122. CSF cultures negative to date; VDRL and further CSF studies pending. Blood cultures have remained negative. Infectious workup revealed negative HIV, negative hepatitis B, but positive treponemal antibody with RPR titer 1:2 consistent with syphilis seropositivity. There is ongoing investigation to determine if this may reflect previously treated disease (serofast state), in which case active treatment for syphilis may not be required. The patient has received vancomycin and ceftriaxone during admission, with subsequent switch to penicillin for syphilis. She has prolonged QTc, so azithromycin should be avoided; doxycycline can be used instead if additional atypical coverage is needed. Overall, low suspicion for bacterial meningitis at this time. Respiratory status is stable on room air. 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 no definitive evidence of acute intra cranial process . unable to complete due to patients agitation Plan: - recommend psychiatric evaluation - f/u as outpatient for management of treatment of hepatitis c infection - discussed with department of public health , patient has no prior history of syphilis treatment , continue ceftriaxone 2 grams q 12 as a acceptable treatment course for syphilis and pneumonia - continue doxycycline for possible atypical pneumonia - unlikely to high high VDRL level given low RPR titers in the blood - recommend piccline placement due to 14 days of ceftriaxone followed by 1 dose of IM penicillin 2.4 million international units 1 week after ceftriaxone has completed to treat for latent syphilis \-- No need for isolation precautions at this time, given negative workup for bacterial meningitis \-- Monitor mental status, WBC, and cultures; continue hemodialysis as scheduled \-- Contact Department of Public Health to clarify syphilis treatment history and refine ongoing treatment plan Isolation Precautions: None indicated at this time Plan discussed with: Other Dietary Evaluation Review Comments: 1) CCHO 60 + renal standard 2) Refer [employer] for diabetes education Expected Outcomes/Goals: To meet >75% estimated needs Fu 3-5 days SASHA LEIJA MD Jun 18, 2025 16:07
--- NOTE | 2025-06-18 16:08 | DVHPN2 ---
Consult Progress Note Date Seen: Jun 16, 2025 Subjective Patient reports: Other (accepted to SNF and able to coordination with [facility] dialysis to continue getting dialysis while at ) Objective vital signs Vital Sign Date Time Temp Pulse Resp B/P (MAP) Pulse Ox O2 Delivery O2 Flow Rate FiO2 06/17/25 17:13 98.5 87 20 98 06/17/25 16:31 120/70 (87) 06/17/25 07:40 Room Air* 0 21 Total Intake and Output 06/17/25 06/17/25 06/18/25 15:00 23:00 07:00 Intake Total 480 ml Balance 480 ml medications Current Medications Medications Dose Ordered Sig/Laly Route Start Time Stop Time Status Last Admin Dose Admin Vancomycin HCl 0 ml @ 0 mls/hr UD IV 06/05/25 10:45 Cancel Acyclovir Sodium 0 ml @ 0 mls/hr PER PHARMACY IV 06/10/25 12:00 Cancel Acyclovir Sodium 300 mg/Dextrose 56 ml @ 56 mls/hr DAILY@2200 IV 06/11/25 22:00 Cancel Physical Exam: General: NAD Neck: Supple. No masses. HEENT: PERRL. Normal lids and conjunctiva. Moist mucous membranes. Oropharynx without lesions, exudates or excessive erythema. Normal appearance of the external aspects of the nose and ears. Heart: Regular rhythm, normal rate. No murmur. No lower extremity edema. Lungs: Normal respiratory effort. Clear to auscultation bilaterally. No wheezes. No crackles. Abdomen: Soft. Non-tender. Non-distended. No masses or abdominal hernia. Msk: No digital cyanosis. Normal strength and tone in all 4 limbs Skin: Warm and dry, no rashes. Neuro: Alert. No facial droop or slurred speech. Extra-ocular movements intact. Sensation intact to soft touch in all 4 limbs. Psych: Appropriate mood. Full affect. Oriented to person, place, time, and situation. 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 female with a complex medical history significant for end- stage renal disease on hemodialysis, diabetes, hypertension, anemia, and hyperlipidemia, presenting with fever, nasal congestion, cough, malaise, and generalized weakness for the past few days. Patient was noted to be confused and described as a poor historian, with more incoherence than acute delirium. Evaluation in the ED revealed leukocytosis (WBC 11.6), Hgb 10.7, platelet 223, BUN 34, creatinine 4.6. Lactic acid was 1.4. She has a left IJ permanent catheter for dialysis, which appears clean, dry, intact, and she has not missed recent dialysis sessions. There is no lower extremity swelling. Chest imaging demonstrated bilateral patchy airspace disease consistent with pneumonia. There was initial concern for meningitis in the context of altered mental status and underlying end-stage renal disease. Lumbar puncture performed on 06/10 showed CSF WBC 0, protein 93.6, glucose 122. CSF cultures negative to date; VDRL and further CSF studies pending. Blood cultures have remained negative. Infectious workup revealed negative HIV, negative hepatitis B, but positive treponemal antibody with RPR titer 1:2 consistent with syphilis seropositivity. There is ongoing investigation to determine if this may reflect previously treated disease (serofast state), in which case active treatment for syphilis may not be required. The patient has received vancomycin and ceftriaxone during admission, with subsequent switch to penicillin for syphilis. She has prolonged QTc, so azithromycin should be avoided; doxycycline can be used instead if additional atypical coverage is needed. Overall, low suspicion for bacterial meningitis at this time. Respiratory status is stable on room air. 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 no definitive evidence of acute intra cranial process . unable to complete due to patients agitation 06/15:CSF finding are notable for elevated IGG and albumin which can be seen in multiple sclerosis , neurosyphilis . negative for cryptococcus , HSV 1 and 2 . acid fast mirror of CSF was not processed due to poor specimen as well as fungal CSF was not done 06/16: AnO x 1 , uncooperative and does not answer question . requires a sitter Plan: - confirmed department of public health to f/u with to confirm patient continues syphilis treatment - defer to neurology for further evaluation of these abnormal values - recommend psychiatric evaluation - recommend patient f/u in 2 weeks to ensure neurosyphilis and late latent syphilis have been completed and RPR repeat in 3 months to confirm resolution of infection - recommend outpatient psychiatry evaluation for neurosyphilis induced psychosis - f/u as outpatient for management of treatment of hepatitis c infection - discussed with department of public health , patient has no prior history of syphilis treatment , continue ceftriaxone 2 grams q 12 as a acceptable treatment course for syphilis and pneumonia for 14 days at - continue doxycycline for possible atypical pneumonia - unlikely to high high VDRL level given low RPR titers in the blood - recommend piccline placement due to 14 days of ceftriaxone followed by 1 dose of IM penicillin 2.4 million international units 1 week after ceftriaxone has completed to treat for latent syphilis \-- No need for isolation precautions at this time, given negative workup for bacterial meningitis \-- Monitor mental status, WBC, and cultures; continue hemodialysis as scheduled \-- Contact Department of Public Health to clarify syphilis treatment history and refine ongoing treatment plan Isolation Precautions: None indicated at this time Plan discussed with: Other Dietary Evaluation Review Comments: 1) CCHO 60 + renal standard 2) Refer [employer] for diabetes education Expected Outcomes/Goals: To meet >75% estimated needs Fu 3-5 days SASHA LEIJA MD Jun 18, 2025 16:08
--- NOTE | 2025-06-18 16:08 | DVHPN2 ---
Consult Progress Note Date Seen: Jun 15, 2025 Subjective Patient reports: Other (tolerating ceftriaxone therapy and able to get IP pushed without refusing or uncooperating . patient continues to have agitation ) Objective vital signs Vital Sign Date Time Temp Pulse Resp B/P (MAP) Pulse Ox O2 Delivery O2 Flow Rate FiO2 06/17/25 17:13 98.5 87 20 98 06/17/25 16:31 120/70 (87) 06/17/25 07:40 Room Air* 0 21 Total Intake and Output 06/17/25 06/17/25 06/18/25 15:00 23:00 07:00 Intake Total 480 ml Balance 480 ml medications Current Medications Medications Dose Ordered Sig/Laly Route Start Time Stop Time Status Last Admin Dose Admin Vancomycin HCl 0 ml @ 0 mls/hr UD IV 06/05/25 10:45 Cancel Acyclovir Sodium 0 ml @ 0 mls/hr PER PHARMACY IV 06/10/25 12:00 Cancel Acyclovir Sodium 300 mg/Dextrose 56 ml @ 56 mls/hr DAILY@2200 IV 06/11/25 22:00 Cancel Physical Exam: General: NAD Neck: Supple. No masses. HEENT: PERRL. Normal lids and conjunctiva. Moist mucous membranes. Oropharynx without lesions, exudates or excessive erythema. Normal appearance of the external aspects of the nose and ears. Heart: Regular rhythm, normal rate. No murmur. No lower extremity edema. Lungs: Normal respiratory effort. Clear to auscultation bilaterally. No wheezes. No crackles. Abdomen: Soft. Non-tender. Non-distended. No masses or abdominal hernia. Msk: No digital cyanosis. Normal strength and tone in all 4 limbs Skin: Warm and dry, no rashes. Neuro: Alert. No facial droop or slurred speech. Extra-ocular movements intact. Sensation intact to soft touch in all 4 limbs. Psych: Appropriate mood. Full affect. Oriented to person, place, time, and situation. 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 female with a complex medical history significant for end- stage renal disease on hemodialysis, diabetes, hypertension, anemia, and hyperlipidemia, presenting with fever, nasal congestion, cough, malaise, and generalized weakness for the past few days. Patient was noted to be confused and described as a poor historian, with more incoherence than acute delirium. Evaluation in the ED revealed leukocytosis (WBC 11.6), Hgb 10.7, platelet 223, BUN 34, creatinine 4.6. Lactic acid was 1.4. She has a left IJ permanent catheter for dialysis, which appears clean, dry, intact, and she has not missed recent dialysis sessions. There is no lower extremity swelling. Chest imaging demonstrated bilateral patchy airspace disease consistent with pneumonia. There was initial concern for meningitis in the context of altered mental status and underlying end-stage renal disease. Lumbar puncture performed on 06/10 showed CSF WBC 0, protein 93.6, glucose 122. CSF cultures negative to date; VDRL and further CSF studies pending. Blood cultures have remained negative. Infectious workup revealed negative HIV, negative hepatitis B, but positive treponemal antibody with RPR titer 1:2 consistent with syphilis seropositivity. There is ongoing investigation to determine if this may reflect previously treated disease (serofast state), in which case active treatment for syphilis may not be required. The patient has received vancomycin and ceftriaxone during admission, with subsequent switch to penicillin for syphilis. She has prolonged QTc, so azithromycin should be avoided; doxycycline can be used instead if additional atypical coverage is needed. Overall, low suspicion for bacterial meningitis at this time. Respiratory status is stable on room air. 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 no definitive evidence of acute intra cranial process . unable to complete due to patients agitation 06/15:CSF finding are notable for elevated IGG and albumin which can be seen in multiple scherosis , neurosyphilis . negative for cryptococcus , HSV 1 and 2 . 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 - f/u as outpatient for management of treatment of hepatitis c infection - discussed with department of public health , patient has no prior history of syphilis treatment , continue ceftriaxone 2 grams q 12 as a acceptable treatment course for syphilis and pneumonia for 14 days at [facility] - continue doxycycline for possible atypical pneumonia - unlikely to high high VDRL level given low RPR titers in the blood - recommend piccline placement due to 14 days of ceftriaxone followed by 1 dose of IM penicillin 2.4 million international units 1 week after ceftriaxone has completed to treat for latent syphilis \-- No need for isolation precautions at this time, given negative workup for bacterial meningitis \-- Monitor mental status, WBC, and cultures; continue hemodialysis as scheduled \-- Contact Department of Public Health to clarify syphilis treatment history and refine ongoing treatment plan Isolation Precautions: None indicated at this time Plan discussed with: Other Dietary Evaluation Review Comments: 1) CCHO 60 + renal standard 2) Refer Family Consultant for diabetes education Expected Outcomes/Goals: To meet >75% estimated needs Fu 3-5 days SASHA LEIJA MD Jun 18, 2025 16:08
--- NOTE | 2025-06-19 19:57 | DVHPN2 ---
Consult Progress Note Date Seen: Jun 17, 2025 Subjective Patient reports: Other (2 days left of ceftriaxone therapy and accepted to SNF and is on route to be transferred . requires wheelchair for ambulation to void regualr movement agitation in the halls ) Objective vital signs Vital Sign Date Time Temp Pulse Resp B/P (MAP) Pulse Ox O2 Delivery O2 Flow Rate FiO2 06/17/25 17:13 98.5 87 20 98 06/17/25 16:31 120/70 (87) 06/17/25 07:40 Room Air* 0 21 medications Current Medications Medications Dose Ordered Sig/Laly Route Start Time Stop Time Status Last Admin Dose Admin Vancomycin HCl 0 ml @ 0 mls/hr UD IV 06/05/25 10:45 Cancel Acyclovir Sodium 0 ml @ 0 mls/hr PER PHARMACY IV 06/10/25 12:00 Cancel Acyclovir Sodium 300 mg/Dextrose 56 ml @ 56 mls/hr DAILY@2200 IV 06/11/25 22:00 Cancel Physical Exam: General: NAD Neck: Supple. No masses. HEENT: PERRL. Normal lids and conjunctiva. Moist mucous membranes. Oropharynx without lesions, exudates or excessive erythema. Normal appearance of the external aspects of the nose and ears. Heart: Regular rhythm, normal rate. No murmur. No lower extremity edema. Lungs: Normal respiratory effort. Clear to auscultation bilaterally. No wheezes. No crackles. Abdomen: Soft. Non-tender. Non-distended. No masses or abdominal hernia. Msk: No digital cyanosis. Normal strength and tone in all 4 limbs Skin: Warm and dry, no rashes. Neuro: Alert. No facial droop or slurred speech. Extra-ocular movements intact. Sensation intact to soft touch in all 4 limbs. Psych: Appropriate mood. Full affect. Oriented to person, place, time, and situation. laboratory and microbiology Laboratory Tests 06/16/25 07:11 06/12/25 07:19 Test 06/16/25 07:11 Range/Units Serum Glucose 72 L 74-106 mg/dL Problem List/Assessment/Plan Problems(with codes): (1) Pneumonia (2) Acute metabolic encephalopathy (3) Pneumonia, unspecified organism (4) Generalized weakness (5) Diabetes mellitus with hyperglycemia Problem List/Assessment/Plan ASSESSMENT AND PLAN: ID Problem List: \-- End-stage renal disease on hemodialysis (M/W/F) \-- Diabetes mellitus \-- Hypertension \-- Hyperlipidemia \-- Anemia \-- Pneumonia \-- Fever and confusion \-- Syphilis seropositivity Assessment This is a 60 y.o. female with a complex medical history significant for end- stage renal disease on hemodialysis, diabetes, hypertension, anemia, and hyperlipidemia, presenting with fever, nasal congestion, cough, malaise, and generalized weakness for the past few days. Patient was noted to be confused and described as a poor historian, with more incoherence than acute delirium. Evaluation in the ED revealed leukocytosis (WBC 11.6), Hgb 10.7, platelet 223, BUN 34, creatinine 4.6. Lactic acid was 1.4. She has a left IJ permanent catheter for dialysis, which appears clean, dry, intact, and she has not missed recent dialysis sessions. There is no lower extremity swelling. Chest imaging demonstrated bilateral patchy airspace disease consistent with pneumonia. There was initial concern for meningitis in the context of altered mental status and underlying end-stage renal disease. Lumbar puncture performed on 06/10 showed CSF WBC 0, protein 93.6, glucose 122. CSF cultures negative to date; VDRL and further CSF studies pending. Blood cultures have remained negative. Infectious workup revealed negative HIV, negative hepatitis B, but positive treponemal antibody with RPR titer 1:2 consistent with syphilis seropositivity. There is ongoing investigation to determine if this may reflect previously treated disease (serofast state), in which case active treatment for syphilis may not be required. The patient has received vancomycin and ceftriaxone during admission, with subsequent switch to penicillin for syphilis. She has prolonged QTc, so azithromycin should be avoided; doxycycline can be used instead if additional atypical coverage is needed. Overall, low suspicion for bacterial meningitis at this time. Respiratory status is stable on room air. 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 no definitive evidence of acute intra cranial process . unable to complete due to patients agitation 06/15:CSF finding are notable for elevated IGG and albumin which can be seen in multiple sclerosis , neurosyphilis . negative for cryptococcus , HSV 1 and 2 . acid fast mirror of CSF was not processed due to poor specimen as well as fungal CSF was not done 06/16: AnO x 1 , uncooperative and does not answer question . 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 - continue doxycycline for possible atypical pneumonia - unlikely to high high VDRL level given low RPR titers in the blood - recommend piccline placement due to 14 days of ceftriaxone followed by 1 dose of IM penicillin 2.4 million international units 1 week after ceftriaxone has completed to treat for latent syphilis \-- No need for isolation precautions at this time, given negative workup for bacterial meningitis \-- Monitor mental status, WBC, and cultures; continue hemodialysis as scheduled \-- Contact Department of Public Health to clarify syphilis treatment history and refine ongoing treatment plan Isolation Precautions: None indicated at this time Plan discussed with: Other Dietary Evaluation Review Comments: 1) CCHO 60 + renal standard 2) Refer Order Checker for diabetes education Expected Outcomes/Goals: To meet >75% estimated needs Fu 3-5 days SASHA LEIJA MD Jun 19, 2025 19:57
== END 2025-06-17 19:59 | DRG 56 ==
LOC: ER 12:27 → EDBD 12:27 → OVERFLOW 17:05 → TELE-WESTW 23:55 → WEST WING 06-10 23:50 → TELE-WESTW 06-12 21:57 → WEST WING 06-13 06:25 → TELE-WESTW 06-16 02:27
PROVIDERS: ADMIT Student in an Organized Health Care Education/Training Program; ATTEND Student in an Organized Health Care Education/Training Program
PROC: 5A1D70Z Performance of Urinary Filtration, Intermittent, Less than 6 Hours Per Day (ICD-10-PCS; 2025-06-06)
PROC: 009U3ZX Drainage of Spinal Canal, Percutaneous Approach, Diagnostic (ICD-10-PCS; principal; 2025-06-10)
PROC: B01B1ZZ Fluoroscopy of Spinal Cord using Low Osmolar Contrast (ICD-10-PCS; 2025-06-10)
PROC: 5A1D70Z Performance of Urinary Filtration, Intermittent, Less than 6 Hours Per Day (ICD-10-PCS; 2025-06-10)
PROC: 5A1D70Z Performance of Urinary Filtration, Intermittent, Less than 6 Hours Per Day (ICD-10-PCS; 2025-06-12)
PROC: 05HF33Z Insertion of Infusion Device into Left Cephalic Vein, Percutaneous Approach (ICD-10-PCS; 2025-06-12)
PROC: B54NZZA Ultrasonography of Left Upper Extremity Veins, Guidance (ICD-10-PCS; 2025-06-12)
PROC: 5A1D70Z Performance of Urinary Filtration, Intermittent, Less than 6 Hours Per Day (ICD-10-PCS; 2025-06-15)
PROC: 5A1D70Z Performance of Urinary Filtration, Intermittent, Less than 6 Hours Per Day (ICD-10-PCS; 2025-06-17)
DX: A52.3 Neurosyphilis, unspecified (principal); G92.8 Other toxic encephalopathy; J15.69 Pneumonia due to other Gram-negative bacteria; N18.6 End stage renal disease; J15.9 Unspecified bacterial pneumonia; N39.0 Urinary tract infection, site not specified; I12.0 Hypertensive chronic kidney disease with stage 5 chronic kidney disease or end stage renal disease; E87.4 Mixed disorder of acid-base balance; F05 Delirium due to known physiological condition; E11.65 Type 2 diabetes mellitus with hyperglycemia; E11.22 Type 2 diabetes mellitus with diabetic chronic kidney disease; E78.5 Hyperlipidemia, unspecified; E11.42 Type 2 diabetes mellitus with diabetic polyneuropathy; D64.9 Anemia, unspecified; F17.200 Nicotine dependence, unspecified, uncomplicated; Z79.4 Long term (current) use of insulin; Z79.82 Long term (current) use of aspirin; Z79.899 Other long term (current) drug therapy; Z83.3 Family history of diabetes mellitus; Z82.49 Family history of ischemic heart disease and other diseases of the circulatory system; Z99.2 Dependence on renal dialysis
CPT/HCPCS: 36415; 36600; 62272; 70450; 70551; 71045; 80048; 80053; 80074; 80202; 80307; 81001; 82042; 82140; 82565; 82784; 82805; 82945; 82962; 83605; 84157; 84443; 84484; 85025; 85610; 86592; 86593; 86703; 86780; 87040; 87070; 87205; 87340; 87529; 87899; 89051; 90935; 93005; 95819; 96365; 96375; 97110; 97116; 97163; 97530; 99152; 99291; G0378; J0692; J1642; J1815; J2405; J3490; J7060

== ENCOUNTER 2025-08-29 17:12 | Inpatient (IN) | payer MEDICARE, MEDICAID ==
[~2025-08-29] VITALS: Ht 160 cm; Wt 60.1 kg
[~2025-08-29 17:12] MED LIST changes: -ADENOSINE 57 MG in GIVE UN-DILUTED 0 ML IV ONE; -ADENOSINE 90 MG/30 ML INJ IV ONE; +ASPI-543 PO; +ATOR20TA50 PO; +CLON0.1T PO; +FERR325T20 PO; +FURO40TA4 PO; +INSLISPI SC; +INSUINJ37 SC; +METO-158 PO
--- NOTE | 2025-08-29 18:51 | ED.PDOC ---
History of Present Illness HPI Comments 60-year-old female came to ER via EMS for generalized weakness. Patient does have history of hypertension, diabetes, anemia, end-stage renal disease, on dialysis every Sunday. Patient resides at [facility]. She was unable to attend her dialysis session earlier today, so she was sent here by caregivers. She denies any subjective complaints such as chest pains or shortness of breath Chief Complaint: General Weakness Time Seen by MD: 18:51 Reviewed Notes: Nurses Notes Allergies: Coded Allergies: No Known Drug Allergy (Verified Allergy, Unknown, 08/13/24) Piperacillin (Verified Allergy, Unknown, 08/29/25) Tazobactam (Verified Allergy, Unknown, 08/29/25) Home Meds Reported Medications Clonidine Hydrochloride (Clonidine Hcl) 0.1 Mg Tab, 0.1 MG PO BID PRN for SBP>170or DBP>90 for 30 Days, MG 06/04/25 Insulin Lispro (Human) (Humalog) 100 Unit/Ml Inj, 10 UNIT SC TID, INJ 06/04/25 Insulin Glargine (Lantus Solostar) 100 Unit/Ml Inj, 25 UNIT SC HS, INJ 06/04/25 Furosemide (Furosemide) 40 Mg Tab, 40 MG PO DAILY for 30 Days 06/04/25 Ferrous Sulfate (Ferosul) 325 Mg Tab, 325 MG PO DAILY, TAB 06/04/25 Atorvastatin Calcium (ATORVASTATIN CALCIUM) 20 Mg Tab, 1 TAB PO DAILY, #30 TAB 5 Refills 06/04/25 Aspirin (Aspir-Low) 81 Mg Tab, 81 MG PO DAILY for 30 Days, MG 06/04/25 Metoprolol Tartrate (Metoprolol Tartrate) 50 Mg Tab, 50 MG PO BID for 30 Days, MG 06/04/25 Information Source: Emergency Med Personnel Mode of Arrival: EMS Severity: Moderate Timing: Hours Past Medical History PAST MEDICAL HISTORY: Anemia, DM, ESRD, HTN Surgical History: Denies all surgeries Surgical History (Other): Dialysis every Sunday [employer]ED [employer]T SANDER History: Denies all SPE[employer]ER Hx Family History Family History: Reviewed,noncontributory to illness Social History Smoker: Non-Smoker Alcohol: Denies ETOH Use Drugs: Denies Drug Use Lives In: Long-Term Constitutional: reports: weakness; denies: chills, diaphoresis, fatigue, fever, malaise, sweats, others EENTM: denies: blurred vision, double vision, ear bleeding, ear discharge, ear drainage, ear pain, ear ringing, eye pain, eye redness, hearing loss, mouth pain, mouth swelling, nasal discharge, nose bleeding, nose congestion, nose pain, photophobia, tearing, throat pain, throat swelling, voice changes, others Respiratory: denies: cough, hemoptysis, orthopnea, SOB at rest, shortness of breath, SOB with excertion, stridor, wheezing, others Cardiovascular: denies: chest pain, dizzy spells, diaphoresis, Dyspnea on exertion, edema, irregular heart beat, left arm pain, lightheadedness, palpitations, PND, syncope, others Gastrointestinal: denies: abdomen distended, abdominal pain, blood streaked bowels, constipated, diarrhea, dysphagia, difficulty swallowing, hematemesis, melena, nausea, poor appetite, poor fluid intake, rectal bleeding, rectal pain, vomiting, others Genitourinary: denies: abnormal vagina bleeding, burning, dyspareunia, dysuria, flank pain, frequency, hematuria, incontinence, pain, , vagina discharge, urgency, others Neurological: denies: dizziness, fainting, headache, left sided numbness, left sided weakness, numbness, paresthesia, pre-existing deficit, right sided numbness, right sided weakness, seizure, speech problems, tingling, tremors, weakness, others Musculoskeletal: denies: back pain, gout, joint pain, joint swelling, muscle pain, muscle stiffness, neck pain, others Integumetry: denies: bruises, change in color, change in hair/nails, dryness, laceration, lesions, lumps, rash, wounds, others Allergic/Immunocompromised: denies: Difficulty Healing, Frequent Infections, Hives, Itching, others Hematologic/Lymphatic: denies: anemia, blood clots, easy bleeding, easy bruising, swollen glands, others Endocrine: denies: excessive hunger, excessive sweating, excessive thirst, excessive urination, flushing, intolerance to cold, intolerance to heat, unexplained weight gain, unexplained weight loss, others Psychiatric: denies: anxiety, bipolar disorder, depression, hopeless, panic disorder, schizophrenia, sleepless, suicidal, others Physical Exam General Appearance: No Apparent Distress, Normal HEENT: Normal ENT Inspection, Pharynx Normal, TMs Normal Neck: Full Range of Motion, Non-Tender, Normal, Normal Inspection Respiratory: Chest Non-Tender, Lungs Clear, No Accessory Muscle Use, No Respiratory Distress, Normal Breath Sounds Cardiovascular: No Edema, No JVD, No Murmur, No Gallop, Normal Peripheral Pulses, Regular Rate/Rhythm Breast Exam: Deferred Gastrointestinal: No Organomegaly, Non Tender, No Pulsatile Mass, Normal Bowel Sounds, Soft Genitalia: Deferred Pelvic: Deferred Rectal: Deferred Extremities: No calf tenderness, Normal capillary refill, Normal inspection, Normal range of motion, Non-tender, No pedal edema Musculoskeletal : Apperance: Normal Neurologic: Alert, machine chain maker II-XII nml as Tested, No Motor Deficits, Normal Affect, Normal Mood, No Sensory Deficits Cerebellar Function: Normal Reflexes: Normal Skin: Dry, Normal Color, Warm Lymphatic: No Adenopathy Was a procedure done? Was a procedure done?: No Differential Dx Considerations may include: Anemia, electrolyte imbalance, end-stage renal disease, non compliance X-Ray, Labs, Meds, VS Vital Signs Date Time Temp Pulse Resp B/P (MAP) Pulse Ox O2 Delivery O2 Flow Rate FiO2 08/29/25 19:45 103 18 93 Room Air* 0 21 08/29/25 19:36 99.0 103 20 153/91 (111) 93 99.0 08/29/25 17:12 97.7 92 18 140/78 94 97.7 Lab Test 08/29/25 19:02 Range/Units White Blood Count 6.2 4.4-10.8 10^3/uL Red Blood Count 3.46 L 4.0-5.20 10^6/uL Hemoglobin 10.2 L 12.2-16.2 g/dL Hematocrit 31.3 L 36.0-46.0 % Mean Corpuscular Volume 90.6 80.0-100.0 fL Mean Corpuscular Hemoglobin 29.5 28.0-32.0 pg Mean Corpuscular Hemoglobin Concent 32.5 32.0-36.0 g/dL Red Cell Distribution Width 16.9 H 11.8-14.3 % Platelet Count 261 140-450 10^3/uL Mean Platelet Volume 7.0 6.9-10.8 fL Neutrophils (%) (Auto) 64.0 37.0-80.0 % Lymphocytes (%) (Auto) 22.8 10.0-50.0 % Monocytes (%) (Auto) 8.4 0.0-12.0 % Eosinophils (%) (Auto) 4.1 0.0-7.0 % Basophils (%) (Auto) 0.7 0.0-2.0 % Neutrophils # (Auto) 4.0 1.6-8.6 10 ^3/uL Lymphocytes # (Auto) 1.4 0.4-5.4 10 ^3/uL Monocytes # (Auto) 0.5 0-1.3 10 ^3/uL Eosinophils # (Auto) 0.3 0-0.8 10 ^3/uL Basophils # (Auto) 0 0-0.2 10 ^3/uL Nucleated Red Blood Cells 0.1 % Sodium Level 144 136-145 mmol/L Potassium Level 5.4 H 3.5-5.1 mmol/L Chloride Level 105 98-107 mmol/L Carbon Dioxide Level 28 20-31 mmol/L Anion Gap 11 5-15 Blood Urea Nitrogen 41 H 9-23 mg/dL Creatinine 7.13 H 0.550-1.02 mg/dL Glomerular Filtration Rate Calc 6 >90 mL/min BUN/Creatinine Ratio 5.8 L 10.0-20.0 Serum Glucose 245 H 74-106 mg/dL Calcium Level 8.4 L 8.7-10.4 mg/dL Phosphorus Level 5.5 H 2.4-5.1 mg/dL Magnesium Level 2.4 1.6-2.6 mg/dL Time of 1ST Reevaluation: 18:48 Reevaluation 1ST: Unchanged Patient Education/Counseling: Diagnosis, Treatment Family Education/Counseling: No Family Present SEPSIS Sepsis Screen Date sepsis recognized/suspect: Aug 29, 2025 Time Sepsis recognized/suspect: 1705 Recent Procedure: No On Antibiotic Therapy: No Respiratory Rate >20: No Heart Rate >90: Yes Temp<36 C (96.8 F) or >38.3 C: No SBP <90 or MAP <65 mmHG: No New Acute Mental Status Change: No Is the patient on CPAP, BIPAP,: No Physician Orders Chest Portable (08/29/25 18:31) Electrocardigram (08/29/25 18:31) Vital Signs Date Time Temp Pulse Resp B/P (MAP) Pulse Ox O2 Delivery O2 Flow Rate FiO2 08/29/25 19:45 103 18 93 Room Air* 0 21 08/29/25 19:36 99.0 103 20 153/91 (111) 93 99.0 08/29/25 17:12 97.7 92 18 140/78 94 97.7 Laboratory Tests Test 08/29/25 19:02 White Blood Count 6.2 10^3/uL (4.4-10.8) Departure 1 Departure Time of Disposition: 22:37 (Patient with a worsening shortness of breath and generalized weakness. This likely said he missed dialysis. We will admit the patient for dialysis and further workup.) Impression: Primary Impression: Shortness of breath Additional Impressions: Missed dialysis ESRD (end stage renal disease) Disposition: ADMITTED INPATIENT Admit to: Med Surg Condition: Serious Critical Care Note Critical Care Time?: No Stability Stability form required: No Heart Score Heart Score: Heart Score Response (Comments) Value History N/A 0 EKG N/A 0 Age N/A 0 Risk Factors N/A 0 Troponin N/A 0 Total 0 I personally scribed for MATTY GARDUNO MD ([email or web address]) on 08/29/25 at 18:51. Electronically submitted by Crispin Bean ([email or web address]). MATTY GARDUNO MD Aug 29, 2025 18:51
[2025-08-29 19:38] LABS: Hematocrit 31.3 % (36.0-46.0); Hemoglobin 10.2 g/dL (12.2-16.2); Mean Corpuscular Hemoglobin 29.5 pg (28.0-32.0); Mean Corpuscular Volume 90.6 fL (80.0-100.0); Nucleated Red Blood Cells % 0.1 %
[2025-08-29 19:44] LABS: Chloride 105 mmol/L (98-107); Sodium 144 mmol/L (136-145)
[2025-08-29 19:45] VITALS: PULSE 103; RESP 18; O2SAT 93
[2025-08-29 19:45] LABS: Anion Gap 11 (5-15); Carbon Dioxide 28 mmol/L (20-31)
[2025-08-29 19:50] LABS: BUN/Creatinine Ratio 5.8 (10.0-20.0)
[2025-08-29 19:51] LABS: Magnesium 2.4 mg/dL (1.6-2.6)
[2025-08-29 19:55] LABS: Blood Urea Nitrogen 41 mg/dL (9-23); Calcium 8.4 mg/dL (8.7-10.4); Glucose 245 mg/dL (74-106); Potassium 5.4 mmol/L (3.5-5.1)
--- NOTE | 2025-08-29 22:52 | DVH ---
CHEST RADIOGRAPH Indication: weakness Technique: Single frontal view of the chest was obtained COMPARISON: XY CHEST PORTABLE on DOS: 06/03/25, XR CHEST 1 VIEW on DOS: 08/11/24 FINDINGS: Lines and Tubes: None Lungs: Moderate diffuse increased prominence of the pulmonary vasculature without evidence of focal c onsolidation. Pleura: No effusion. No pneumothorax. Cardiomediastinal contours: Cardiomegaly. Bones: Unremarkable IMPRESSION: 1. Cardiomegaly with moderate pulmonary vascular congestion.
[2025-08-29] MEDS ORDERED: MORPHINE SULFATE INJ 2 MG/ml SYRG IV PRN (23:00)
[2025-08-29] MEDS ORDERED: DEXTROSE (50%) 50ML SYRG IV PRN (23:00)
[2025-08-29] MEDS ORDERED: DOCUSATE SOD 100 MG CAP PO PRN (23:00)
[2025-08-29] MEDS ORDERED: HYDROcodone-ACET 5/325MG TAB PO PRN (23:00)
[2025-08-29] MEDS ORDERED: ONDANSETRON HCL 4 MG/2 ML VIAL IV PRN (23:00)
[2025-08-29] MEDS ORDERED: ACETAMINOPHEN 325 MG TAB PO PRN (23:00)
[2025-08-29] MEDS ORDERED: NITROGLYCERIN 0.4 MG SL TAB SL PRN (23:00)
--- NOTE | 2025-08-29 23:01 | DVHHP2 ---
History of Present Illness Reason for Visit: Generalized weakness History of Present Illness The patient is a 60-year-old female with past medical history of anemia, diabetes mellitus, end-stage renal disease on hemodialysis, and hypertension who presented to [facility] ED with complaint of generalized weakness. Patient resides at [facility]. She was unable to attend her dialysis session earlier today due to generalized weakness associated with shortness of breaths, so she was sent here by caregivers. Patient was seen and evaluated in the ED, laboratory data shows WBC 6.2, hemoglobin 10.2, hematocrit 31.3, platelets 261, sodium 144, potassium 5.4, BUN 41, creatinine 7.13, glucose 245, calcium 8.4, magnesium 2.4, phosphorus 5.5, blood pressure 153/91, heart rate 103, temperature 99.0 F, O2 saturation 93% on oxygen. Chest x-ray revealing cardiomegaly with moderate pulmonary vascular congestion. Please see medication orders section in the computer. On my assessment, patient denied chest pain, no dizziness, headache, diaphoresis, currently on oxygen, no diar nichole, nausea, vomiting, fever, chills. Patient was admitted for further evaluation and medical management. Past Medical History Anemia, DM, ESRD, HTN Past Surgical History PermCath for dialysis Dialysis every Sunday Family History Reviewed, noncontributory to the management of this case. Past Social History The patient lives at intermediate, denies smoking, alcohol or illicit drugs abuse. Review of Systems Constitutional: Yes: Weakness; No: Fever, Chills, Sweats, Malaise, Other Eyes: No: Pain, Vision change, Conjunctivae inflammation, Eyelid inflammation, Other, Redness ENT: No: Ear pain, Ear discharge, Nose pain, Nose discharge, Nose congestion, Mouth pain, Mouth swelling, Throat pain, Throat swelling, Other Respiratory: Shortness of breath, Other (SOB at rest); No: Cough, Dry, SOB with excertion, Wheezing, Hemoptysis, Pleuritic Pain, Sputum, Wheezing Cardiovascular: No: Chest Pain, Palpitations, Orthopnea, Paroxysmal Noc. Dyspnea, Edema, Lt Headedness, Other Gastrointestinal: No: Nausea, Vomiting, Abdominal Pain, Diarrhea, Constipation, Melena, Hematochezia, Other Genitourinary: No Dysuria, No Frequency, No Incontinence, No Hematuria, No Retention; Other (PermCath for hemodialysis) Musculoskeletal: No: other, neck pain, shoulder pain, arm pain, back pain, hand pain, leg pain, foot pain Skin: No: Rash, Lesions, Jaundice, Bruising, Other Neurological: No: Weakness, Numbness, Incoordination, Change in speech, Confusion, Seizures, Other Allergies: Coded Allergies: No Known Drug Allergy (Verified Allergy, Unknown, 08/13/24) Piperacillin (Verified Allergy, Unknown, 08/29/25) Tazobactam (Verified Allergy, Unknown, 08/29/25) Exam Vital Signs Vital Signs Date Time Temp Pulse Resp B/P (MAP) Pulse Ox O2 Delivery O2 Flow Rate FiO2 08/29/25 19:45 103 18 93 Room Air* 0 21 08/29/25 19:36 99.0 153/91 (111) 99.0 General Appearance: Alert, Oriented X3, Cooperative, No acute distress HEENT: Atraumatic, PERRLA, EOMI, Mucous membr. moist/pink Respiratory: Normal air movement, Other (Diminished breath sounds) Cardiovascular: Regular rate, Normal S1, Normal S2, No murmurs Abdominal: Normal bowel sounds, Soft, No tenderness, No hepatospenomegaly, No masses Extremities: No clubbing, No cyanosis, No edema, Normal pulses, No tenderness/swelling Skin: No rashes, No breakdown, No significant lesion Neuro: Normal speech, Normal tone, Sensation intact, Cranial nerves 3-12 NL, Reflexes 2+, Other (Generalized weakness) Psych/Mental Status: Mental status NL, Mood NL Labs/Xrays Labs Test 08/29/25 19:02 Range/Units White Blood Count 6.2 4.4-10.8 10^3/uL Red Blood Count 3.46 L 4.0-5.20 10^6/uL Hemoglobin 10.2 L 12.2-16.2 g/dL Hematocrit 31.3 L 36.0-46.0 % Mean Corpuscular Volume 90.6 80.0-100.0 fL Mean Corpuscular Hemoglobin 29.5 28.0-32.0 pg Mean Corpuscular Hemoglobin Concent 32.5 32.0-36.0 g/dL Red Cell Distribution Width 16.9 H 11.8-14.3 % Platelet Count 261 140-450 10^3/uL Mean Platelet Volume 7.0 6.9-10.8 fL Neutrophils (%) (Auto) 64.0 37.0-80.0 % Lymphocytes (%) (Auto) 22.8 10.0-50.0 % Monocytes (%) (Auto) 8.4 0.0-12.0 % Eosinophils (%) (Auto) 4.1 0.0-7.0 % Basophils (%) (Auto) 0.7 0.0-2.0 % Neutrophils # (Auto) 4.0 1.6-8.6 10 ^3/uL Lymphocytes # (Auto) 1.4 0.4-5.4 10 ^3/uL Monocytes # (Auto) 0.5 0-1.3 10 ^3/uL Eosinophils # (Auto) 0.3 0-0.8 10 ^3/uL Basophils # (Auto) 0 0-0.2 10 ^3/uL Nucleated Red Blood Cells 0.1 % Sodium Level 144 136-145 mmol/L Potassium Level 5.4 H 3.5-5.1 mmol/L Chloride Level 105 98-107 mmol/L Carbon Dioxide Level 28 20-31 mmol/L Anion Gap 11 5-15 Blood Urea Nitrogen 41 H 9-23 mg/dL Creatinine 7.13 H 0.550-1.02 mg/dL Glomerular Filtration Rate Calc 6 >90 mL/min BUN/Creatinine Ratio 5.8 L 10.0-20.0 Serum Glucose 245 H 74-106 mg/dL Calcium Level 8.4 L 8.7-10.4 mg/dL Phosphorus Level 5.5 H 2.4-5.1 mg/dL Magnesium Level 2.4 1.6-2.6 mg/dL PATIENT: ADRYAN LACY ACCT: [id number] UNIT: [id number] : 1965 LOC: ER ROOM / BED: / AGE / SEX: 60 / F ADM STATUS: REG ER SERVICE 30 ORDERING PHYSICIAN: MATTY GARDUNO MD PROCEDURE(s): CXRP - CHEST PORTABLE REASON: weakness ORDER NUMBER(s): [id number], ACCESSION NUMBER(s): [id number] CHEST RADIOGRAPH Indication: weakness Technique: Single frontal view of the chest was obtained COMPARISON: XY CHEST PORTABLE on DOS: 06/03/25, XR CHEST 1 VIEW on DOS: 08/11/24 FINDINGS: Lines and Tubes: None Lungs: Moderate diffuse increased prominence of the pulmonary vasculature without evidence of focal consolidation. Pleura: No effusion. No pneumothorax. Cardiomediastinal contours: Cardiomegaly. Bones: Unremarkable IMPRESSION: 1. Cardiomegaly with moderate pulmonary vascular congestion. SEPSIS Sepsis Screen Date sepsis recognized/suspect: Aug 29, 2025 Time Sepsis recognized/suspect: 1944 Recent Procedure: No On Antibiotic Therapy: No Respiratory Rate >20: No Heart Rate >90: Yes Temp<36 C (96.8 F) or >38.3 C: No SBP <90 or MAP <65 mmHG: No New Acute Mental Status Change: No Is the patient on CPAP, BIPAP,: No Physician Orders Chest Portable (08/29/25 18:31) Electrocardigram (08/29/25 18:31) Aspirin Tablet (08/30/25 10:00) Atorvastatin (Lipitor) (08/30/25 22:00) B-Complex W/ C & Folic Tablet (Nephro-Vi (08/30/25 10:00) Sevelamer (Renagel) (08/30/25 08:00) *Dr. Minda Calvo -Da Milena (08/29/25 22:49) Consistent Carb(Ccho)Diabetes (08/30/25 Breakfast) Glucose Blood (Accu-Chek Comfort Curve T (08/30/25 00:00) Moderate Insulin Ss (08/30/25 00:00) Dextrose 50% Syringe (08/29/25 23:00) Admit (08/29/25 22:49) Allergies (08/29/25 22:49) Code Status (08/29/25 22:49) Renal Standard(2gna,3gk,Lopho) (08/30/25 Breakfast) Sodium Chloride Lock (Saline Lock Ns) (08/30/25 06:00) Oxygen Per Hour (08/29/25 22:49) Hydrocodone-Acet 5/325mg Tab ([place] 5/32 (08/29/25 23:00) Ondansetron Hcl (Zofran) (08/29/25 23:00) Docusate Sodium Capsule (Colace Capsule) (08/29/25 23:00) Complete Blood Count (08/30/25 04:00) Comprehensive Metabolic Panel (08/30/25 04:00) Condition: Serious (08/29/25 22:49) Acetaminophen Tablet (Tylenol Tablet) (08/29/25 23:00) Bedrest With Bathroom Privileg (08/29/25 22:49) Sequential Compression Device (08/29/25 ) Nitroglycerin Sublingual (Ntrostat Subli (08/29/25 23:00) Morphine Sulfate Injection (08/29/25 23:00) Vital Signs Date Time Temp Pulse Resp B/P (MAP) Pulse Ox O2 Delivery O2 Flow Rate FiO2 08/29/25 19:45 103 18 93 Room Air* 0 21 08/29/25 19:36 99.0 103 20 153/91 (111) 93 99.0 08/29/25 17:12 97.7 92 18 140/78 94 97.7 Laboratory Tests Test 08/29/25 19:02 White Blood Count 6.2 10^3/uL (4.4-10.8) Assessment/Plan Assessment/Plan Acute respiratory distress Missed dialysis Generalized weakness ESRD (end stage renal disease) Diabetes mellitus with hyperglycemia Plan 1. Admit to telemetry unit 2. Breathing treatment 3. Pain control management 4. Management of fluids and electrolytes 5. Consultation for Nephrology 6. Diagnostic tests chest x-ray 7. DVT prophylaxis -on aspirin 8. Repeat labs CBC, CMP in a.m. 9. Continue with current medical management 10. Treatment plan discussed with patient and RN. Patient verbalized understanding. Plan discussed with: Patient, Other (RN) My Orders Orders - ALON GARDNER DNP Procedure Category Date Status Time Aspirin Tablet PHA 08/30/25 Verified 10:00 Atorvastatin (Lipitor) PHA 08/30/25 Verified 22:00 B-Complex W/ C & PHA 08/30/25 Verified Folic Tablet 10:00 Sevelamer (Renagel) PHA 08/30/25 Verified 08:00 *Dr. Minda Calvo -Da CONS 08/29/25 Verified Milena 22:49 Consistent DIET 08/30/25 Verified Carb(Ccho)Diabetes Breakfast Glucose Blood PHA 08/30/25 Verified (Accu-Chek Comfort 00:00 Moderate Insulin Ss PHA 08/30/25 Verified 00:00 Dextrose 50% Syringe PHA 08/29/25 Verified 23:00 Admit ADMIT 08/29/25 Verified 22:49 Allergies [facility] 08/29/25 Verified 22:49 Code Status CODE 08/29/25 Verified 22:49 Renal DIET 08/30/25 Verified Standard(2gna,3gk,Lopho) Breakfast Sodium Chloride Lock PHA 08/30/25 Verified (Saline Lock Ns) 06:00 Oxygen Per Hour RT 08/29/25 Verified 22:49 Hydrocodone-Acet PHA 08/29/25 Verified 5/325mg Tab ([place]eth[place] 23:00 Ondansetron Hcl PHA 08/29/25 Verified (Zofran) 23:00 Docusate Sodium [facility] 08/29/25 Verified Capsule (Colace 23:00 Complete Blood Count LAB 08/30/25 Verified 04:00 Comprehensive LAB 08/30/25 Verified Metabolic Panel 04:00 Condition: Serious [facility] 08/29/25 Verified 22:49 Acetaminophen Tablet [facility] 08/29/25 Verified (Tylenol Tablet) 23:00 Bedrest With Bathroom [facility] 08/29/25 Verified Privileg 22:49 Sequential [facility] 08/29/25 Verified Compression Device Nitroglycerin [facility] 08/29/25 Verified Sublingual (Ntrostat 23:00 Morphine Sulfate [facility] 08/29/25 Verified Injection 23:00 Problem List: (1) Acute respiratory distress (2) Missed dialysis (3) Generalized weakness (4) ESRD (end stage renal disease) (5) Diabetes mellitus with hyperglycemia Date of Service: Aug 29, 2025 Billing Provider: ALON GARDNER DNP Common Visit Codes: [id number] INP/OBS CARE (HIGH) ALON GARDNER DNP Aug 29, 2025 23:01
[2025-08-30] MEDS: ACCU-CHEK COMFORT CURVE STRIP VI SCH
--- NOTE | 2025-08-30 00:30 | DVH ---
INDICATION: WEAKNESS TECHNIQUE: Frontal view of the chest. COMPARISON: XY CHEST PORTABLE on DOS: 08/29/25, XY CHEST PORTABLE on DOS: 06/03/25, XR CHEST 1 VIEW on DOS: 08/11/24 FINDINGS: Left tunneled HD catheter with tip in Right atrium . The heart and mediastinal contours are grossly u nremarkable. There is no evidence of pleural disease. The lungs are clear. The bony structures of the chest are intact without fracture. IMPRESSION: 1. No evidence of acute disease.
[2025-08-30] MEDS: InsuLIN REG 1unit/0.01ml Soln (100units/ml) SC SCH (02:09)
[2025-08-30 02:50] VITALS: BP 208/98; PULSE 91; RESP 17; TEMP 98; O2SAT 96
[2025-08-30 05:09] VITALS: BP 157/83; PULSE 83; RESP 18; O2SAT 95
[2025-08-30 06:07] LABS: Hematocrit 30.5 % (36.0-46.0); Hemoglobin 9.9 g/dL (12.2-16.2); Mean Corpuscular Hemoglobin 29.4 pg (28.0-32.0); Mean Corpuscular Volume 91.1 fL (80.0-100.0); Nucleated Red Blood Cells % 0.3 %
[2025-08-30] MEDS: SODIUM CHLOR 0.9% PF (SALINE LOCK) 10ML VIAL/SYR IV SCH (06:19)
[2025-08-30 06:28] LABS: Alanine Aminotransferase 12 U/L (7-40); Albumin 3.3 g/dL (3.2-4.8); Alkaline Phosphatase 66 U/L (46-116); Anion Gap 13 (5-15); BUN/Creatinine Ratio 4.6 (10.0-20.0); Carbon Dioxide 26 mmol/L (20-31); Chloride 106 mmol/L (98-107); Potassium 5.0 mmol/L (3.5-5.1); Total Protein 6.1 g/dL (5.7-8.2)
[2025-08-30 06:53] LABS: Bilirubin, Total 0.2 mg/dL (0.2-1.0); Blood Urea Nitrogen 36 mg/dL (9-23); Calcium 8.4 mg/dL (8.7-10.4); Glucose 237 mg/dL (74-106); Sodium 145 mmol/L (136-145)
[2025-08-30] MEDS: B-COMPLEX W/ C & FOLIC ACID(NEPHROVITE TAB) PO SCH (08:20)
[2025-08-30] MEDS: SEVELAMER 800 MG TAB PO SCH (08:20)
[2025-08-30] MEDS: METOPROLOL TARTRATE 50 MG TAB PO SCH (08:21)
[2025-08-30 08:57] VITALS: BP 158/89; PULSE 82; PULSE 83; RESP 18; TEMP 98.2; O2SAT 96
--- NOTE | 2025-08-30 10:06 | DVHINCON2 ---
Date of service: Aug 30, 2025 Referring Physician Gavin Pulido, nurse practitioner Reason for Consultation End-stage renal disease to manage hemodialysis History of Present Illness Patient is 60-year-old female with past medical history significant for end- stage renal disease on hemodialysis every Sunday and Sunday, hypotension, diabetes mellitus, and dementia is admitted after was brought in by her caregiver because patient missed hemodialysis and have elevated blood pressure. Patient is a very poor historian, history obtained from medical records and daughter. On admission Nephrology is consulted to manage her hemodialysis Past Medical History End-stage renal disease on hemodialysis, Diabetes mellitus, hypertension, hyperlipidemia, dementia Past Surgical History Left IJ tunneled hemodialysis catheter Allergies: Coded Allergies: No Known Drug Allergy (Verified Allergy, Unknown, 08/13/24) Piperacillin (Verified Allergy, Unknown, 08/29/25) Tazobactam (Verified Allergy, Unknown, 08/29/25) Home Meds Reported Medications Clonidine Hydrochloride (Clonidine Hcl) 0.1 Mg Tab, 0.1 MG PO BID PRN for SBP>170or DBP>90 for 30 Days, MG 06/04/25 Insulin Lispro (Human) (Humalog) 100 Unit/Ml Inj, 10 UNIT SC TID, INJ 06/04/25 Insulin Glargine (Lantus Solostar) 100 Unit/Ml Inj, 25 UNIT SC HS, INJ 06/04/25 Furosemide (Furosemide) 40 Mg Tab, 40 MG PO DAILY for 30 Days 06/04/25 Ferrous Sulfate (Ferosul) 325 Mg Tab, 325 MG PO DAILY, TAB 06/04/25 Atorvastatin Calcium (ATORVASTATIN CALCIUM) 20 Mg Tab, 1 TAB PO DAILY, #30 TAB 5 Refills 06/04/25 Aspirin (Aspir-Low) 81 Mg Tab, 81 MG PO DAILY for 30 Days, MG 06/04/25 Metoprolol Tartrate (Metoprolol Tartrate) 50 Mg Tab, 50 MG PO BID for 30 Days, MG 06/04/25 Current Medications Current Medications Medications (Trade) Dose Ordered Sig/Laly Route PRN Reason Start Time Stop Time Status Last Admin Aspirin 81 mg DAILY PO 08/30/25 10:00 08/30/25 08:20 Atorvastatin Calcium (Lipitor) 20 mg HS PO 08/30/25 22:00 Multivit/Ca Carb/ B Cmplx/FA/Prenat (Nephro-Sandra Tablet) 1 tab DAILY PO 08/30/25 10:00 08/30/25 08:20 Sevelamer HCl (Renagel) 800 mg TIDWM PO 08/30/25 08:00 08/30/25 08:20 Diagnostic Test (Pha) (Accu-Chek Comfort Curve T) 1 strip IQ4HR 08/30/25 00:00 08/30/25 08:20 Insulin Human Regular (InsuLIN R) IQ4HR SC 08/30/25 00:00 08/30/25 03:25 Dextrose 50 ml UD PRN IV Blood Sugar LESS THAN 60 08/29/25 23:00 Sodium Chloride (Saline Lock Ns) 10 ml Q8HR IV 08/30/25 06:00 08/30/25 06:19 Acetaminophen/ Hydrocodone Bitart ([place] 5/325MG Tab) 1 tab Q4HP PRN PO MODERATE PAIN (4-6 PAIN SCALE) 08/29/25 23:00 Ondansetron HCl (Zofran) 4 mg Q4HP PRN IV NAUSEA / VOMITING 08/29/25 23:00 Docusate Sodium (Colace Capsule) 100 mg BIDPRN PRN PO FOR CONSTIPATION 08/29/25 23:00 Acetaminophen (Tylenol Tablet) 650 mg Q6HP PRN PO PAIN SCALE 1-3 OR TEMP>100.4 08/29/25 23:00 Nitroglycerin (Ntrostat Sublingual) 0.4 mg Q5MINP PRN SL FOR CHEST PAIN 08/29/25 23:00 Morphine Sulfate 2 mg Q30M PRN IV FOR CHEST PAIN 08/29/25 23:00 Clonidine HCl (Catapres Tablet) 0.1 mg Q4HP PRN PO SBP>150 08/29/25 23:00 08/30/25 03:05 Metoprolol Tartrate (Lopressor Tablet) 50 mg BID PO 08/30/25 10:00 08/30/25 08:21 Family History: Diabetes mellitus Hypertension Review of Systems All 12 item review of systems reviewed with the patient nonsignificant except what is mentioned in the history of present illness H&P Exam Vital Signs/I&O Vital Sign Date Time Temp Pulse Resp B/P (MAP) Pulse Ox O2 Delivery O2 Flow Rate FiO2 08/30/25 08:58 82 158/89 08/30/25 08:57 98.2 18 96 98.2 08/29/25 19:45 Room Air* 0 21 Physical Exam Patient examined hemodialysis, blood pressure stable Patient lying comfortably in bed Lungs clear to auscultation bilaterally Cardiac exam regular rate and rhythm GI soft nontender normal Extremity 1+ edema Neuro patient is awake alert Labs/Diagnostic Data Labs/Diagnostic Data Laboratory Tests Test 08/30/25 08:13 08/30/25 04:50 08/30/25 03:13 08/30/25 02:02 Range/Units POC Glucose 69 L 234 H 260 H 70-106 mg/dl White Blood Count 6.0 4.4-10.8 10^3/uL Red Blood Count 3.36 L 4.0-5.20 10^6/uL Hemoglobin 9.9 L 12.2-16.2 g/dL Hematocrit 30.5 L 36.0-46.0 % Mean Corpuscular Volume 91.1 80.0-100.0 fL Mean Corpuscular Hemoglobin 29.4 28.0-32.0 pg Mean Corpuscular Hemoglobin Concent 32.3 32.0-36.0 g/dL Red Cell Distribution Width 17.1 H 11.8-14.3 % Platelet Count 236 140-450 10^3/uL Mean Platelet Volume 6.4 L 6.9-10.8 fL Neutrophils (%) (Auto) 69.4 37.0-80.0 % Lymphocytes (%) (Auto) 19.0 10.0-50.0 % Monocytes (%) (Auto) 7.3 0.0-12.0 % Eosinophils (%) (Auto) 3.7 0.0-7.0 % Basophils (%) (Auto) 0.6 0.0-2.0 % Neutrophils # (Auto) 4.2 1.6-8.6 10 ^3/uL Lymphocytes # (Auto) 1.1 0.4-5.4 10 ^3/uL Monocytes # (Auto) 0.4 0-1.3 10 ^3/uL Eosinophils # (Auto) 0.2 0-0.8 10 ^3/uL Basophils # (Auto) 0 0-0.2 10 ^3/uL Nucleated Red Blood Cells 0.3 % Sodium Level 145 136-145 mmol/L Potassium Level 5.0 3.5-5.1 mmol/L Chloride Level 106 98-107 mmol/L Carbon Dioxide Level 26 20-31 mmol/L Anion Gap 13 5-15 Blood Urea Nitrogen 36 H 9-23 mg/dL Creatinine 7.75 H 0.550-1.02 mg/dL Glomerular Filtration Rate Calc 5 >90 mL/min BUN/Creatinine Ratio 4.6 L 10.0-20.0 Serum Glucose 237 H 74-106 mg/dL Calcium Level 8.4 L 8.7-10.4 mg/dL Total Bilirubin 0.2 0.2-1.0 mg/dL Aspartate Amino Transferase (AST) 12 L 13-40 U/L Alanine Aminotransferase (ALT) 12 7-40 U/L Alkaline Phosphatase 66 46-116 U/L Total Protein 6.1 5.7-8.2 g/dL Albumin 3.3 3.2-4.8 g/dL Test 08/29/25 19:02 Range/Units White Blood Count 6.2 4.4-10.8 10^3/uL Red Blood Count 3.46 L 4.0-5.20 10^6/uL Hemoglobin 10.2 L 12.2-16.2 g/dL Hematocrit 31.3 L 36.0-46.0 % Mean Corpuscular Volume 90.6 80.0-100.0 fL Mean Corpuscular Hemoglobin 29.5 28.0-32.0 pg Mean Corpuscular Hemoglobin Concent 32.5 32.0-36.0 g/dL Red Cell Distribution Width 16.9 H 11.8-14.3 % Platelet Count 261 140-450 10^3/uL Mean Platelet Volume 7.0 6.9-10.8 fL Neutrophils (%) (Auto) 64.0 37.0-80.0 % Lymphocytes (%) (Auto) 22.8 10.0-50.0 % Monocytes (%) (Auto) 8.4 0.0-12.0 % Eosinophils (%) (Auto) 4.1 0.0-7.0 % Basophils (%) (Auto) 0.7 0.0-2.0 % Neutrophils # (Auto) 4.0 1.6-8.6 10 ^3/uL Lymphocytes # (Auto) 1.4 0.4-5.4 10 ^3/uL Monocytes # (Auto) 0.5 0-1.3 10 ^3/uL Eosinophils # (Auto) 0.3 0-0.8 10 ^3/uL Basophils # (Auto) 0 0-0.2 10 ^3/uL Nucleated Red Blood Cells 0.1 % Sodium Level 144 136-145 mmol/L Potassium Level 5.4 H 3.5-5.1 mmol/L Chloride Level 105 98-107 mmol/L Carbon Dioxide Level 28 20-31 mmol/L Anion Gap 11 5-15 Blood Urea Nitrogen 41 H 9-23 mg/dL Creatinine 7.13 H 0.550-1.02 mg/dL Glomerular Filtration Rate Calc 6 >90 mL/min BUN/Creatinine Ratio 5.8 L 10.0-20.0 Serum Glucose 245 H 74-106 mg/dL Calcium Level 8.4 L 8.7-10.4 mg/dL Phosphorus Level 5.5 H 2.4-5.1 mg/dL Magnesium Level 2.4 1.6-2.6 mg/dL Assessment End-stage renal disease missed hemodialysis Diabetes mellitus monitor of control Hypertensive urgency Hyperlipidemia Dementia Anemia of chronic kidney disease Recommendations Continue with UF 3 L as tolerated Epogen 65535 subQ 3 times weekly Renal diet Resume home medication Insulin sliding scale Blood Pressure control We will continue to follow Patient seen and examined by myself. I discussed my plan of care with the patient and primary nurse at the bedside I would like to thank Gavin for the consult, will follow Total care time 35 minutes Plan discussed with: Patient YUNIOR DUDLEY MD Aug 30, 2025 10:06
[2025-08-30 12:05] LABS: Magnesium 2.3 mg/dL (1.6-2.6)
[2025-08-30 13:43] LABS: Hepatitis B Surface Antigen Negative (Negative)
--- NOTE | 2025-08-30 13:55 | DVHPN2 ---
Changes from previous H/P or p: No Changes Eyes: No Pain, No Vision change, No Conjunctivae inflammation, No Eyelid inflammation, No Other, No Redness ENT: No Ear pain, No Ear discharge, No Nose pain, No Nose discharge, No Nose congestion, No Mouth pain, No Mouth swelling, No Throat pain, No Throat swelling, No Other Cardiovascular: No Chest Pain, No Palpitations, No Orthopnea, No Paroxysmal Noc. Dyspnea, No Edema, No Lt Headedness, No Other Respiratory: No Cough, No Dry; Shortness of breath; No SOB with excertion, No Wheezing, No Hemoptysis, No Pleuritic Pain, No Sputum; Other (SOB at rest) Gastrointestinal: No Nausea, No Vomiting, No Abdominal Pain, No Diarrhea, No Constipation, No Melena, No Hematochezia, No Other Genitourinary: No Dysuria, No Frequency, No Incontinence, No Hematuria, No Retention; Other (PermCath for hemodialysis) Musculoskeletal: No other, No neck pain, No shoulder pain, No arm pain, No back pain, No hand pain, No leg pain, No foot pain Skin: No Rash, No Lesions, No Jaundice, No Bruising, No Other Objective Vitals Vital Signs Date Time Temp Pulse Resp B/P (MAP) Pulse Ox O2 Delivery O2 Flow Rate FiO2 08/30/25 12:45 218/111 08/30/25 08:58 82 08/30/25 08:57 98.2 18 96 98.2 08/29/25 19:45 Room Air* 0 21 Medications Current Medications Medications Dose Ordered Sig/Laly Route Start Time Stop Time Status Last Admin Dose Admin Aspirin 81 mg DAILY PO 08/30/25 10:00 08/30/25 08:20 81 MG Atorvastatin Calcium 20 mg HS PO 08/30/25 22:00 Multivit/Ca Carb/ B Cmplx/FA/Prenat 1 tab DAILY PO 08/30/25 10:00 08/30/25 08:20 1 TAB Sevelamer HCl 800 mg TIDWM PO 08/30/25 08:00 08/30/25 12:27 800 MG Diagnostic Test (Pha) 1 strip IQ4HR 08/30/25 00:00 08/30/25 11:40 1 STRIP Insulin Human Regular IQ4HR SC 08/30/25 00:00 08/30/25 11:41 3 UNITS Dextrose 50 ml UD PRN IV 08/29/25 23:00 Sodium Chloride 10 ml Q8HR IV 08/30/25 06:00 08/30/25 06:19 10 ML Acetaminophen/ Hydrocodone Bitart 1 tab Q4HP PRN PO 08/29/25 23:00 Ondansetron HCl 4 mg Q4HP PRN IV 08/29/25 23:00 Docusate Sodium 100 mg BIDPRN PRN PO 08/29/25 23:00 Acetaminophen 650 mg Q6HP PRN PO 08/29/25 23:00 Nitroglycerin 0.4 mg Q5MINP PRN SL 08/29/25 23:00 Morphine Sulfate 2 mg Q30M PRN IV 08/29/25 23:00 Clonidine HCl 0.1 mg Q4HP PRN PO 08/29/25 23:00 08/30/25 12:45 0.1 MG Metoprolol Tartrate 50 mg BID PO 08/30/25 10:00 08/30/25 08:21 50 MG Laboratory Results Laboratory Tests 08/30/25 04:50 Chemistry Test 08/29/25 19:02 08/30/25 04:50 Calcium Level 8.4 mg/dL (8.7-10.4) L 8.4 mg/dL (8.7-10.4) L Magnesium Level 2.4 mg/dL (1.6-2.6) 2.3 mg/dL (1.6-2.6) Phosphorus Level 5.5 mg/dL (2.4-5.1) H 5.4 mg/dL (2.4-5.1) H Albumin 3.3 g/dL (3.2-4.8) Total Protein 6.1 g/dL (5.7-8.2) Cardiac Markers Test 08/30/25 04:50 B-Type Natriuretic Peptide 499.83 pg/mL (0-100) LFT Test 08/30/25 04:50 Alanine Aminotransferase (ALT) 12 U/L (7-40) Alkaline Phosphatase 66 U/L (46-116) Aspartate Amino Transferase (AST) 12 U/L (13-40) L Total Bilirubin 0.2 mg/dL (0.2-1.0) HgA1c, TSH Test 08/30/25 04:50 Hemoglobin A1c 7.6 % A1C (<5.7) H Labs and/or images reviewed: Labs reviewed by me, Image(s) reviewed by me Assessment/Plan Assessment/Plan Acute Generalized weakness Acute metabolic encephalo Acute pneumonia, Gram-negative Gram-positive possible , resolved ESRD on HD, TTS schedule consult by Dr. Villa appreciated Hyperlipidemia Diabetes Mellitus with hyperglycemia Anemia chronic disease Hypertension History of hep C Dementia Missed Dialysis Noncompliance Time spent 70 minutes Advanced care planning time 20 minutes Patient is full code Plan discussed with: Patient Date of Service: Aug 30, 2025 Billing Provider: VALENTE HARPER MD Common Visit Codes: [id number] CARE 30-74 MIN VALENTE HARPER MD Aug 30, 2025 13:55
[2025-08-30 14:00] LABS: Hepatitis C Antibody Reactive (Negative)
[2025-08-30 15:35] VITALS: BP 197/127; PULSE 80; RESP 17; TEMP 97.4; O2SAT 97
[2025-08-30] MEDS ORDERED: NIFE1TAB31 PO ×2 (18:40)
[2025-08-30 20:00] VITALS: PULSE 70; PULSE 83
[2025-08-30] MEDS: ATORVASTATIN 20 MG TAB PO SCH (21:28)
[2025-08-31] VITALS (9 sets, daily range): BP systolic 141–171; BP diastolic 85–107; PULSE 70–105; RESP 16–20; TEMP 97.4–99.6; O2SAT 92–98
[2025-08-31] MEDS: SODIUM CHL 0.9% 1000 ML BAG XX ONE (07:00)
--- NOTE | 2025-08-31 12:11 | DVHPN2 ---
Reviewed: Care Plan, H&P, Labs, Medications, Previous Orders, Radiology Changes from previous H/P or p: No Changes Eyes: No Pain, No Vision change, No Conjunctivae inflammation, No Eyelid inflammation, No Other, No Redness ENT: No Ear pain, No Ear discharge, No Nose pain, No Nose discharge, No Nose congestion, No Mouth pain, No Mouth swelling, No Throat pain, No Throat swelling, No Other Cardiovascular: No Chest Pain, No Palpitations, No Orthopnea, No Paroxysmal Noc. Dyspnea, No Edema, No Lt Headedness, No Other Respiratory: No Cough, No Dry; Shortness of breath; No SOB with excertion, No Wheezing, No Hemoptysis, No Pleuritic Pain, No Sputum; Other (SOB at rest) Gastrointestinal: No Nausea, No Vomiting, No Abdominal Pain, No Diarrhea, No Constipation, No Melena, No Hematochezia, No Other Genitourinary: No Dysuria, No Frequency, No Incontinence, No Hematuria, No Retention; Other (PermCath for hemodialysis) Musculoskeletal: No other, No neck pain, No shoulder pain, No arm pain, No back pain, No hand pain, No leg pain, No foot pain Skin: No Rash, No Lesions, No Jaundice, No Bruising, No Other Objective Vitals Vital Signs Date Time Temp Pulse Resp B/P (MAP) Pulse Ox O2 Delivery O2 Flow Rate FiO2 08/31/25 11:35 85 147/94 08/31/25 05:00 97.9 18 98 97.9 08/30/25 20:00 Room Air* 0 21 Intake/Output Intake and Output 08/31/25 07:00 Intake Total 320 ml Balance 320 ml Intake Oral 320 ml Medications Current Medications Medications Dose Ordered Sig/Laly Route Start Time Stop Time Status Last Admin Dose Admin Aspirin 81 mg DAILY PO 08/30/25 10:00 08/31/25 11:34 81 MG Atorvastatin Calcium 20 mg HS PO 08/30/25 22:00 08/30/25 21:28 20 MG Multivit/Ca Carb/ B Cmplx/FA/Prenat 1 tab DAILY PO 08/30/25 10:00 08/31/25 11:34 1 TAB Sevelamer HCl 800 mg TIDWM PO 08/30/25 08:00 08/30/25 12:27 800 MG Diagnostic Test (Pha) 1 strip IQ4HR 08/30/25 00:00 08/31/25 11:35 1 STRIP Insulin Human Regular IQ4HR SC 08/30/25 00:00 08/31/25 04:00 6 UNITS Dextrose 50 ml UD PRN IV 08/29/25 23:00 Sodium Chloride 10 ml Q8HR IV 08/30/25 06:00 08/31/25 05:47 10 ML Acetaminophen/ Hydrocodone Bitart 1 tab Q4HP PRN PO 08/29/25 23:00 Ondansetron HCl 4 mg Q4HP PRN IV 08/29/25 23:00 Docusate Sodium 100 mg BIDPRN PRN PO 08/29/25 23:00 Acetaminophen 650 mg Q6HP PRN PO 08/29/25 23:00 Nitroglycerin 0.4 mg Q5MINP PRN SL 08/29/25 23:00 Morphine Sulfate 2 mg Q30M PRN IV 08/29/25 23:00 Clonidine HCl 0.1 mg Q4HP PRN PO 08/29/25 23:00 08/30/25 16:49 0.1 MG Metoprolol Tartrate 50 mg BID PO 08/30/25 10:00 08/31/25 11:35 50 MG Nifedipine 30 mg DAILY PO 08/31/25 10:00 08/31/25 11:34 30 MG Laboratory Results Laboratory Tests 08/30/25 04:50 Labs and/or images reviewed: Labs reviewed by me, Image(s) reviewed by me Assessment/Plan Assessment/Plan Acute Generalized weakness Acute metabolic encephalopathy Possible community-acquired pneumonia Gram-positive versus Gram neg: Rocephin azithromycin ESRD on HD, TTS schedule consult by Dr. Villa appreciated Hyperlipidemia Diabetes Mellitus with hyperglycemia Anemia chronic disease Hypertension History of hep C Dementia Missed Dialysis Noncompliance Time spent 60 minutes Advanced care planning time 20 minutes Patient is full code Plan discussed with: Patient My Orders Orders - VALENTE HARPER MD Procedure Category Date Status Time Mrsa Screen KATE 08/30/25 In Process 18:37 Date of Service: Aug 31, 2025 Billing Provider: VALENTE HARPER MD Common Visit Codes: [id number] INP/OBS CARE(HIGH) VALENTE HARPER MD Aug 31, 2025 12:11
[2025-08-31] MEDS: AZITHROMYCIN 500MG/ 250ML 250 ML IV ONE (12:15)
--- NOTE | 2025-08-31 18:22 | DVHPN2 ---
Progress Note Date Seen: Aug 31, 2025 Medical Necessity Reason Pt with a Central, PICC or Fol: No Subjective Patient reports: Other (weak ) Review of Systems: Deferred Objective vital signs Vital Sign Date Time Temp Pulse Resp B/P (MAP) Pulse Ox O2 Delivery O2 Flow Rate FiO2 08/31/25 17:30 98.5 80 20 167/107 (127) 95 98.5 08/31/25 08:00 Room Air* 0 21 Total Intake and Output 08/30/25 08/30/25 08/31/25 15:00 23:00 07:00 Intake Total 120 ml 200 ml Balance 120 ml 200 ml medications Current Medications Medications Dose Ordered Sig/Laly Route Start Time Stop Time Status Last Admin Dose Admin Aspirin 81 mg DAILY PO 08/30/25 10:00 08/31/25 11:34 81 MG Atorvastatin Calcium 20 mg HS PO 08/30/25 22:00 08/30/25 21:28 20 MG Multivit/Ca Carb/ B Cmplx/FA/Prenat 1 tab DAILY PO 08/30/25 10:00 08/31/25 11:34 1 TAB Sevelamer HCl 800 mg TIDWM PO 08/30/25 08:00 08/30/25 12:27 800 MG Diagnostic Test (Pha) 1 strip IQ4HR 08/30/25 00:00 08/31/25 11:35 1 STRIP Insulin Human Regular IQ4HR SC 08/30/25 00:00 08/31/25 04:00 6 UNITS Dextrose 50 ml UD PRN IV 08/29/25 23:00 Sodium Chloride 10 ml Q8HR IV 08/30/25 06:00 08/31/25 14:00 10 ML Acetaminophen/ Hydrocodone Bitart 1 tab Q4HP PRN PO 08/29/25 23:00 Ondansetron HCl 4 mg Q4HP PRN IV 08/29/25 23:00 Docusate Sodium 100 mg BIDPRN PRN PO 08/29/25 23:00 Acetaminophen 650 mg Q6HP PRN PO 08/29/25 23:00 Nitroglycerin 0.4 mg Q5MINP PRN SL 08/29/25 23:00 Morphine Sulfate 2 mg Q30M PRN IV 08/29/25 23:00 Clonidine HCl 0.1 mg Q4HP PRN PO 08/29/25 23:00 08/30/25 16:49 0.1 MG Metoprolol Tartrate 50 mg BID PO 08/30/25 10:00 08/31/25 11:35 50 MG Nifedipine 30 mg DAILY PO 08/31/25 10:00 08/31/25 11:34 30 MG Ceftriaxone Sodium 50 ml @ 100 mls/hr DAILY@09 IV 09/01/25 09:00 Azithromycin 250 ml @ 125 mls/hr DAILY IV 09/01/25 10:00 Examination: GENERAL:Abnormal, MSK:Abnormal, NEURO:Abnormal laboratory and microbiology Laboratory Tests 08/30/25 04:50 Test 08/30/25 04:50 Range/Units Serum Glucose 237 H 74-106 mg/dL Microbiology Date/Time Source Procedure Growth Status 08/30/25 18:35 Nose MRSA Screen - Final Complete Problem List/Assessment/Plan Problem List/Assessment/Plan End-stage renal disease missed hemodialysis Diabetes mellitus monitor of control Hypertensive urgency Hyperlipidemia Dementia Anemia of chronic kidney disease Recommendations Continue with UF 3 L as tolerated Epogen Renal diet Resume home medication Insulin sliding scale Blood Pressure control We will continue to follow Plan discussed with: Patient ANNIE ASKEW MD Aug 31, 2025 18:22
[2025-08-31] MEDS: EPOETIN ALFA-EPBX 10,000 UNIT/1ML VIAL SC ONE (21:16)
[2025-09-01] VITALS (7 sets, daily range): BP systolic 146–169; BP diastolic 76–98; PULSE 74–86; RESP 16–18; TEMP 96.9–97.8; O2SAT 94–99
[2025-09-01 06:09] LABS: Hematocrit 29.8 % (36.0-46.0); Hemoglobin 9.7 g/dL (12.2-16.2); Mean Corpuscular Hemoglobin 29.2 pg (28.0-32.0); Mean Corpuscular Volume 89.5 fL (80.0-100.0); Nucleated Red Blood Cells % 0.1 %
[2025-09-01 06:17] LABS: Albumin 3.2 g/dL (3.2-4.8); Alkaline Phosphatase 69 U/L (46-116); Anion Gap 10 (5-15); BUN/Creatinine Ratio 6.2 (10.0-20.0); Carbon Dioxide 28 mmol/L (20-31); Chloride 102 mmol/L (98-107); Sodium 140 mmol/L (136-145); Total Protein 6.1 g/dL (5.7-8.2)
[2025-09-01 06:20] LABS: Alanine Aminotransferase 9 U/L (7-40); Blood Urea Nitrogen 43 mg/dL (9-23); Glucose 171 mg/dL (74-106); Potassium 5.4 mmol/L (3.5-5.1)
[2025-09-01 06:21] LABS: Bilirubin, Total < 0.2 mg/dL (0.2-1.0); Calcium 8.3 mg/dL (8.7-10.4)
[2025-09-01] MEDS: SODIUM CHL 0.9% 1000 ML BAG XX ONE (08:15)
[2025-09-01 09:30] LABS: COVID19 ANTIGEN SOFIA FIA NEGATIVE (NEGATIVE)
--- NOTE | 2025-09-01 09:47 | DVHPN2 ---
Reviewed: Care Plan, H&P, Labs, Medications, Previous Orders, Radiology Changes from previous H/P or p: No Changes Eyes: No Pain, No Vision change, No Conjunctivae inflammation, No Eyelid inflammation, No Other, No Redness ENT: No Ear pain, No Ear discharge, No Nose pain, No Nose discharge, No Nose congestion, No Mouth pain, No Mouth swelling, No Throat pain, No Throat swelling, No Other Cardiovascular: No Chest Pain, No Palpitations, No Orthopnea, No Paroxysmal Noc. Dyspnea, No Edema, No Lt Headedness, No Other Respiratory: No Cough, No Dry; Shortness of breath; No SOB with excertion, No Wheezing, No Hemoptysis, No Pleuritic Pain, No Sputum; Other (SOB at rest) Gastrointestinal: No Nausea, No Vomiting, No Abdominal Pain, No Diarrhea, No Constipation, No Melena, No Hematochezia, No Other Genitourinary: No Dysuria, No Frequency, No Incontinence, No Hematuria, No Retention; Other (PermCath for hemodialysis) Musculoskeletal: No other, No neck pain, No shoulder pain, No arm pain, No back pain, No hand pain, No leg pain, No foot pain Skin: No Rash, No Lesions, No Jaundice, No Bruising, No Other Objective Vitals Vital Signs Date Time Temp Pulse Resp B/P (MAP) Pulse Ox O2 Delivery O2 Flow Rate FiO2 09/01/25 09:27 97.4 74 18 169/88 (115) 98 97.4 08/31/25 20:15 Room Air* 0 21 Intake/Output Intake and Output 09/01/25 07:00 Intake Total 250 ml Balance 250 ml Intake Oral 250 ml # Voids 3 # Bowel Movements 1 Medications Current Medications Medications Dose Ordered Sig/Laly Route Start Time Stop Time Status Last Admin Dose Admin Aspirin 81 mg DAILY PO 08/30/25 10:00 08/31/25 11:34 81 MG Atorvastatin Calcium 20 mg HS PO 08/30/25 22:00 08/31/25 21:18 20 MG Multivit/Ca Carb/ B Cmplx/FA/Prenat 1 tab DAILY PO 08/30/25 10:00 08/31/25 11:34 1 TAB Sevelamer HCl 800 mg TIDWM PO 08/30/25 08:00 08/31/25 18:18 800 MG Diagnostic Test (Pha) 1 strip IQ4HR 08/30/25 00:00 09/01/25 04:13 1 STRIP Insulin Human Regular IQ4HR SC 08/30/25 00:00 09/01/25 04:19 3 UNITS Dextrose 50 ml UD PRN IV 08/29/25 23:00 Sodium Chloride 10 ml Q8HR IV 08/30/25 06:00 09/01/25 05:55 10 ML Acetaminophen/ Hydrocodone Bitart 1 tab Q4HP PRN PO 08/29/25 23:00 Ondansetron HCl 4 mg Q4HP PRN IV 08/29/25 23:00 Docusate Sodium 100 mg BIDPRN PRN PO 08/29/25 23:00 Acetaminophen 650 mg Q6HP PRN PO 08/29/25 23:00 Nitroglycerin 0.4 mg Q5MINP PRN SL 08/29/25 23:00 Morphine Sulfate 2 mg Q30M PRN IV 08/29/25 23:00 Clonidine HCl 0.1 mg Q4HP PRN PO 08/29/25 23:00 08/31/25 18:18 0.1 MG Metoprolol Tartrate 50 mg BID PO 08/30/25 10:00 08/31/25 21:18 50 MG Nifedipine 30 mg DAILY PO 08/31/25 10:00 08/31/25 11:34 30 MG Ceftriaxone Sodium 50 ml @ 100 mls/hr DAILY@09 IV 09/01/25 09:00 Azithromycin 250 ml @ 125 mls/hr DAILY IV 09/01/25 10:00 Laboratory Results Laboratory Tests 09/01/25 05:14 Chemistry Test 09/01/25 05:14 Albumin 3.2 g/dL (3.2-4.8) Calcium Level 8.3 mg/dL (8.7-10.4) L Total Protein 6.1 g/dL (5.7-8.2) LFT Test 09/01/25 05:14 Alanine Aminotransferase (ALT) 9 U/L (7-40) Alkaline Phosphatase 69 U/L (46-116) Aspartate Amino Transferase (AST) 11 U/L (13-40) L Total Bilirubin < 0.2 mg/dL (0.2-1.0) L Microbiology Microbiology Date/Time Source Procedure Growth Status 08/30/25 18:35 Nose MRSA Screen - Final Complete Labs and/or images reviewed: Labs reviewed by me, Image(s) reviewed by me Assessment/Plan Assessment/Plan Acute Generalized weakness Acute metabolic encephalopathy Possible community-acquired pneumonia Gram-positive versus Gram neg: Rocephin azithromycin ESRD on HD, TTS schedule consult by Dr. Villa appreciated Hyperlipidemia Diabetes type 2 with hyperglycemia Anemia chronic disease Hypertension History of hep C Dementia Missed Dialysis Noncompliance Time spent 66 minutes Advanced care planning time 20 minutes Patient is full code Plan discussed with: Patient My Orders Orders - VALENTE HARPER MD Procedure Category Date Status Time Ceftriaxone 1gm/50ml PHA 09/01/25 In Process (Rocephin) 09:00 Azithromycin 500mg/ PHA 09/01/25 In Process 250ml (Zithromax 50 10:00 Complete Blood Count LAB 09/02/25 Verified 05:00 Complete Blood Count LAB 09/03/25 Verified 05:00 Comprehensive LAB 09/02/25 Verified Metabolic Panel 05:00 Comprehensive LAB 09/03/25 Verified Metabolic Panel 05:00 Date of Service: Sep 01, 2025 Billing Provider: VALENTE HARPER MD Common Visit Codes: [id number] INP/OBS CARE(HIGH) VALENTE HARPER MD Sep 01, 2025 09:47
[2025-09-01] MEDS: AZITHROMYCIN 500MG/ 250ML 250 ML IV SCH (15:19)
--- NOTE | 2025-09-01 17:54 | DVHPN2 ---
Progress Note Date Seen: Sep 01, 2025 Medical Necessity Reason Pt with a Central, PICC or Fol: No Subjective Patient reports: Other (unable to walk) Review of Systems: Deferred Objective vital signs Vital Sign Date Time Temp Pulse Resp B/P (MAP) Pulse Ox O2 Delivery O2 Flow Rate FiO2 09/01/25 17:12 166/98 09/01/25 16:49 97.5 83 18 94 97.5 08/31/25 20:15 Room Air* 0 21 Total Intake and Output 08/31/25 08/31/25 09/01/25 15:00 23:00 07:00 Intake Total 250 ml Balance 250 ml medications Current Medications Medications Dose Ordered Sig/Laly Route Start Time Stop Time Status Last Admin Dose Admin Aspirin 81 mg DAILY PO 08/30/25 10:00 09/01/25 13:30 81 MG Atorvastatin Calcium 20 mg HS PO 08/30/25 22:00 08/31/25 21:18 20 MG Multivit/Ca Carb/ B Cmplx/FA/Prenat 1 tab DAILY PO 08/30/25 10:00 09/01/25 13:31 1 TAB Sevelamer HCl 800 mg TIDWM PO 08/30/25 08:00 09/01/25 17:12 800 MG Diagnostic Test (Pha) 1 strip IQ4HR 08/30/25 00:00 09/01/25 16:00 1 STRIP Insulin Human Regular IQ4HR SC 08/30/25 00:00 09/01/25 16:00 15 UNITS Dextrose 50 ml UD PRN IV 08/29/25 23:00 Sodium Chloride 10 ml Q8HR IV 08/30/25 06:00 09/01/25 14:01 10 ML Acetaminophen/ Hydrocodone Bitart 1 tab Q4HP PRN PO 08/29/25 23:00 Ondansetron HCl 4 mg Q4HP PRN IV 08/29/25 23:00 Docusate Sodium 100 mg BIDPRN PRN PO 08/29/25 23:00 Acetaminophen 650 mg Q6HP PRN PO 08/29/25 23:00 Nitroglycerin 0.4 mg Q5MINP PRN SL 08/29/25 23:00 Morphine Sulfate 2 mg Q30M PRN IV 08/29/25 23:00 Clonidine HCl 0.1 mg Q4HP PRN PO 08/29/25 23:00 09/01/25 17:12 0.1 MG Metoprolol Tartrate 50 mg BID PO 08/30/25 10:00 08/31/25 21:18 50 MG Nifedipine 30 mg DAILY PO 08/31/25 10:00 08/31/25 11:34 30 MG Ceftriaxone Sodium 50 ml @ 100 mls/hr DAILY@09 IV 09/01/25 09:00 09/01/25 13:31 100 MLS/HR Azithromycin 250 ml @ 125 mls/hr DAILY IV 09/01/25 10:00 09/01/25 15:19 125 MLS/HR Examination: GENERAL:Abnormal, MSK:Abnormal, NEURO:Abnormal laboratory and microbiology Laboratory Tests 09/01/25 05:14 Test 09/01/25 05:14 Range/Units Serum Glucose 171 H 74-106 mg/dL Microbiology Date/Time Source Procedure Growth Status 08/30/25 18:35 Nose MRSA Screen - Final Complete Problem List/Assessment/Plan Problem List/Assessment/Plan End-stage renal disease missed hemodialysis Diabetes mellitus CVA Hypertensive urgency Hyperlipidemia Dementia Anemia of chronic kidney disease Recommendations seen on HD today Epogen Renal diet Resume home medication Insulin sliding scale Blood Pressure control We will continue to follow Plan discussed with: Patient My Orders My Orders Orders - ANNIE ASKEW MD Procedure Category Date Status Time Hemodialysis Orders ORDERS 09/01/25 Transmitted 04:00 Dietary Evaluation Review Comments: Monitor PO intake, lab values, weight trend, and I/O Expected Outcomes/Goals: Intake to meet >75% estimated needs Lab values to improve Fu 3-5 days ANNIE ASKEW MD Sep 01, 2025 17:54
[2025-09-02 07:29] LABS: Alanine Aminotransferase 12 U/L (7-40); Alkaline Phosphatase 69 U/L (46-116); Anion Gap 12 (5-15); BUN/Creatinine Ratio 6.8 (10.0-20.0); Carbon Dioxide 29 mmol/L (20-31); Chloride 98 mmol/L (98-107); Potassium 5.1 mmol/L (3.5-5.1); Sodium 139 mmol/L (136-145); Total Protein 6.5 g/dL (5.7-8.2)
[2025-09-02 07:30] LABS: Albumin 3.5 g/dL (3.2-4.8)
[2025-09-02 07:39] LABS: Bilirubin, Total 0.2 mg/dL (0.2-1.0); Blood Urea Nitrogen 39 mg/dL (9-23); Calcium 8.3 mg/dL (8.7-10.4); Glucose 186 mg/dL (74-106)
[2025-09-02 07:41] LABS: Hematocrit 32.0 % (36.0-46.0); Hemoglobin 10.2 g/dL (12.2-16.2); Mean Corpuscular Hemoglobin 28.6 pg (28.0-32.0); Mean Corpuscular Volume 89.6 fL (80.0-100.0); Nucleated Red Blood Cells % 0.0 %
[2025-09-02 08:00] VITALS: PULSE 77; PULSE 78; RESP 16; O2SAT 93
[2025-09-02 08:32] VITALS: BP 155/92; PULSE 77; RESP 16; TEMP 98.3; O2SAT 93
--- NOTE | 2025-09-02 09:25 | DVHPN2 ---
Reviewed: Care Plan, H&P, Labs, Medications, Previous Orders, Radiology Changes from previous H/P or p: No Changes Eyes: No Pain, No Vision change, No Conjunctivae inflammation, No Eyelid inflammation, No Other, No Redness ENT: No Ear pain, No Ear discharge, No Nose pain, No Nose discharge, No Nose congestion, No Mouth pain, No Mouth swelling, No Throat pain, No Throat swelling, No Other Cardiovascular: No Chest Pain, No Palpitations, No Orthopnea, No Paroxysmal Noc. Dyspnea, No Edema, No Lt Headedness, No Other Respiratory: No Cough, No Dry; Shortness of breath; No SOB with excertion, No Wheezing, No Hemoptysis, No Pleuritic Pain, No Sputum; Other (SOB at rest) Gastrointestinal: No Nausea, No Vomiting, No Abdominal Pain, No Diarrhea, No Constipation, No Melena, No Hematochezia, No Other Genitourinary: No Dysuria, No Frequency, No Incontinence, No Hematuria, No Retention; Other (PermCath for hemodialysis) Musculoskeletal: No other, No neck pain, No shoulder pain, No arm pain, No back pain, No hand pain, No leg pain, No foot pain Skin: No Rash, No Lesions, No Jaundice, No Bruising, No Other Objective Vitals Vital Signs Date Time Temp Pulse Resp B/P (MAP) Pulse Ox O2 Delivery O2 Flow Rate FiO2 09/02/25 09:15 155/92 09/02/25 09:13 77 09/02/25 08:32 98.3 16 93 98.3 09/02/25 08:00 Room Air* 0 21 Intake/Output Intake and Output 09/02/25 07:00 Intake Total 675 ml Balance 675 ml Intake Oral 625 ml IV Total 50 ml # Voids 6 # Bowel Movements 1 Medications Current Medications Medications Dose Ordered Sig/Llay Route Start Time Stop Time Status Last Admin Dose Admin Aspirin 81 mg DAILY PO 08/30/25 10:00 09/02/25 09:13 81 MG Atorvastatin Calcium 20 mg HS PO 08/30/25 22:00 09/01/25 21:54 20 MG Multivit/Ca Carb/ B Cmplx/FA/Prenat 1 tab DAILY PO 08/30/25 10:00 09/02/25 09:15 1 TAB Sevelamer HCl 800 mg TIDWM PO 08/30/25 08:00 09/02/25 08:11 800 MG Diagnostic Test (Pha) 1 strip IQ4HR 08/30/25 00:00 09/02/25 08:14 1 STRIP Insulin Human Regular IQ4HR SC 08/30/25 00:00 09/02/25 04:56 3 UNITS Dextrose 50 ml UD PRN IV 08/29/25 23:00 Sodium Chloride 10 ml Q8HR IV 08/30/25 06:00 09/02/25 04:54 10 ML Acetaminophen/ Hydrocodone Bitart 1 tab Q4HP PRN PO 08/29/25 23:00 Ondansetron HCl 4 mg Q4HP PRN IV 08/29/25 23:00 Docusate Sodium 100 mg BIDPRN PRN PO 08/29/25 23:00 Acetaminophen 650 mg Q6HP PRN PO 08/29/25 23:00 Nitroglycerin 0.4 mg Q5MINP PRN SL 08/29/25 23:00 Morphine Sulfate 2 mg Q30M PRN IV 08/29/25 23:00 Clonidine HCl 0.1 mg Q4HP PRN PO 08/29/25 23:00 09/01/25 17:12 0.1 MG Metoprolol Tartrate 50 mg BID PO 08/30/25 10:00 09/02/25 09:13 50 MG Nifedipine 30 mg DAILY PO 08/31/25 10:00 09/02/25 09:15 30 MG Ceftriaxone Sodium 50 ml @ 100 mls/hr DAILY@09 IV 09/01/25 09:00 09/02/25 09:13 100 MLS/HR Azithromycin 250 ml @ 125 mls/hr DAILY IV 09/01/25 10:00 09/01/25 15:19 125 MLS/HR Laboratory Results Laboratory Tests 09/02/25 05:25 Chemistry Test 09/02/25 05:25 Albumin 3.5 g/dL (3.2-4.8) Calcium Level 8.3 mg/dL (8.7-10.4) L Total Protein 6.5 g/dL (5.7-8.2) LFT Test 09/02/25 05:25 Alanine Aminotransferase (ALT) 12 U/L (7-40) Alkaline Phosphatase 69 U/L (46-116) Aspartate Amino Transferase (AST) 11 U/L (13-40) L Total Bilirubin 0.2 mg/dL (0.2-1.0) Microbiology Microbiology Date/Time Source Procedure Growth Status 08/30/25 18:35 Nose MRSA Screen - Final Complete Labs and/or images reviewed: Labs reviewed by me, Image(s) reviewed by me Assessment/Plan Assessment/Plan Acute Generalized weakness Acute metabolic encephalopathy Possible community-acquired pneumonia Gram-positive versus Gram neg: Rocephin azithromycin ESRD on HD, TTS schedule consult by Dr. Villa appreciated Hyperlipidemia Diabetes type 2 with hyperglycemia Anemia chronic disease Hypertension History of hep C Dementia Missed Dialysis Noncompliance Spoke with the patient's daughter Martine on the phone and she is agreeable for the patient to be discharged back to [facility] acute Time spent 66 minutes Advanced care planning time 20 minutes Patient is full code Plan discussed with: Patient My Orders Orders - VALENTE HARPER MD Procedure Category Date Status Time Pt Request For Service PT 09/01/25 Logged 19:06 Date of Service: Sep 02, 2025 Billing Provider: VALENTE HARPER MD Common Visit Codes: [id number] INP/OBS CARE(HIGH) VALENTE HARPER MD Sep 02, 2025 09:25
--- NOTE | 2025-09-02 09:32 | DVHDS2 ---
Discharge Summary Date of Admission Aug 29, 2025 at 22:49 Date of Discharge: Sep 02, 2025 Admitting Diagnosis Altered mental status and confusion Wounds: None Labs/Diagnostic Data: Laboratory Results Test 09/02/25 08:06 09/02/25 05:25 08/31/25 07:30 08/30/25 04:50 POC Glucose 130 mg/dl (70-106) White Blood Count 5.0 10^3/uL (4.4-10.8) Red Blood Count 3.57 10^6/uL (4.0-5.20) Hemoglobin 10.2 g/dL (12.2-16.2) Hematocrit 32.0 % (36.0-46.0) Mean Corpuscular Volume 89.6 fL (80.0-100.0) Mean Corpuscular Hemoglobin 28.6 pg (28.0-32.0) Mean Corpuscular Hemoglobin Concent 31.9 g/dL (32.0-36.0) Red Cell Distribution Width 17.5 % (11.8-14.3) Platelet Count 232 10^3/uL (140-450) Mean Platelet Volume 6.8 fL (6.9-10.8) Neutrophils (%) (Auto) 46.6 % (37.0-80.0) Lymphocytes (%) (Auto) 34.7 % (10.0-50.0) Monocytes (%) (Auto) 12.0 % (0.0-12.0) Eosinophils (%) (Auto) 5.8 % (0.0-7.0) Basophils (%) (Auto) 0.9 % (0.0-2.0) Neutrophils # (Auto) 2.3 10 ^3/uL (1.6-8.6) Lymphocytes # (Auto) 1.7 10 ^3/uL (0.4-5.4) Monocytes # (Auto) 0.6 10 ^3/uL (0-1.3) Eosinophils # (Auto) 0.3 10 ^3/uL (0-0.8) Basophils # (Auto) 0 10 ^3/uL (0-0.2) Nucleated Red Blood Cells 0.0 % Sodium Level 139 mmol/L (136-145) Potassium Level 5.1 mmol/L (3.5-5.1) Chloride Level 98 mmol/L (98-107) Carbon Dioxide Level 29 mmol/L (20-31) Anion Gap 12 (5-15) Blood Urea Nitrogen 39 mg/dL (9-23) Creatinine 5.76 mg/dL (0.550-1.02) Glomerular Filtration Rate Calc 8 mL/min (>90) BUN/Creatinine Ratio 6.8 (10.0-20.0) Serum Glucose 186 mg/dL (74-106) Calcium Level 8.3 mg/dL (8.7-10.4) Total Bilirubin 0.2 mg/dL (0.2-1.0) Aspartate Amino Transferase (AST) 11 U/L (13-40) Alanine Aminotransferase (ALT) 12 U/L (7-40) Alkaline Phosphatase 69 U/L (46-116) Total Protein 6.5 g/dL (5.7-8.2) Albumin 3.5 g/dL (3.2-4.8) SARS-CoV-2 Antigen (Rapid) Negative (NEGATIVE) Hemoglobin A1c 7.6 % A1C (<5.7) Phosphorus Level 5.4 mg/dL (2.4-5.1) Magnesium Level 2.3 mg/dL (1.6-2.6) B-Type Natriuretic Peptide 499.83 pg/mL (0-100) Vitamin D 25-Hydroxy 47.4 ng/mL (30.0-100) Parathyroid Hormone (Intact) 105.3 pg/mL (18.4-80.1) Hepatitis B Surface Antigen Negative (Negative) Hepatitis C Antibody Reactive (Negative) Other Laboratory Tests 09/02/25 05:25 Brief Hx & Hospital Course: 60-year-old female with a history of ESRD on hemodialysis diabetes hypercholesterolemia anemia of chronic disease hypotension hep C dementia noncompliant with the missed dialysis burden from [facility] acute for generalized weakness and altered mental status found to have community-acquired pneumonia treated with Rocephin azithromycin received hemodialysis by Dr. Villa.. Patient currently on room air being discharged back to custodial for further care. discussed with the patient's daughter Martine on the phone she is agreeable for the patient to be discharged back to [facility] acute Consults/Reason for consult Nephrology Dr. Villa Operations or Procedures Hemodialysis CT head Condition at Discharge: Fair Final Diagnosis/Problems List Acute Generalized weakness Acute metabolic encephalopathy Possible community-acquired pneumonia Gram-positive versus Gram neg: Rocephin azithromycin ESRD on HD, TTS schedule consult by Dr. Villa appreciated Hyperlipidemia Diabetes type 2 with hyperglycemia Anemia chronic disease Hypertension History of hep C Dementia Missed Dialysis Noncompliance Discharge Disposition: Jail Facility Discharge Instruct/Medications Diet: Renal Activity: Light activity Follow Up/Referral: Follow up with the resaw operator for regular dialysis 3 times a week Follow up with the custodial Dr Doty all previous home meds Medications: see list Scheduled Aspirin (Aspir-Low), 81 MG PO DAILY, (Reported) Atorvastatin Calcium (Atorvastatin Calcium), 1 TAB PO DAILY, (Reported) Ferrous Sulfate (Ferosul), 325 MG PO DAILY, (Reported) Furosemide (Furosemide), 40 MG PO DAILY, (Reported) Insulin Glargine (Lantus Solostar), 25 UNIT SC HS, (Reported) Insulin Lispro (Human) (Humalog), 10 UNIT SC TID, (Reported) Metoprolol Tartrate (Metoprolol Tartrate), 50 MG PO BID, (Reported) Nifedipine (Nifedipine Er), 1 TAB PO DAILY, (Reported) Scheduled PRN Clonidine Hydrochloride (Clonidine Hcl), 0.1 MG PO BID PRN for SBP>170or DBP>90, (Reported) Discontinued Medications Nifedipine (Nifedipine Er), 1 TAB PO ONCE, (Reported) 39 (Time taken for discharge summary 39 minutes) Discharge Statement: "Patient was advised to return to the ER or call 911 if any headaches, dizziness, shortness of breath, chest pain, abdominal pain, bleeding, fevers, or worsening of medical condition. Patient was counseled about treatment plan, medications, possible side effects, patientverbalized understanding. All questions were answered to the best of my ability. This discharge took greater then 30 minutes in planning, reviewing documentation, counseling the patient, and discussing with other team members." ASSESSMENT ASSESSMENT Hospital Course Improved Assessment Acute Generalized weakness Acute metabolic encephalopathy Possible community-acquired pneumonia Gram-positive versus Gram neg: Rocephin azithromycin ESRD on HD, TTS schedule consult by Dr. Villa appreciated Hyperlipidemia Diabetes type 2 with hyperglycemia Anemia chronic disease Hypertension History of hep C Dementia Missed Dialysis Noncompliance Date of Service: Sep 02, 2025 Billing Provider: VALENTE HARPER MD Common Visit Codes: [id number] DISCH DAY >30min VALENTE HARPER MD Sep 02, 2025 09:32
[2025-09-02 11:19] VITALS: BP 155/92; PULSE 77; RESP 16; TEMP 98.3; O2SAT 93
[2025-09-02 12:44] VITALS: BP 126/87; PULSE 70; RESP 19; TEMP 96.4; O2SAT 96
[2025-09-02 17:00] VITALS: BP 153/99; PULSE 74; RESP 19; TEMP 97.4; O2SAT 99
== END 2025-09-02 13:05 | DRG 177 ==
LOC: EDBD 17:12 → ER 17:12 → EDUNIT# 17:12 → OVERFLOW 22:49 → TELE-EAST 08-30 15:44
PROVIDERS: ADMIT Family Medicine; ATTEND Family Medicine
PROC: 5A1D70Z Performance of Urinary Filtration, Intermittent, Less than 6 Hours Per Day (ICD-10-PCS; principal; 2025-08-30)
PROC: 5A1D70Z Performance of Urinary Filtration, Intermittent, Less than 6 Hours Per Day (ICD-10-PCS; 2025-09-01)
DX: J15.69 Pneumonia due to other Gram-negative bacteria (principal); G93.41 Metabolic encephalopathy; N18.6 End stage renal disease; I13.11 Hypertensive heart and chronic kidney disease without heart failure, with stage 5 chronic kidney disease, or end stage renal disease; E11.65 Type 2 diabetes mellitus with hyperglycemia; J15.9 Unspecified bacterial pneumonia; D63.1 Anemia in chronic kidney disease; I16.0 Hypertensive urgency; Z20.822 Contact with and (suspected) exposure to COVID-19; F03.90 Unspecified dementia, unspecified severity, without behavioral disturbance, psychotic disturbance, mood disturbance, and anxiety; E11.22 Type 2 diabetes mellitus with diabetic chronic kidney disease; Z99.2 Dependence on renal dialysis; E78.00 Pure hypercholesterolemia, unspecified; Z83.3 Family history of diabetes mellitus; Z82.49 Family history of ischemic heart disease and other diseases of the circulatory system; Z86.73 Personal history of transient ischemic attack (TIA), and cerebral infarction without residual deficits; Z91.199 Patient's noncompliance with other medical treatment and regimen due to unspecified reason; Z88.1 Allergy status to other antibiotic agents; Z88.0 Allergy status to penicillin; Z79.4 Long term (current) use of insulin; Z79.899 Other long term (current) drug therapy; Z79.82 Long term (current) use of aspirin; Z86.19 Personal history of other infectious and parasitic diseases
CPT/HCPCS: 36415; 71045; 80048; 80053; 82306; 82962; 83036; 83735; 83880; 83970; 84100; 85025; 86803; 87081; 87340; 87426; 90935; 97163; G0378; J1642; J1815

== ENCOUNTER 2025-10-20 14:40 | Inpatient (IN) | payer MEDICARE, MEDICAID ==
[~2025-10-20] VITALS: Ht 157.5 cm; Wt 57.0 kg
[~2025-10-20 14:40] MED LIST changes: +NIFE1TAB31 PO
--- NOTE | 2025-10-20 15:18 | ED.PDOC ---
History of Present Illness HPI Comments 60 year old china presents to the ED via EMS with a chief complaint of ALOC. Per EMS, patient is from [facility], patient is altered according to staff, last seen well was this morning around 08:00. Per EMS, patient is usually alert and active, currently responds to her name but does not follow commands or answer questions. Patient receives dialysis Sunday, , Sunday, it is unknown if patient missed his dialysis on Sunday. No other symptoms or modifying factors present at this time. 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 Family History Family History: Unknown Social History Smoker: Unknown Alcohol: Unknown Drugs: Unknown Lives In: Assisted Care Unable to Obtain due to: Altered Mental Status Physical Exam General Appearance: Moderate Distress HEENT: Normal ENT Inspection, Pharynx Normal, TMs Normal Neck: Full Range of Motion, Non-Tender, Normal, Normal Inspection Respiratory: Chest Non-Tender, Lungs Clear, No Accessory Muscle Use, No Respiratory Distress, Normal Breath Sounds Cardiovascular: No Edema, No JVD, No Murmur, No Gallop, Normal Peripheral P ulses, Regular Rate/Rhythm Breast Exam: Deferred Gastrointestinal: No Organomegaly, Non Tender, No Pulsatile Mass, Normal Bowel Sounds, Soft Genitalia: Deferred Pelvic: Deferred Rectal: Deferred Extremities: No calf tenderness, No pedal edema Musculoskeletal : Apperance: Normal Neurologic: Disoriented Cerebellar Function: NOT DONE Reflexes: NOT DONE Skin: Normal Color Peripheral Pulses: 3+ Radial (R), 3+ Radial (L) Lymphatic: No Adenopathy Was a procedure done? Was a procedure done?: No Differential Dx Considerations may include: Metabolic encephalopathy Electrolyte imbalance X-Ray, Labs, Meds, VS Vital Signs Date Time Temp Pulse Resp B/P (MAP) Pulse Ox O2 Delivery O2 Flow Rate FiO2 10/20/25 16:00 84 10/20/25 14:40 98.5 80 18 222/110 99 98.5 Lab Test 12/2/25 15:40 Range/Units White Blood Count 7.7 4.4-10.8 10^3/uL Red Blood Count 3.63 L 4.0-5.20 10^6/uL Hemoglobin 10.9 L 12.2-16.2 g/dL Hematocrit 32.9 L 36.0-46.0 % Mean Corpuscular Volume 90.5 80.0-100.0 fL Mean Corpuscular Hemoglobin 30.0 28.0-32.0 pg Mean Corpuscular Hemoglobin Concent 33.2 32.0-36.0 g/dL Red Cell Distribution Width 17.2 H 11.8-14.3 % Platelet Count 270 140-450 10^3/uL Mean Platelet Volume 6.5 L 6.9-10.8 fL Neutrophils (%) (Auto) 69.5 37.0-80.0 % Lymphocytes (%) (Auto) 20.8 10.0-50.0 % Monocytes (%) (Auto) 6.9 0.0-12.0 % Eosinophils (%) (Auto) 2.1 0.0-7.0 % Basophils (%) (Auto) 0.7 0.0-2.0 % Neutrophils # (Auto) 5.3 1.6-8.6 10 ^3/uL Lymphocytes # (Auto) 1.6 0.4-5.4 10 ^3/uL Monocytes # (Auto) 0.5 0-1.3 10 ^3/uL Eosinophils # (Auto) 0.2 0-0.8 10 ^3/uL Basophils # (Auto) 0.1 0-0.2 10 ^3/uL Nucleated Red Blood Cells 0.0 % Sodium Level 136 136-145 mmol/L Potassium Level 6.5 *H 3.5-5.1 mmol/L Chloride Level 102 98-107 mmol/L Carbon Dioxide Level 20 20-31 mmol/L Anion Gap 14 5-15 Blood Urea Nitrogen 72 H 9-23 mg/dL Creatinine 9.21 H 0.550-1.02 mg/dL Glomerular Filtration Rate Calc 4 >90 mL/min BUN/Creatinine Ratio 7.8 L 10.0-20.0 Serum Glucose 170 H 74-106 mg/dL Lactic Acid Level 0.5 0.4-2.0 mmol/L Calcium Level 8.9 8.7-10.4 mg/dL Total Bilirubin 0.3 0.2-1.0 mg/dL Aspartate Amino Transferase (AST) 18 13-40 U/L Alanine Aminotransferase (ALT) 16 7-40 U/L Alkaline Phosphatase 77 46-116 U/L Total Protein 7.1 5.7-8.2 g/dL Albumin 4.0 3.2-4.8 g/dL Plasma/Serum Blood Alcohol < 3.0 <10 mg/dL Current Medications Medications (Trade) Dose Ordered Sig/Laly Route Start Time Stop Time Status Last Admin Sodium Chloride 1,000 ml @ 1,000 mls/hr Q1H ONCE IVB 10/20/25 15:30 10/20/25 16:29 DC 10/20/25 16:36 Ceftriaxone Sodium 50 ml @ 100 mls/hr ONCE ONCE IV 10/20/25 15:45 10/20/25 16:14 DC 10/20/25 16:36 Patient altered. Blood pressure elevated. Saturation pristine on room air. No sign of any injury pain Was given labetalol. Establish intravenous access. Was given fluids. Was given Rocephin. Possible sepsis from urine. Waiting for family. Kidney function elevated. Potassium elevated. Blood sugar elevated. Continue monitoring. Time of 1ST Reevaluation: 15:30 Reevaluation 1ST: Unchanged Patient Education/Counseling: Diagnosis, Treatment, Prognosis Family Education/Counseling: No Family Present SEPSIS Sepsis Screen Date sepsis recognized/suspect: Oct 20, 2025 Time Sepsis recognized/suspect: 1440 Recent Procedure: No On Antibiotic Therapy: No Respiratory Rate >20: No Heart Rate >90: No Temp<36 C (96.8 F) or >38.3 C: No SBP <90 or MAP <65 mmHG: No New Acute Mental Status Change: No Is the patient on CPAP, BIPAP,: No Physician Orders Urinalysis (10/20/25 15:30) Chest Portable (10/20/25 15:30) Head Without Contrast (10/20/25 15:30) Drug Screen (10/20/25 15:30) Shipping Assistant (10/20/25 15:30) Sodium Chloride 0.9% (10/20/25 15:30) Blood Culture (10/20/25 15:36) Azithromycin 500mg/250ml (Zithromax 500m (10/20/25 15:45) Potassium (10/20/25 21:07) Calcium Gluc 1,000mg/50ml-Ns (10/20/25 17:15) *[facility] (10/20/25 17:07) Vital Signs Date Time Temp Pulse Resp B/P (MAP) Pulse Ox O2 Delivery O2 Flow Rate FiO2 10/20/25 16:00 84 10/20/25 14:40 98.5 80 18 222/110 99 98.5 Laboratory Tests Test 10/20/25 15:40 Lactic Acid Level 0.5 mmol/L (0.4-2.0) White Blood Count 7.7 10^3/uL (4.4-10.8) Medications Medications Dose Ordered Sig/Laly Route Start Time Stop Time Status Last Admin Dose Admin Ceftriaxone Sodium 50 ml @ 100 mls/hr ONCE ONCE IV 10/20/25 15:45 10/20/25 16:14 DC 10/20/25 16:36 Sodium Chloride 1,000 ml @ 1,000 mls/hr Q1H ONCE IVB 10/20/25 15:30 10/20/25 16:29 DC 10/20/25 16:36 Departure 1 Departure Time of Disposition: 15:35 Impression: Primary Impression: Metabolic encephalopathy Additional Impressions: Hyperkalemia Uncontrolled diabetes mellitus Qualified Codes: E13.65 - Other specified diabetes mellitus with hyperglycemia Disposition: ADMITTED INPATIENT Admit to: Med Surg Condition: Guarded Critical Care Note Critical Care Time?: Yes (90 min-critical care time only) Stability Stability form required: No Heart Score Heart Score: Heart Score Response (Comments) Value History N/A 0 EKG N/A 0 Age N/A 0 Risk Factors N/A 0 Troponin N/A 0 Total 0 I personally scribed for JESUS RICO MD ([email or web address]) on 10/20/25 at 15:18. Electronically submitted by Sussy Cortes ([email or web address]). I personally scribed for JESUS RICO MD ([email or web address]) on 10/20/25 at 17:29. Electronically submitted by Sussy Cortes ([email or web address]). JESUS RICO MD Oct 20, 2025 15:18
--- NOTE | 2025-10-20 16:22 | DVH ---
EXAM: CT HEAD WITHOUT CONTRAST HISTORY: altered COMPARISON: CT HEAD WITHOUT CONTRAST on DOS: 06/05/25, CT BRAIN on DOS: 01/25/24 TECHNIQUE: Noncontrast axial CT images of the head were performed. Sagittal and coronal reformatted images were obtained. This CT exam was performed using 1 or more of the following dose reduction techniques: Automated exposure control, adjustment of the mA and/or kv according to patient size, or the use of iterative reconstruction techniques. Radiation Dose: CTDI volume is 52.56 mGy. Dose-length product is 902.88 mGy*cm FINDINGS: No intracranial hemorrhage, mass, midline shift, hydrocephalus, or evidence of acute large vessel infarct. There is moderate to severe decreased attenuation in the periventricular and bicerebral white matter. The paranasal sinuses are clear. All of the maxillary teeth are absent. The bilateral mastoid air cells and middle ear spaces are clear. No cranial fracture or scalp edema. IMPRESSION: Chronic ischemic changes without evidence of acute intracranial process.
--- NOTE | 2025-10-20 16:25 | DVH ---
CHEST RADIOGRAPH Indication: sob Technique: Single frontal view of the chest was obtained COMPARISON: XY CHEST PORTABLE on DOS: 08/29/25, XY CHEST PORTABLE on DOS: 08/29/25, XY CHEST PORTABLE on DOS: 06/03/25, XR CHEST 1 VIEW on DOS: 08/11/24 FINDINGS: Lines and Tubes: Left chest dialysis catheter tip is in the right atrium Lungs: Mild vascular congestion Pleura: No effusion. No pneumothorax. Cardiomediastinal contours: Unremarkable Bones: Unremarkable IMPRESSION: Mild vascular congestion.
[2025-10-20 16:26] LABS: Hematocrit 32.9 % (36.0-46.0); Hemoglobin 10.9 g/dL (12.2-16.2); Mean Corpuscular Hemoglobin 30.0 pg (28.0-32.0); Mean Corpuscular Volume 90.5 fL (80.0-100.0); Nucleated Red Blood Cells % 0.0 %
[2025-10-20] MEDS: SODIUM CHLORIDE 0.9% 1,000 ML IVB ONE (16:36)
[2025-10-20 16:43] LABS: Alanine Aminotransferase 16 U/L (7-40); Albumin 4.0 g/dL (3.2-4.8); Alkaline Phosphatase 77 U/L (46-116); Anion Gap 14 (5-15); BUN/Creatinine Ratio 7.8 (10.0-20.0); Calcium 8.9 mg/dL (8.7-10.4); Chloride 102 mmol/L (98-107); Sodium 136 mmol/L (136-145); Total Protein 7.1 g/dL (5.7-8.2)
[2025-10-20 16:44] LABS: Bilirubin, Total 0.3 mg/dL (0.2-1.0); Blood Urea Nitrogen 72 mg/dL (9-23); Carbon Dioxide 20 mmol/L (20-31); Glucose 170 mg/dL (74-106)
[2025-10-20 16:45] LABS: Potassium 6.5 mmol/L (3.5-5.1)
[2025-10-20 17:00] VITALS: PULSE 76; RESP 15; O2SAT 100
[2025-10-20] MEDS: ALBUTEROL SULF 2.5 MG/0.5ML(0.5%) NEB SOLN NEB ONE (17:24)
[2025-10-20] MEDS: LABETALOL HCL 20 MG/4 ML VL IV ONE (18:46)
[2025-10-20] MEDS: AZITHROMYCIN 500MG/250ML 250 ML IV ONE (18:47)
[2025-10-20] MEDS: SODIUM CHLORIDE 0.9% 1,000 ML IV ONE (18:47)
[2025-10-20 19:20] VITALS: PULSE 77; RESP 14
--- NOTE | 2025-10-20 19:21 | DVH ---
CLINICAL INDICATION: swelling TECHNIQUE: 2 radiographic views of the right shoulder were obtained. Comparison: XR SHOULDER COMPLETE RT on DOS: 02/23/25 FINDINGS/IMPRESSION: Normal alignment of the humerus is noted there is a 2.7 cm calcification adjacent to the right humeral head this may represent fracture fragment from the glenoid. May represent a large calcification in a tendon from calcified tendinitis. Metallic springs are noted adjacent to the right humeral head and in the right cervical soft tissues. The tunnel catheter from the left appears to be in the right atrium. The internal jugular catheter on the right appears to be within the right atrium cavoatrial junction.
--- NOTE | 2025-10-20 19:31 | DVH ---
Procedure: CT CHEST WITHOUT CONTRAST Reason for study/Clinical History: hematoma Comparison Study: XY CHEST PORTABLE on DOS: 10/20/25, XY CHEST PORTABLE on DOS: 08/29/25, XY CHEST PORTABLE on DOS: 08/29/25, XY CHEST PORTABLE on DOS: 06/03/25, XR CHEST 1 VIEW on DOS: 08/11/24 TECHNIQUE: Multidetector CT of the chest was performed from the lung apices to the upper abdomen without the use of intravenous contract. Axial, coronal and sagittal multiplanar reformats were performed. Radiation Dose Information: CT Dose: CTDI volume is 9.45 mGy. Dose-length product is 338.92 mGy*cm The dose indicators for CT are the volume Computed Tomography (CT) Dose Index (CTDIvol) and the Dose Length Product (DLP), and are measured in units of mGy and mGy-cm, respectively. These indicators are not patient dose, but values generated from the CT scanner acquisition factors. The report includes radiation exposure data for exposures received during this examination. FINDINGS: Trachea and central airways are patent. No pulmonary parenchymal injury, pleural effusion, or pneumothorax. Mild bibasilar atelectasis. No suspicious pulmonary nodules or masses. Thoracic aorta is normal in size. The heart size is normal. No pericardial effusion. No lymphadenopathy in the chest. There is a 3.8 x 7 x 6.4 cm lipoma in the right anterior chest wall and shoulder subcutaneous tissues. There is a left IJ dialysis catheter with tip in the cavoatrial junction. There is a right IJ central line with tip at the cavoatrial junction. IMPRESSION: No acute traumatic injury in the chest. 3.8 x 7 x 6.4 cm lipoma in the right anterior chest wall and shoulder subcutaneous tissues. Radiation optimization: All CT scans at this facility use at least one of these dose optimization techniques: automated exposure control mA and/or kV adjustment per patient size (includes targeted exams where dose is matched to clinical indication) or iterative reconstruction.
--- NOTE | 2025-10-20 19:36 | DVH ---
CHEST RADIOGRAPH Indication: CENTRAL LINE PLACEMENT Technique: Single frontal view of the chest was obtained Comparison: XY CHEST PORTABLE on DOS: 10/20/25, XY CHEST PORTABLE on DOS: 08/29/25, XY CHEST PORTABLE on DOS: 08/29/25 FINDINGS: Lines and Tubes: Right internal jugular catheter in place in the right atrium. Tunneled hemodialysis catheter from the left is in place with the tip in the right atrium. Lungs: No focal consolidation. Pleura: No effusion. No pneumothorax. Cardiomediastinal contours: Unremarkable Bones: No acute osseous abnormality. Injection ports are noted over the right shoulder. Prominent right soft tissue calcification is again noted adjacent to the right humeral head IMPRESSION: 1. Internal jugular catheter in place from the right with the tip in the right atrium. 2. Tunneled hemodialysis catheter in place from a left with the catheter tip in the right atrium. 3. Mild bibasilar areas of atelectasis. 4. Prominent calcification adjacent to the right humeral head.
[2025-10-20] MEDS: InsuLIN REG 1unit/0.01ml Soln (100units/ml) IV ONE (19:57)
[2025-10-20] MEDS: SODIUM BICARB 8.4% 50Meq/50ml SYR INJ IV ONE (19:58)
[2025-10-20] MEDS: FUROSEMIDE 20 MG/2 ML VIAL IV ONE (19:58)
[2025-10-20] MEDS: DEXTROSE (50%) 50ML SYRG IV ONE (19:58)
[2025-10-20] MEDS: CALCIUM GLUC 1,000mg/50ml-NS 50 ML IV ONE (19:58)
[2025-10-20] MEDS: SODIUM ZIRCONIUM CYCL 10 GM PAK PO ONE ×2 (19:59→20:30)
--- NOTE | 2025-10-20 20:28 | DVHHP2 ---
History of Present Illness HPI 60 year old china presents to the ED via EMS with a chief complaint of ALOC. Per EMS, patient is from [facility], patient is altered according to staff, last seen well was this morning around 08:00. Per EMS, patient is usually alert and active, currently responds to her name but does not follow commands or answer questions. Patient receives dialysis Sunday, , Sunday, it is unknown if patient missed his dialysis on Sunday. No other symptoms or modifying factors present at this time. Home Meds Active Scripts Metoprolol Tartrate (Metoprolol Tartrate) 25 Mg Tab, 2 TAB PO BID for 30 Days, #120 TAB 1 Refill Prov:MITCHELLCELESTINOGAYLE Mirella DO 10/27/25 Nifedipine (Nifedipine ER) 30 Mg Tab, 30 MG PO DAILY for 30 Days, #30 TAB Prov:MITCHELLCELESTINOGAYLE Mirella DO 10/27/25 Reported Medications Nifedipine (Nifedipine Er) 30 Mg Tab, 1 TAB PO DAILY, #90 TAB 1 Refill 08/30/25 Clonidine Hydrochloride (Clonidine Hcl) 0.1 Mg Tab, 0.1 MG PO BID PRN for SBP>170or DBP>90 for 30 Days, MG 06/04/25 Insulin Lispro (Human) (Humalog) 100 Unit/Ml Inj, 10 UNIT SC TID, INJ 06/04/25 Insulin Glargine (Lantus Solostar) 100 Unit/Ml Inj, 25 UNIT SC HS, INJ 06/04/25 Furosemide (Furosemide) 40 Mg Tab, 40 MG PO DAILY for 30 Days 06/04/25 Ferrous Sulfate (Ferosul) 325 Mg Tab, 325 MG PO DAILY, TAB 06/04/25 Atorvastatin Calcium (ATORVASTATIN CALCIUM) 20 Mg Tab, 1 TAB PO DAILY, #30 TAB 5 Refills 06/04/25 Aspirin (Aspir-Low) 81 Mg Tab, 81 MG PO DAILY for 30 Days, MG 06/04/25 Metoprolol Tartrate (Metoprolol Tartrate) 50 Mg Tab, 50 MG PO BID for 30 Days, MG 06/04/25 Review of Systems Constitutional: No symptom reported Pulmonary/Respiratory: No symptom reported Gastrointestinal: No symptom reported Musculoskeletal: No symptom reported H&P Exam Vital Signs Vital Signs Date Time Temp Pulse Resp B/P (MAP) Pulse Ox O2 Delivery O2 Flow Rate FiO2 10/20/25 20:00 90 10/20/25 19:58 199/112 10/20/25 19:00 15 100 10/20/25 17:29 Room Air* 0 21 10/20/25 17:00 98.6 98.6 General Appeara: Well developed Head Exam: Normal inspection Neck Exam: Normal inspection Nasal Exam: Normal inspection Pulmonary/Respiratory: Normal inspection SEPSIS Sepsis Screen Date sepsis recognized/suspect: Oct 20, 2025 Time Sepsis recognized/suspect: 1699 Recent Procedure: No On Antibiotic Therapy: No Respiratory Rate >20: No Heart Rate >90: No Temp<36 C (96.8 F) or >38.3 C: No SBP <90 or MAP <65 mmHG: No New Acute Mental Status Change: Yes Is the patient on CPAP, BIPAP,: No Physician Orders Urinalysis (10/20/25 15:30) Chest Portable (10/20/25 15:30) Head Without Contrast (10/20/25 15:30) Drug Screen (10/20/25 15:30) Picker / Packer (10/20/25 15:30) Sodium Chloride 0.9% (10/20/25 15:30) Blood Culture (10/20/25 15:36) Potassium (10/20/25 21:07) *[facility] (10/20/25 17:07) R Shoulder 2+ View Xray (10/20/25 17:39) Chest Without Contrast (10/20/25 17:42) Chest Portable (10/20/25 18:26) Vital Signs Date Time Temp Pulse Resp B/P (MAP) Pulse Ox O2 Delivery O2 Flow Rate FiO2 10/20/25 20:00 90 10/20/25 19:58 199/112 10/20/25 19:00 77 15 195/100 (131) 100 10/20/25 18:46 88 218/108 10/20/25 18:00 88 13 218/108 (144) 98 10/20/25 17:29 14 95 Room Air* 0 21 10/20/25 17:00 76 15 100 Room Air* 0 21 10/20/25 17:00 98.6 76 15 215/91 (132) 100 98.6 10/20/25 16:00 84 10/20/25 14:40 98.5 80 18 222/110 99 98.5 Laboratory Tests Test 10/20/25 15:40 Lactic Acid Level 0.5 mmol/L (0.4-2.0) White Blood Count 7.7 10^3/uL (4.4-10.8) Medications Medications Dose Ordered Sig/Laly Route Start Time Stop Time Status Last Admin Dose Admin Albuterol 20 mg ONCE ONCE NEB 10/20/25 17:15 10/20/25 17:16 DC 10/20/25 17:24 20 MG Azithromycin 250 ml @ 125 mls/hr ONCE ONCE IV 10/20/25 15:45 10/20/25 17:44 DC 10/20/25 18:47 125 MLS/HR Calcium Gluconate/ Sodium Chloride 50 ml @ 120 mls/hr ONCE ONCE IV 10/20/25 17:15 10/20/25 17:39 DC 10/20/25 19:58 120 MLS/HR Ceftriaxone Sodium 50 ml @ 100 mls/hr ONCE ONCE IV 10/20/25 15:45 10/20/25 16:14 DC 10/20/25 16:36 100 MLS/HR Dextrose 50 ml ONCE ONCE IV 10/20/25 17:15 10/20/25 17:16 DC 10/20/25 19:58 50 ML Furosemide 20 mg ONCE ONCE IV 10/20/25 17:15 10/20/25 17:16 DC 10/20/25 19:58 20 MG Insulin Human Regular 10 units ONCE ONCE IV 10/20/25 17:15 10/20/25 17:16 DC 10/20/25 19:57 10 UNITS Labetalol HCl 10 mg ONCE ONCE IV 10/20/25 17:45 10/20/25 17:55 DC 10/20/25 18:46 10 MG Sodium Bicarbonate 50 ml ONCE ONCE IV 10/20/25 17:15 10/20/25 17:16 DC 10/20/25 19:58 50 ML Sodium Chloride 1,000 ml @ 150 mls/hr Q6H40M ONCE IV 10/20/25 15:30 10/20/25 22:09 10/20/25 18:47 150 MLS/HR Sodium Chloride 1,000 ml @ 1,000 mls/hr Q1H ONCE IVB 10/20/25 15:30 10/20/25 16:29 DC 10/20/25 16:36 1,000 MLS/HR Zirconium Oxide 10 gm ONCE ONCE PO 10/20/25 17:15 10/20/25 17:16 DC 10/20/25 19:59 10 GM Labs/Xrays Labs Test 10/20/25 15:40 Range/Units White Blood Count 7.7 4.4-10.8 10^3/uL Red Blood Count 3.63 L 4.0-5.20 10^6/uL Hemoglobin 10.9 L 12.2-16.2 g/dL Hematocrit 32.9 L 36.0-46.0 % Mean Corpuscular Volume 90.5 80.0-100.0 fL Mean Corpuscular Hemoglobin 30.0 28.0-32.0 pg Mean Corpuscular Hemoglobin Concent 33.2 32.0-36.0 g/dL Red Cell Distribution Width 17.2 H 11.8-14.3 % Platelet Count 270 140-450 10^3/uL Mean Platelet Volume 6.5 L 6.9-10.8 fL Neutrophils (%) (Auto) 69.5 37.0-80.0 % Lymphocytes (%) (Auto) 20.8 10.0-50.0 % Monocytes (%) (Auto) 6.9 0.0-12.0 % Eosinophils (%) (Auto) 2.1 0.0-7.0 % Basophils (%) (Auto) 0.7 0.0-2.0 % Neutrophils # (Auto) 5.3 1.6-8.6 10 ^3/uL Lymphocytes # (Auto) 1.6 0.4-5.4 10 ^3/uL Monocytes # (Auto) 0.5 0-1.3 10 ^3/uL Eosinophils # (Auto) 0.2 0-0.8 10 ^3/uL Basophils # (Auto) 0.1 0-0.2 10 ^3/uL Nucleated Red Blood Cells 0.0 % Sodium Level 136 136-145 mmol/L Potassium Level 6.5 *H 3.5-5.1 mmol/L Chloride Level 102 98-107 mmol/L Carbon Dioxide Level 20 20-31 mmol/L Anion Gap 14 5-15 Blood Urea Nitrogen 72 H 9-23 mg/dL Creatinine 9.21 H 0.550-1.02 mg/dL Glomerular Filtration Rate Calc 4 >90 mL/min BUN/Creatinine Ratio 7.8 L 10.0-20.0 Serum Glucose 170 H 74-106 mg/dL Lactic Acid Level 0.5 0.4-2.0 mmol/L Calcium Level 8.9 8.7-10.4 mg/dL Total Bilirubin 0.3 0.2-1.0 mg/dL Aspartate Amino Transferase (AST) 18 13-40 U/L Alanine Aminotransferase (ALT) 16 7-40 U/L Alkaline Phosphatase 77 46-116 U/L Total Protein 7.1 5.7-8.2 g/dL Albumin 4.0 3.2-4.8 g/dL Plasma/Serum Blood Alcohol < 3.0 <10 mg/dL Assessment/Plan Primary Diagnosis 60 year old [id number] presents to the ED via EMS with a chief complaint of ALOC. Per EMS, patient is from [facility], patient is altered according to staff, last seen well was this morning around 08:00. Per EMS, patient is usually alert and active, currently responds to her name but does not follow commands or answer questions. Patient receives dialysis Sunday, , Sunday, it is unknown if patient missed his dialysis on Sunday. No other symptoms or modifying factors present at this time. Metabolic & toxic encephalopathy, acute, POA uremia can be due to pain meds given at the SNF vs uremic symptoms ESRD on HD anemia of CKD weakness Hyperkalemia Uncontrolled diabetes mellitus Plan discussed with: Patient GAYLE MITCHELL DO Oct 20, 2025 20:27
[2025-10-20] MEDS ORDERED: DOCUSATE SOD 100 MG CAP PO PRN (20:30)
[2025-10-20] MEDS ORDERED: ACETAMINOPHEN 325 MG TAB PO PRN (20:30)
[2025-10-20] MEDS ORDERED: MORPHINE SULFATE INJ 2 MG/ml SYRG IV PRN (20:30)
[2025-10-20] MEDS ORDERED: NITROGLYCERIN 0.4 MG SL TAB SL PRN (20:30)
[2025-10-20] MEDS: hydrALAZINE HCL 20 MG/ML VL IV PRN (21:32)
--- NOTE | 2025-10-20 21:44 | DVHNC2 ---
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 inserter (paul Kearns) Indication: CVP monitoring, Volume resuscitation, Inability to obtain IV Room prepared for procedure: Yes [employer] performed hand hygien: Yes Maximal sterile barrier precau: Mask/Eye shield, Sterile gown, Cap, Sterlie gloves, Large sterlie drape Skin Preparation: Chlorhexidine gluconate Skin preparation completely dr: Yes Insertion site: Right, Internal jugular Central line catheter type: [id number] dialysis Number of lumens: 3 Central line exchanged over a: No Antiseptic ointment applied to: Yes Post Assessment: Chest X-Ray, No Pneumothorax Notes A time out was performed. My hands were washed immediately prior to the procedure. I wore a surgical cap, mask with protective eyewear, full gown and sterile gloves throughout the procedure. The patient was placed in Trendelenburg position. RIGHT chest region was prepped using chlorhexidine scrub and draped in sterile fashion using a full drape and sterile probe cover and sterile gel employed. The medial and lateral heads of the sternocleidomastoid muscle were identified as was the carotid pulse. The Internal Jugular vein was identified using the ultrasound. Anesthesia was achieved over the vein using 1% lidocaine. Using real-time out of plane guidance, the introducer needle was inserted into the Internal Jugular vein under direct ultrasound visualization. Venous blood was withdrawn. The syringe was removed and a guidewire was advanced into the introducer needle. The guidewire was visualized in the Internal Jugular Vein by ultrasound. A small incision was made at the skin surface with a scalpel and the introducer needle was exchanged for a dilator over the guidewire. After appropriate dilation was obtained, the dilator was exchanged over the wire for a _ central venous catheter. The wire was removed and the catheter was sutured in place at [address] A sterile sorbaview shield was placed over the catheter at the insertion site. The patient tolerated the procedure without any hemodynamic compromise. At time of procedure completion, all ports aspirated and flushed properly. Post-procedure chest x-ray is pending at this time. Estimated blood loss is 5 ml Date of Service: Oct 20, 2025 Billing Provider: JESUS RICO MD Common Visit Codes: PROCEDURE ONLY PAUL KEARNS RESIDENT Oct 20, 2025 21:44
[2025-10-20 23:35] LABS: Urine Protein, UAD 3+ (Negative)
[2025-10-20] MEDS: hydrALAZINE HCL 20 MG/ML VL IV ONE (23:35)
[2025-10-20] MEDS: ONDANSETRON HCL 4 MG/2 ML VIAL IV PRN (23:36)
[2025-10-20 23:49] LABS: Opiate Scree,Urine Neg (NEGATIVE)
[2025-10-20 23:51] LABS: Amphetamine Screen, Urine Neg (NEGATIVE); Barbiturate Scree,Urine Neg (NEGATIVE); Benzodiazephine Screen, Urine Neg (NEGATIVE); Cannabinoid Screen, Urine Neg (NEGATIVE); Cocaine Screen, Urine Neg (NEGATIVE); Phencyclidine Screen, Urine Neg (NEGATIVE)
--- NOTE | 2025-10-21 01:54 | DVH ---
Exam: CT CT AB PEL WO CON-NO ORAL OR IV History: abdomen extention Comparison Study: CT ABD/PEL on DOS: 01/10/24 TECHNIQUE: Multidetector CT of the abdomen and pelvis was performed from lung bases to pubic symphysis. Imaging was performed without IV contrast. Axial, coronal, and sagittal multiplanar reformats were obtained from the axial data set by the technologist. RADIATION DOSE: CTDI vol 19.2 mGy. DLP 1018.2 mGy.cm Findings: Limited evaluation of the solid organs in the absence of IV contrast. Evaluation is also suboptimal due to motion artifact and positioning. Lungs: The lung bases are clear. Liver: Unremarkable. Spleen: Unremarkable. Pancreas: Unremarkable. Gallbladder: Distended appearance of the gallbladder. Adrenals: Unremarkable Kidneys: Nonspecific bilateral perinephric stranding. No hydronephrosis. Pelvic Viscera: A Barber catheter is situated within the urinary bladder. Vasculature: Atherosclerotic aortoiliac calcification. Retroperitoneum: Unremarkable. Bowel: No bowel obstruction. Moderate stool burden. Musculoskeletal: Grade 1 anterolisthesis of L4 on L5. Soft tissues: Unremarkable Impression: 1. Suboptimal evaluation as above. No definite acute abdominopelvic abnormality. 2. Distention of the gallbladder. A right upper quadrant ultrasound may be beneficial in further assessment as clinically indicated. 3. Additional findings as detailed.
[2025-10-21 03:01] LABS: Hematocrit 28.7 % (36.0-46.0); Hemoglobin 9.6 g/dL (12.2-16.2); Mean Corpuscular Hemoglobin 30.4 pg (28.0-32.0); Mean Corpuscular Volume 91.4 fL (80.0-100.0); Nucleated Red Blood Cells % 0.0 %
[2025-10-21 03:08] LABS: Alanine Aminotransferase 14 U/L (7-40); Albumin 3.5 g/dL (3.2-4.8); Alkaline Phosphatase 68 U/L (46-116); Anion Gap 14 (5-15); BUN/Creatinine Ratio 8.1 (10.0-20.0); Carbon Dioxide 21 mmol/L (20-31); Chloride 104 mmol/L (98-107); Sodium 139 mmol/L (136-145); Total Protein 6.3 g/dL (5.7-8.2)
[2025-10-21 03:15] LABS: Bilirubin, Total 0.2 mg/dL (0.2-1.0); Blood Urea Nitrogen 68 mg/dL (9-23); Calcium 8.2 mg/dL (8.7-10.4); Glucose 264 mg/dL (74-106)
[2025-10-21 03:17] LABS: Potassium 6.1 mmol/L (3.5-5.1)
[2025-10-21] MEDS: SODIUM ZIRCONIUM CYCL 10 GM PAK PO ONE (03:45)
[2025-10-21] MEDS: ALBUTEROL SULF 2.5 MG/0.5ML(0.5%) NEB SOLN NEB ONE ×2 (03:50→11:06)
[2025-10-21] MEDS: InsuLIN REG 1unit/0.01ml Soln (100units/ml) IV ONE ×2 (03:57→10:30)
[2025-10-21] MEDS: SODIUM BICARB 8.4% 50Meq/50ml SYR INJ IV ONE ×2 (04:07→10:30)
[2025-10-21] MEDS: METOCLOPRAMIDE HCL 5MG/ml INJ 2ml VIAL IV ONE (04:07)
[2025-10-21] MEDS: DEXTROSE (50%) 50ML SYRG IV ONE ×2 (04:09→10:30)
[2025-10-21 08:54] VITALS: PULSE 94; RESP 14; O2SAT 5
[2025-10-21] MEDS: CALCIUM GLUC 1,000mg/50ml-NS 50 ML IV ONE (10:30)
--- NOTE | 2025-10-21 10:35 | DVHINCON2 ---
Date of service: Oct 21, [address] Salinas Reason for Consultation End-stage renal disease to manage hemodialysis History of Present Illness Patient is 60-year-old female with past medical history significant for end- stage renal disease on hemodialysis every Sunday and Sunday, hypertension, and diabetes mellitus type 2 who is admitted from [facility] for altered level of consciousness. On admission Nephrology is consulted to manage her hemodialysis Past Medical History End-stage renal disease, diabetes mellitus, hypertension Past Surgical History Tunneled IJ hemodialysis catheter Allergies: Coded Allergies: Piperacillin (Verified Allergy, Unknown, 10/20/25) Tazobactam (Verified Allergy, Unknown, 10/20/25) Current Medications Current Medications Medications (Trade) Dose Ordered Sig/Laly Route PRN Reason Start Time Stop Time Status Last Admin Acetaminophen/ Hydrocodone Bitart (Turner 5/325MG Tab) 1 tab Q4HP PRN PO MODERATE PAIN (4-6 PAIN SCALE) 10/20/25 20:30 Ondansetron HCl (Zofran) 4 mg Q4HP PRN IV NAUSEA / VOMITING 10/20/25 20:30 10/20/25 23:36 Docusate Sodium (Colace Capsule) 100 mg BIDPRN PRN PO FOR CONSTIPATION 10/20/25 20:30 Acetaminophen (Tylenol Tablet) 650 mg Q6HP PRN PO PAIN SCALE 1-3 OR TEMP>100.4 10/20/25 20:30 Morphine Sulfate 2 mg Q4HPRN PRN IV SEVERE PAIN (7-10 PAIN SCALE) 10/20/25 20:30 Nitroglycerin (Ntrostat Sublingual) 0.4 mg Q5MINP PRN SL FOR CHEST PAIN 10/20/25 20:30 Morphine Sulfate 2 mg Q30M PRN IV FOR CHEST PAIN 10/20/25 20:30 Hydralazine HCl (Apresoline Injection) 10 mg Q4HPRN PRN IV SBP>160 10/20/25 21:30 10/20/25 21:32 Zirconium Oxide (Lokelma) 10 gm TID PO 10/21/25 14:00 10/23/25 06:01 Albumin Human 100 ml @ 100 mls/hr Q1HR IV 10/21/25 17:00 10/21/25 18:59 10/21/25 16:47 Review of Systems Can't be obtained H&P Exam Vital Signs/I&O Vital Sign Date Time Temp Pulse Resp B/P (MAP) Pulse Ox O2 Delivery O2 Flow Rate FiO2 10/21/25 16:31 98.0 95 18 125/63 (83) 95 98.0 10/21/25 10:56 Room Air* 0 21 Intake and Output 10/20/25 10/21/25 19:00 07:00 Intake Total 1050 ml 50 ml Balance 1050 ml 50 ml Intake IV Total 1050 ml 50 ml Physical Exam Patient examined on HD, BP stable Patient is altered Lung: clear b/l COR: RRR GI: BS+ : Nl Ext: 1+ edema Neuo: patient is altered Labs/Diagnostic Data Labs/Diagnostic Data Laboratory Tests Test 10/21/25 10:57 10/21/25 02:38 10/20/25 23:00 10/20/25 20:56 Range/Units Sodium Level 143 139 136-145 mmol/L Potassium Level 6.8 *H 6.1 *H 5.0 3.5-5.1 mmol/L Chloride Level 102 104 98-107 mmol/L Carbon Dioxide Level 23 21 20-31 mmol/L Anion Gap 18 H 14 5-15 Blood Urea Nitrogen 84 #*H 68 H 9-23 mg/dL Creatinine 10.01 *H 8.37 H 0.550-1.02 mg/dL Glomerular Filtration Rate Calc 4 5 >90 mL/min BUN/Creatinine Ratio 8.4 L 8.1 L 10.0-20.0 Serum Glucose 320 H 264 H 74-106 mg/dL Calcium Level 8.7 8.2 L 8.7-10.4 mg/dL Phosphorus Level 6.7 H 2.4-5.1 mg/dL B-Type Natriuretic Peptide 455.83 0-100 pg/mL Vitamin D 25-Hydroxy 29.8 L 30.0-100 ng/mL Parathyroid Hormone (Intact) 160.4 H 18.4-80.1 pg/mL Hepatitis B Surface Antigen Negative Negative Hepatitis C Antibody Reactive *A Negative White Blood Count 8.7 4.4-10.8 10^3/uL Red Blood Count 3.14 L 4.0-5.20 10^6/uL Hemoglobin 9.6 L 12.2-16.2 g/dL Hematocrit 28.7 #L 36.0-46.0 % Mean Corpuscular Volume 91.4 80.0-100.0 fL Mean Corpuscular Hemoglobin 30.4 28.0-32.0 pg Mean Corpuscular Hemoglobin Concent 33.2 32.0-36.0 g/dL Red Cell Distribution Width 17.1 H 11.8-14.3 % Platelet Count 219 140-450 10^3/uL Mean Platelet Volume 6.6 L 6.9-10.8 fL Neutrophils (%) (Auto) 89.9 H 37.0-80.0 % Lymphocytes (%) (Auto) 6.7 L 10.0-50.0 % Monocytes (%) (Auto) 2.7 0.0-12.0 % Eosinophils (%) (Auto) 0.2 0.0-7.0 % Basophils (%) (Auto) 0.5 0.0-2.0 % Neutrophils # (Auto) 7.8 1.6-8.6 10 ^3/uL Lymphocytes # (Auto) 0.6 0.4-5.4 10 ^3/uL Monocytes # (Auto) 0.2 0-1.3 10 ^3/uL Eosinophils # (Auto) 0 0-0.8 10 ^3/uL Basophils # (Auto) 0 0-0.2 10 ^3/uL Nucleated Red Blood Cells 0.0 % Total Bilirubin 0.2 0.2-1.0 mg/dL Aspartate Amino Transferase (AST) 16 13-40 U/L Alanine Aminotransferase (ALT) 14 7-40 U/L Alkaline Phosphatase 68 46-116 U/L Total Protein 6.3 5.7-8.2 g/dL Albumin 3.5 3.2-4.8 g/dL Urine Color Colorless Yellow Urine Clarity Clear Clear Urine pH 7.5 5.0-9.0 Urine Specific [place] 1.010 1.001-1.035 Urine Protein 3+ H Negative Urine Ketones Negative Negative Urine Blood 1+ H Negative /uL Urine Nitrite Negative Negative Urine Bilirubin Negative Negative Urine Urobilinogen Normal Negative mg/dL Urine Leukocyte Esterase Negative Negative /uL Urine RBC 49 0 - 4 /hpf Urine Microscopic WBC 2 0-5 /HPF Urine Squamous Epithelial Cells Few <5 /hpf Urine Bacteria None seen None Seen /hpf Urine Glucose 3+ H Normal mg/dL Urine Opiates Screen Neg NEGATIVE Urine Fentanyl Screen Neg NEGATIVE Urine Barbiturates Screen Neg NEGATIVE Urine Phencyclidine Screen Neg NEGATIVE Urine Amphetamines Screen Neg NEGATIVE Urine Benzodiazepines Screen Neg NEGATIVE Urine Cocaine Screen Neg NEGATIVE Urine Cannabinoids Screen Neg NEGATIVE Test 10/20/25 15:40 Range/Units White Blood Count 7.7 4.4-10.8 10^3/uL Red Blood Count 3.63 L 4.0-5.20 10^6/uL Hemoglobin 10.9 L 12.2-16.2 g/dL Hematocrit 32.9 L 36.0-46.0 % Mean Corpuscular Volume 90.5 80.0-100.0 fL Mean Corpuscular Hemoglobin 30.0 28.0-32.0 pg Mean Corpuscular Hemoglobin Concent 33.2 32.0-36.0 g/dL Red Cell Distribution Width 17.2 H 11.8-14.3 % Platelet Count 270 140-450 10^3/uL Mean Platelet Volume 6.5 L 6.9-10.8 fL Neutrophils (%) (Auto) 69.5 37.0-80.0 % Lymphocytes (%) (Auto) 20.8 10.0-50.0 % Monocytes (%) (Auto) 6.9 0.0-12.0 % Eosinophils (%) (Auto) 2.1 0.0-7.0 % Basophils (%) (Auto) 0.7 0.0-2.0 % Neutrophils # (Auto) 5.3 1.6-8.6 10 ^3/uL Lymphocytes # (Auto) 1.6 0.4-5.4 10 ^3/uL Monocytes # (Auto) 0.5 0-1.3 10 ^3/uL Eosinophils # (Auto) 0.2 0-0.8 10 ^3/uL Basophils # (Auto) 0.1 0-0.2 10 ^3/uL Nucleated Red Blood Cells 0.0 % Sodium Level 136 136-145 mmol/L Potassium Level 6.5 *H 3.5-5.1 mmol/L Chloride Level 102 98-107 mmol/L Carbon Dioxide Level 20 20-31 mmol/L Anion Gap 14 5-15 Blood Urea Nitrogen 72 H 9-23 mg/dL Creatinine 9.21 H 0.550-1.02 mg/dL Glomerular Filtration Rate Calc 4 >90 mL/min BUN/Creatinine Ratio 7.8 L 10.0-20.0 Serum Glucose 170 H 74-106 mg/dL Lactic Acid Level 0.5 0.4-2.0 mmol/L Calcium Level 8.9 8.7-10.4 mg/dL Total Bilirubin 0.3 0.2-1.0 mg/dL Aspartate Amino Transferase (AST) 18 13-40 U/L Alanine Aminotransferase (ALT) 16 7-40 U/L Alkaline Phosphatase 77 46-116 U/L Total Protein 7.1 5.7-8.2 g/dL Albumin 4.0 3.2-4.8 g/dL Plasma/Serum Blood Alcohol < 3.0 <10 mg/dL Assessment End-stage renal disease on hemodialysis Encephalopathy Hyperkalemia Diabetes mellitus type 2 Hypertension Anemia of chronic kidney disease Recommendations Contine with UF 2-3 L as tolerated Epogen 20455 subQ 3 times weekly Emergent medical treatment for hyperkalemia Strict I&Os Renal diet Neurology consult Resume home medication Insulin sliding scale We will continue to follow up Patient seen and examined by myself in the ER. I discussed my plan of care with the primary nurse at the bedside I would like to thank Dr. Salinas the consult, will follow up Plan discussed with: Patient YUNIOR DUDLEY MD Oct 21, 2025 10:35
[2025-10-21 13:00] VITALS: BP 114/62; PULSE 95; RESP 18; TEMP 97.4; O2SAT 94
[2025-10-21 13:10] LABS: Anion Gap 18 (5-15); Carbon Dioxide 23 mmol/L (20-31); Chloride 102 mmol/L (98-107); Sodium 143 mmol/L (136-145)
[2025-10-21 13:16] LABS: BUN/Creatinine Ratio 8.4 (10.0-20.0)
[2025-10-21 13:21] LABS: Blood Urea Nitrogen 84 mg/dL (9-23); Calcium 8.7 mg/dL (8.7-10.4); Glucose 320 mg/dL (74-106); Potassium 6.8 mmol/L (3.5-5.1)
[2025-10-21 13:44] VITALS: BP 114/62; PULSE 95; TEMP 97.4; O2SAT 94
[2025-10-21 13:48] LABS: Hepatitis B Surface Antigen Negative (Negative)
[2025-10-21 13:59] LABS: Hepatitis C Antibody Reactive (Negative)
[2025-10-21] MEDS: SODIUM ZIRCONIUM CYCL 10 GM PAK PO SCH (14:00)
[2025-10-21 16:31] VITALS: BP 125/63; PULSE 95; RESP 18; TEMP 98; O2SAT 95
[2025-10-21] MEDS: ALBUMIN 25% 100 ML IV SCH (16:47)
[2025-10-21 20:00] VITALS: PULSE 107; PULSE 109; RESP 18; O2SAT 94
[2025-10-21 21:00] VITALS: BP 125/87; PULSE 109; RESP 16; TEMP 97.5; O2SAT 94
[2025-10-22] VITALS (9 sets, daily range): BP systolic 146–187; BP diastolic 77–94; PULSE 87–106; RESP 16–18; TEMP 97.5–98.3; O2SAT 95–100
--- NOTE | 2025-10-22 00:45 | DVHPN2 ---
Progress Note Date Seen: Oct 21, 2025 Medical Necessity Reason Pt with a Central, PICC or Fol: No Objective vital signs Vital Sign Date Time Temp Pulse Resp B/P (MAP) Pulse Ox O2 Delivery O2 Flow Rate FiO2 10/21/25 21:00 97.5 109 16 125/87 (100) 94 97.5 10/21/25 10:56 Room Air* 0 21 Total Intake and Output 10/21/25 10/21/25 10/22/25 15:00 23:00 07:00 Intake Total 0 ml Balance 0 ml medications Current Medications Medications Dose Ordered Sig/Laly Route Start Time Stop Time Status Last Admin Dose Admin Acetaminophen/ Hydrocodone Bitart 1 tab Q4HP PRN PO 10/20/25 20:30 Ondansetron HCl 4 mg Q4HP PRN IV 10/20/25 20:30 10/20/25 23:36 4 MG Docusate Sodium 100 mg BIDPRN PRN PO 10/20/25 20:30 Acetaminophen 650 mg Q6HP PRN PO 10/20/25 20:30 Morphine Sulfate 2 mg Q4HPRN PRN IV 10/20/25 20:30 Nitroglycerin 0.4 mg Q5MINP PRN SL 10/20/25 20:30 Morphine Sulfate 2 mg Q30M PRN IV 10/20/25 20:30 Hydralazine HCl 10 mg Q4HPRN PRN IV 10/20/25 21:30 10/20/25 21:32 10 MG Zirconium Oxide 10 gm TID PO 10/21/25 14:00 10/23/25 06:01 laboratory and microbiology Laboratory Tests 10/21/25 10:57 10/21/25 02:38 Test 10/21/25 10:57 Range/Units Serum Glucose 320 H 74-106 mg/dL Microbiology Date/Time Source Procedure Growth Status 10/20/25 16:03 Blood Blood Culture - Preliminary NO GROWTH AFTER 24 HOURS OF INCUBATION. Resulted Labs and/or images reviewed: Labs reviewed by me, Image(s) reviewed by me Problem List/Assessment/Plan Problem List/Assessment/Plan 60 year old [id number] presents to the ED via EMS with a chief complaint of ALOC. Per EMS, patient is from [facility], patient is altered according to staff, last seen well was this morning around 08:00. Per EMS, patient is usually alert and active, currently responds to her name but does not follow commands or answer questions. Patient receives dialysis Sunday, , Sunday, it is unknown if patient missed his dialysis on Sunday. No other symptoms or modifying factors present at this time. Metabolic & toxic encephalopathy, acute, POA uremia can be due to pain meds given at the SNF vs uremic symptoms ESRD on HD anemia of CKD weakness Hyperkalemia Uncontrolled diabetes mellitus pt to receive HD per DCD Plan discussed with: Patient My Orders My Orders Orders - GAYLE MITCHELL DO Procedure Category Date Status Time Insert Barber Catheter BOUCHRA 10/21/25 In Process 07:57 Urine Bacterial KATE 10/21/25 In Process Culture 07:57 * Wild [employer] CONS 10/21/25 Transmitted Consult GAYLE MITCHELL DO Oct 22, 2025 00:45
[2025-10-22] MEDS ORDERED: DEXTROSE (50%) 50ML SYRG IV PRN (01:00)
[2025-10-22 01:37] LABS: Potassium 5.0 mmol/L (3.5-5.1); Sodium 139 mmol/L (136-145)
[2025-10-22 01:38] LABS: Anion Gap 14 (5-15); Carbon Dioxide 28 mmol/L (20-31)
[2025-10-22 01:39] LABS: Calcium 9.5 mg/dL (8.7-10.4); Chloride 97 mmol/L (98-107)
[2025-10-22] MEDS: HALOPERIDOL LACTATE 5 MG/ML INJ VIAL IM ONE (01:41)
[2025-10-22 01:43] LABS: BUN/Creatinine Ratio 4.8 (10.0-20.0)
[2025-10-22 01:51] LABS: Blood Urea Nitrogen 27 mg/dL (9-23); Glucose 304 mg/dL (74-106)
[2025-10-22] MEDS: InsuLIN REG 1unit/0.01ml Soln (100units/ml) SC SCH (06:02)
[2025-10-22] MEDS: ACCU-CHEK COMFORT CURVE STRIP VI SCH (06:10)
[2025-10-22] MEDS: SODIUM CHL 0.9% 1000 ML BAG XX ONE (07:00)
--- NOTE | 2025-10-22 14:58 | DVHPN2 ---
Progress Note Date Seen: Oct 22, 2025 Medical Necessity Reason Pt with a Central, PICC or Fol: No Subjective Patient reports: No new complaints Other Systems: Patient seen and examined by myself today in follow-up Objective vital signs Vital Sign Date Time Temp Pulse Resp B/P (MAP) Pulse Ox O2 Delivery O2 Flow Rate FiO2 10/22/25 08:00 92 10/22/25 05:00 97.5 16 159/85 (109) 97 97.5 10/21/25 20:00 Room Air* 0 21 Total Intake and Output 10/21/25 10/21/25 10/22/25 15:00 23:00 07:00 Intake Total 0 ml Output Total 425 ml Balance 0 ml -425 ml medications Current Medications Medications Dose Ordered Sig/Laly Route Start Time Stop Time Status Last Admin Dose Admin Acetaminophen/ Hydrocodone Bitart 1 tab Q4HP PRN PO 10/20/25 20:30 Ondansetron HCl 4 mg Q4HP PRN IV 10/20/25 20:30 10/20/25 23:36 4 MG Docusate Sodium 100 mg BIDPRN PRN PO 10/20/25 20:30 Acetaminophen 650 mg Q6HP PRN PO 10/20/25 20:30 Morphine Sulfate 2 mg Q4HPRN PRN IV 10/20/25 20:30 Nitroglycerin 0.4 mg Q5MINP PRN SL 10/20/25 20:30 Morphine Sulfate 2 mg Q30M PRN IV 10/20/25 20:30 Hydralazine HCl 10 mg Q4HPRN PRN IV 10/20/25 21:30 10/22/25 04:28 10 MG Zirconium Oxide 10 gm TID PO 10/21/25 14:00 10/23/25 06:01 Diagnostic Test (Pha) 1 strip Q6HR 10/22/25 06:00 10/22/25 11:52 1 STRIP Insulin Human Regular Q6HR SC 10/22/25 06:00 10/22/25 06:02 6 UNITS Dextrose 50 ml UD PRN IV 10/22/25 01:00 Examination: LUNGS:Normal, CVS:Normal, MSK:Abnormal laboratory and microbiology Laboratory Tests 10/22/25 01:14 10/21/25 02:38 Test 10/22/25 01:14 Range/Units Serum Glucose 304 H 74-106 mg/dL Microbiology Date/Time Source Procedure Growth Status 10/20/25 23:00 Urine - [place] Urine Culture - Preliminary No growth Resulted 10/20/25 16:03 Blood Blood Culture - Preliminary NO GROWTH AFTER 24 HOURS OF INCUBATION. Resulted Problem List/Assessment/Plan Problem List/Assessment/Plan End-stage renal disease on hemodialysis Encephalopathy Hyperkalemia, resolved Diabetes mellitus type 2, uncontrolled Hyperglycemia Hypertension Hyperphosphatemia Anemia of chronic kidney disease Recommendations Hemodialysis tomorrow Epogen 48841 subQ 3 times weekly Emergent medical treatment for hyperkalemia Strict I&Os Renal diet Renvela 1600 mg p.o. t.i.d. with meals Resume home medication Blood pressure control Insulin sliding scale We will continue to follow up Plan discussed with: Patient My Orders My Orders Orders - YUNIOR DUDLEY MD Procedure Category Date Status Time Hemodialysis Orders ORDERS 10/21/25 Transmitted 07:00 YUNIOR DUDLEY MD Oct 22, 2025 14:58
--- NOTE | 2025-10-22 17:33 | DVHPN2 ---
Progress Note Date Seen: Oct 22, 2025 Medical Necessity Reason Pt with a Central, PICC or Fol: No Subjective Review of Systems: HEENT:Normal, CVS:Normal, RESPIRATORY:Normal, GI:Normal, :Normal Objective vital signs Vital Sign Date Time Temp Pulse Resp B/P (MAP) Pulse Ox O2 Delivery O2 Flow Rate FiO2 10/22/25 17:00 98.3 91 18 163/80 (107) 96 98.3 10/21/25 20:00 Room Air* 0 21 Total Intake and Output 10/21/25 10/21/25 10/22/25 15:00 23:00 07:00 Intake Total 0 ml Output Total 425 ml Balance 0 ml -425 ml medications Current Medications Medications Dose Ordered Sig/Laly Route Start Time Stop Time Status Last Admin Dose Admin Acetaminophen/ Hydrocodone Bitart 1 tab Q4HP PRN PO 10/20/25 20:30 Ondansetron HCl 4 mg Q4HP PRN IV 10/20/25 20:30 10/20/25 23:36 4 MG Docusate Sodium 100 mg BIDPRN PRN PO 10/20/25 20:30 Acetaminophen 650 mg Q6HP PRN PO 10/20/25 20:30 Morphine Sulfate 2 mg Q4HPRN PRN IV 10/20/25 20:30 Nitroglycerin 0.4 mg Q5MINP PRN SL 10/20/25 20:30 Morphine Sulfate 2 mg Q30M PRN IV 10/20/25 20:30 Hydralazine HCl 10 mg Q4HPRN PRN IV 10/20/25 21:30 10/22/25 04:28 10 MG Zirconium Oxide 10 gm TID PO 10/21/25 14:00 Hold Diagnostic Test (Pha) 1 strip Q6HR 10/22/25 06:00 10/22/25 11:52 1 STRIP Insulin Human Regular Q6HR SC 10/22/25 06:00 10/22/25 06:02 6 UNITS Dextrose 50 ml UD PRN IV 10/22/25 01:00 Sevelamer HCl 1,600 mg TIDWM PO 10/22/25 18:00 Examination: GENERAL:Normal, HEENT:Normal, NECK:Normal, LUNGS:Normal laboratory and microbiology Laboratory Tests 10/22/25 01:14 10/21/25 02:38 Test 10/22/25 01:14 Range/Units Serum Glucose 304 H 74-106 mg/dL Microbiology Date/Time Source Procedure Growth Status 10/20/25 23:00 Urine - [place] Urine Culture - Preliminary No growth Resulted 10/20/25 16:03 Blood Blood Culture - Preliminary NO GROWTH AFTER 48 HOURS OF INCUBATION. Resulted Labs and/or images reviewed: Labs reviewed by me, Image(s) reviewed by me Problem List/Assessment/Plan Problem List/Assessment/Plan 60 year old [id number] presents to the ED via EMS with a chief complaint of ALOC. Per EMS, patient is from [facility], patient is altered according to staff, last seen well was this morning around 08:00. Per EMS, patient is usually alert and active, currently responds to her name but does not follow commands or answer questions. Patient receives dialysis Sunday, , Sunday, it is unknown if patient missed his dialysis on Sunday. No other symptoms or modifying factors present at this time. Metabolic & toxic encephalopathy, acute, POA uremia can be due to pain meds given at the SNF vs uremic symptoms ESRD on HD anemia of CKD weakness Hyperkalemia Uncontrolled diabetes mellitus PT/OT to evaluate pt Plan discussed with: Patient My Orders My Orders Orders - GAYLE MITCHELL DO Procedure Category Date Status Time Glucose Blood PHA 10/22/25 In Process (Accu-Chek Comfort 06:00 Insulin R (Human) PHA 10/22/25 In Process (Insulin R) 06:00 Dextrose 50% Syringe PHA 10/22/25 In Process 01:00 * Swallow Request ST 10/22/25 Transmitted 16:39 Pureed DIET 10/22/25 Transmitted Dinner Communication Order ORDERS 10/22/25 Transmitted 17:17 GAYLE MITCHELL DO Oct 22, 2025 17:33
[2025-10-22] MEDS: SEVELAMER 800 MG TAB PO SCH (18:37)
[2025-10-22] MEDS: EPOETIN ALFA-EPBX 10,000 UNIT/1ML VIAL SC ONE (21:00)
[2025-10-23] VITALS (7 sets, daily range): BP systolic 142–176; BP diastolic 76–89; PULSE 81–93; RESP 16–17; TEMP 97.5–98.5; O2SAT 94–97
[2025-10-23] MEDS: SODIUM CHL 0.9% 1000 ML BAG XX ONE (07:00)
[2025-10-23] MEDS: HYDROcodone-ACET 5/325MG TAB PO PRN (11:42)
--- NOTE | 2025-10-23 12:07 | DVHPN2 ---
Progress Note Date Seen: Oct 23, 2025 Medical Necessity Reason Pt with a Central, PICC or Fol: No Subjective Patient reports: No new complaints Other Systems: Patient seen and examined by myself today in follow-up Patient examined hemodialysis, blood pressure still Objective vital signs Vital Sign Date Time Temp Pulse Resp B/P (MAP) Pulse Ox O2 Delivery O2 Flow Rate FiO2 10/23/25 08:00 93 16 94 Room Air* 0 21 10/23/25 05:00 98.2 142/88 (106) 98.2 Total Intake and Output 10/22/25 10/22/25 10/23/25 15:00 23:00 07:00 Intake Total 100 ml 790 ml Output Total 50 ml 150 ml Balance 50 ml 640 ml medications Current Medications Medications Dose Ordered Sig/Laly Route Start Time Stop Time Status Last Admin Dose Admin Acetaminophen/ Hydrocodone Bitart 1 tab Q4HP PRN PO 10/20/25 20:30 10/23/25 11:42 1 TAB Ondansetron HCl 4 mg Q4HP PRN IV 10/20/25 20:30 10/20/25 23:36 4 MG Docusate Sodium 100 mg BIDPRN PRN PO 10/20/25 20:30 Acetaminophen 650 mg Q6HP PRN PO 10/20/25 20:30 Morphine Sulfate 2 mg Q4HPRN PRN IV 10/20/25 20:30 Nitroglycerin 0.4 mg Q5MINP PRN SL 10/20/25 20:30 Morphine Sulfate 2 mg Q30M PRN IV 10/20/25 20:30 Hydralazine HCl 10 mg Q4HPRN PRN IV 10/20/25 21:30 10/22/25 21:06 10 MG Diagnostic Test (Pha) 1 strip Q6HR 10/22/25 06:00 10/23/25 11:55 1 STRIP Insulin Human Regular Q6HR SC 10/22/25 06:00 10/23/25 11:59 12 UNITS Dextrose 50 ml UD PRN IV 10/22/25 01:00 Sevelamer HCl 1,600 mg TIDWM PO 10/22/25 18:00 10/23/25 11:41 1,600 MG Examination: LUNGS:Normal, CVS:Normal, MSK:Abnormal laboratory and microbiology Laboratory Tests 10/22/25 01:14 10/21/25 02:38 Test 10/22/25 01:14 Range/Units Serum Glucose 304 H 74-106 mg/dL Microbiology Date/Time Source Procedure Growth Status 10/20/25 23:00 Urine - [place] Urine Culture - Preliminary No growth Resulted 10/20/25 16:03 Blood Blood Culture - Preliminary NO GROWTH AFTER 48 HOURS OF INCUBATION. Resulted Problem List/Assessment/Plan Problem List/Assessment/Plan End-stage renal disease on hemodialysis Encephalopathy Hyperkalemia, resolved Diabetes mellitus type 2, uncontrolled Hyperglycemia Hypertension Hyperphosphatemia Anemia of chronic kidney disease Recommendations Continue with UF to 3 L as tolerated Epogen 99276 subQ 3 times weekly Emergent medical treatment for hyperkalemia Strict I&Os Renal diet Renvela 1600 mg p.o. t.i.d. with meals Resume home medication Blood pressure control Insulin sliding scale We will continue to follow up Plan discussed with: Other (Nurse) My Orders My Orders Orders - YUNIOR DUDLEY MD Procedure Category Date Status Time Hemodialysis Orders ORDERS 10/23/25 Transmitted 07:00 Dialysis Nursing BOUCHRA 10/23/25 In Process Message 07:00 Document Fluid Input BOUCHRA 10/23/25 In Process And Outpu 07:00 Epoetin Jassi-Epbx PHA 10/23/25 In Process (Retacrit) 21:00 Sevelamer (Renagel) PHA 10/22/25 In Process 18:00 YUNIOR DUDLEY MD Oct 23, 2025 12:07
[2025-10-23 14:52] LABS: Hematocrit 28.5 % (36.0-46.0); Hemoglobin 9.4 g/dL (12.2-16.2); Mean Corpuscular Hemoglobin 30.2 pg (28.0-32.0); Mean Corpuscular Volume 91.5 fL (80.0-100.0); Nucleated Red Blood Cells % 0.0 %
[2025-10-23 15:05] LABS: Alanine Aminotransferase 20 U/L (7-40); Albumin 3.9 g/dL (3.2-4.8); Alkaline Phosphatase 67 U/L (46-116); Anion Gap 13 (5-15); BUN/Creatinine Ratio 7.1 (10.0-20.0); Calcium 8.8 mg/dL (8.7-10.4); Carbon Dioxide 30 mmol/L (20-31); Total Protein 6.3 g/dL (5.7-8.2)
[2025-10-23 15:13] LABS: Bilirubin, Total 0.3 mg/dL (0.2-1.0); Blood Urea Nitrogen 55 mg/dL (9-23); Chloride 92 mmol/L (98-107); Glucose 162 mg/dL (74-106); Potassium 5.1 mmol/L (3.5-5.1); Sodium 135 mmol/L (136-145)
[2025-10-23] MEDS: EPOETIN ALFA-EPBX 10,000 UNIT/1ML VIAL SC ONE (21:00)
[2025-10-24] VITALS (9 sets, daily range): BP systolic 137–203; BP diastolic 79–120; PULSE 83–93; RESP 17–19; TEMP 97.5–98; O2SAT 92–100
[2025-10-24] MEDS: MORPHINE SULFATE 4 MG/ML SYR/VIAL IV PRN (08:44)
--- NOTE | 2025-10-24 11:47 | DVHPN2 ---
Progress Note Date Seen: Oct 24, 2025 Medical Necessity Reason Pt with a Central, PICC or Fol: No Subjective Review of Systems: RESPIRATORY:Abnormal Other Systems: Patient seen and examined by myself today in follow-up Objective vital signs Vital Sign Date Time Temp Pulse Resp B/P (MAP) Pulse Ox O2 Delivery O2 Flow Rate FiO2 10/24/25 08:45 97.8 83 17 162/93 (116) 95 97.8 10/23/25 20:00 Room Air* 0 21 Total Intake and Output 10/23/25 10/23/25 10/24/25 15:00 23:00 07:00 Intake Total 1050 ml 940 ml Output Total 50 ml 340 ml Balance 1000 ml 600 ml medications Current Medications Medications Dose Ordered Sig/Laly Route Start Time Stop Time Status Last Admin Dose Admin Acetaminophen/ Hydrocodone Bitart 1 tab Q4HP PRN PO 10/20/25 20:30 10/23/25 11:42 1 TAB Ondansetron HCl 4 mg Q4HP PRN IV 10/20/25 20:30 10/20/25 23:36 4 MG Docusate Sodium 100 mg BIDPRN PRN PO 10/20/25 20:30 Acetaminophen 650 mg Q6HP PRN PO 10/20/25 20:30 Morphine Sulfate 2 mg Q4HPRN PRN IV 10/20/25 20:30 10/24/25 08:44 2 MG Nitroglycerin 0.4 mg Q5MINP PRN SL 10/20/25 20:30 Morphine Sulfate 2 mg Q30M PRN IV 10/20/25 20:30 Hydralazine HCl 10 mg Q4HPRN PRN IV 10/20/25 21:30 10/22/25 21:06 10 MG Diagnostic Test (Pha) 1 strip Q6HR 10/22/25 06:00 10/24/25 06:00 1 STRIP Insulin Human Regular Q6HR SC 10/22/25 06:00 10/24/25 00:47 15 UNITS Dextrose 50 ml UD PRN IV 10/22/25 01:00 Sevelamer HCl 1,600 mg TIDWM PO 10/22/25 18:00 10/24/25 08:44 1,600 MG Examination: LUNGS:Normal, CVS:Normal, MSK:Normal laboratory and microbiology Laboratory Tests 10/23/25 14:35 Test 10/23/25 14:35 Range/Units Serum Glucose 162 H 74-106 mg/dL Microbiology Date/Time Source Procedure Growth Status 10/23/25 03:40 Nose MRSA Screen - Final Complete 10/20/25 23:00 Urine - [place] Urine Culture - Final Complete 10/20/25 16:03 Blood Blood Culture - Preliminary NO GROWTH AFTER 72 HOURS OF INCUBATION. Resulted Problem List/Assessment/Plan Problem List/Assessment/Plan End-stage renal disease on hemodialysis Encephalopathy Hyperkalemia, resolved Diabetes mellitus type 2, uncontrolled Hyperglycemia Hypertension Hyperphosphatemia Anemia of chronic kidney disease Recommendations Next hemodialysis 10/26 Epogen 61121 subQ 3 times weekly Emergent medical treatment for hyperkalemia Strict I&Os Renal diet Renvela 1600 mg p.o. t.i.d. with meals Resume home medication Blood pressure control Insulin sliding scale We will continue to follow up Plan discussed with: Patient YUNIOR DUDLEY MD Oct 24, 2025 11:47
[2025-10-24 12:31] LABS: Hematocrit 30.2 % (36.0-46.0); Hemoglobin 10.0 g/dL (12.2-16.2); Mean Corpuscular Hemoglobin 30.4 pg (28.0-32.0); Mean Corpuscular Volume 91.9 fL (80.0-100.0); Nucleated Red Blood Cells % 0.1 %
[2025-10-24 12:47] LABS: Alanine Aminotransferase 18 U/L (7-40); Albumin 4.1 g/dL (3.2-4.8); Alkaline Phosphatase 68 U/L (46-116); Anion Gap 11 (5-15); BUN/Creatinine Ratio 7.5 (10.0-20.0); Calcium 9.0 mg/dL (8.7-10.4); Carbon Dioxide 29 mmol/L (20-31); Total Protein 6.9 g/dL (5.7-8.2)
[2025-10-24 12:48] LABS: Bilirubin, Total 0.2 mg/dL (0.2-1.0); Blood Urea Nitrogen 46 mg/dL (9-23); Chloride 95 mmol/L (98-107); Glucose 225 mg/dL (74-106); Sodium 135 mmol/L (136-145)
[2025-10-24 12:50] LABS: Potassium 5.6 mmol/L (3.5-5.1)
[2025-10-24] MEDS: SODIUM ZIRCONIUM CYCL 10 GM PAK PO ONE (14:46)
--- NOTE | 2025-10-24 16:33 | DVH ---
EXAM: XY CHEST XRAY 1 VIEW HISTORY: r/o radiopaque TECHNIQUE: 1 view of the chest COMPARISON: CT CHEST WITHOUT CONTRAST on DOS: 10/20/25 FINDINGS/IMPRESSION: LUNGS: Central pulmonary vascular congestion. Correlate for volume overload. MEDIASTINUM: Normal cardiac size BONES: No acute osseous abnormality. OTHER: Left internal jugular dual-lumen dialysis catheter. Right internal jugular central venous catheter.
[2025-10-25] VITALS (8 sets, daily range): BP systolic 144–181; BP diastolic 76–95; PULSE 83–94; RESP 15–20; TEMP 97–98.9; O2SAT 92–97
--- NOTE | 2025-10-25 12:58 | DVHPN2 ---
Progress Note Date Seen: Oct 25, 2025 Medical Necessity Reason Pt with a Central, PICC or Fol: No Subjective Patient reports: No new complaints Other Systems: Patient seen and examined by myself today in follow-up Objective vital signs Vital Sign Date Time Temp Pulse Resp B/P (MAP) Pulse Ox O2 Delivery O2 Flow Rate FiO2 10/25/25 09:07 97.0 89 20 144/85 (104) 92 97.0 10/25/25 08:00 Room Air* 0 21 Total Intake and Output 10/24/25 10/24/25 10/25/25 15:00 23:00 07:00 Intake Total 1350 ml 340 ml Output Total 200 ml 200 ml Balance 1150 ml 140 ml medications Current Medications Medications Dose Ordered Sig/Laly Route Start Time Stop Time Status Last Admin Dose Admin Acetaminophen/ Hydrocodone Bitart 1 tab Q4HP PRN PO 10/20/25 20:30 10/24/25 13:09 1 TAB Ondansetron HCl 4 mg Q4HP PRN IV 10/20/25 20:30 10/24/25 12:38 4 MG Docusate Sodium 100 mg BIDPRN PRN PO 10/20/25 20:30 Acetaminophen 650 mg Q6HP PRN PO 10/20/25 20:30 Morphine Sulfate 2 mg Q4HPRN PRN IV 10/20/25 20:30 10/24/25 08:44 2 MG Nitroglycerin 0.4 mg Q5MINP PRN SL 10/20/25 20:30 Morphine Sulfate 2 mg Q30M PRN IV 10/20/25 20:30 Hydralazine HCl 10 mg Q4HPRN PRN IV 10/20/25 21:30 10/25/25 05:49 10 MG Diagnostic Test (Pha) 1 strip Q6HR 10/22/25 06:00 10/25/25 12:00 1 STRIP Insulin Human Regular Q6HR SC 10/22/25 06:00 10/25/25 00:21 9 UNITS Dextrose 50 ml UD PRN IV 10/22/25 01:00 Sevelamer HCl 1,600 mg TIDWM PO 10/22/25 18:00 10/25/25 12:33 1,600 MG Examination: LUNGS:Normal, CVS:Normal, MSK:Normal laboratory and microbiology Laboratory Tests 10/24/25 12:06 Test 10/24/25 12:06 Range/Units Serum Glucose 225 H 74-106 mg/dL Microbiology Date/Time Source Procedure Growth Status 10/23/25 03:40 Nose MRSA Screen - Final Complete 10/20/25 23:00 Urine - [place] Urine Culture - Final Complete 10/20/25 16:03 Blood Blood Culture - Preliminary NO GROWTH AFTER 72 HOURS OF INCUBATION. Resulted Problem List/Assessment/Plan Problem List/Assessment/Plan End-stage renal disease on hemodialysis Encephalopathy Hyperkalemia, resolved Diabetes mellitus type 2, uncontrolled Hyperglycemia Hypertension Hyperphosphatemia Anemia of chronic kidney disease Recommendations Hemodialysis tomorrow Epogen 89727 subQ 3 times weekly Emergent medical treatment for hyperkalemia Strict I&Os Renal diet Renvela 1600 mg p.o. t.i.d. with meals Resume home medication Blood pressure control Insulin sliding scale Neurology: We will continue to follow up Plan discussed with: Patient YUNIOR DUDLEY MD Oct 25, 2025 12:58
[2025-10-25 14:01] LABS: Hematocrit 28.9 % (36.0-46.0); Hemoglobin 9.6 g/dL (12.2-16.2); Mean Corpuscular Hemoglobin 30.4 pg (28.0-32.0); Mean Corpuscular Volume 91.6 fL (80.0-100.0); Nucleated Red Blood Cells % 0.0 %
--- NOTE | 2025-10-25 14:17 | DVHPN2 ---
Progress Note Date Seen: Oct 24, 2025 Medical Necessity Reason Pt with a Central, PICC or Fol: No Objective vital signs Vital Sign Date Time Temp Pulse Resp B/P (MAP) Pulse Ox O2 Delivery O2 Flow Rate FiO2 10/25/25 13:00 97.7 93 20 154/83 (106) 93 97.7 10/25/25 08:00 Room Air* 0 21 Total Intake and Output 10/24/25 10/24/25 10/25/25 15:00 23:00 07:00 Intake Total 1350 ml 340 ml Output Total 200 ml 200 ml Balance 1150 ml 140 ml medications Current Medications Medications Dose Ordered Sig/Laly Route Start Time Stop Time Status Last Admin Dose Admin Acetaminophen/ Hydrocodone Bitart 1 tab Q4HP PRN PO 10/20/25 20:30 10/24/25 13:09 1 TAB Ondansetron HCl 4 mg Q4HP PRN IV 10/20/25 20:30 10/24/25 12:38 4 MG Docusate Sodium 100 mg BIDPRN PRN PO 10/20/25 20:30 Acetaminophen 650 mg Q6HP PRN PO 10/20/25 20:30 Morphine Sulfate 2 mg Q4HPRN PRN IV 10/20/25 20:30 10/24/25 08:44 2 MG Nitroglycerin 0.4 mg Q5MINP PRN SL 10/20/25 20:30 Morphine Sulfate 2 mg Q30M PRN IV 10/20/25 20:30 Hydralazine HCl 10 mg Q4HPRN PRN IV 10/20/25 21:30 10/25/25 05:49 10 MG Diagnostic Test (Pha) 1 strip Q6HR 10/22/25 06:00 10/25/25 12:00 1 STRIP Insulin Human Regular Q6HR SC 10/22/25 06:00 10/25/25 00:21 9 UNITS Dextrose 50 ml UD PRN IV 10/22/25 01:00 Sevelamer HCl 1,600 mg TIDWM PO 10/22/25 18:00 10/25/25 12:33 1,600 MG laboratory and microbiology Laboratory Tests 10/25/25 13:44 Test 10/25/25 13:44 Range/Units Serum Glucose Pending Microbiology Date/Time Source Procedure Growth Status 10/23/25 03:40 Nose MRSA Screen - Final Complete 10/20/25 23:00 Urine - [place] Urine Culture - Final Complete 10/20/25 16:03 Blood Blood Culture - Preliminary NO GROWTH AFTER 72 HOURS OF INCUBATION. Resulted Labs and/or images reviewed: Labs reviewed by me, Image(s) reviewed by me Problem List/Assessment/Plan Problem List/Assessment/Plan 60 year old [id number] presents to the ED via EMS with a chief complaint of ALOC. Per EMS, patient is from [facility], patient is altered according to staff, last seen well was this morning around 08:00. Per EMS, patient is usually alert and active, currently responds to her name but does not follow commands or answer questions. Patient receives dialysis Sunday, , Sunday, it is unknown if patient missed his dialysis on Sunday. No other symptoms or modifying factors present at this time. Metabolic & toxic encephalopathy, acute, POA uremia can be due to pain meds given at the SNF vs uremic symptoms ESRD on HD anemia of CKD weakness Hyperkalemia Uncontrolled diabetes mellitus PT/OT to evaluate pt Plan discussed with: Patient My Orders My Orders Orders - GAYLE MITCHELL DO Procedure Category Date Status Time Discharge DISCHARGE 10/25/25 Transmitted 14:14 * Senior Billing Consultant CONS 10/25/25 Transmitted Consult 14:16 * Senior Billing Consultant CONS 10/25/25 Transmitted Consult 14:16 GAYLE MITCHELL DO Oct 25, 2025 14:17
--- NOTE | 2025-10-25 14:17 | DVHDS2 ---
Discharge Summary Date of Admission Oct 20, 2025 at 20:24 Date of Discharge: Oct 25, 2025 Labs/Diagnostic Data: Laboratory Results Test 10/25/25 13:44 10/23/25 17:11 10/21/25 10:57 10/20/25 23:00 White Blood Count 6.0 10^3/uL (4.4-10.8) Red Blood Count 3.16 10^6/uL (4.0-5.20) Hemoglobin 9.6 g/dL (12.2-16.2) Hematocrit 28.9 % (36.0-46.0) Mean Corpuscular Volume 91.6 fL (80.0-100.0) Mean Corpuscular Hemoglobin 30.4 pg (28.0-32.0) Mean Corpuscular Hemoglobin Concent 33.2 g/dL (32.0-36.0) Red Cell Distribution Width 16.1 % (11.8-14.3) Platelet Count 240 10^3/uL (140-450) Mean Platelet Volume 7.0 fL (6.9-10.8) Neutrophils (%) (Auto) 73.5 % (37.0-80.0) Lymphocytes (%) (Auto) 16.1 % (10.0-50.0) Monocytes (%) (Auto) 7.3 % (0.0-12.0) Eosinophils (%) (Auto) 2.2 % (0.0-7.0) Basophils (%) (Auto) 0.9 % (0.0-2.0) Neutrophils # (Auto) 4.4 10 ^3/uL (1.6-8.6) Lymphocytes # (Auto) 1.0 10 ^3/uL (0.4-5.4) Monocytes # (Auto) 0.4 10 ^3/uL (0-1.3) Eosinophils # (Auto) 0.1 10 ^3/uL (0-0.8) Basophils # (Auto) 0.1 10 ^3/uL (0-0.2) Nucleated Red Blood Cells 0.0 % POC Glucose 121 mg/dl (70-106) Phosphorus Level 6.7 mg/dL (2.4-5.1) B-Type Natriuretic Peptide 455.83 pg/mL (0-100) Vitamin D 25-Hydroxy 29.8 ng/mL (30.0-100) Parathyroid Hormone (Intact) 160.4 pg/mL (18.4-80.1) Hepatitis B Surface Antigen Negative (Negative) Hepatitis C Antibody Reactive (Negative) Urine Color Colorless (Yellow) Urine Clarity Clear (Clear) Urine pH 7.5 (5.0-9.0) Urine Specific [place] 1.010 (1.001-1.035) Urine Protein 3+ (Negative) Urine Ketones Negative (Negative) Urine Blood 1+ /uL (Negative) Urine Nitrite Negative (Negative) Urine Bilirubin Negative (Negative) Urine Urobilinogen Normal mg/dL (Negative) Urine Leukocyte Esterase Negative /uL (Negative) Urine RBC 49 /hpf (0 - 4) Urine Microscopic WBC 2 /HPF (0-5) Urine Squamous Epithelial Cells Few /hpf (<5) Urine Bacteria None seen /hpf (None Seen) Urine Glucose 3+ mg/dL (Normal) Urine Opiates Screen Neg (NEGATIVE) Urine Fentanyl Screen Neg (NEGATIVE) Urine Barbiturates Screen Neg (NEGATIVE) Urine Phencyclidine Screen Neg (NEGATIVE) Urine Amphetamines Screen Neg (NEGATIVE) Urine Benzodiazepines Screen Neg (NEGATIVE) Urine Cocaine Screen Neg (NEGATIVE) Urine Cannabinoids Screen Neg (NEGATIVE) Test 10/20/25 15:40 Lactic Acid Level 0.5 mmol/L (0.4-2.0) Plasma/Serum Blood Alcohol < 3.0 mg/dL (<10) Other Laboratory Tests 10/25/25 13:44 Discharge Disposition: Home Discharge Instruct/Medications Diet: Cardiac 2g Na,low cholest Activity: No Restrictions, As Tolerated Scheduled Aspirin (Aspir-Low), 81 MG PO DAILY, (Reported) Atorvastatin Calcium (Atorvastatin Calcium), 1 TAB PO DAILY, (Reported) Ferrous Sulfate (Ferosul), 325 MG PO DAILY, (Reported) Furosemide (Furosemide), 40 MG PO DAILY, (Reported) Insulin Glargine (Lantus Solostar), 25 UNIT SC HS, (Reported) Insulin Lispro (Human) (Humalog), 10 UNIT SC TID, (Reported) Metoprolol Tartrate (Metoprolol Tartrate), 50 MG PO BID, (Reported) Nifedipine (Nifedipine Er), 1 TAB PO DAILY, (Reported) Scheduled PRN Clonidine Hydrochloride (Clonidine Hcl), 0.1 MG PO BID PRN for SBP>170or DBP>90, (Reported) Discharge Statement: "Patient was advised to return to the ER or call 911 if any headaches, dizziness, shortness of breath, chest pain, abdominal pain, bleeding, fevers, or worsening of medical condition. Patient was counseled about treatment plan, medications, possible side effects, patientverbalized understanding. All questions were answered to the best of my ability. This discharge took greater then 30 minutes in planning, reviewing documentation, counseling the patient, and discussing with other team members." ASSESSMENT ASSESSMENT Assessment Date of Service: Oct 25, 2025 Billing Provider: GAYLE MITCHELL DO Common Visit Codes: 06463-CPE/OBS DISCH DAY >30min GAYLE MITCHELL DO Oct 25, 2025 14:17
--- NOTE | 2025-10-25 14:18 | DVHDS2 ---
Discharge Summary Date of Admission Oct 20, 2025 at 20:24 Date of Discharge: Oct 25, 2025 Labs/Diagnostic Data: Laboratory Results Test 10/25/25 13:44 10/23/25 17:11 10/21/25 10:57 10/20/25 23:00 White Blood Count 6.0 10^3/uL (4.4-10.8) Red Blood Count 3.16 10^6/uL (4.0-5.20) Hemoglobin 9.6 g/dL (12.2-16.2) Hematocrit 28.9 % (36.0-46.0) Mean Corpuscular Volume 91.6 fL (80.0-100.0) Mean Corpuscular Hemoglobin 30.4 pg (28.0-32.0) Mean Corpuscular Hemoglobin Concent 33.2 g/dL (32.0-36.0) Red Cell Distribution Width 16.1 % (11.8-14.3) Platelet Count 240 10^3/uL (140-450) Mean Platelet Volume 7.0 fL (6.9-10.8) Neutrophils (%) (Auto) 73.5 % (37.0-80.0) Lymphocytes (%) (Auto) 16.1 % (10.0-50.0) Monocytes (%) (Auto) 7.3 % (0.0-12.0) Eosinophils (%) (Auto) 2.2 % (0.0-7.0) Basophils (%) (Auto) 0.9 % (0.0-2.0) Neutrophils # (Auto) 4.4 10 ^3/uL (1.6-8.6) Lymphocytes # (Auto) 1.0 10 ^3/uL (0.4-5.4) Monocytes # (Auto) 0.4 10 ^3/uL (0-1.3) Eosinophils # (Auto) 0.1 10 ^3/uL (0-0.8) Basophils # (Auto) 0.1 10 ^3/uL (0-0.2) Nucleated Red Blood Cells 0.0 % POC Glucose 121 mg/dl (70-106) Phosphorus Level 6.7 mg/dL (2.4-5.1) B-Type Natriuretic Peptide 455.83 pg/mL (0-100) Vitamin D 25-Hydroxy 29.8 ng/mL (30.0-100) Parathyroid Hormone (Intact) 160.4 pg/mL (18.4-80.1) Hepatitis B Surface Antigen Negative (Negative) Hepatitis C Antibody Reactive (Negative) Urine Color Colorless (Yellow) Urine Clarity Clear (Clear) Urine pH 7.5 (5.0-9.0) Urine Specific [place] 1.010 (1.001-1.035) Urine Protein 3+ (Negative) Urine Ketones Negative (Negative) Urine Blood 1+ /uL (Negative) Urine Nitrite Negative (Negative) Urine Bilirubin Negative (Negative) Urine Urobilinogen Normal mg/dL (Negative) Urine Leukocyte Esterase Negative /uL (Negative) Urine RBC 49 /hpf (0 - 4) Urine Microscopic WBC 2 /HPF (0-5) Urine Squamous Epithelial Cells Few /hpf (<5) Urine Bacteria None seen /hpf (None Seen) Urine Glucose 3+ mg/dL (Normal) Urine Opiates Screen Neg (NEGATIVE) Urine Fentanyl Screen Neg (NEGATIVE) Urine Barbiturates Screen Neg (NEGATIVE) Urine Phencyclidine Screen Neg (NEGATIVE) Urine Amphetamines Screen Neg (NEGATIVE) Urine Benzodiazepines Screen Neg (NEGATIVE) Urine Cocaine Screen Neg (NEGATIVE) Urine Cannabinoids Screen Neg (NEGATIVE) Test 10/20/25 15:40 Lactic Acid Level 0.5 mmol/L (0.4-2.0) Plasma/Serum Blood Alcohol < 3.0 mg/dL (<10) Other Laboratory Tests 10/25/25 13:44 Brief Hx & Hospital Course: 60 year old [id number] presents to the ED via EMS with a chief complaint of ALOC. Per EMS, patient is from [facility], patient is altered according to staff, last seen well was this morning around 08:00. Per EMS, patient is usually alert and active, currently responds to her name but does not follow commands or answer questions. Patient receives dialysis Sunday, , Sunday, it is unknown if patient missed his dialysis on Sunday. No other symptoms or modifying factors present at this time. Metabolic & toxic encephalopathy, acute, POA uremia can be due to pain meds given at the SNF vs uremic symptoms ESRD on HD anemia of CKD weakness Hyperkalemia Uncontrolled diabetes mellitus discharged back to SNF however, pt family declined and want pt to be discharged to home Condition at Discharge: Fair Final Diagnosis/Problems List see above Discharge Disposition: Home with Health Services Discharge Instruct/Medications Diet: Cardiac 2g Na,low cholest Activity: No Restrictions, As Tolerated Scheduled Aspirin (Aspir-Low), 81 MG PO DAILY, (Reported) Atorvastatin Calcium (Atorvastatin Calcium), 1 TAB PO DAILY, (Reported) Ferrous Sulfate (Ferosul), 325 MG PO DAILY, (Reported) Furosemide (Furosemide), 40 MG PO DAILY, (Reported) Insulin Glargine (Lantus Solostar), 25 UNIT SC HS, (Reported) Insulin Lispro (Human) (Humalog), 10 UNIT SC TID, (Reported) Metoprolol Tartrate (Metoprolol Tartrate), 50 MG PO BID, (Reported) Metoprolol Tartrate (Metoprolol Tartrate), 2 TAB PO BID Nifedipine (Nifedipine Er), 1 TAB PO DAILY, (Reported) Nifedipine (Nifedipine ER), 30 MG PO DAILY Scheduled PRN Clonidine Hydrochloride (Clonidine Hcl), 0.1 MG PO BID PRN for SBP>170or DBP>90, (Reported) Discharge Statement: "Patient was advised to return to the ER or call 911 if any headaches, dizziness, shortness of breath, chest pain, abdominal pain, bleeding, fevers, or worsening of medical condition. Patient was counseled about treatment plan, medications, possible side effects, patientverbalized understanding. All questions were answered to the best of my ability. This discharge took greater then 30 minutes in planning, reviewing documentation, counseling the patient, and discussing with other team members." ASSESSMENT ASSESSMENT Assessment GAYLE MITCHELL DO Oct 25, 2025 14:18
[2025-10-25 14:21] LABS: Alanine Aminotransferase 12 U/L (7-40); Alkaline Phosphatase 66 U/L (46-116); Anion Gap 13 (5-15); BUN/Creatinine Ratio 8.0 (10.0-20.0); Calcium 8.7 mg/dL (8.7-10.4); Carbon Dioxide 27 mmol/L (20-31); Total Protein 6.4 g/dL (5.7-8.2)
[2025-10-25 14:22] LABS: Albumin 3.8 g/dL (3.2-4.8)
[2025-10-25 14:25] LABS: Bilirubin, Total 0.2 mg/dL (0.2-1.0); Blood Urea Nitrogen 61 mg/dL (9-23); Chloride 89 mmol/L (98-107); Glucose 352 mg/dL (74-106); Sodium 129 mmol/L (136-145)
[2025-10-25 14:28] LABS: Potassium 6.4 mmol/L (3.5-5.1)
--- NOTE | 2025-10-25 14:53 | DVH ---
EXAM: MRI BRAIN HEAD WO CONTRAST INDICATION: confusion TECHNIQUE: Multiplanar, multisequence imaging of the brain without contrast. COMPARISON: CT HEAD WITHOUT CONTRAST on DOS: 10/20/25 FINDINGS: [PARENCHYMA]: Small area of oval-shaped T2 hyperintensity in the right coronal radiata measuring 5 mm without low ADC likely compatible with T2 shine through additional focus of small possible punctate diffusion restriction in the left parietal aguero matter (series 6, image 61). No mass effect or herniation. No abnormal susceptibility weighted artifact. There are at least moderate to severe periventricular and centrum semiovale T2/FLAIR hyperintensities, which are nonspecific but most likely represent chronic microvascular ischemic change. [VENTRICLES]: No hydrocephalus. [EXTRA-AXIAL SPACES]: No extra-axial fluid collections. [FLOW VOIDS]: The flow voids are intact. [EXTRA-CRANIAL STRUCTURES]: The bony structures are intact. Visualized portions of the paranasal sinuses and mastoid air cells are essentially clear. IMPRESSION: 1. Questionable punctate focus of diffusion restriction in the left parietal aguero matter. 2. Small area of T2 shine through in the right macias radiata. 3. Moderate to severe chronic microvascular ischemic change.
[2025-10-25] MEDS: SODIUM ZIRCONIUM CYCL 10 GM PAK PO ONE ×2 (16:18→23:28)
[2025-10-25 18:36] LABS: Anion Gap 12 (5-15); Carbon Dioxide 28 mmol/L (20-31)
[2025-10-25 18:41] LABS: BUN/Creatinine Ratio 9.8 (10.0-20.0)
[2025-10-25 18:47] LABS: Blood Urea Nitrogen 73 mg/dL (9-23); Calcium 8.5 mg/dL (8.7-10.4); Chloride 91 mmol/L (98-107); Glucose 300 mg/dL (74-106); Sodium 131 mmol/L (136-145)
[2025-10-25 18:59] LABS: Potassium 6.5 mmol/L (3.5-5.1)
[2025-10-25] MEDS: DEXTROSE (50%) 50ML SYRG IV ONE (23:30)
[2025-10-25] MEDS: InsuLIN REG 1unit/0.01ml Soln (100units/ml) IV ONE (23:50)
[2025-10-26] VITALS (8 sets, daily range): BP systolic 94–187; BP diastolic 64–93; PULSE 67–97; RESP 17–19; TEMP 97.6–98.6; O2SAT 93–95
[2025-10-26] MEDS: SODIUM CHL 0.9% 1000 ML BAG XX ONE (07:00)
[2025-10-26] MEDS: EPOETIN ALFA-EPBX 10,000 UNIT/1ML VIAL SC ONE (20:34)
[2025-10-27 01:00] VITALS: BP 178/90; PULSE 90; RESP 18; TEMP 98.1; O2SAT 96
[2025-10-27 05:00] VITALS: BP 172/84; PULSE 91; RESP 16; TEMP 98.2; O2SAT 95
[2025-10-27 07:45] VITALS: PULSE 89
[2025-10-27 08:19] VITALS: BP 147/62; PULSE 96; RESP 17; TEMP 97.9; O2SAT 93
[2025-10-27 13:00] VITALS: BP 146/64; PULSE 96; RESP 17; TEMP 97.8; O2SAT 94
--- NOTE | 2025-10-27 13:10 | DVHPN2 ---
Progress Note - Dictate Date Seen: Oct 27, 2025 Medical Necessity Reason Pt with a Central, PICC or Fol: No Subjective Resting comfortably, seen earlier this morning. vital signs Vital Sign Date Time Temp Pulse Resp B/P (MAP) Pulse Ox O2 Delivery O2 Flow Rate FiO2 10/27/25 08:19 97.9 96 17 147/62 (90) 93 97.9 10/27/25 08:15 Room Air* 0 21 Total Intake and Output 10/26/25 10/26/25 10/27/25 15:00 23:00 07:00 Intake Total 1290 ml 420 ml Output Total 300 ml 200 ml Balance 990 ml 220 ml medications Current Medications Medications Dose Ordered Sig/Laly Route Start Time Stop Time Status Last Admin Dose Admin Acetaminophen/ Hydrocodone Bitart 1 tab Q4HP PRN PO 10/20/25 20:30 10/27/25 09:38 1 TAB Ondansetron HCl 4 mg Q4HP PRN IV 10/20/25 20:30 10/27/25 04:31 4 MG Docusate Sodium 100 mg BIDPRN PRN PO 10/20/25 20:30 Acetaminophen 650 mg Q6HP PRN PO 10/20/25 20:30 Morphine Sulfate 2 mg Q4HPRN PRN IV 10/20/25 20:30 10/26/25 17:37 2 MG Nitroglycerin 0.4 mg Q5MINP PRN SL 10/20/25 20:30 Morphine Sulfate 2 mg Q30M PRN IV 10/20/25 20:30 Hydralazine HCl 10 mg Q4HPRN PRN IV 10/20/25 21:30 10/27/25 01:08 10 MG Diagnostic Test (Pha) 1 strip Q6HR 10/22/25 06:00 10/27/25 12:05 1 STRIP Insulin Human Regular Q6HR SC 10/22/25 06:00 10/27/25 12:06 9 UNITS Dextrose 50 ml UD PRN IV 10/22/25 01:00 Sevelamer HCl 1,600 mg TIDWM PO 10/22/25 18:00 10/27/25 12:05 1,600 MG objective Gen: nad heent: nc/at, mmm lungs: cta anteriorly cvs: no rub abd: soft, bowel sounds audible ext: Trace edema laboratory and microbiology Laboratory Tests 10/25/25 18:03 10/25/25 13:44 Test 10/25/25 18:03 Range/Units Serum Glucose 300 H 74-106 mg/dL Assessment/Plan Problem List/Assessment/Plan End-stage renal disease on hemodialysis Encephalopathy Hyperkalemia, resolved Diabetes mellitus type 2, uncontrolled Hyperglycemia Hypertension Hyperphosphatemia Anemia of chronic kidney disease Recommendations Repeat basic chemistry panel today Remains hypertensive, we will start bb/ ccb Tentatively for dialysis October 28. Dietary Evaluation Review Comments: Nutrition Recommendation: 1) CCHO 60gm + renal standard puree diet 2) Nephro-eliseo 1 tab daily 3) Monitor PO intake, lab values, weight trend, and I/O Expected Outcomes/Goals: Intake to meet >75% estimated needs Lab values to improve FU 3-5 days Plan discussed with: Other ERNA MENDOZA MD Oct 27, 2025 13:09
[2025-10-27 14:15] LABS: Carbon Dioxide 31 mmol/L (20-31)
[2025-10-27 14:16] LABS: Calcium 8.8 mg/dL (8.7-10.4)
[2025-10-27 14:21] LABS: Anion Gap 10 (5-15); BUN/Creatinine Ratio 7.7 (10.0-20.0)
[2025-10-27 14:22] LABS: Blood Urea Nitrogen 49 mg/dL (9-23); Chloride 92 mmol/L (98-107); Glucose 256 mg/dL (74-106); Sodium 133 mmol/L (136-145)
[2025-10-27 14:23] LABS: Potassium 5.6 mmol/L (3.5-5.1)
[2025-10-27] MEDS: SODIUM ZIRCONIUM CYCL 10 GM PAK PO ONE (14:45)
--- NOTE | 2025-10-27 15:02 | DVHPN2 ---
Progress Note Date Seen: Oct 27, 2025 Medical Necessity Reason Pt with a Central, PICC or Fol: No Subjective Review of Systems: HEENT:Normal, CVS:Normal, RESPIRATORY:Normal, GI:Normal, :Normal Objective vital signs Vital Sign Date Time Temp Pulse Resp B/P (MAP) Pulse Ox O2 Delivery O2 Flow Rate FiO2 10/27/25 08:19 97.9 96 17 147/62 (90) 93 97.9 10/27/25 08:15 Room Air* 0 21 Total Intake and Output 10/26/25 10/26/25 10/27/25 15:00 23:00 07:00 Intake Total 1290 ml 420 ml Output Total 300 ml 200 ml Balance 990 ml 220 ml medications Current Medications Medications Dose Ordered Sig/Laly Route Start Time Stop Time Status Last Admin Dose Admin Acetaminophen/ Hydrocodone Bitart 1 tab Q4HP PRN PO 10/20/25 20:30 10/27/25 09:38 1 TAB Ondansetron HCl 4 mg Q4HP PRN IV 10/20/25 20:30 10/27/25 04:31 4 MG Docusate Sodium 100 mg BIDPRN PRN PO 10/20/25 20:30 Acetaminophen 650 mg Q6HP PRN PO 10/20/25 20:30 Morphine Sulfate 2 mg Q4HPRN PRN IV 10/20/25 20:30 10/26/25 17:37 2 MG Nitroglycerin 0.4 mg Q5MINP PRN SL 10/20/25 20:30 Morphine Sulfate 2 mg Q30M PRN IV 10/20/25 20:30 Hydralazine HCl 10 mg Q4HPRN PRN IV 10/20/25 21:30 10/27/25 01:08 10 MG Diagnostic Test (Pha) 1 strip Q6HR 10/22/25 06:00 10/27/25 12:05 1 STRIP Insulin Human Regular Q6HR SC 10/22/25 06:00 10/27/25 12:06 9 UNITS Dextrose 50 ml UD PRN IV 10/22/25 01:00 Sevelamer HCl 1,600 mg TIDWM PO 10/22/25 18:00 10/27/25 12:05 1,600 MG laboratory and microbiology Laboratory Tests 10/27/25 13:15 10/25/25 13:44 Test 10/27/25 13:15 Range/Units Serum Glucose 256 H 74-106 mg/dL Microbiology Date/Time Source Procedure Growth Status 10/23/25 03:40 Nose MRSA Screen - Final Complete 10/20/25 23:00 Urine - [place] Urine Culture - Final Complete 10/20/25 16:03 Blood Blood Culture - Final NO GROWTH AFTER 5 DAYS OF INCUBATION. Complete Labs and/or images reviewed: Labs reviewed by me, Image(s) reviewed by me Problem List/Assessment/Plan Problem List/Assessment/Plan 60 year old [place] presents to the ED via EMS with a chief complaint of ALOC. Per EMS, patient is from [facility], patient is altered according to staff, last seen well was this morning around 08:00. Per EMS, patient is usually alert and active, currently responds to her name but does not follow commands or answer questions. Patient receives dialysis Sunday, , Sunday, it is unknown if patient missed his dialysis on Sunday. No other symptoms or modifying factors present at this time. Metabolic & toxic encephalopathy, acute, POA uremia can be due to pain meds given at the SNF vs uremic symptoms ESRD on HD anemia of CKD weakness Hyperkalemia Uncontrolled diabetes mellitus Plan discussed with: Daughter My Orders My Orders Orders - GAYLE MITCHELL DO Procedure Category Date Status Time Dme:Wheelchair (Cg DME 10/26/25 Transmitted Will Move) 15:31 * Metal Container Maker CONS 10/26/25 Transmitted Consult Discharge DISCHARGE 10/26/25 Transmitted 17:20 Dietary Evaluation Review Comments: Nutrition Recommendation: 1) CCHO 60gm + renal standard puree diet 2) Nephro-eliseo 1 tab daily 3) Monitor PO intake, lab values, weight trend, and I/O Expected Outcomes/Goals: Intake to meet >75% estimated needs Lab values to improve FU 3-5 days GAYLE MITCHELL DO Oct 27, 2025 15:02
[2025-10-27] MEDS: cloNIDine 0.1 mg/24hr 7 DAY PATCH TD ONE (15:17)
[2025-10-27] MEDS ORDERED: NIFE1TAB36 PO (15:25)
[2025-10-27] MEDS ORDERED: METO25TA5 PO (15:26)
--- NOTE | 2025-10-29 19:12 | DVHPN2 ---
Progress Note Date Seen: Oct 26, 2025 Medical Necessity Reason Pt with a Central, PICC or Fol: No Objective vital signs Vital Sign Date Time Temp Pulse Resp B/P (MAP) Pulse Ox O2 Delivery O2 Flow Rate FiO2 10/27/25 15:17 149/74 10/27/25 13:00 97.8 96 17 94 97.8 10/27/25 08:15 Room Air* 0 21 laboratory and microbiology Laboratory Tests 10/27/25 13:15 10/25/25 13:44 Test 10/27/25 13:15 Range/Units Serum Glucose 256 H 74-106 mg/dL Microbiology Date/Time Source Procedure Growth Status 10/23/25 03:40 Nose MRSA Screen - Final Complete 10/20/25 23:00 Urine - [place] Urine Culture - Final Complete 10/20/25 16:03 Blood Blood Culture - Final NO GROWTH AFTER 5 DAYS OF INCUBATION. Complete Labs and/or images reviewed: Labs reviewed by me, Image(s) reviewed by me Problem List/Assessment/Plan Problem List/Assessment/Plan 60 year old [id number] presents to the ED via EMS with a chief complaint of ALOC. Per EMS, patient is from [facility], patient is altered according to staff, last seen well was this morning around 08:00. Per EMS, patient is usually alert and active, currently responds to her name but does not follow commands or answer questions. Patient receives dialysis Sunday, , Sunday, it is unknown if patient missed his dialysis on Sunday. No other symptoms or modifying factors present at this time. Metabolic & toxic encephalopathy, acute, POA uremia can be due to pain meds given at the SNF vs uremic symptoms ESRD on HD anemia of CKD weakness Hyperkalemia Uncontrolled diabetes mellitus Plan discussed with: Patient Dietary Evaluation Review Comments: Nutrition Recommendation: 1) CCHO 60gm + renal standard puree diet 2) Nephro-eliseo 1 tab daily 3) Monitor PO intake, lab values, weight trend, and I/O Expected Outcomes/Goals: Intake to meet >75% estimated needs Lab values to improve FU 3-5 days GAYLE MITCHELL DO Oct 29, 2025 19:12
--- NOTE | 2025-10-29 19:13 | DVHPN2 ---
Progress Note Date Seen: Oct 23, 2025 Medical Necessity Reason Pt with a Central, PICC or Fol: No Objective vital signs Vital Sign Date Time Temp Pulse Resp B/P (MAP) Pulse Ox O2 Delivery O2 Flow Rate FiO2 10/27/25 15:17 149/74 10/27/25 13:00 97.8 96 17 94 97.8 10/27/25 08:15 Room Air* 0 21 laboratory and microbiology Laboratory Tests 10/27/25 13:15 10/25/25 13:44 Test 10/27/25 13:15 Range/Units Serum Glucose 256 H 74-106 mg/dL Microbiology Date/Time Source Procedure Growth Status 10/23/25 03:40 Nose MRSA Screen - Final Complete 10/20/25 23:00 Urine - [place] Urine Culture - Final Complete 10/20/25 16:03 Blood Blood Culture - Final NO GROWTH AFTER 5 DAYS OF INCUBATION. Complete Labs and/or images reviewed: Labs reviewed by me, Image(s) reviewed by me Problem List/Assessment/Plan Problem List/Assessment/Plan 60 year old [id number] presents to the ED via EMS with a chief complaint of ALOC. Per EMS, patient is from [facility], patient is altered according to staff, last seen well was this morning around 08:00. Per EMS, patient is usually alert and active, currently responds to her name but does not follow commands or answer questions. Patient receives dialysis Sunday, , Sunday, it is unknown if patient missed his dialysis on Sunday. No other symptoms or modifying factors present at this time. Metabolic & toxic encephalopathy, acute, POA uremia can be due to pain meds given at the SNF vs uremic symptoms ESRD on HD anemia of CKD weakness Hyperkalemia Uncontrolled diabetes mellitus Plan discussed with: Patient Dietary Evaluation Review Comments: Nutrition Recommendation: 1) CCHO 60gm + renal standard puree diet 2) Nephro-eliseo 1 tab daily 3) Monitor PO intake, lab values, weight trend, and I/O Expected Outcomes/Goals: Intake to meet >75% estimated needs Lab values to improve FU 3-5 days GAYLE MITCHELL DO Oct 29, 2025 19:13
== END 2025-10-27 15:45 | disposition home health service (06) | DRG 70 ==
LOC: ER 14:40 → EDBD 14:40 → OVERFLOW 20:24 → EDUNIT# 20:24 → TELE-WESTW 10-21 13:06
PROVIDERS: ADMIT Internal Medicine; ATTEND Internal Medicine
PROC: 02H633Z Insertion of Infusion Device into Right Atrium, Percutaneous Approach (ICD-10-PCS; principal; 2025-10-20)
PROC: B548ZZA Ultrasonography of Superior Vena Cava, Guidance (ICD-10-PCS; 2025-10-20)
PROC: 5A1D70Z Performance of Urinary Filtration, Intermittent, Less than 6 Hours Per Day (ICD-10-PCS; 2025-10-21)
PROC: 5A1D70Z Performance of Urinary Filtration, Intermittent, Less than 6 Hours Per Day (ICD-10-PCS; 2025-10-23)
PROC: 5A1D70Z Performance of Urinary Filtration, Intermittent, Less than 6 Hours Per Day (ICD-10-PCS; 2025-10-26)
DX: G93.41 Metabolic encephalopathy (principal); N18.6 End stage renal disease; I12.0 Hypertensive chronic kidney disease with stage 5 chronic kidney disease or end stage renal disease; D63.1 Anemia in chronic kidney disease; E83.39 Other disorders of phosphorus metabolism; Z99.2 Dependence on renal dialysis; E11.22 Type 2 diabetes mellitus with diabetic chronic kidney disease; E87.5 Hyperkalemia; Z88.1 Allergy status to other antibiotic agents; E11.65 Type 2 diabetes mellitus with hyperglycemia; Z79.899 Other long term (current) drug therapy
CPT/HCPCS: 36415; 70450; 70551; 71045; 71250; 73030; 74176; 80048; 80053; 80307; 80320; 81001; 82306; 82962; 83605; 83880; 83970; 84100; 84132; 85025; 86803; 87040; 87081; 87086; 87340; 90935; 94640; 96365; 96375; 97110; 97163; 97530; 99291; 99292; G0378; J1642; J1815; J2405; P9047